=== PATIENT | male | born 1965 | race African-American/Black ===

== ENCOUNTER 2017-07-21 06:09 | Inpatient (IN) | payer SELFPAY ==
[2017-07-21] VITALS (10 sets, daily range): BP systolic 158–167; BP diastolic 78–92; PULSE 94–123; RESP 16–34; TEMP 97.6–98.8; O2SAT 93–96
[~2017-07-21] VITALS: Ht 185.4 cm; Wt 135.1 kg
[~2017-07-21 06:09] MED LIST: ALBU6.7H INH; AMLO5TAB22 PO; DOXY100T PO; OSEL75 PO
[2017-07-21] MEDS ORDERED: SODIUM CHLORIDE 0.9% FLUSH 10 ML FLUSH IVF PRN (06:15)
[2017-07-21] MEDS ORDERED: AMLO5CAP PO (06:18)
[2017-07-21] MEDS ORDERED: QUET1TAB10 PO (06:19)
[2017-07-21] MEDS ORDERED: SERT25TA83 PO (06:19)
[2017-07-21] MEDS ORDERED: ALBU6.7H INH (06:20)
[2017-07-21] MEDS: RESP: ALBUTEROL 2.5 MG/IPRATROPIUM 0.5 MG NEB (SCH) INH ×5 (06:25→19:48)
--- NOTE | 2017-07-21 06:30 | PD ---
HPI Chief Complaint: Respiratory Symptoms Time Seen by Provider: 06:15 Travel History International Travel<30 days: No Contact w/Intl Traveler<30days: No Traveled to known affect area: No History of Present Illness HPI 51-year-old male came to the emergency room with history of progressive shortness of breath since yesterday. Patient was brought in by EMS. He has history of asthma and patient received an albuterol nebulizer as well as IV Solu -Medrol en route. On asking patient said he did have some chest pain mostly on the left side of the chest without any radiation. He was also complaining of some headache. Patient seems to be in significant distress. Oxygen saturation was in low 90s. Patient denies any oxygen requirement at home. He does not have his asthma medications and did not take any inhalers. Patient has history of diabetes and his blood sugar was 145 on route. Patient was slightly tachycardic with heart rate in 1 teens upon arrival while on the albuterol nebulizer. Patient denies any hospitalization or ER visit due to asthma. He is a smoker. Denies any coronary artery disease history. Upon asking patient said the last time he used cocaine was one month ago. He was in [facility] for 2 weeks for cocaine rehabilitation and was discharged from there 2 days ago. [facility] Past Medical History Narrative Medical List of his past medical, surgical, social and family history is reviewed from the nursing note. Arthritis: Yes (RA) Asthma: No Anxiety: Yes Depression: Yes Heart Rhythm Problems: No Cancer: No Cardiovascular Problems: Yes High Cholesterol: Yes Chemotherapy: No Chest Pain: Yes Congestive Heart Failure: No COPD: No Cerebrovascular Accident: No Diminished Hearing: Yes (LT. EAR) Endocrine: Yes Gastrointestinal Disorders: No GERD: Yes Genitourinary: No Headaches: Yes Hiatal Hernia: No Hypertension: Yes Immune Disorder: No Implanted Vascular Access Dvce: No Kidney Stones: No Musculoskeletal: Yes Neurologic: Yes Psychiatric: Yes Reproductive: No Respiratory: Yes (asthma) Immunizations Current: Yes Migraines: No Radiation Therapy: No Renal Failure: No Schizophrenia: Yes Seizures: Yes (X 1 COCAINE INDUSED) Sickle Cell Disease: No Sleep Apnea: Yes (CPAP AT HOME) Thyroid Disease: No Triglycerides - High: Yes Ulcer: No Influenza Vaccination: No Past Surgical History Abdominal Surgery: No AICD: No Arteriovenous Shunt: No Body Medical Devices: STATES SOMETHING IN MY EAR Cardiac Surgery: No Ear Surgery: No Endocrine Surgery: No Eye Surgery: No Genitourinary Surgery: No Gynecologic Surgery: No Insulin Pump: No Joint Replacement: No Neurologic Surgery: No Oral Surgery: No Pacemaker: No Thoracic Surgery: No Other Surgery: Yes (TENDON REPAIR BILATERAL THUMBS) Social History Alcohol Use: Yes (occasional ) Tobacco Use: Yes (cocaine 2 days ago) Substance Use: Yes (CRACK, COCAINE, MARIJUANA. states 4 wks ago stopped using) Allergies-Medications (Allergen,Severity, Reaction): Coded Allergies: milk (Unverified Allergy, Severe, Respiratory Failure, 07/21/17) PT. STATED NECK CLOSES OFF AND CANT BREATH lisinopril (Unverified Adverse Reaction, Mild, Cough, 07/21/17) Uncoded Allergies: WOOL (Allergy, Severe, RASH, 10/03/14) Comments List of his allergies reviewed from the nursing note. Reported Meds & Prescriptions Reported Meds & Active Scripts Active Reported Proventil Hfa 6.7 GM Inh (Albuterol Sulfate) 90 Mcg/Act Aer 1 Puff INH Q4H PRN Quetiapine (Quetiapine Fumarate) 300 Mg Tab 300 Mg PO HS Sertraline (Sertraline HCl) 25 Mg Tab 15 Mg PO DAILY Amlodipine-Benazepril 5-10 Mg Cap 1 Cap PO DAILY Narrative Medication List of his home medications reviewed from the nursing note. Review of Systems Except as stated in HPI: all other systems reviewed are Neg Physical Exam Narrative GENERAL: Awake, alert, obese, significant distress SKIN: Focused skin assessment warm/dry. HEAD: Atraumatic. Normocephalic. EYES: Pupils equal and round. No scleral icterus. No injection or drainage. ENT: No nasal bleeding or discharge. Mucous membranes pink and moist. NECK: Trachea midline. No JVD. CARDIOVASCULAR: Regular rate and rhythm. No murmur appreciated. RESPIRATORY: 630 entry bilaterally with end expiratory wheeze. Significant coughing the entire time during auscultation. GASTROINTESTINAL: Abdomen soft, non-tender, nondistended. Hepatic and splenic margins not palpable. MUSCULOSKELETAL: No obvious deformities. No clubbing. No cyanosis. No edema. Bilateral gynecomastia NEUROLOGICAL: Awake and alert. No obvious cranial nerve deficits. Motor grossly within normal limits. Normal speech. PSYCHIATRIC: Appropriate mood and affect; insight and judgment normal. Data Data Last Documented VS Orders Orders Complete Blood Count With Diff (07/21/17 06:15) Basic Metabolic Panel (Bmp) (07/21/17 06:15) B-Type Natriuretic Peptide (07/21/17 06:15) Magnesium (Mg) (07/21/17 06:15) Troponin I (07/21/17 06:15) Iv Access Insert/Monitor (07/21/17 06:15) Electrocardiogram (07/21/17 06:15) Ecg Monitoring (07/21/17 06:15) Oximetry (07/21/17 06:15) Oxygen Administration (07/21/17 06:15) Chest, Single Ap (07/21/17 06:15) Sodium Chloride 0.9% Flush (Ns Flush) (07/21/17 06:15) Albuterol-Ipratropium Neb (Duoneb Neb) (07/21/17 06:15) Drug Screen, Random Urine (07/21/17 06:23) Aspirin Chew (Aspirin Chew) (07/21/17 08:15) Enoxaparin Inj (Lovenox Inj) (07/21/17 08:45) Admit Order (Ed Use Only) (07/21/17 ) Labs Laboratory Tests Test 07/21/17 06:25 07/21/17 06:28 White Blood Count 8.9 TH/MM3 Red Blood Count 4.74 MIL/MM3 Hemoglobin 13.2 GM/DL Hematocrit 40.2 % Mean Corpuscular Volume 85.0 FL Mean Corpuscular Hemoglobin 27.9 PG Mean Corpuscular Hemoglobin Concent 32.8 % Red Cell Distribution Width 15.1 % Platelet Count 193 TH/MM3 Mean Platelet Volume 7.9 FL Neutrophils (%) (Auto) 69.8 % Lymphocytes (%) (Auto) 21.1 % Monocytes (%) (Auto) 7.2 % Eosinophils (%) (Auto) 1.5 % Basophils (%) (Auto) 0.4 % Neutrophils # (Auto) 6.2 TH/MM3 Lymphocytes # (Auto) 1.9 TH/MM3 Monocytes # (Auto) 0.6 TH/MM3 Eosinophils # (Auto) 0.1 TH/MM3 Basophils # (Auto) 0.0 TH/MM3 CBC Comment DIFF FINAL Differential Comment Blood Urea Nitrogen 13 MG/DL Creatinine 1.19 MG/DL Random Glucose 143 MG/DL Calcium Level 7.6 MG/DL Magnesium Level 1.6 MG/DL Sodium Level 141 MEQ/L Potassium Level 3.4 MEQ/L Chloride Level 109 MEQ/L Carbon Dioxide Level 25.3 MEQ/L Anion Gap 7 MEQ/L Estimat Glomerular Filtration Rate 79 ML/MIN Troponin I 0.25 NG/ML B-Type Natriuretic Peptide 19 PG/ML Urine Color YELLOW Urine Turbidity CLEAR Urine pH 5.5 Urine Specific [place] 1.020 Urine Protein TRACE mg/dL Urine Glucose (UA) NEG mg/dL Urine Ketones NEG mg/dL Urine Occult Blood NEG Urine Nitrite NEG Urine Bilirubin NEG Urine Urobilinogen LESS THAN 2.0 MG/DL Urine Leukocyte Esterase NEG Urine WBC 1 /hpf Urine Squamous Epithelial Cells 1 /hpf Urine Mucus FEW /lpf Microscopic Urinalysis Comment CULT NOT INDICATED Urine Opiates Screen NEG Urine Barbiturates Screen NEG Urine Amphetamines Screen NEG Urine Benzodiazepines Screen NEG Urine Cocaine Screen NEG Urine Cannabinoids Screen NEG MDM Medical Decision Making Medical Screen Exam Complete: Yes Emergency Medical Condition: Yes Medical Record Reviewed: Yes Interpretation(s) Twelve-lead EKG was reviewed by me. Normal sinus rhythm, normal axis, tachycardia, lateral and inferior T-wave inversions. These are unchanged from 2015. Heart rate of 116 bpm. Differential Diagnosis Acute asthma exacerbation, congestive heart failure, angina, ACS Narrative Course 6:48 AM patient was given 2 DuoNeb's. I reviewed his chest x-ray and appears to be grossly within normal limits. The lungs and not fully inflated. CBC is back which is within normal limits. Case will be signed over to the oncoming ER physician. Procedures EKG Prior to Arrival: Nadeen Traylor MD Jul 21, 2017 06:30
[2017-07-21 06:40] LABS: AUTOMATED NEUTROPHIL # 6.2 TH/MM3 (1.8-7.7); BASOPHIL % 0.4 % (0.0-2.0); EOSINOPHIL # 0.1 TH/MM3 (0-0.4); EOSINOPHIL % 1.5 % (0.0-4.0); HEMATOCRIT 40.2 % (39.0-51.0); HEMO FLAGS DIFF FINAL; LYMPH % 21.1 % (9.0-44.0); LYMPHOCYTE # 1.9 TH/MM3 (1.0-4.8); MEAN CORPUSCULAR HEMOGLOBIN 27.9 PG (27.0-34.0); MEAN CORPUSCULAR HGB CONC 32.8 % (32.0-36.0); MONO % 7.2 % (0.0-8.0); NEUT % 69.8 % (16.0-70.0); PLATELET COUNT 193 TH/MM3 (150-450); RED BLOOD COUNT 4.74 MIL/MM3 (4.50-5.90); RED CELL DISTRIBUTION WIDTH 15.1 % (11.6-17.2); WHITE BLOOD COUNT 8.9 TH/MM3 (4.0-11.0)
--- NOTE | 2017-07-21 06:57 | RADRPT ---
EXAM DATE/TIME: 07/21/2017 06:30 [facility] COMPARISON: CHEST PA & LAT, November 07, 2015, 17:30. CHEST SINGLE AP, April 14, 2015, 13:59. INDICATIONS : Shortness of breath with cough MEDICAL HISTORY : None. SURGICAL HISTORY : None. ENCOUNTER: Initial ACUITY: 2 days PAIN SCORE: 7/10 LOCATION: Bilateral chest FINDINGS: No infiltrate, effusion or pneumothorax demonstrated. Mild bilateral hilar fullness is similar to bef ore probably prominent pulmonary arteries. Normal, stable heart size. CONCLUSION: No evidence of acute cardiopulmonary disease. Geovani Phillips MD on July 21, 2017 at 6:54 Board Certified Radiologist. This report was verified electronically.
[2017-07-21 07:07] LABS: BICARBONATE 25.3 MEQ/L (21.0-32.0); MAGNESIUM 1.6 MG/DL (1.5-2.5); POTASSIUM 3.4 MEQ/L (3.5-5.1)
[2017-07-21] MEDS ORDERED: ASPIRIN 81 MG CHEW TAB CHEW ONE (08:15)
[2017-07-21] MEDS ORDERED: ENOXAPARIN SODIUM 120 MG/0.8 ML SYRINGE SQ ONE (08:45)
--- NOTE | 2017-07-21 09:07 | PD ---
Physical Exam Narrative signed out to me by Dr. Garrison. Please see her documentation for complete details. Briefly, patient is a 51-year-old male comes in complaining of chest pain and shortness of breath. He says the pain is on the left side and he feels like it makes it hard to breathe. He was given 3 nebulizer treatments and states breathing feels better. However , he says he still has the pain. Exam shows lungs to be clear to auscultation, heart is regular in rate and rhythm. Data Data Last Documented VS Vital Signs Date Time Temp Pulse Resp B/P (MAP) Pulse Ox O2 Delivery O2 Flow Rate FiO2 07/21/17 08:00 100 16 161/85 (110) 93 Nasal Cannula 2.00 07/21/17 06:11 98.8 Orders Orders Complete Blood Count With Diff (07/21/17 06:15) Basic Metabolic Panel (Bmp) (07/21/17 06:15) B-Type Natriuretic Peptide (07/21/17 06:15) Magnesium (Mg) (07/21/17 06:15) Troponin I (07/21/17 06:15) Iv Access Insert/Monitor (07/21/17 06:15) Electrocardiogram (07/21/17 06:15) Ecg Monitoring (07/21/17 06:15) Oximetry (07/21/17 06:15) Oxygen Administration (07/21/17 06:15) Chest, Single Ap (07/21/17 06:15) Sodium Chloride 0.9% Flush (Ns Flush) (07/21/17 06:15) Albuterol-Ipratropium Neb (Duoneb Neb) (07/21/17 06:15) Drug Screen, Random Urine (07/21/17 06:23) Aspirin Chew (Aspirin Chew) (07/21/17 08:15) Enoxaparin Inj (Lovenox Inj) (07/21/17 08:45) Admit Order (Ed Use Only) (07/21/17 ) Labs Laboratory Tests Test 07/21/17 06:25 07/21/17 06:28 White Blood Count 8.9 TH/MM3 Red Blood Count 4.74 MIL/MM3 Hemoglobin 13.2 GM/DL Hematocrit 40.2 % Mean Corpuscular Volume 85.0 FL Mean Corpuscular Hemoglobin 27.9 PG Mean Corpuscular Hemoglobin Concent 32.8 % Red Cell Distribution Width 15.1 % Platelet Count 193 TH/MM3 Mean Platelet Volume 7.9 FL Neutrophils (%) (Auto) 69.8 % Lymphocytes (%) (Auto) 21.1 % Monocytes (%) (Auto) 7.2 % Eosinophils (%) (Auto) 1.5 % Basophils (%) (Auto) 0.4 % Neutrophils # (Auto) 6.2 TH/MM3 Lymphocytes # (Auto) 1.9 TH/MM3 Monocytes # (Auto) 0.6 TH/MM3 Eosinophils # (Auto) 0.1 TH/MM3 Basophils # (Auto) 0.0 TH/MM3 CBC Comment DIFF FINAL Differential Comment Blood Urea Nitrogen 13 MG/DL Creatinine 1.19 MG/DL Random Glucose 143 MG/DL Calcium Level 7.6 MG/DL Magnesium Level 1.6 MG/DL Sodium Level 141 MEQ/L Potassium Level 3.4 MEQ/L Chloride Level 109 MEQ/L Carbon Dioxide Level 25.3 MEQ/L Anion Gap 7 MEQ/L Estimat Glomerular Filtration Rate 79 ML/MIN Troponin I 0.25 NG/ML B-Type Natriuretic Peptide 19 PG/ML Urine Color YELLOW Urine Turbidity CLEAR Urine pH 5.5 Urine Specific [place] 1.020 Urine Protein TRACE mg/dL Urine Glucose (UA) NEG mg/dL Urine Ketones NEG mg/dL Urine Occult Blood NEG Urine Nitrite NEG Urine Bilirubin NEG Urine Urobilinogen LESS THAN 2.0 MG/DL Urine Leukocyte Esterase NEG Urine WBC 1 /hpf Urine Squamous Epithelial Cells 1 /hpf Urine Mucus FEW /lpf Microscopic Urinalysis Comment CULT NOT INDICATED Urine Opiates Screen NEG Urine Barbiturates Screen NEG Urine Amphetamines Screen NEG Urine Benzodiazepines Screen NEG Urine Cocaine Screen NEG Urine Cannabinoids Screen NEG MDM Supervised Visit with CHRISTIANO: No Narrative Course Chest x-ray shows no acute abnormalities. Labs show an elevated troponin. Patient given aspirin and a dose of Lovenox. He will be admitted for further management. Diagnosis Primary Impression: Elevated troponin I level Additional Impression: Asthma Qualified Codes: J45.909 - Unspecified asthma, uncomplicated Admitting Information Admitting Physician Requests: Admit Condition: Stable Jenny Baires MD Jul 21, 2017 09:07
--- NOTE | 2017-07-21 09:26 | HHI.HP ---
HPI Service Family Medicine Primary Care Physician No Primary Care Physician Admission Diagnosis Elevated Troponin, chest Pain Diagnoses: International Travel<30 Days: No Contact w/Intl Traveler<30days: No Known Affected Area: No History of Present Illness Patient is a 51-year-old man with a history of diabetes, hypertension, polysubstance abuse, medication noncompliance, ZAKIA who presented to the Emergency Department feeling like he couldn't breathe. He first noticed this shortness of breath yesterday around 2 PM. Associated with this shortness of breath, he had some wheezing and coughing up of red-yellow sputum. He also reports feeling warm and sweaty and likely febrile yesterday. He also has had a few episodes of post-tussive emesis. He also reports some chest pain that is worse with coughing with pain radiating to a right lower molar. He also reports some cold symptoms last night. Patient last used cocaine a month ago. He states that he is now homeless. Per ED note: He was in [facility] for 2 weeks for cocaine rehabilitation and was discharged from there 2 days ago. (Raymond Reardon MD R2) Review of Systems Constitutional: COMPLAINS OF: Diaphoretic episodes, Fever, Chills Endocrine: DENIES: Polydipsia, Polyuria Eyes: DENIES: Blurred vision, Diplopia, Eye pain, Vision loss, Double Vision Ears, nose, mouth, throat: COMPLAINS OF: Throat pain, Running Nose Respiratory: COMPLAINS OF: Cough, Wheezing, Sputum production, Shortness of breath Cardiovascular: COMPLAINS OF: Chest pain, Dyspnea on Exertion, Lower Extremity Edema (ankles), Orthopnea, DENIES: Palpitations, Syncope Gastrointestinal: COMPLAINS OF: Constipation, Vomiting (post-tussive), DENIES: Abdominal pain, Black stools, Bloody stools, Diarrhea, Nausea Genitourinary: COMPLAINS OF: Dysuria (aguillon), Nocturia (2-3 q night) Musculoskeletal: DENIES: Joint pain, Muscle aches, Joint Swelling, Back pain, Neck pain Integumentary: DENIES: Pruritus, Rash Neurologic: COMPLAINS OF: Headache, Paresthesias (little right hand), DENIES: Poor Balance (Raymond Reardon MD R2) Past Family Social History Past Medical History Polysubstance abuse including cocaine Hypertension diabetes mellitus, type II Cocaine disease-induced seizures Dyslipidemia Sleep apnea GERD Rheumatoid arthritis Schizophrenia Anxiety Depression Medication noncompliance when young, had asthma Past Surgical History ORIF the right angle mandible with plates and screws Reported Medications Reported Meds & Active Scripts Active Reported Proventil Hfa 6.7 GM Inh (Albuterol Sulfate) 90 Mcg/Act Aer 1 Puff INH Q4H PRN Quetiapine (Quetiapine Fumarate) 300 Mg Tab 300 Mg PO HS Sertraline (Sertraline HCl) 25 Mg Tab 15 Mg PO DAILY Amlodipine-Benazepril 5-10 Mg Cap 1 Cap PO DAILY (Raymond Reardon MD R2) Allergies: Coded Allergies: milk (Unverified Allergy, Severe, Respiratory Failure, 07/21/17) PT. STATED NECK CLOSES OFF AND CANT BREATH lisinopril (Unverified Adverse Reaction, Mild, Cough, 07/21/17) Uncoded Allergies: WOOL (Allergy, Severe, RASH, 10/03/14) Active Ordered Medications Current Medications Medications (Trade) Dose Ordered Sig/Dimitris Route Start Time Stop Time Status Last Admin (Proair Hfa Inh) 1 puff Q4H PRN INH 07/21/17 09:45 (SEROquel) 300 mg HS PO 07/21/17 21:00 (Norvasc) 1 mg DAILY PO 07/22/17 09:00 Sodium Chloride 1,000 ml @ 75 mls/hr [id number] IV 07/21/17 10:07 07/21/17 10:44 (NS Flush) 2 ml BID IV FLUSH 07/21/17 21:00 (NS Flush) 2 ml UNSCH PRN IV FLUSH 07/21/17 10:15 (Duoneb Neb) 1 ampule Q4HR NEB INH 07/21/17 12:00 07/21/17 15:42 (Albuterol Neb) 2.5 mg Q2HR NEB PRN INH 07/21/17 10:15 (Deltasone) 40 mg DAILY PO 07/22/17 09:00 (Habitrol 21 Mg Patch.24 Hr) 1 patch DAILY TD 07/21/17 10:15 07/21/17 11:00 (Zithromax) 500 mg Q24H PO 07/21/17 12:00 07/24/17 11:59 07/21/17 12:07 (D50w (Vial) Inj) 50 ml UNSCH PRN IV 07/21/17 10:30 (Glucagon Inj) 1 mg UNSCH PRN OTHER 07/21/17 10:30 (NovoLOG SUPPLEMENTAL SCALE) 1 ACHS SLIDING SCALE SQ 07/21/17 11:00 07/21/17 15:11 (Tylenol) 650 mg Q6H PRN PO 07/21/17 11:00 (Sebec 5-325 Mg) 1 tab Q4H PRN PO 07/21/17 11:00 (Sebec 10-325 Mg) 1 tab Q4H PRN PO 07/21/17 11:00 (Morphine Inj) 4 mg Q3H PRN IV 07/21/17 11:00 (Narcan Inj) 0.4 mg UNSCH PRN IV 07/21/17 11:00 (Robitussin Ac 200-20 Mg/10 ml Liq) 10 ml Q4H PRN PO 07/21/17 11:00 07/21/17 16:44 (Zoloft) 100 mg DAILY PO 07/22/17 09:00 (Nitrostat Sl) 0.3 mg Q5M PRN SL 07/21/17 16:30 Heparin Sodium/ Dextrose 250 ml @ 16.44 mls/ hr TITRATE PRN IV 07/21/17 17:15 Future hold (Heparin Inj) 5,000 units UNSCH PRN IV 07/21/17 18:00 (Heparin Inj) 2,500 units UNSCH PRN IV 07/21/17 18:00 Family History He says that his mother and father both had MO and hypertension Social History He hasn't used cocaine in a month, he no longer drinks on a daily basis, he still smokes cigarettes daily. He has smoked about 2ppd since 15yo. He is homeless now. (Raymond Reardon MD R2) Physical Exam Vital Signs Vital Signs Date Time Temp Pulse Resp B/P (MAP) Pulse Ox O2 Delivery O2 Flow Rate FiO2 07/21/17 08:00 100 16 161/85 (110) 93 Nasal Cannula 2.00 07/21/17 06:22 123 32 162/78 (106) 93 Nasal Cannula 6.00 07/21/17 06:22 93 Nasal Cannula 6.00 07/21/17 06:22 93 Nasal Cannula 6.00 07/21/17 06:11 98.8 120 34 158/91 (742) 94 Physical Exam GENERAL: This is a well-nourished, well-developed patient, initially sleeping, but has coughing fits, which seem uncomfortable. SKIN: No rashes, ecchymoses or lesions. Cool and dry. HEAD: Atraumatic. Normocephalic. EYES: Arcus senilis present bilaterally. Pupils equal round and reactive. Extraocular motions intact. No scleral icterus. No injection or drainage. ENT: Nose without bleeding, purulent drainage or septal hematoma. Throat without erythema, tonsillar hypertrophy or exudate. Uvula midline. Airway patent. NECK: Trachea midline. No JVD or lymphadenopathy. Supple, nontender, no meningeal signs. CARDIOVASCULAR: Borderline tachycardic rate and regular rhythm without murmurs, gallops, or rubs. RESPIRATORY: Breath sounds decreased bilaterally with expiratory wheezes, but no rales or rhonchi. GASTROINTESTINAL: Abdomen soft, non-tender, nondistended. No hepato-splenomegaly , or palpable masses. No guarding. MUSCULOSKELETAL: Extremities without clubbing, cyanosis, or edema. No joint tenderness, effusion, or edema noted. No calf tenderness. There is an ecchymosis over his lower left anterior guzmán. NEUROLOGICAL: Awake and alert. Cranial nerves II through XII grossly intact. Motor and sensory grossly within normal limits. Five out of 5 muscle strength in all muscle groups. Normal speech. Laboratory Laboratory Tests Test 07/21/17 06:25 07/21/17 06:28 White Blood Count 8.9 Red Blood Count 4.74 Hemoglobin 13.2 Hematocrit 40.2 Mean Corpuscular Volume 85.0 Mean Corpuscular Hemoglobin 27.9 Mean Corpuscular Hemoglobin Concent 32.8 Red Cell Distribution Width 15.1 Platelet Count 193 Mean Platelet Volume 7.9 Neutrophils (%) (Auto) 69.8 Lymphocytes (%) (Auto) 21.1 Monocytes (%) (Auto) 7.2 Eosinophils (%) (Auto) 1.5 Basophils (%) (Auto) 0.4 Neutrophils # (Auto) 6.2 Lymphocytes # (Auto) 1.9 Monocytes # (Auto) 0.6 Eosinophils # (Auto) 0.1 Basophils # (Auto) 0.0 CBC Comment DIFF FINAL Differential Comment Blood Urea Nitrogen 13 Creatinine 1.19 Random Glucose 143 Calcium Level 7.6 Magnesium Level 1.6 Sodium Level 141 Potassium Level 3.4 Chloride Level 109 Carbon Dioxide Level 25.3 Anion Gap 7 Estimat Glomerular Filtration Rate 79 Troponin I 0.25 B-Type Natriuretic Peptide 19 Urine Opiates Screen NEG Urine Barbiturates Screen NEG Urine Amphetamines Screen NEG Urine Benzodiazepines Screen NEG Urine Cocaine Screen NEG Urine Cannabinoids Screen NEG (Raymond Reardon MD R2) Result Diagram: 07/21/1762407/21/17624 Imaging Last Impressions Chest X-Ray 07/21/17 0615 Signed Impressions: Service Date/Time: Friday, July 21, 2017 06:30 - CONCLUSION: No evidence of acute cardiopulmonary disease. Geovani Phillips MD CT Angiography 07/21/17 0000 Signed Impressions: Service Date/Time: Friday, July 21, 2017 11:02 - CONCLUSION: 1. Less than optimal opacification of the pulmonary arteries. However, no PE is identified through the lobar and some of the segmental level pulmonary artery branches. 2. Nonspecific mediastinal and right hilar lymphadenopathy. Geovani Chowdhury MD Course Patient received IV Solu-Medrol from EMS en route to emergency department. In emergency department, patient received DuoNeb, normal saline, chest x-ray, oxygen, EKG, troponin, magnesium, BNP, BMP, CBC, UDS, aspirin, therapeutic dose of Lovenox 1, admission order. (Raymond Reardon MD R2) Caprini VTE Risk Assessment Caprini VTE Risk Assessment: No/Low Risk (score <= 1) Caprini Risk Assessment Model Point Value = 1 Point Value = 2 Point Value = 3 Point Value = 5 Age 41-60 Minor surgery BMI > 25 kg/m2 Swollen legs Varicose veins or History of unexplained or recurrent spontaneous Oral contraceptives or hormone replacement Sepsis (< 1 month) Serious lung disease, including pneumonia (< 1 month) Abnormal pulmonary function Acute myocardial infarction Congestive heart failure (< 1 month) History of inflammatory bowel disease Medical patient at bed rest Age 61-74 Arthroscopic surgery Major open surgery (> 45 min) Laparoscopic surgery (> 45 min) Malignancy Confined to bed (> 72 hours) Immobilizing plaster cast Central venous access Age >= 75 History of VTE Family history of VTE Factor V Leiden Prothrombin [id number] Lupus anticoagulant Anticardiolipin antibodies Elevated serum homocysteine Heparin-induced thrombocytopenia Other congenital or acquired thrombophilia Stroke (< 1 month) Elective arthroplasty Hip, pelvis, or leg fracture Acute spinal cord injury (< 1 month) Prophylaxis Regimen Total Risk Factor Score Risk Level Prophylaxis Regimen 0-1 Low Early ambulation 2 Moderate Order ONE of the following: *Sequential Compression Device (SCD) *Heparin 5000 units SQ BID 3-4 Higher Order ONE of the following medications: *Heparin 5000 units SQ TID *Enoxaparin/Lovenox 40 mg SQ daily (WT < 150 kg, CrCl > 30 mL/min) *Enoxaparin/Lovenox 30 mg SQ daily (WT < 150 kg, CrCl > 10-29 mL/min) *Enoxaparin/Lovenox 30 mg SQ BID (WT < 150 kg, CrCl > 30 mL/min) AND/OR *Sequential Compression Device (SCD) 5 or more Highest Order ONE of the following medications: *Heparin 5000 units SQ TID (Preferred with Epidurals) *Enoxaparin/Lovenox 40 mg SQ daily (WT < 150 kg, CrCl > 30 mL/min) *Enoxaparin/Lovenox 30 mg SQ daily (WT < 150 kg, CrCl > 10-29 mL/min) *Enoxaparin/Lovenox 30 mg SQ BID (WT < 150 kg, CrCl > 30 mL/min) AND *Sequential Compression Device (SCD) (Raymond Reardon MD R2) Assessment and Plan Assessment and Plan Patient is a 51-year-old man with a history of diabetes, hypertension, polysubstance abuse, medication noncompliance, ZAKIA who presented to the Emergency Department feeling like he couldn't breathe. Patient reports persistent coughing with change in sputum production and viscosity. Smoking history and physical exam are consistent with COPD exacerbation. We'll admit for COPD exacerbation, steroids, antibiotics, ACS rule out for elevated troponin. Code Status Full code Discussed Condition With Patient seen and discussed with Dr. Hendrickson. (Raymond Reardon MD R2) Attending Attestation Patient seen and examined. Case reviewed and discussed with the resident team. Agree with plan of care as discussed with me and documented in the resident note. saw pt after CTA. He is not the clearest historian but reported to me that he had multiple sxs "half the day" prior to admission. He stated he had a "gripping " chest discomfort as well as SOB, nausea, diaphoresis, and some cough on and off until he presented to the hospital. he is a known cocaine abuser but his last use was a month ago. His troponins are elevated. He did have an NSTEMI in 2015 and has multiple risk factors for CAD. Ordered NTG as some of his SOB can be cardiac. He has not had a history of prior admission for pulmonary problems. His EKG shows LVH and some strain but also inferior and lateral possible ischemic changes. However, his EKG is very similar to the ones done in 2015 and [address] elevations. Appreciate help of Cardiology as he may need to be studied for CAD as he is high risk. (Ashley Hendrickson MD) Problem List: (1) COPD exacerbation ICD Codes: J44.1 - Chronic obstructive pulmonary disease with (acute) exacerbation Plan: -Admit to inpatient -COPD educator consult -Trend CBC -Half maintenance fluids -Tylenol for pain 1-2, Sebec for pain 3-10, morphine for breakthrough pain -Albuterol nebulizer every 2 hours when necessary for shortness of breath, to wean onto albuterol inhaler every 4 hours when necessary for shortness of breath -Duo nebs every 4 hours -Azithromycin 500 mg by mouth daily -Guaifenesin and codeine by mouth every 4 hours when necessary cough -Nicotine patch daily -Prednisone 40 mg by mouth daily -Blood culture -Influenza A/B antigen -Sputum culture and Gram stain -Incentive spirometry -Oxygen as needed -Monitor pulse ox, vital signs -CT pulmonary angiogram to rule out PE -Smoking cessation counseling (2) Elevated troponin I level ICD Codes: R79.89 - Elevated troponin I level Status: Acute Plan: Troponin I trend: 0.25, 0.27. EKG appears unchanged. -ACS rule out with every 6 hours troponin and EKG -Cardiology consult. Dr. Connelly discussed case with Dr. Gutierrez, who recommended heparin drip and titration, which has been ordered -Patient received aspirin in emergency department -Morphine, oxygen, nitroglycerin, beta everette ordered -Heart healthy diet -Pain medications as above -quality assurance monitor final/telemetry -Treating hypertension and diabetes as below (3) Diabetes ICD Codes: E11.9 - Diabetes Status: Acute Plan: -Low-dose sliding scale insulin (4) Hypertension ICD Codes: I10 - Hypertension Status: Acute Plan: -Continue home medications of amlodipine, lisinopril (5) Hypokalemia ICD Codes: E87.6 - Hypokalemia Status: Acute Plan: Patient presented potassium 3.4. -40 mEq potassium ordered (6) Noncompliance ICD Codes: Z91.19 - Noncompliance Status: Acute Plan: Patient with a history of noncompliance in the context of homelessness. -Case management consult (7) Depression ICD Codes: F32.9 - Depression Status: Acute Plan: -Continue patient's home medication of Zoloft and Seroquel (8) No contraindication to deep vein thrombosis (DVT) prophylaxis ICD Codes: Z78.9 - Other specified health status Plan: -Patient currently on therapeutic anticoagulation initially with Lovenox for troponin elevation, switched to heparin drip and titration. (9) Nutrition, metabolism, and development symptoms ICD Codes: R63.8 - Other symptoms and signs concerning food and fluid intake Plan: Fluids: Normal saline IV at 75 mm per hour Electrolytes: Monitor and replete as necessary Nutrition: Heart healthy diet GI ppx: Not currently indicated (Raymond Reardon MD R2) Physician Certification 2 Midnight Certification Type: Admission for Inpatient Services Order for Inpatient Services The services are ordered in accordance with Medicare regulations or non- Medicare payer requirements, as applicable. In the case of services not specified as inpatient-only, they are appropriately provided as inpatient services in accordance with the 2-midnight benchmark. Estimated LOS (days): 2 2 days is the estimated time the patient will need to remain in the hospital, assuming treatment plan goals are met and no additional complications. Post-Hospital Plan: Not yet determined (Raymond Reardon MD R2) Raymond Reardon MD R2 Jul 21, 2017 09:26 Ashley Hendrickson MD Jul 22, 2017 10:32
[2017-07-21] MEDS ORDERED: ALBUTEROL SULFATE 90 MCG/ACT HFA 8 GM INHALER INH PRN (09:45)
[2017-07-21] MEDS ORDERED: RESP: ALBUTEROL 2.5 MG/3 ML NEB (PRN) INH (10:15)
[2017-07-21] MEDS ORDERED: SODIUM CHLORIDE 0.9% FLUSH 10 ML FLUSH IV FLUSH PRN (10:15)
[2017-07-21] MEDS ORDERED: DEXTROSE 50% IN WATER 50 ML VIAL(D50) IV PRN (10:30)
[2017-07-21] MEDS ORDERED: GLUCAGON 1 MG/ML VIAL OTHER PRN (10:30)
[2017-07-21] MEDS: SODIUM CHLOR 0.9% 1000 ML INJ 1,000 ML IV SCH ×2 (10:44→22:03)
[2017-07-21 11:00] LABS: BLOOD, URINE NEG (NEG); GLUCOSE,URINE NEG (NEG); KETONE, URINE NEG (NEG); MUCUS URINE FEW /lpf (OCC); NITRITE,URINE NEG (NEG); PH, URINE 5.5 (5.0-8.5); SQUAMOUS EPITHELIAL CELL URINE 1 /hpf (0-5); URINE COLOR YELLOW (YELLW/STRAW)
[2017-07-21] MEDS ORDERED: ACETAMINOPHEN/HYDROcodone 325 MG/5 MG TAB PO PRN (11:00)
[2017-07-21] MEDS ORDERED: ACETAMINOPHEN 325 MG TAB PO PRN (11:00)
[2017-07-21] MEDS ORDERED: MORPHINE SULFATE 4 MG/ML INJ IV PRN (11:00)
[2017-07-21] MEDS ORDERED: NALOXONE HCL 0.4 MG/ML AMP IV PRN (11:00)
[2017-07-21] MEDS: NICOTINE 21 MG/24 HR PATCH TD SCH (11:00)
[2017-07-21] MEDS: INSULIN ASPART SUPPLEMENTAL SCALE SQ SCH ×3 (11:00→21:56)
[2017-07-21 11:01] LABS: COMMENT (UR) CULT NOT INDICATED; CULTURE IF INDICATED CULT NOT INDICATED
[2017-07-21] MEDS ORDERED: IOHEXOL 350 MG/ML 10 ML VIAL (for RAD DIAG) IVCONTRAST ONE (11:20)
--- NOTE | 2017-07-21 12:02 | RADRPT ---
EXAM DATE/TIME: 07/21/2017 11:02 [facility] COMPARISON: No previous studies available for comparison. INDICATIONS : Shortness of breath and left sided chest pain today. IV CONTRAST: 72 cc Omnipaque 350 (iohexol) IV RADIATION DOSE: 12.02 CTDIvol (mGy) ; Patient motion MEDICAL HISTORY : Hypertension. diabetes, tuberculosis SURGICAL HISTORY : None. ENCOUNTER: Initial ACUITY: 1 day PAIN SCALE: 5/10 LOCATION: Left chest TECHNIQUE: Volumetric scanning of the chest was performed using a pulmonary embolism protocol MIP images were re constructed. Using automated exposure control and adjustment of the mA and/or kV according to patien t size, radiation dose was kept as low as reasonably achievable to obtain optimal diagnostic quality images. DICOM format image data is available electronically for review and comparison. Follow-up recommendations for detected pulmonary nodules are based at a minimum on nodule size and pa tient risk factors according to Fleischner Society Guidelines. FINDINGS: PULMONARY ARTERIES: There is less than optimal opacification of the pulmonary arteries. However, no filling defect is vis ualized through the lobar and some of the segmental level branches. More distal PE cannot be excluded . LUNGS: There is no consolidation or pneumothorax . There is bilateral lower lobe atelectasis. PLEURAE: There is no pleural thickening or pleural effusion. MEDIASTINUM: Heart and great vessels demonstrate no acute finding. There is an enlarged AP window lymph node measu ring 12 mm in short axis diameter an enlarged right hilar lymph node measuring 16 mm. MUSCULOSKELETAL: No acute abnormality. MISCELLANEOUS: The visualized upper abdominal organs demonstrate no acute abnormality. CONCLUSION: 1. Less than optimal opacification of the pulmonary arteries. However, no PE is identified through th e lobar and some of the segmental level pulmonary artery branches. 2. Nonspecific mediastinal and right hilar lymphadenopathy. Geovani Chowdhury MD on July 21, 2017 at 11:49 Board Certified Radiologist. This report was verified electronically.
[2017-07-21] MEDS: AZITHROMYCIN 250 MG TAB PO SCH (12:07)
--- NOTE | 2017-07-21 13:37 | EKG ---
Date Performed: 07/21/2017 Time Performed: 06:16:02 PTAGE: 51 years EKG: SINUS TACHYCARDIA ST DEVIATION AND MODERATE T-WAVE ABNORMALITY, CONSIDER LATERAL ISCHEMIA S T DEVIATION AND MODERATE T-WAVE ABNORMALITY, CONSIDER INFERIOR ISCHEMIA ABNORMAL ECG PREVIOUS TRACING : 04/15/2015 02.14 Since prior tracing, sinus rate has increased. Increase in previously seen ST changes are more prominent, consider ischemia. DOCTOR: Jose Gutierrez Interpretating Date/Time 07/21/2017 13:35:40
[2017-07-21] MEDS ORDERED: NITROGLYCERIN 0.3 MG SL 100 TABS/BTL SL PRN (16:30)
[2017-07-21] MEDS: guaiFENesin/CODEINE SYRUP 200 MG/20 MG/10 ML CUP PO PRN (16:44)
[2017-07-21] MEDS ORDERED: HEPARIN-D5W 25,000 U/250 ML 250 ML IV PRN (17:15)
[2017-07-21] MEDS ORDERED: HEPARIN SODIUM - IV 10,000 UNITS/10 ML VIAL IV PRN ×4 (18:00→23:15)
[2017-07-21] MEDS ORDERED: NITROGLYCERIN 0.4 MG SL 25 TABS/BTL SL ONE (19:09)
[2017-07-21] MEDS: ACETAMINOPHEN/HYDROcodone 325 MG/10 MG TAB PO PRN (19:14)
[2017-07-21] MEDS ORDERED: METOPROLOL TARTRATE 5 MG/5 ML VIAL IV PUSH PRN (19:30)
[2017-07-21] MEDS ORDERED: POTASSIUM CHLORIDE 10 MEQ CAP PO ONE (19:45)
[2017-07-21] MEDS: QUEtiapine FUMARATE 300 MG TAB PO SCH (21:53)
[2017-07-21] MEDS: SODIUM CHLORIDE 0.9% FLUSH 10 ML FLUSH IV FLUSH SCH (21:53)
[2017-07-21 22:45] LABS: HEMATOCRIT 39.7 % (39.0-51.0); MEAN CELL VOLUME 85.3 FL (80.0-100.0); MEAN CORPUSCULAR HEMOGLOBIN 27.9 PG (27.0-34.0); MEAN CORPUSCULAR HGB CONC 32.7 % (32.0-36.0); PLATELET COUNT 205 TH/MM3 (150-450); RED BLOOD COUNT 4.65 MIL/MM3 (4.50-5.90); RED CELL DISTRIBUTION WIDTH 14.9 % (11.6-17.2); REVIEW FLAG FINAL
[2017-07-21 23:29] LABS: APTT (PATIENT) 37.1 SEC (24.3-30.1); PROTHROMBIN TIME - PATIENT 10.7 SEC (9.8-11.6)
[2017-07-22] VITALS (13 sets, daily range): BP systolic 140–170; BP diastolic 61–95; PULSE 78–115; RESP 16–21; TEMP 97.3–97.9; O2SAT 92–97
[2017-07-22] MEDS: RESP: ALBUTEROL 2.5 MG/IPRATROPIUM 0.5 MG NEB (SCH) INH ×7 (00:15→23:59)
[2017-07-22] MEDS: INSULIN ASPART SUPPLEMENTAL SCALE SQ SCH ×4 (06:00→20:39)
[2017-07-22 06:02] LABS: AUTOMATED NEUTROPHIL # 8.2 TH/MM3 (1.8-7.7); BASOPHIL % 0.3 % (0.0-2.0); EOSINOPHIL # 0.1 TH/MM3 (0-0.4); EOSINOPHIL % 0.5 % (0.0-4.0); HEMATOCRIT 38.2 % (39.0-51.0); HEMO FLAGS DIFF FINAL; LYMPH % 19.5 % (9.0-44.0); LYMPHOCYTE # 2.2 TH/MM3 (1.0-4.8); MEAN CELL VOLUME 84.9 FL (80.0-100.0); MEAN CORPUSCULAR HEMOGLOBIN 27.6 PG (27.0-34.0); MEAN CORPUSCULAR HGB CONC 32.5 % (32.0-36.0); NEUT % 71.7 % (16.0-70.0); PLATELET COUNT 201 TH/MM3 (150-450); RED CELL DISTRIBUTION WIDTH 15.3 % (11.6-17.2); WHITE BLOOD COUNT 11.5 TH/MM3 (4.0-11.0)
[2017-07-22 06:16] LABS: APTT (PATIENT) 66.4 SEC (24.3-30.1)
[2017-07-22 06:29] LABS: BICARBONATE 26.1 MEQ/L (21.0-32.0); POTASSIUM 3.9 MEQ/L (3.5-5.1)
[2017-07-22] MEDS ORDERED: FUROSEMIDE 40 MG/4 ML VIAL IV PUSH ONE (08:00)
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
[2017-07-22] MEDS ORDERED: ASPIRIN EC 325 MG TABEC PO SCH (09:00)
[2017-07-22] MEDS ORDERED: SERTRALINE PO SCH (09:00)
[2017-07-22] MEDS ORDERED: LISINOPRIL 10 MG TAB PO SCH (09:00)
[2017-07-22] MEDS ORDERED: amLODIPine BESYLATE 5 MG TAB PO SCH (09:00)
[2017-07-22] MEDS ORDERED: ENOXAPARIN SODIUM 40 MG/0.4 ML SYRINGE SQ SCH (09:00)
[2017-07-22] MEDS ORDERED: ASPIRIN 81 MG CHEW TAB CHEW SCH (09:30)
--- NOTE | 2017-07-22 09:30 | EKG ---
Date Performed: 07/21/2017 Time Performed: 12:27:28 PTAGE: 51 years EKG: SINUS TACHYCARDIA ST DEVIATION AND MODERATE T-WAVE ABNORMALITY, CONSIDER LATERAL ISCHEMIA C ompared to prior tracing no significant change ABNORMAL ECG PREVIOUS TRACING : 07/21/2017 06.16 DOCTOR: Jose Gutierrez Interpretating Date/Time 07/22/2017 09:28:12
[2017-07-22] MEDS: NITROGLYCERIN 2% OINT 1 GM PACKET TOPICAL SCH ×2 (10:24→12:00)
[2017-07-22] MEDS: SERTRALINE HCL 100 MG TAB PO SCH (10:25)
[2017-07-22] MEDS: predniSONE 20 MG TAB PO SCH (10:25)
[2017-07-22] MEDS: AZITHROMYCIN 250 MG TAB PO SCH (10:26)
[2017-07-22] MEDS: NICOTINE 21 MG/24 HR PATCH TD SCH (10:27)
[2017-07-22] MEDS: METOPROLOL TARTRATE 25 MG TAB PO SCH ×2 (10:29→20:35)
[2017-07-22] MEDS: SODIUM CHLORIDE 0.9% FLUSH 10 ML FLUSH IV FLUSH SCH ×2 (10:30→20:35)
--- NOTE | 2017-07-22 11:05 | ECHRPT ---
Indication: Short of breath CONCLUSIONS The left ventricular systolic function is low normal with an estimated ejection fraction in the rang e of 50- 55%. Mildly dilated left ventricle. Mild concentric left ventricular hypertrophy. No regional wall motion abnormalities are present. Trace mitral valve regurgitation. There is trace tricuspid valve regurgitation. Normal estimated pulmonary pressures. BP: 153 / 88 HR: 109 Rhythm: Sinus MEASUREMENTS (Male / Female) Normal Values Technical Quality:Good 2D ECHO LV Diastolic Diameter PLAX 5.5 cm 4.2 - 5.9 / 3.9 - 5.3 cm LV Systolic Diameter PLAX 4.0 cm IVS Diastolic Thickness 1.3 cm 0.6 - 1.0 / 0.6 - 0.9 cm LVPW Diastolic Thickness 1.4 cm 0.6 - 1.0 / 0.6 - 0.9 cm LV Relative Wall Thickness 0.5 RV Internal Dim ED PLAX 3.3 cm LVOT Diameter 2.1 cm LA Systolic Diameter LX 3.8 cm 3.0 - 4.0 / 2.7 - 3.8 cm LV Ejection Fraction MOD 4C 52.1 % LV Cardiac Index MOD 4C 3589.3 cm/minm LV Ejection Fraction 4C AL 54.7 % LV Cardiac Index 4C AL 3895.5 cm/minm M-MODE Aortic Root Diameter MM 2.8 cm LA Systolic Diameter MM 4.0 cm LA Ao Ratio MM 1.4 AV Cusp Separation MM 2.0 cm DOPPLER AV Peak Velocity 167.0 cm/s AV Peak Gradient 11.2 mmHg LVOT Peak Velocity 118.0 cm/s LVOT Peak Gradient 5.6 mmHg AV Area Cont Eq pk 2.4 cm MV Area PHT 5.4 cm Mitral E Point Velocity 93.3 cm/s Mitral A Point Velocity 50.8 cm/s Mitral E to A Ratio 1.8 LV E' Lateral Velocity 8.8 cm/s Mitral E to LV E' Lateral Ratio 10.6 LV E' Septal Velocity 9.0 cm/s Mitral E to LV E' Septal Ratio 10.4 TR Peak Velocity 179.0 cm/s TR Peak Gradient 12.8 mmHg PV Peak Velocity 89.6 cm/s PV Peak Gradient 3.2 mmHg FINDINGS LEFT VENTRICLE The left ventricular systolic function is low normal with an estimated ejection fraction in the rang e of 50- 55%. Mildly dilated left ventricle. Mild concentric left ventricular hypertrophy. No regional wall motion abnormalities are present. RIGHT VENTRICLE Normal right ventricular size and systolic function. LEFT ATRIUM The left atrial size is normal. RIGHT ATRIUM The right atrial size is normal. ATRIAL SEPTUM Normal atrial septal thickness without atrial level shunting by limited color doppler interrogation. AORTA The aortic root and proximal ascending aorta are normal in size on limited imaging. MITRAL VALVE Trace mitral valve regurgitation. AORTIC VALVE Trileaflet aortic valve. No aortic valve stenosis or regurgitation. TRICUSPID VALVE There is trace tricuspid valve regurgitation. Normal estimated pulmonary pressures. PULMONARY VALVE The pulmonary valve is not well visualized. VESSELS The inferior vena cava is normal in size. PERICARDIUM No pericardial effusion. Jose Gutierrez MD (Electronically Signed) Final Date:22 July 2017 11:03
[2017-07-22 12:44] LABS: APTT (PATIENT) 67.4 SEC (24.3-30.1); HDL CHOLESTEROL 62.5 MG/DL (40.0-60.0); LDL CHOLESTEROL 111 MG/DL (0-99)
[2017-07-22] MEDS: SODIUM CHLOR 0.9% 1000 ML INJ 1,000 ML IV SCH ×2 (12:47→20:33)
--- NOTE | 2017-07-22 12:54 | MB ---
cc: FARZAD ALEJANDRO DATE OF CONSULTATION: 07/22/2017 DATE OF : 1965 REASON FOR CONSULTATION Chest pain, elevated troponins. HISTORY OF PRESENT ILLNESS 51-year-old male with past medical history significant for hypertension, smoker , hyperlipidemia, obesity, diabetes that presented to the hospital with complaints of sudden onset of chest pressure, diaphoresis and shortness of breath. He reports that he was riding his bicycle and had to stop due to shortness of breath and significant diaphoresis. On further evaluation to the hospital, it was found that he had mildly elevated troponin and EKG showing sinus tachycardia with ST depressions in lateral leads. The patient also reports having fevers, chills and cough recently currently being treated for COPD exacerbation with antibiotics, steroids and albuterol. He was admitted to the hospital for further management and evaluation. He was seen by Dr. Gutierrez from cardiology. 2-D echocardiogram showed EF of 50% with no wall motion abnormalities. Interventional cardiology has been consulted for left heart cath and possible intervention. REVIEW OF SYSTEMS: Negative except for what is mentioned in the HPI. PAST MEDICAL HISTORY 1. Hypertension 2. Diabetes 3. Hyperlipidemia 4. Seizures 5. Schizophrenia 6. Anxiety 7. Noncompliance. MEDICATIONS: 1. Norvasc 1 milligram p.o. daily 2. Zoloft. 3. Seroquel 4. Lopressor 5. Sublingual nitroglycerin. 6. Nicotine patch 7. Heparin drip. ALLERGIES WOOL LISINOPRIL MILK. FAMILY HISTORY Unknown SOCIAL HISTORY Smoker. Denies alcohol abuse or illicit drug use, although he has a previous history of polysubstance abuse including cocaine. PHYSICAL EXAMINATION: VITAL SIGNS: Temperature 97, respiratory rate 20, heart rate 84, blood pressure 170/95. O2 sat 97% on room air. GENERAL: He is awake, alert, oriented x3 in no acute distress. Neck: No JVD, no carotid bruits. Heart: Regular rate and rhythm. No murmurs or gallops. Lungs: Bilateral rales. No crackles or rhonchi or wheezing. Abdomen: Obese. Positive bowel sounds, soft, nontender, nondistended. Extremities: No cyanosis or edema. Pulses throughout. DATA CBC: WBC 11, hematocrit 38, hemoglobin of 12, platelet count 201, INR 1.0. Sodium 141, potassium 3.9, BUN 15, creatinine 1.02, troponin 0.27, 0.21 and 0.21. BNP 31. Toxicology: Unremarkable. Microbiology: Pending blood cultures. IMAGING STUDIES Chest x-ray: No evidence of acute cardiopulmonary process. CTA, negative for PE. ECHOCARDIOGRAM: Normal LV systolic function with an EF of 50%. No wall motion abnormalities. ASSESSMENT/PLAN 51 year-old male with no previous cardiac history and cardiac risk factors that include obesity, hypertension, diabetes, hyperlipidemia, smoker presenting with chest congestions and discomfort found to have mildly elevated troponin. He remains hemodynamically stable and chest pain free. Presentation more consistent with COPD exacerbation and troponin leak might be due to uncontrolled blood pressure. At this point I think it is reasonable to take him to the Cardiac Catheterization Laboratory for risk stratification of CAD. The risks and benefits of left heart catheterization including but not limited to neurovascular trauma, infection, bleeding, acute kidney injury, stroke, emergent bypass surgery and has been explained to the patient. The patient understands the risks and he is willing to proceed. PLAN 1. Keep n.p.o. for left heart catheterization today. 2. Continue aggressive medical management for CAD with Beta Blockers, ACEi, Aspirin, Heparin drip, statins MD STERLING Li/BRAD /12:01 PM /12:36 PM EDUARDO
[2017-07-22 12:58] LABS: HEMOGLOBIN A1a 1.4 %; HEMOGLOBIN A1b 0.9 %; HEMOGLOBIN Ao 83.6 %; HEMOGLOBIN F 1.2 %; HEMOGLOBIN LA1C 2.2 %
[2017-07-22] MEDS ORDERED: RESP: ALBUTEROL 2.5 MG/3 ML NEB (PRN) INH (14:00)
[2017-07-22] MEDS ORDERED: VERAPAMIL HCL 5 MG/2 ML VIAL ONE (14:02)
[2017-07-22] MEDS ORDERED: MIDAZOLAM HCL 2 MG/2 ML VIAL ONE (14:02)
[2017-07-22] MEDS ORDERED: HEPARIN-NS/PF INJ 1,000 ML ONE (14:02)
[2017-07-22] MEDS ORDERED: HEPARIN SODIUM - IV 10,000 UNITS/10 ML VIAL ONE (14:03)
[2017-07-22] MEDS ORDERED: NITROGLYCERIN INJ 5 ML ONE (14:03)
[2017-07-22] MEDS ORDERED: IOHEXOL 350 MG/ML 100 ML BTL (for Cath Lab) OTHER ONE (14:21)
[2017-07-22] MEDS ORDERED: SODIUM CHLOR 0.9% 1000 ML INJ 1,000 ML IV SCH (14:38)
[2017-07-22] MEDS ORDERED: MISC INFORMATION XX ONE (14:45)
--- NOTE | 2017-07-22 14:46 | CATHPROC ---
[facility] HIS Report Study Information Study Number Admission Scheduled Start Study Start [id number] Jul 21 2017 9:08AM 07/22/2017 Jul 22 2017 1:41PM [facility] Admit Source Facility Department Emergency department [facility] - [facility] Physician and Clinical Staff Initial MD Stewart, Yon Biomedical Service Engineer Ashley Sanders,RAHUL Other Arlene Anguiano RN Recorder Mae, Jevon,RT(R) Scrub Yi Boogie,ETHICAL HACKER TECH2 Procedures Performed Procedure Location (Site) Vessel Name Coronary Angiograms LCA Left Coronary Coronary Angiograms RCA Right Coronary LV Gram-hand inj. LV LV Ventricle Equipment Time Airline Mechanic Description Size Mfg Part Number Used/Scraped TRANSDUCER, TRUWAVE [id number] 14:03 WHYTE BURGESS * Used W/STOCKCOCK *[id number] *[id number] *[id number] 14:03 [employer] PACK, CCL CUSTOM * Used *[id number] 14:03 [employer] SUPPORT, ARTERIAL ADULT 91279 *[id number] Used BAND, RADIAL COMPRESSION TR [id number] 14:32 [employer] MEDICAL 29CM Used LARGE 29 *[id number] 14:03 [employer] WIRE, 3MMJ .035 180CM 180CM Used *[id number] 14:03 NAMIC MANIFOLD, 4 PORT * Used *[id number] 14:03 [employer]COMED OMNIPAQUE, 350 MG, 150ML 150ML [id number] Used [id number] 14:03 POST MEDICAL BLANKET,WARM AIR CCL * Used *[id number] SHEATH, FR6 TRANSRADIAL [id number] 14:03 [employer] FR 6 Used SLENDER 10CM *[id number] History: Allergies Allergy Reaction lisinopril Cough milk Respiratory Failure WOOL RASH History: Risk Factors Family History of Hypertension Dyslipidemia Previous UT Previous Heart Failure Premature CAD Yes Yes Yes No No Prior Valve Prior PCI Prior CABG Surgery No No No Cerebrovascular Peripheral Artery Chronic Lung On Dialysis Diabetes Diabetes Therapy Disease Disease Disease No No No Yes Yes Oral History: Stress Tests Stress or Imaging Studies Performed No History: Other Current Smoker Method Packs a Day Years Used Pack Years Yes Cigarettes 2 35 70 Labs Hgb (g/dl) Hct (%) WBC (l/cumm) Platelets (thousands) 11.60-17.00 35.00-51.00 4.00-11.00 150.00-450.00 12.4 38.2 11.5 201 Glucose (mg/dl) BUN (mg/dl) Creatinine (mg/dl) BUN:Creatinine (1:x) 74.00-106.00 7.00-18.00 0.50-1.30 10.00-20.00 115 15 1.0 15 Na (meq/l) K (meq/l) 136.00-145.00 3.50-5.10 141 3.9 Troponin I (ng/ml) CPK-MB (ng/ML) 0.02-0.05 0.50-3.60 0.21 Not Drawn Medication Medication Total Dose (Bolus/Oral) Medication Total Dosage/Unit 1% XYLOCAINE 5 mL FENTANYL 50 mcg NITRO OINTMENT 1 inches VERSED 2 mg Medications (Bolus/Oral) Medication Time Given Dosage/Unit Administered By Reason NITRO OINTMENT 07/22/2017 2:00:19 PM 1 inches Yon Stewart Patient arrived on 1 inches NITRO OINTMENT given by Yon Stewart via Peripheral IV. Ordered by Yon Alva. left upper chest 1% XYLOCAINE 07/22/2017 2:21:28 PM 5 mL Yon Stewart 5 mL 1% XYLOCAINE given in lab by Yon Stewart in Right Radial via Subcutaneous. Ordered by Yon Banegas. VERSED 07/22/2017 2:21:49 PM 2 mg Ashley Sanders 2 mg VERSED given in lab by Ashley Sanders, RAHUL in Left Antecubital via Peripheral IV. Ordered by Yon Banegas. FENTANYL 07/22/2017 2:22:05 PM 50 mcg Tommy, Ashley 50 mcg FENTANYL given in lab by Ashley Sanders RN in Left Antecubital via Peripheral IV. Ordered by Yon Stewart. Initial Case Assessment Cardiovascular HR Rhythm NIBP Chest Pain 88 sr 145/89 0 Edema Present Skin color Skin None Normal Warm Dry Circulatory - Right Pulses Dorsalis Pedis Femoral Radial 3 3 3 Scale (0,1,2,3,4,d) Scale (0,1,2,3,4,d) Neurological State Oriented to time-place- Alert Moves all extremities person Respiration - General Respiration Rate SpO2 (%) O2 (lpm) (B/min) 18 97 0 Final Case Assessment Cardiovascular HR Rhythm NIBP Chest Pain 90 sr 144/94 0 Edema Present Skin color Skin None Normal Warm Dry Circulatory - Right Pulses Dorsalis Pedis Femoral Radial 3 3 3 Scale (0,1,2,3,4,d) Scale (0,1,2,3,4,d) Neurological State Oriented to time-place- Alert Moves all extremities person Respiration - General Respiration Rate SpO2 (%) O2 (lpm) (B/min) 18 96 0 Chronological Log Time Study Chronological Log 13:55:34 Patient arrived via Bed. Positive Allens test performed by Prabhu Chapa. 13:55:36 Patient Name, D.O.B, / Armband Verified By R.N. 13:55:37 Consent signed by the physician and the patient and verified by the [facility] staff. 13:55:38 Pre-op and post- op instructions given; patient acknowledges understanding of instructions. 13:56:02 Verbal Stimulation=2 Physical Stimulation=2 Airway=2 Respiration=2 TOTAL=8. (0=absent, 1=li mited, 2=present) 13:56:11 Presedation assessment performed by Car [facility] RN. 13:56:13 Patient has been NPO for More than 4hrs. 13:58:38 Skin Breakdown-noted is spider bite to right elbow 13:59:03 Patient Warmer Placed on the Table. 13:59:07 A # 20 IV was noted in the Antecubital (left). Grade = 0 14:00:05 A # 20 IV was noted in the Forearm (left). Grade = 0 Patient arrived on 1 inches NITRO OINTMENT given by Yon Stewart via Peripheral IV. Ordere d by Terry, 14:00:19 Yon. left upper chest Vitals capture started with the following parameters, Patient=Adult, Interval=5 min, Initial Pr xhtuan=009 mmHg, 14:01:05 Deflation Rate=5 mmHg, Cuff placed on Left Arm 14:01:09 History and physical on the chart or being dictated. 14:01:32 Reference ECG taken 14:01:43 HR=89 bpm, NVLH=702/80 mmhg, Resp=0 B/min, [place]ingham=2 14:07:15 HR=86 bpm, MKEA=078/89 mmhg, SpO2=95.0 %, Resp=30 B/min, [place]=2 14:08:54 Right groin and right radial prepped with 2% chlorhexidine, and with a 3 min. waiting time. Assessment: Initial Case, HR=88 BPM, Rhythm=sr, XNRU=272/89 mmhg, Chest Pain=0, Edema=None, Col or=Normal, Skin = Warm, Dry 14:09:44 Right Pulses: Amol Ped=3, Femoral=3, Radial=3 Neurological: State=Alert, Ox3, CARMEN Respiration: Resp=18 B/min, SpO2=97 %, O2=0 lpm 14:11:43 HR=84 bpm, WLRS=453/94 mmhg, SpO2=96.0 %, Resp=20 B/min, [place]=2 14:16:47 HR=88 bpm, TPQV=922/83 mmhg, SpO2=98.0 %, Resp=26 B/min, [place]=2 14:17:00 Pressure channel 1 zeroed. Time Out. Correct patient, correct procedure,correct physician, ,power injector not loaded with contrast with surgical 14:20:48 team present. Time Out Concurred by MD, individual staff and WILDLIFE PROTECTOR in procedure. Not loaded at t his time. 14:21:18 Presedation re-assessment performed by Car [facility] RN. 14:21:20 Case Start 14:21:21 Verbal Stimulation=2 Physical Stimulation=2 Airway=2 Respiration=2 TOTAL=8. (0=absent, 1=li mited, 2=present) 5 mL 1% XYLOCAINE given in lab by Yon Stewart in Right Radial via Subcutaneous. Ordered b y Terry, 14:21:28 Yon. 14:21:42 HR=85 bpm, XPVO=101/97 mmhg, SpO2=93.0 %, Resp=26 B/min, Bingham=2 14:21:49 2 mg VERSED given in lab by Ashley Sanders, RN in Left Antecubital via Peripheral IV. Order ed by Yon Stewart. 50 mcg FENTANYL given in lab by Ashley Sanders, RN in Left Antecubital via Peripheral IV. Order ed by Terry, 14:22:05 Yon. 14:23:19 Access site was Radial Artery. A SHEATH, FR6 TRANSRADIAL SLENDER 10CM FR 6 was advanced into the Radial (right) using the Perc utaneous 14::29 technique. A JR 5.0 INFINITI CATHETER FR 5 was advanced over a wire. OMNIPAQUE, 350 MG, 150ML 150ML was us ed for 14:24:14 injections. Recorded Pressure: LV, HR=94, Condition=Condition 1 14:25:32 (Left Ventricle) LV 136/7/17 14:25:57 The LV was manually injected with 10 cc's and visualized. OMNIPAQUE, 350 MG, 150ML 150ML us ed. Recorded Pressure: LV, Ao, HR=90, Condition=Condition 1 14:26:37 (Left Ventricle) LV 132/12/19, (Aorta) Ao 123/87/104 14:26:47 HR=92 bpm, ZEEN=593/88 mmhg, SpO2=90.0 %, Resp=26 B/min, Bingham=2 14:26:54 The RCA was injected and visualized at various angles. OMNIPAQUE, 350 MG, 150ML 150ML use d. 14:27:30 Catheter was removed A JL 3.5 INFINITI CATHETER FR 5 was advanced over a wire. OMNIPAQUE, 350 MG, 150ML 150ML was u sed for 14:27:32 injections. Recorded Pressure: Ao, HR=92, Condition=Condition 1 14:29:00 (Aorta) Ao 128/90/107 14:29:08 The LCA was injected and visualized at various angles. OMNIPAQUE, 350 MG, 150ML 150ML use d. 14:31:09 Catheter was removed 14:31:44 HR=90 bpm, CCLC=132/94 mmhg, SpO2=91.0 %, Resp=24 B/min, Bingham=2 14:31:59 Case End Assessment: Final Case, HR=90 BPM, Rhythm=sr, PXBO=102/94 mmhg, Chest Pain=0, Edema=None, [place] r=Normal, Skin = Warm, Dry 14:32:27 Right Pulses: Amol Ped=3, Femoral=3, Radial=3 Neurological: State=Alert, Ox3, CARMEN Respiration: Resp=18 B/min, SpO2=96 %, O2=0 lpm 14:33:28 Catheter(s) removed without difficulty 14:34:39 No case complications noted. 14:34:42 Cine recording checked. 14:34:45 Bedside Report will be given. Radial Compression Device Used. 12 mLs of air placed in BAND, RADIAL COMPRESSION TR LARGE 29 2 9CM. Affected 14:34:54 hand 97 % O2 saturation. 14:36:45 HR=89 bpm, GJSV=921/92 mmhg, Resp=22 B/min, Bingham=2 14:41:18 Vitals capture stopped. 14:44:16 [facility] Study - Contrast Media Used In Study Contrast Total Opened (mL) Total Used (mL) Total Wasted (mL) Omnipaque 60 60 0 End Study - Maximum Contrast Load Max Contrast Load (mL) 667.5 End Study - Radiation Exposure Fluoro Time (minutes) 2.4 End Study - Patient Disposition Complications Transferred To Telemetry Bed
--- NOTE | 2017-07-22 15:38 | HHI.FPPN ---
Subjective Remarks Mr. Santiago was seen by the vortex operator Dr. Gutierrez last night but otherwise had an uneventful night. Patient feels much better this morning is breathing much easier without supplemental oxygen. Pt ate all his breakfast but still feels hungry but is nothing by mouth until heart cath later today. Lungs do not sound nearly as congested during the exam. Patient's cough is measurably better. Patient still has some chest pain with coughing, but cough is much diminished since yesterday. Patient denies shortness of breath, nausea, vomiting , diarrhea and DVT leg pain. (Issac Connelly MD R1) Objective Vitals Vital Signs Date Time Temp Pulse Resp B/P (MAP) Pulse Ox O2 Delivery O2 Flow Rate FiO2 07/22/17 14:57 97.7 90 20 141/79 (99) 92 07/22/17 12:00 97.4 91 20 158/84 (108) 94 07/22/17 08:16 97 07/22/17 08:00 97.3 84 20 170/95 (120) 97 07/22/17 04:00 97.6 96 20 153/88 (109) 94 07/22/17 04:00 Room Air 07/22/17 00:17 95 Nasal Cannula 4.00 07/22/17 00:00 Nasal Cannula 4.00 07/22/17 00:00 97.4 115 21 145/61 (89) 96 07/21/17 21:00 Nasal Cannula 4.00 07/21/17 20:30 07/21/17 20:30 110 07/21/17 20:20 97.6 112 22 167/86 (113) 95 07/21/17 19:52 96 Nasal Cannula 4.00 I/O 07/21/17 07/21/17 07/21/17 07/22/17 07/22/17 07/22/17 06:59 14:59 22:59 06:59 14:59 22:59 Intake Total 240 ml 2126 ml Output Total 600 ml 300 ml Balance -360 ml -300 ml 2126 ml Intake Oral 240 ml 1440 ml IV Total 686 ml Output Urine Total 600 ml 300 ml # Voids 1 1 1 (Issac Connelly MD R1) Result Diagram: 07/22/17 0548 07/22/17 0548 Imaging Last Impressions Chest X-Ray 07/21/17 0615 Signed Impressions: Service Date/Time: Friday, July 21, 2017 06:30 - CONCLUSION: No evidence of acute cardiopulmonary disease. Geovani Phillips MD CT Angiography 07/21/17 0000 Signed Impressions: Service Date/Time: Friday, July 21, 2017 11:02 - CONCLUSION: 1. Less than optimal opacification of the pulmonary arteries. However, no PE is identified through the lobar and some of the segmental level pulmonary artery branches. 2. Nonspecific mediastinal and right hilar lymphadenopathy. Geovani Chowdhury MD Objective Remarks GENERAL: Well-nourished, well-developed obese male patient lying in bed. SKIN: Warm and dry. Mild venous stasis skin changes on LEs bilaterally below the knees. HEAD: Normocephalic. Atraumatic. EYES: No scleral icterus. No injection or drainage. EOMI. NECK: Supple, trachea midline. No lymphadenopathy. No meningeal signs. CARDIOVASCULAR: Regular rate and rhythm without murmurs, gallops, or rubs. RESPIRATORY: Inspiratory coarse breath sounds in upper lung price; light end expiratory wheezing bilaterally at lung bases. No accessory muscle use. Some intermittent coughing, but no coughing fits as yesterday. GASTROINTESTINAL: Abdomen soft, non-tender, nondistended. EXTREMITIES: No cyanosis, or edema. Digital clubbing of fingers and toes noted bilaterally. NEUROLOGICAL: Awake, alert, and oriented x 3. Non-focal. Medications and IVs Current Medications Medications (Trade) Dose Ordered Sig/Dimitris Route Start Time Stop Time Status Last Admin (Proair Hfa Inh) 1 puff Q4H PRN INH 07/21/17 09:45 (SEROquel) 300 mg HS PO 07/21/17 21:00 07/21/17 21:53 Sodium Chloride 1,000 ml @ 75 mls/hr [id number] IV 07/21/17 10:07 07/21/17 22:03 (NS Flush) 2 ml BID IV FLUSH 07/21/17 21:00 07/22/17 10:30 (NS Flush) 2 ml UNSCH PRN IV FLUSH 07/21/17 10:15 (Duoneb Neb) 1 ampule Q4HR NEB INH 07/21/17 12:00 07/22/17 12:02 (Deltasone) 40 mg DAILY PO 07/22/17 09:00 07/22/17 10:25 (Zithromax) 500 mg Q24H PO 07/21/17 12:00 07/24/17 11:59 07/22/17 10:26 (D50w (Vial) Inj) 50 ml UNSCH PRN IV 07/21/17 10:30 (Glucagon Inj) 1 mg UNSCH PRN OTHER 07/21/17 10:30 (NovoLOG SUPPLEMENTAL SCALE) 1 ACHS SLIDING SCALE SQ 07/21/17 11:00 07/21/17 21:56 (Tylenol) 650 mg Q6H PRN PO 07/21/17 11:00 ([place] 5-325 Mg) 1 tab Q4H PRN PO 07/21/17 11:00 ([place] 10-325 Mg) 1 tab Q4H PRN PO 07/21/17 11:00 07/21/17 19:14 (Morphine Inj) 4 mg Q3H PRN IV 07/21/17 11:00 (Narcan Inj) 0.4 mg UNSCH PRN IV 07/21/17 11:00 (Robitussin Ac 200-20 Mg/10 ml Liq) 10 ml Q4H PRN PO 07/21/17 11:00 07/21/17 16:44 (Zoloft) 100 mg DAILY PO 07/22/17 09:00 07/22/17 10:25 (Nitrostat Sl) 0.3 mg Q5M PRN SL 07/21/17 16:30 07/21/17 19:11 Heparin Sodium/ Dextrose 250 ml @ 16.44 mls/ hr TITRATE PRN IV 07/21/17 17:15 Future hold 07/21/17 23:50 (Heparin Inj) 5,000 units UNSCH PRN IV 07/21/17 18:00 (Heparin Inj) 2,500 units UNSCH PRN IV 07/21/17 18:00 (Lipitor) 40 mg HS PO 07/22/17 21:00 (Lopressor) 25 mg Q12HR PO 07/22/17 09:30 07/22/17 10:29 (Aspirin Chew) 325 mg DAILY CHEW 07/23/17 09:00 (Albuterol Neb) 2.5 mg Q4HR NEB PRN INH 07/22/17 14:00 Sodium Chloride 1,000 ml @ 100 mls/hr Q10H IV 07/22/17 14:38 07/22/17 18:37 (Imdur) 30 mg DAILY@0700 PO 07/23/17 07:00 (Prinivil) 10 mg DAILY PO 07/23/17 09:00 (Issac Connelly MD R1) Urinary Catheter: No (Issac Connelly MD R1) A/P Assessment and Plan Patient is a 51-year-old man with a history of NSTEMI in 2014, diabetes, hypertension, polysubstance abuse, medication noncompliance, ZAKIA who presented to the Emergency Department feeling like he couldn't breathe. Patient reports persistent coughing with change in sputum production and viscosity. Smoking history and physical exam are consistent with COPD exacerbation. We'll admit for COPD exacerbation, steroids, antibiotics, ACS rule out for elevated troponin. 07/22 - pt picture became more symptomatic for ACS yesterday afternoon with Troponins elevated @ 0.25 and 0.27 with ECG consistent with NSTEMI; Cardiology was consulted and Heparin gtt started. Pt taken to chemical lab supervisor today with report pending. Pt is asymptomatic on exam today and clinically has improved; however, we are aggressively pursuing medical management measures to improve his outcomes. In addition, pt states he is quitting smoking now which will reduce his overall risk profile. we will not, however, start an BALBINA-I as pt describes not only dry cough, but also angioedema when taking lisinopril (Issac Connelly MD R1) Attending Attestation Pt. examined and case discussed with resident physicians. I have read the above note and agree with the assessment and plan as discussed with me. I was involved in all medical decision making for this patient. Fernando Ortiz MD (Fernando Ortiz MD) Problem List: (1) NSTEMI (non-ST elevated myocardial infarction) ICD Codes: I21.4 - NSTEMI (non-ST elevated myocardial infarction) Status: Acute Plan: Pt with chest pains upon admission with elevated tropinins at 0.25->0.27 and ECG consistent with NSTEMI; started per protocol on ACS r/o and Cardiology consulted. Pt taken to chemical lab supervisor today -Morphine for PRN pain -Oxygen supplementation on admit, today weaned with O2 sats >94% on RA -Nitroglycerin--Sublingual, then paste started -ASA 325 mg started -Beta everette--Metoprolol 25 mg BID started -BALBINA-I and ARB--plan to start Losartan following cath--BALBINA-I contraindicated due to angioedema and dry cough -Statin--atorvastatin 40 mg/qhs -Heparin gtt (2) COPD exacerbation ICD Codes: J44.1 - Chronic obstructive pulmonary disease with (acute) exacerbation Plan: -Admit to inpatient -COPD educator consult -Trend CBC -Half maintenance fluids -Tylenol for pain 1-2, [place] for pain 3-10, morphine for breakthrough pain -Albuterol nebulizer every 2 hours when necessary for shortness of breath, to wean onto albuterol inhaler every 4 hours when necessary for shortness of breath -Duo nebs every 4 hours -Azithromycin 500 mg by mouth daily -Guaifenesin and codeine by mouth every 4 hours when necessary cough -Nicotine patch daily -Prednisone 40 mg by mouth daily -Blood culture -Influenza A/B antigen--negative -Sputum culture and Gram stain -Incentive spirometry -Oxygen as needed -Monitor pulse ox, vital signs -CT pulmonary angiogram rules out PE -Smoking cessation counseling (3) Elevated troponin I level ICD Codes: R79.89 - Elevated troponin I level Status: Acute Plan: Troponin I trend: 0.25, 0.27. EKG appears unchanged. -ACS rule out with every 6 hours troponin and EKG -Cardiology consult. Dr. Connelly discussed case with Dr. Gutierrez, who recommended heparin drip and titration, which has been ordered -Patient received aspirin in emergency department -Morphine, oxygen, nitroglycerin, beta everette ordered -Heart healthy diet -Pain medications as above -buildings and grounds superintendent/telemetry -Treating hypertension and diabetes as below HOLD BALBINA-I as pt has serious allergy (angioedema) with lisinopril (4) Diabetes ICD Codes: E11.9 - Diabetes Status: Acute Plan: -Low-dose sliding scale insulin -Check A1C (5) Hypertension ICD Codes: I10 - Hypertension Status: Acute Plan: BP at 153/88 today -Metoprolol 25mg BID -Atorvastatin 40 mg/day -Consider Losartan since BALBINA-I is contraindicated -Check lipid panel (6) Tobacco abuse ICD Codes: F17.200 - Tobacco abuse Status: Acute Plan: Pt denies smoking cessation counseling; however, states he is quitting smoking as he never wants to feel this out of breath again (7) Hypokalemia ICD Codes: E87.6 - Hypokalemia Status: Resolved Plan: Patient presented potassium 3.4. -40 mEq potassium ordered -Resolved: K+ 3.9 on 07/22 (8) Noncompliance ICD Codes: Z91.19 - Noncompliance Status: Acute Plan: Patient with a history of noncompliance in the context of homelessness. -Case management consult (9) Depression ICD Codes: F32.9 - Depression Status: Acute Plan: -Continue patient's home medication of Zoloft and Seroquel (10) No contraindication to deep vein thrombosis (DVT) prophylaxis ICD Codes: Z78.9 - Other specified health status Plan: -Patient currently on therapeutic anticoagulation initially with Lovenox for troponin elevation, switched to heparin drip and titration. (11) Nutrition, metabolism, and development symptoms ICD Codes: R63.8 - Other symptoms and signs concerning food and fluid intake Plan: Fluids: Normal saline IV at 75 mm per hour Electrolytes: Monitor and replete as necessary Nutrition: Heart healthy diet GI ppx: Not currently indicated (Issac Connelly MD R1) Problem Qualifiers (1) Diabetes: Qualified Codes: E11.9 - Type 2 diabetes mellitus without complications Issac Connelly MD R1 Jul 22, 2017 15:38 Fernando Ortiz MD Jul 22, 2017 17:36
--- NOTE | 2017-07-22 16:34 | MA ---
cc: RICHARDFARZAD DATE 07/22/2017 DATE OF 1965 PROCEDURE PERFORMED 1. Left heart catheterization. 2. Selective left coronary angiography. 3. Left ventriculogram. APPROACH Right transradial. INDICATION Elevated troponin. DESCRIPTION OF PROCEDURE Consent signed. The patient was brought into the cardiac physical laboratory assistant in fasting state. The right wrist was prepped and draped in sterile fashion. Using 1% lidocaine for local anesthesia and a micropuncture kit, a 6-Maltese sheath was inserted into the right radial artery. Antispasmodic cocktail given. Then selective right and left coronary angiography was performed with a JR-4 and JL- 3.5 diagnostic catheters. Angiography was taken in multiple views. The JR-4 diagnostic catheter was introduced into the ventricle over a wire. This was followed by pressure recordings, left ventriculogram and pullback. The patient tolerated the procedure well without complications. Estimated blood loss less than 30 mL. Total contrast used 60 mL. The right wrist radial access site was closed with a TR band. RESULTS Left ventricle. The left ventricular pressure was 136/70 with an LVEDP of 16. The aortic pressure was 128/90 with a mean of 107. There was no gradient upon pullback from the left ventricle to the aorta. Left ventriculogram revealed symmetrically flaquito ventricle with an estimated ejection fraction of 50%. ANGIOGRAPHY 1. Right coronary artery. The right coronary artery is a dominant vessel giving off the PDA. The RCA is a big size vessel measuring at least 4 mm in diameter. It is tortuous, however, patent and there is no significant obstructive coronary artery disease. The right coronary artery is giving two RV branches that are patent. 2. The left main is short and patent. It is giving off an LAD, ramus intermedius vessel and the left circumflex artery. 3. The LAD is a transapical vessel. It has no significant obstructive coronary artery disease. It has LEIGH ANN III flow. It is giving three diagonal vessels which are also patent with LEIGH ANN III flow and nonobstructive coronary artery disease. 4. The left circumflex artery. The left circumflex artery is tortuous, it is giving off two OM vessels which are patent and with LEIGH ANN III flow. The proximal portion of the left circumflex artery has a 90 angled vent and there is a lesion of about 40-50% on that angle. 5. The ramus intermedius is patent with LEIGH ANN III flow and nonobstructive coronary artery disease. It bifurcates into posterolateral branches which are patent. CONCLUSION 1. Nonobstructive coronary artery disease. 2. Preserved LV systolic function. 3. Elevated LVEDP. RECOMMENDATIONS The patient will go back to the [facility] for post cath care. We recommend aggressive medical management for primary prevention of CAD. The patient should be started on a beta everette, statin, BALBINA inhibitor and long-acting nitrate. Heparin drip can be discontinued. Encourage ambulation and incentive spirometry. The patient will need to follow up with cardiology and aggressive therapeutic lifestyle changes highly recommended including smoking cessation. MD STERLING Li/CARLA /2:51 PM /4:16 PM MTDCarmela
[2017-07-22] MEDS: ATORVASTATIN 40 MG TAB PO SCH (20:35)
[2017-07-22] MEDS: QUEtiapine FUMARATE 300 MG TAB PO SCH (20:35)
[2017-07-23] VITALS (9 sets, daily range): BP systolic 140–171; BP diastolic 81–97; PULSE 71–88; RESP 18–20; TEMP 97.1–97.8; O2SAT 93–97
[2017-07-23] MEDS: RESP: ALBUTEROL 2.5 MG/IPRATROPIUM 0.5 MG NEB (SCH) INH ×6 (03:52→19:25)
[2017-07-23] MEDS: INSULIN ASPART SUPPLEMENTAL SCALE SQ SCH ×4 (06:08→20:37)
[2017-07-23] MEDS: ISOSORBIDE MONONITRATE 30 MG TAB PO SCH (06:08)
[2017-07-23 06:46] LABS: AUTOMATED NEUTROPHIL # 5.2 TH/MM3 (1.8-7.7); BASOPHIL % 0.4 % (0.0-2.0); EOSINOPHIL # 0.1 TH/MM3 (0-0.4); EOSINOPHIL % 1.1 % (0.0-4.0); HEMATOCRIT 39.5 % (39.0-51.0); HEMO FLAGS DIFF FINAL; LYMPH % 35.1 % (9.0-44.0); LYMPHOCYTE # 3.2 TH/MM3 (1.0-4.8); MEAN CELL VOLUME 85.6 FL (80.0-100.0); MEAN CORPUSCULAR HGB CONC 32.7 % (32.0-36.0); MONO % 7.6 % (0.0-8.0); NEUT % 55.8 % (16.0-70.0); PLATELET COUNT 215 TH/MM3 (150-450); RED BLOOD COUNT 4.61 MIL/MM3 (4.50-5.90); RED CELL DISTRIBUTION WIDTH 15.1 % (11.6-17.2); WHITE BLOOD COUNT 9.2 TH/MM3 (4.0-11.0)
[2017-07-23 07:06] LABS: BICARBONATE 28.7 MEQ/L (21.0-32.0); POTASSIUM 3.9 MEQ/L (3.5-5.1)
[2017-07-23 07:08] LABS: APTT (PATIENT) 31.9 SEC (24.3-30.1)
[2017-07-23] MEDS ORDERED: amLODIPine BESYLATE 5 MG TAB PO SCH (09:00)
[2017-07-23] MEDS ORDERED: LISINOPRIL 10 MG TAB PO SCH (09:00)
[2017-07-23] MEDS: predniSONE 20 MG TAB PO SCH (09:28)
[2017-07-23] MEDS: SERTRALINE HCL 100 MG TAB PO SCH (09:28)
[2017-07-23] MEDS: METOPROLOL TARTRATE 25 MG TAB PO SCH ×2 (09:28→20:37)
[2017-07-23] MEDS: ASPIRIN 81 MG CHEW TAB CHEW SCH (09:28)
[2017-07-23] MEDS: SODIUM CHLORIDE 0.9% FLUSH 10 ML FLUSH IV FLUSH SCH ×2 (09:29→20:37)
[2017-07-23] MEDS: ENOXAPARIN SODIUM 40 MG/0.4 ML SYRINGE SQ SCH (09:45)
[2017-07-23] MEDS: LOSARTAN 50 MG TAB PO SCH (09:45)
[2017-07-23] MEDS: AZITHROMYCIN 250 MG TAB PO SCH (12:25)
--- NOTE | 2017-07-23 13:26 | HHI.FPPN ---
Subjective Remarks Mr. Santiago had no acute events overnight and slept well. He is still coughing a little but feels much better. Vital signs are stable except for continued hypertension with blood pressure 166/97. Discussed with him the results of the heart catheter and need to aggressively manage his coronary artery disease following NSTEMI on admission. Patient plans to quit smoking but has concerns about being able to afford medications due to being homeless and jobless. Discussed with him that we will work with case management to try and get him his medications for treatment. Denies chest pains, nausea, vomiting, diarrhea, and DVT pain. (Issac Connelly MD R1) Objective Vitals Vital Signs Date Time Temp Pulse Resp B/P (MAP) Pulse Ox O2 Delivery O2 Flow Rate FiO2 07/23/17 12:00 97.8 78 20 140/92 (108) 94 07/23/17 11:13 94 07/23/17 08:00 97.1 71 20 159/95 (116) 95 07/23/17 04:00 Nasal Cannula 4.00 07/23/17 04:00 97.3 75 20 166/97 (120) 93 07/23/17 00:00 Nasal Cannula 4.00 07/23/17 00:00 97.3 79 20 154/81 (105) 97 07/22/17 20:17 96 21 07/22/17 20:08 97.9 95 20 154/84 (107) 95 07/22/17 20:00 Room Air 07/22/17 16:08 78 20 140/78 (98) 95 07/22/17 15:33 78 18 141/67 (91) 95 07/22/17 15:19 78 16 141/71 (94) 94 07/22/17 14:57 97.7 90 20 141/79 (99) 92 I/O 07/22/17 07/22/17 07/22/17 07/23/17 07/23/17 07/23/17 07:00 15:00 23:00 07:00 15:00 23:00 Intake Total 2126 ml 1136 ml 1080 ml Output Total 1200 ml 150 ml Balance 2126 ml -64 ml 930 ml Intake Oral 1440 ml 780 ml 1080 ml IV Total 686 ml 356 ml Output Urine Total 1200 ml 150 ml # Voids 1 8 # Bowel Movements 1 1 (Issac Connelly MD R1) Result Diagram: 07/23/1760407/23/17604 Objective Remarks GENERAL: Well-nourished, well-developed obese male patient lying in bed. SKIN: Warm and dry. Mild venous stasis skin changes on LEs bilaterally below the knees. HEAD: Normocephalic. Atraumatic. EYES: No scleral icterus. No injection or drainage. EOMI. NECK: Supple, trachea midline. No lymphadenopathy. No meningeal signs. CARDIOVASCULAR: Regular rate and rhythm without murmurs, gallops, or rubs. RESPIRATORY: Inspiratory and expiratory coarse breath sounds in upper lung price; light end expiratory wheezing bilaterally at lung bases. No accessory muscle use. Some intermittent coughing, but no coughing fits as yesterday. GASTROINTESTINAL: Abdomen soft, non-tender, nondistended. EXTREMITIES: No cyanosis, or edema. Digital clubbing of fingers and toes noted bilaterally. NEUROLOGICAL: Awake, alert, and oriented x 3. Non-focal. Procedures Heart Cath 07/22/2017: CONCLUSION 1. Nonobstructive coronary artery disease. 2. Preserved ____systolic function. 3. Elevated LVEDP. RECOMMENDATIONS The patient will go back to the [facility] for post cath care. We recommend aggressive medical management for primary prevention of CAD. The patient should be started on a beta everette, statin, BALBINA inhibitor and long-acting nitrate. Heparin drip can be discontinued. Encourage ambulation and incentive spirometry. The patient will need to follow up with cardiology and aggressive therapeutic lifestyle changes highly recommended including smoking cessation. (Issac Connelly MD R1) Urinary Catheter: No (Issac Connelly MD R1) A/P Assessment and Plan Patient is a 51-year-old man with a history of NSTEMI in 2015, diabetes, hypertension, polysubstance abuse, medication noncompliance, ZAKIA who presented to the Emergency Department feeling like he couldn't breathe. Patient reports persistent coughing with change in sputum production and viscosity. Smoking history and physical exam are consistent with COPD exacerbation. We'll admit for COPD exacerbation, steroids, antibiotics, ACS rule out for elevated troponin. 07/22 - pt picture became more symptomatic for ACS yesterday afternoon with Troponins elevated @ 0.25 and 0.27 with ECG consistent with NSTEMI; Cardiology was consulted and Heparin gtt started. Pt taken to laboratory veterinarian today with report pending. Pt is asymptomatic on exam today and clinically has improved; however, we are aggressively pursuing medical management measures to improve his outcomes. In addition, pt states he is quitting smoking now which will reduce his overall risk profile. 07/23 - pursuing aggressive medical management of CAD and lifestyle changes as recommended by Cardiology from heart cath report following NSTEMI to include Metoprolol, Losartan, and Atorvastatin. Also working w/CM to help him attain medications due to homelessness and jobless. Pt states he has quit smoking and doesn't need smoking cessation counseling. Lastly, titrating HTN meds to reduce BPs in the 150s-170s systolic/90s diastolic. we have started an ARB--Losartan--as an alternative to Lisinopril (BALBINA-I) due to pt description of dry cough and angioedema when taking lisinopril (Issac Connelly MD R1) Attending Attestation Pt. examined and case discussed with resident physicians. I have read the above note and agree with the assessment and plan as discussed with me. I was involved in all medical decision making for this patient. Fernando Ortiz MD (Fernando Ortiz MD) Problem List: (1) NSTEMI (non-ST elevated myocardial infarction) ICD Codes: I21.4 - NSTEMI (non-ST elevated myocardial infarction) Status: Acute Plan: Pt with chest pains upon admission with elevated tropinins at 0.25->0.27 and ECG consistent with NSTEMI; started per protocol on ACS r/o and Cardiology consulted. Pt taken to laboratory veterinarian today -Morphine for PRN pain -Oxygen supplementation on admit, today weaned with O2 sats >94% on RA -Nitroglycerin--Sublingual, then paste started -ASA 325 mg started -Beta everette--Metoprolol 25 mg BID started -ARB--Losartan following cath--BALBINA-I contraindicated due to angioedema and dry cough -Statin--atorvastatin 40 mg/qhs -Discontinued Heparin gtt -Started Lovenox 40 mg/day (2) COPD exacerbation ICD Codes: J44.1 - Chronic obstructive pulmonary disease with (acute) exacerbation Plan: -Admit to inpatient -COPD educator consult -Trend CBC -Half maintenance fluids -Tylenol for pain 1-2, [place] for pain 3-10, morphine for breakthrough pain -Albuterol nebulizer every 2 hours when necessary for shortness of breath, to wean onto albuterol inhaler every 4 hours when necessary for shortness of breath -Duo nebs every 4 hours -Azithromycin 500 mg by mouth daily -Guaifenesin and codeine by mouth every 4 hours when necessary cough -Nicotine patch daily -Prednisone 40 mg by mouth daily -Blood culture -Influenza A/B antigen--negative -Sputum culture and Gram stain -Incentive spirometry -Oxygen as needed -Monitor pulse ox, vital signs -CT pulmonary angiogram rules out PE -Denied Smoking cessation counseling but states he has quit smoking as of this admission (3) Elevated troponin I level ICD Codes: R79.89 - Elevated troponin I level Status: Resolved Plan: Troponin I trend: 0.25, 0.27. EKG appears unchanged. -ACS rule out with every 6 hours troponin and EKG -Cardiology consult. Dr. Connelly discussed case with Dr. Gutierrez, who recommended heparin drip and titration, which has been ordered -Patient received aspirin in emergency department -Morphine, oxygen, nitroglycerin, beta everette ordered -Heart healthy diet -Pain medications as above -switch house operator/telemetry -Treating hypertension and diabetes as below HOLD BALBINA-I as pt has serious allergy (angioedema) with lisinopril (4) Diabetes ICD Codes: E11.9 - Diabetes Status: Acute Plan: -Low-dose sliding scale insulin -A1C 6.3 on 07/22 -BG 86 this AM (5) Hypertension ICD Codes: I10 - Hypertension Status: Acute Plan: BP at 153/88 today -Metoprolol 25mg BID -Atorvastatin 40 mg/day -Losartan 50 mg/day since BALBINA-I is contraindicated -Lipids: LDL 11 / HDL 62.5 (6) Tobacco abuse ICD Codes: F17.200 - Tobacco abuse Status: Acute Plan: Pt denies smoking cessation counseling; however, states he is quitting smoking as he never wants to feel this out of breath again (7) Hypokalemia ICD Codes: E87.6 - Hypokalemia Status: Acute Plan: Patient presented potassium 3.4. -40 mEq potassium ordered -Resolved: K+ 3.9 on 07/22 (8) Noncompliance ICD Codes: Z91.19 - Noncompliance Status: Acute Plan: Patient with a history of noncompliance in the context of homelessness. -Case management consult (9) Depression ICD Codes: F32.9 - Depression Status: Chronic Plan: -Continue patient's home medication of Zoloft and Seroquel (10) No contraindication to deep vein thrombosis (DVT) prophylaxis ICD Codes: Z78.9 - Other specified health status Plan: -Restart Lovenox 40 mg /day following heparin drip and titration for heart cath on 07/22. (11) Nutrition, metabolism, and development symptoms ICD Codes: R63.8 - Other symptoms and signs concerning food and fluid intake Plan: Fluids: Stop Normal saline IV at 75 mm per hour Electrolytes: Monitor and replete as necessary Nutrition: Heart healthy diet GI ppx: Not currently indicated (Issac Connelly MD R1) Problem Qualifiers (1) Diabetes: Qualified Codes: E11.9 - Type 2 diabetes mellitus without complications Issac Connelly MD R1 Jul 23, 2017 13:26 Fernando Ortiz MD Jul 25, 2017 21:45
[2017-07-23] MEDS: guaiFENesin/CODEINE SYRUP 200 MG/20 MG/10 ML CUP PO PRN (20:37)
[2017-07-23] MEDS: ATORVASTATIN 40 MG TAB PO SCH (20:37)
[2017-07-23] MEDS: QUEtiapine FUMARATE 300 MG TAB PO SCH (20:37)
[2017-07-24] VITALS (9 sets, daily range): BP systolic 114–197; BP diastolic 65–114; PULSE 70–86; RESP 16–20; TEMP 97.2–97.6; O2SAT 92–97
[2017-07-24] MEDS: RESP: ALBUTEROL 2.5 MG/IPRATROPIUM 0.5 MG NEB (SCH) INH ×6 (00:19→20:09)
[2017-07-24] MEDS: guaiFENesin/CODEINE SYRUP 200 MG/20 MG/10 ML CUP PO PRN (05:04)
[2017-07-24] MEDS: ISOSORBIDE MONONITRATE 30 MG TAB PO SCH (05:17)
[2017-07-24] MEDS: INSULIN ASPART SUPPLEMENTAL SCALE SQ SCH ×4 (05:31→21:00)
[2017-07-24] MEDS: ENOXAPARIN SODIUM 40 MG/0.4 ML SYRINGE SQ SCH (08:37)
[2017-07-24] MEDS: predniSONE 20 MG TAB PO SCH (08:38)
[2017-07-24] MEDS: SERTRALINE HCL 100 MG TAB PO SCH (08:38)
[2017-07-24] MEDS: LOSARTAN 50 MG TAB PO SCH ×2 (08:38→20:27)
[2017-07-24] MEDS: ASPIRIN 81 MG CHEW TAB CHEW SCH (08:38)
[2017-07-24] MEDS: METOPROLOL TARTRATE 25 MG TAB PO SCH ×2 (08:38→20:27)
[2017-07-24] MEDS: SODIUM CHLORIDE 0.9% FLUSH 10 ML FLUSH IV FLUSH SCH ×2 (08:39→20:31)
[2017-07-24] MEDS: ACETAMINOPHEN/HYDROcodone 325 MG/10 MG TAB PO PRN ×2 (09:49→20:28)
[2017-07-24] MEDS: LEVOFLOXACIN 750 MG TAB PO SCH (11:04)
[2017-07-24 11:16] LABS: HEMATOCRIT 39.3 % (39.0-51.0); MEAN CELL VOLUME 85.6 FL (80.0-100.0); MEAN CORPUSCULAR HEMOGLOBIN 28.1 PG (27.0-34.0); MEAN CORPUSCULAR HGB CONC 32.8 % (32.0-36.0); PLATELET COUNT 215 TH/MM3 (150-450); RED BLOOD COUNT 4.59 MIL/MM3 (4.50-5.90); RED CELL DISTRIBUTION WIDTH 15.3 % (11.6-17.2); REVIEW FLAG FINAL; WHITE BLOOD COUNT 9.2 TH/MM3 (4.0-11.0)
--- NOTE | 2017-07-24 11:33 | HHI.FPPN ---
Subjective Remarks No acute events overnight. Patient remains intermittently hypertensive and hypoxic. He continues to report shortness of breath at rest, but reports that his breathing is getting a lot better. He also reports a headache today. He reports that he has walked the halls twice yesterday and has been getting over 2000 on his incentive spirometer. Discussed plans for discharge and follow-up. (Raymond Reardon MD R2) Objective Vitals Vital Signs Date Time Temp Pulse Resp B/P (MAP) Pulse Ox O2 Delivery O2 Flow Rate FiO2 07/24/17 08:00 97.2 79 20 167/92 (117) 92 07/24/17 07:43 97 Nasal Cannula 2.00 07/24/17 04:00 97.4 70 16 162/99 (120) 97 07/24/17 04:00 Room Air 07/24/17 00:00 Room Air 07/24/17 00:00 97.6 77 18 114/65 (81) 95 07/23/17 21:42 Nasal Cannula 2.00 07/23/17 20:09 78 07/23/17 20:00 97.3 88 18 171/90 (117) 94 07/23/17 19:27 93 Nasal Cannula 2.00 07/23/17 16:00 97.4 82 20 156/90 (112) 95 07/23/17 12:00 97.8 78 20 140/92 (108) 94 I/O 07/23/17 07/23/17 07/23/17 07/24/17 07/24/17 07/24/17 07:00 15:00 23:00 07:00 15:00 23:00 Intake Total 1080 ml 960 ml Output Total 150 ml 1200 ml Balance 930 ml -240 ml Intake Oral 1080 ml 960 ml Output Urine Total 150 ml 1200 ml # Voids 8 4 # Bowel Movements 1 1 (Raymond Reardon MD R2) Result Diagram: 07/24/17 1000 07/23/17 0605 Imaging Last Impressions Chest X-Ray 07/21/17 0615 Signed Impressions: Service Date/Time: Friday, July 21, 2017 06:30 - CONCLUSION: No evidence of acute cardiopulmonary disease. Geovani Phillips MD CT Angiography 07/21/17 0000 Signed Impressions: Service Date/Time: Friday, July 21, 2017 11:02 - CONCLUSION: 1. Less than optimal opacification of the pulmonary arteries. However, no PE is identified through the lobar and some of the segmental level pulmonary artery branches. 2. Nonspecific mediastinal and right hilar lymphadenopathy. Geovani Chowdhury MD Objective Remarks GENERAL: Well-nourished, well-developed obese male patient lying in bed. He appears uncomfortable with a headache and intermittent coughing fits. SKIN: Warm and dry. Mild venous stasis skin changes on LEs bilaterally below the knees. HEAD: Normocephalic. Atraumatic. EYES: No scleral icterus. No injection or drainage. EOMI. NECK: Supple, trachea midline. No lymphadenopathy. No meningeal signs. CARDIOVASCULAR: Regular rate and rhythm without murmurs, gallops, or rubs. RESPIRATORY: Inspiratory and expiratory coarse breath sounds; light end expiratory wheezing bilaterally. No accessory muscle use. Some intermittent coughing fits. GASTROINTESTINAL: Abdomen soft, non-tender, nondistended. EXTREMITIES: No cyanosis, or edema. Digital clubbing of fingers and toes noted bilaterally. NEUROLOGICAL: Awake, alert, and oriented x 3. Non-focal. Procedures Heart Cath 07/22/2017: CONCLUSION 1. Nonobstructive coronary artery disease. 2. Preserved ____systolic function. 3. Elevated LVEDP. RECOMMENDATIONS The patient will go back to the [facility] for post cath care. We recommend aggressive medical management for primary prevention of CAD. The patient should be started on a beta everette, statin, BALBINA inhibitor and long-acting nitrate. Heparin drip can be discontinued. Encourage ambulation and incentive spirometry. The patient will need to follow up with cardiology and aggressive therapeutic lifestyle changes highly recommended including smoking cessation. (Raymond Reardon MD R2) A/P Assessment and Plan Patient is a 51-year-old man with a history of NSTEMI in 2015, diabetes, hypertension, polysubstance abuse, medication noncompliance, ZAKIA who presented to the Emergency Department feeling like he couldn't breathe. Patient reports persistent coughing with change in sputum production and viscosity. Smoking history and physical exam are consistent with COPD exacerbation. We'll admit for COPD exacerbation, steroids, antibiotics, ACS rule out for elevated troponin. 07/22 - pt picture became more symptomatic for ACS yesterday afternoon with Troponins elevated @ 0.25 and 0.27 with ECG consistent with NSTEMI; Cardiology was consulted and Heparin gtt started. Pt taken to catheter finisher and inspector today with report pending. Pt is asymptomatic on exam today and clinically has improved; however, we are aggressively pursuing medical management measures to improve his outcomes. In addition, pt states he is quitting smoking now which will reduce his overall risk profile. 07/23 - pursuing aggressive medical management of CAD and lifestyle changes as recommended by Cardiology from heart cath report following NSTEMI to include Metoprolol, Losartan, and Atorvastatin. Also working w/CM to help him attain medications due to homelessness and jobless. Pt states he has quit smoking and doesn't need smoking cessation counseling. Lastly, titrating HTN meds to reduce BPs in the 150s-170s systolic/90s diastolic. we have started an ARB--Losartan--as an alternative to Lisinopril (BALBINA-I) due to pt description of dry cough and angioedema when taking lisinopril 07/24 - patient switched from azithromycin to Levaquin. Sputum culture ordered. Increased losartan. Discharge Planning Pending improvement in respiratory status. (Raymond Reardon MD R2) Attending Attestation Patient seen and examined. Case reviewed and discussed with the resident team. Agree with plan of care as discussed with me and documented in the resident note. discussed discharge plans with pt. he was in drug rehab for a month and wants to continue to stay clean. asked case management if he could get a list of names of places where he could go after discharge to help him stay away from prior bad influences. he was homeless and an addict for 3 years he states. (Ashley Hendrickson MD) Problem List: (1) COPD exacerbation ICD Codes: J44.1 - Chronic obstructive pulmonary disease with (acute) exacerbation Plan: -Admit to inpatient -COPD educator consult -Trend CBC -Tylenol for pain 1-2, [place] for pain 3-10, morphine for breakthrough pain -Albuterol nebulizer every 2 hours when necessary for shortness of breath, to wean onto albuterol inhaler every 4 hours when necessary for shortness of breath -Duo nebs every 4 hours -Azithromycin 500 mg by mouth daily changed to Levaquin 750 mg by mouth daily -Guaifenesin and codeine by mouth every 4 hours when necessary cough -Nicotine patch daily -Prednisone 40 mg by mouth daily -Blood culture -Influenza A/B antigen--negative -Sputum culture and Gram stain re-ordered 07/24 -Incentive spirometry -Oxygen as needed -Monitor pulse ox, vital signs -CT pulmonary angiogram ruled out PE -Denied Smoking cessation counseling but states he has quit smoking as of this admission -Plan for home oxygen walk test before discharge and after improvement of respiratory status; consider inpatient PFT (2) NSTEMI (non-ST elevated myocardial infarction) ICD Codes: I21.4 - NSTEMI (non-ST elevated myocardial infarction) Status: Acute Plan: Pt with chest pains upon admission with elevated tropinins at 0.25->0.27 and ECG consistent with NSTEMI; started per protocol on ACS r/o and Cardiology consulted. Pt taken to catheter finisher and inspector today -Morphine for PRN pain -Oxygen supplementation on admit, today weaned with O2 sats >94% on RA -Nitroglycerin--Sublingual, then paste started -ASA 325 mg started -Beta everette--Metoprolol 25 mg BID -ARB--Losartan increased from 50 mg daily to 50 mg twice a day (BALBINA-I contraindicated due to angioedema and dry cough) -Statin--atorvastatin 40 mg/qhs -Discontinued Heparin gtt -Started Lovenox 40 mg/day (3) Elevated troponin I level ICD Codes: R79.89 - Elevated troponin I level Status: Resolved Plan: Troponin I trend: 0.25, 0.27. EKG appears unchanged. -ACS rule out with every 6 hours troponin and EKG -Cardiology consult. Dr. Connelly discussed case with Dr. Gutierrez, who recommended heparin drip and titration, which has been ordered -Patient received aspirin in emergency department -Morphine, oxygen, nitroglycerin, beta everette, ARB ordered -Heart healthy diet -Pain medications as above -monitor and storage bin tender/telemetry -Treating hypertension and diabetes as below HOLD BALBINA-I as pt has serious allergy (angioedema) with lisinopril (4) Diabetes ICD Codes: E11.9 - Diabetes Status: Acute Plan: -Low-dose sliding scale insulin -A1C 6.3 on 07/22 -BG 86 this AM (5) Hypertension ICD Codes: I10 - Hypertension Status: Acute Plan: BP at 153/88 today -Metoprolol 25mg BID -Atorvastatin 40 mg/day -Losartan 50 mg bid since BALBINA-I is contraindicated -Lipids: LDL 11 / HDL 62.5 (6) Tobacco abuse ICD Codes: F17.200 - Tobacco abuse Status: Acute Plan: Pt denies smoking cessation counseling; however, states he is quitting smoking as he never wants to feel this out of breath again (7) Hypokalemia ICD Codes: E87.6 - Hypokalemia Status: Acute Plan: Potassium of 3.1 today. -40 mEq potassium ordered for today now and tomorrow morning (8) Noncompliance ICD Codes: Z91.19 - Noncompliance Status: Acute Plan: Patient with a history of noncompliance in the context of homelessness. -Case management consult says that they can get him a 30 day supply of his medications and for him to follow up at [facility] (9) Depression ICD Codes: F32.9 - Depression Status: Chronic Plan: -Continue patient's home medication of Zoloft and Seroquel (10) No contraindication to deep vein thrombosis (DVT) prophylaxis ICD Codes: Z78.9 - Other specified health status Plan: -Restart Lovenox 40 mg /day following discontinuation of heparin drip (11) Nutrition, metabolism, and development symptoms ICD Codes: R63.8 - Other symptoms and signs concerning food and fluid intake Plan: Fluids: none, patient tolerated by mouth Electrolytes: Monitor and replete as necessary Nutrition: Heart healthy diet GI ppx: Not currently indicated (Raymond Reardon MD R2) Problem Qualifiers (1) Diabetes: Qualified Codes: E11.9 - Type 2 diabetes mellitus without complications Raymond Reardon MD R2 Jul 24, 2017 11:32 Ashley Hendrickson MD Jul 24, 2017 16:49
[2017-07-24 11:42] LABS: BICARBONATE 31.4 MEQ/L (21.0-32.0); POTASSIUM 3.1 MEQ/L (3.5-5.1)
[2017-07-24] MEDS ORDERED: POTASSIUM CHLORIDE 10 MEQ CONTROLLED RELEASE TAB PO ONE (15:15)
[2017-07-24] MEDS: ATORVASTATIN 40 MG TAB PO SCH (20:27)
[2017-07-24] MEDS: QUEtiapine FUMARATE 300 MG TAB PO SCH (20:28)
[2017-07-25] VITALS (10 sets, daily range): BP systolic 137–167; BP diastolic 63–98; PULSE 67–72; RESP 18–20; TEMP 97.4–98.6; O2SAT 95–100
[2017-07-25] MEDS: RESP: ALBUTEROL 2.5 MG/IPRATROPIUM 0.5 MG NEB (SCH) INH ×4 (03:54→11:23)
[2017-07-25] MEDS: ISOSORBIDE MONONITRATE 30 MG TAB PO SCH (07:05)
[2017-07-25] MEDS: INSULIN ASPART SUPPLEMENTAL SCALE SQ SCH ×4 (08:00→21:00)
[2017-07-25] MEDS: ENOXAPARIN SODIUM 40 MG/0.4 ML SYRINGE SQ SCH (09:04)
[2017-07-25] MEDS: ASPIRIN 81 MG CHEW TAB CHEW SCH (09:05)
[2017-07-25] MEDS: LOSARTAN 50 MG TAB PO SCH ×2 (09:06→21:10)
[2017-07-25] MEDS: predniSONE 20 MG TAB PO SCH (09:06)
[2017-07-25] MEDS: SODIUM CHLORIDE 0.9% FLUSH 10 ML FLUSH IV FLUSH SCH ×2 (09:06→21:10)
[2017-07-25] MEDS: SERTRALINE HCL 100 MG TAB PO SCH (09:07)
[2017-07-25] MEDS: LEVOFLOXACIN 750 MG TAB PO SCH (09:07)
[2017-07-25] MEDS: METOPROLOL TARTRATE 25 MG TAB PO SCH ×2 (09:07→21:10)
[2017-07-25] MEDS: POTASSIUM CHLORIDE 10 MEQ CONTROLLED RELEASE TAB PO SCH (09:07)
--- NOTE | 2017-07-25 15:29 | HHI.FPPN ---
Subjective Remarks Acute events overnight. Mr. Santiago is intermittently hypertensive. Otherwise, patient is afebrile with vital signs stable. Patient reports feeling 75-80% of normal. He does report that he had some episode of shortness of breath last night with associated pleuritic chest pain. He reports his breathing is about 60 % of normal. He feels his cough is about the same. He reports that his chest feels feels tight, but he denies any chest pain. He still has a persistent headache. (Raymond Reardon MD R2) Objective Vitals Vital Signs Date Time Temp Pulse Resp B/P (MAP) Pulse Ox O2 Delivery O2 Flow Rate FiO2 07/25/17 15:28 95 Nasal Cannula 2.00 07/25/17 15:03 69 07/25/17 12:00 98.6 68 18 145/84 (104) 95 07/25/17 08:36 96 21 07/25/17 08:00 97.4 71 20 153/98 (116) 97 07/25/17 04:00 97.8 72 19 148/72 (97) 100 07/25/17 01:43 67 137/63 (87) 07/25/17 00:22 98 Nasal Cannula 2.00 07/24/17 20:33 Nasal Cannula 2.00 07/24/17 20:00 97.6 74 19 172/96 (121) 95 07/24/17 19:08 74 07/24/17 16:00 97.6 86 20 197/114 (141) 97 I/O 07/24/17 07/24/17 07/24/17 07/25/17 07/25/17 07/25/17 07:00 15:00 23:00 07:00 15:00 23:00 Intake Total 960 ml 580 ml Output Total 700 ml Balance 960 ml -120 ml Intake Oral 960 ml 580 ml Output Urine Total 700 ml # Voids 4 6 # Bowel Movements 1 1 (Raymond Reardon MD R2) Result Diagram: 07/24/17 1000 07/24/17 1000 Imaging Last Impressions Chest X-Ray 07/21/17 0615 Signed Impressions: Service Date/Time: Friday, July 21, 2017 06:30 - CONCLUSION: No evidence of acute cardiopulmonary disease. Geovani Phillips MD CT Angiography 07/21/17 0000 Signed Impressions: Service Date/Time: Friday, July 21, 2017 11:02 - CONCLUSION: 1. Less than optimal opacification of the pulmonary arteries. However, no PE is identified through the lobar and some of the segmental level pulmonary artery branches. 2. Nonspecific mediastinal and right hilar lymphadenopathy. Geovani Chowdhury MD Objective Remarks GENERAL: Well-nourished, well-developed obese male patient lying in bed. He appears more comfortable today. SKIN: Warm and dry. Mild venous stasis skin changes on LEs bilaterally below the knees. HEAD: Normocephalic. Atraumatic. EYES: No scleral icterus. No injection or drainage. EOMI. NECK: Supple, trachea midline. No lymphadenopathy. No meningeal signs. CARDIOVASCULAR: Regular rate and rhythm without murmurs, gallops, or rubs. RESPIRATORY: More clear breath sounds with better air movement BL; diffuse wheezing bilaterally. No accessory muscle use. Some intermittent coughing. GASTROINTESTINAL: Abdomen soft, non-tender, nondistended. EXTREMITIES: No cyanosis, or edema. Digital clubbing of fingers and toes noted bilaterally. NEUROLOGICAL: Awake, alert, and oriented x 3. Non-focal. Procedures Heart Cath 07/22/2017: CONCLUSION 1. Nonobstructive coronary artery disease. 2. Preserved ____systolic function. 3. Elevated LVEDP. RECOMMENDATIONS The patient will go back to the [facility] for post cath care. We recommend aggressive medical management for primary prevention of CAD. The patient should be started on a beta everette, statin, BALBINA inhibitor and long-acting nitrate. Heparin drip can be discontinued. Encourage ambulation and incentive spirometry. The patient will need to follow up with cardiology and aggressive therapeutic lifestyle changes highly recommended including smoking cessation. (Raymond Reardon MD R2) A/P Assessment and Plan Patient is a 51-year-old man with a history of NSTEMI in 2015, diabetes, hypertension, polysubstance abuse, medication noncompliance, ZAKIA who presented to the Emergency Department feeling like he couldn't breathe. Patient reports persistent coughing with change in sputum production and viscosity. Smoking history and physical exam are consistent with COPD exacerbation. We'll admit for COPD exacerbation, steroids, antibiotics, ACS rule out for elevated troponin. 07/22 - pt picture became more symptomatic for ACS yesterday afternoon with Troponins elevated @ 0.25 and 0.27 with ECG consistent with NSTEMI; Cardiology was consulted and Heparin gtt started. Pt taken to semiconductor lab technician today with report pending. Pt is asymptomatic on exam today and clinically has improved; however, we are aggressively pursuing medical management measures to improve his outcomes. In addition, pt states he is quitting smoking now which will reduce his overall risk profile. 07/23 - pursuing aggressive medical management of CAD and lifestyle changes as recommended by Cardiology from heart cath report following NSTEMI to include Metoprolol, Losartan, and Atorvastatin. Also working w/CM to help him attain medications due to homelessness and jobless. Pt states he has quit smoking and doesn't need smoking cessation counseling. Lastly, titrating HTN meds to reduce BPs in the 150s-170s systolic/90s diastolic. we have started an ARB--Losartan--as an alternative to Lisinopril (BALBINA-I) due to pt description of dry cough and angioedema when taking lisinopril 07/24 - patient switched from azithromycin to Levaquin. Sputum culture ordered. Increased losartan. Discharge Planning Pending improvement in respiratory status. (Raymond Reardon MD R2) Attending Attestation Patient seen and examined. Case reviewed and discussed with the resident team. Agree with plan of care as discussed with me and documented in the resident note. he requested information about places to assist when quitting drugs. he was given a list of some places that can help with abstinence. (Ashley Hendrickson MD) Problem List: (1) COPD exacerbation ICD Codes: J44.1 - Chronic obstructive pulmonary disease with (acute) exacerbation Plan: -Admit to inpatient -COPD educator consult -Trend CBC -Tylenol for pain 1-2, [place] for pain 3-10, morphine for breakthrough pain -Albuterol nebulizer every 2 hours when necessary for shortness of breath, to wean onto albuterol inhaler every 4 hours when necessary for shortness of breath -Duo nebs every 4 hours -Azithromycin 500 mg by mouth daily changed to Levaquin 750 mg by mouth daily ( - present) -Guaifenesin and codeine by mouth every 4 hours when necessary cough -Nicotine patch daily -Prednisone 40 mg by mouth daily -Blood culture -Influenza A/B antigen--negative -Sputum culture and Gram stain re-ordered 07/24 -Incentive spirometry -Oxygen as needed -Monitor pulse ox, vital signs -CT pulmonary angiogram ruled out PE -Denied Smoking cessation counseling but states he has quit smoking as of this admission -Plan for home oxygen walk test before discharge and after improvement of respiratory status; consider inpatient PFT when clinically improved (2) NSTEMI (non-ST elevated myocardial infarction) ICD Codes: I21.4 - NSTEMI (non-ST elevated myocardial infarction) Status: Acute Plan: Pt with chest pains upon admission with elevated tropinins at 0.25->0.27 and ECG consistent with NSTEMI; started per protocol on ACS r/o and Cardiology consulted. Pt taken to semiconductor lab technician today -Morphine for PRN pain -Oxygen supplementation on admit, today weaned with O2 sats >94% on RA -Nitroglycerin--Sublingual, then paste started -ASA 325 mg started -Beta everette--Metoprolol 25 mg BID -ARB--Losartan increased from 50 mg daily to 50 mg twice a day (BALBINA-I contraindicated due to angioedema and dry cough) -Statin--atorvastatin 40 mg/qhs -Discontinued Heparin gtt -Started Lovenox 40 mg/day (3) Elevated troponin I level ICD Codes: R79.89 - Elevated troponin I level Status: Resolved Plan: Troponin I trend: 0.25, 0.27. EKG appears unchanged. -ACS rule out with every 6 hours troponin and EKG -Cardiology consulted and appreciated -Patient received aspirin in emergency department -Morphine, oxygen, nitroglycerin, beta everette, ARB ordered -Heart healthy diet -Pain medications as above -monitoring analyst/telemetry -Treating hypertension and diabetes as below HOLD BALBINA-I as pt has serious allergy (angioedema) with lisinopril (4) Diabetes ICD Codes: E11.9 - Diabetes Status: Acute Plan: -Low-dose sliding scale insulin -A1C 6.3 on 07/22 (5) Hypertension ICD Codes: I10 - Hypertension Status: Acute Plan: BP at 153/88 today -Metoprolol 25mg BID -Atorvastatin 40 mg/day -Losartan 50 mg bid since BALBINA-I is contraindicated -Increased Imdur from 30mg to 60 mg -Lipids: LDL 11 / HDL 62.5 (6) Tobacco abuse ICD Codes: F17.200 - Tobacco abuse Status: Acute Plan: Pt denies smoking cessation counseling; however, states he is quitting smoking as he never wants to feel this out of breath again - nicotine patch (7) Hypokalemia ICD Codes: E87.6 - Hypokalemia Status: Resolved Plan: Potassium of 3.1. -repeat BMP (8) Noncompliance ICD Codes: Z91.19 - Noncompliance Status: Acute Plan: Patient with a history of noncompliance in the context of homelessness. -Case management consult says that they can get him a 30 day supply of his medications and for him to follow up at [facility] (9) Depression ICD Codes: F32.9 - Depression Status: Chronic Plan: -Continue patient's home medication of Zoloft and Seroquel (10) No contraindication to deep vein thrombosis (DVT) prophylaxis ICD Codes: Z78.9 - Other specified health status Plan: -Restart Lovenox 40 mg /day following discontinuation of heparin drip (11) Nutrition, metabolism, and development symptoms ICD Codes: R63.8 - Other symptoms and signs concerning food and fluid intake Plan: Fluids: none, patient tolerated by mouth Electrolytes: Monitor and replete as necessary Nutrition: Heart healthy diet GI ppx: Not currently indicated (Raymond Reardon MD R2) Problem Qualifiers (1) Diabetes: Qualified Codes: E11.9 - Type 2 diabetes mellitus without complications Raymond Reardon MD R2 Jul 25, 2017 15:29 Ashley Hendrickson MD Jul 27, 2017 18:12
[2017-07-25] MEDS ORDERED: cloNIDine HCL 0.1 MG TAB PO PRN (16:15)
[2017-07-25] MEDS ORDERED: ENALAPRILAT 1.25 MG/ML VIAL IV PRN (16:15)
[2017-07-25] MEDS: NICOTINE 14 MG/24 HR PATCH T-DERMAL SCH (18:20)
[2017-07-25] MEDS: REMOVE OLD PATCH T-DERMAL SCH (21:00)
[2017-07-25] MEDS: QUEtiapine FUMARATE 300 MG TAB PO SCH (21:10)
[2017-07-25] MEDS: ATORVASTATIN 40 MG TAB PO SCH (21:10)
[2017-07-26] VITALS (10 sets, daily range): BP systolic 136–180; BP diastolic 65–103; PULSE 65–88; RESP 18–20; TEMP 97.4–98; O2SAT 94–98
[2017-07-26] MEDS: ISOSORBIDE MONONITRATE 60 MG TAB PO SCH (07:38)
[2017-07-26] MEDS: INSULIN ASPART SUPPLEMENTAL SCALE SQ SCH ×4 (08:00→21:00)
[2017-07-26] MEDS: NICOTINE 14 MG/24 HR PATCH T-DERMAL SCH (09:00)
[2017-07-26] MEDS: SODIUM CHLORIDE 0.9% FLUSH 10 ML FLUSH IV FLUSH SCH ×2 (09:00→21:00)
[2017-07-26] MEDS: POTASSIUM CHLORIDE 10 MEQ CONTROLLED RELEASE TAB PO SCH (10:08)
[2017-07-26] MEDS: ENOXAPARIN SODIUM 40 MG/0.4 ML SYRINGE SQ SCH (10:09)
[2017-07-26] MEDS: ASPIRIN 81 MG CHEW TAB CHEW SCH (10:09)
[2017-07-26] MEDS: METOPROLOL TARTRATE 25 MG TAB PO SCH ×2 (10:09→21:55)
[2017-07-26] MEDS: LOSARTAN 50 MG TAB PO SCH ×2 (10:10→21:55)
[2017-07-26] MEDS: predniSONE 20 MG TAB PO SCH (10:10)
[2017-07-26] MEDS: SERTRALINE HCL 100 MG TAB PO SCH (10:10)
[2017-07-26] MEDS: LEVOFLOXACIN 750 MG TAB PO SCH (10:10)
[2017-07-26] MEDS: VANCOMYCIN INJ 1,000 MG in SODIUM CHLOR 0.9% 250 ML INJ 250 ML IV SCH (13:18)
--- NOTE | 2017-07-26 13:42 | HHI.FPPN ---
Subjective Remarks Patient required some oxygen at 2 L/m by nasal cannula last night. Weaned to RA this morning. Except for some episodes of hypertension, patient has remained afebrile with vital signs stable. Patient reports that his breathing is not any better today. Says it may actually be worse today. Discussed that his sputum culture returned positive for MRSA. (Raymond Reardon MD R2) Objective Vitals Vital Signs Date Time Temp Pulse Resp B/P (MAP) Pulse Ox O2 Delivery O2 Flow Rate FiO2 07/26/17 08:15 95 21 07/26/17 08:00 97.4 66 20 180/103 (128) 95 07/26/17 04:00 97.4 65 18 154/87 (109) 98 07/26/17 00:00 97.5 71 18 136/65 (88) 96 07/25/17 22:39 Nasal Cannula 2.00 07/25/17 21:18 Nasal Cannula 2.00 07/25/17 20:06 68 07/25/17 20:00 97.6 71 20 167/96 (119) 98 07/25/17 16:00 97.6 72 20 150/90 (110) 99 07/25/17 15:28 95 Nasal Cannula 2.00 07/25/17 15:03 69 I/O 07/25/17 07/25/17 07/25/17 07/26/17 07/26/17 07/26/17 07:00 15:00 23:00 07:00 15:00 23:00 Intake Total 580 ml 960 ml 240 ml Output Total 700 ml Balance -120 ml 960 ml 240 ml Intake Oral 580 ml 960 ml 240 ml Output Urine Total 700 ml # Voids 4 2 # Bowel Movements 1 1 0 (Raymond Reardon MD R2) Result Diagram: 07/24/17 1000 07/24/17 1000 Imaging Last Impressions Chest X-Ray 07/21/17 0615 Signed Impressions: Service Date/Time: Friday, July 21, 2017 06:30 - CONCLUSION: No evidence of acute cardiopulmonary disease. Geovani Phillips MD CT Angiography 07/21/17 0000 Signed Impressions: Service Date/Time: Friday, July 21, 2017 11:02 - CONCLUSION: 1. Less than optimal opacification of the pulmonary arteries. However, no PE is identified through the lobar and some of the segmental level pulmonary artery branches. 2. Nonspecific mediastinal and right hilar lymphadenopathy. Geovani Chowdhury MD Objective Remarks GENERAL: Well-nourished, well-developed obese male patient lying in bed. He appears more uncomfortable today. SKIN: Warm and dry. Mild venous stasis skin changes on LEs bilaterally below the knees. HEAD: Normocephalic. Atraumatic. EYES: No scleral icterus. No injection or drainage. EOMI. NECK: Supple, trachea midline. No lymphadenopathy. No meningeal signs. CARDIOVASCULAR: Regular rate and rhythm without murmurs, gallops, or rubs. RESPIRATORY: diffuse wheezing bilaterally. some tripoding noted. Some intermittent coughing. GASTROINTESTINAL: Abdomen soft, non-tender, nondistended. EXTREMITIES: No cyanosis, or edema. Digital clubbing of fingers and toes noted bilaterally. NEUROLOGICAL: Awake, alert, and oriented x 3. Non-focal. Procedures Heart Cath 07/22/2017: CONCLUSION 1. Nonobstructive coronary artery disease. 2. Preserved ____systolic function. 3. Elevated LVEDP. RECOMMENDATIONS The patient will go back to the [facility] for post cath care. We recommend aggressive medical management for primary prevention of CAD. The patient should be started on a beta everette, statin, BALBINA inhibitor and long-acting nitrate. Heparin drip can be discontinued. Encourage ambulation and incentive spirometry. The patient will need to follow up with cardiology and aggressive therapeutic lifestyle changes highly recommended including smoking cessation. (Raymond Reardon MD R2) A/P Assessment and Plan Patient is a 51-year-old man with a history of NSTEMI in 2015, diabetes, hypertension, polysubstance abuse, medication noncompliance, ZAKIA who presented to the Emergency Department feeling like he couldn't breathe. Patient reports persistent coughing with change in sputum production and viscosity. Smoking history and physical exam are consistent with COPD exacerbation. We'll admit for COPD exacerbation, steroids, antibiotics, ACS rule out for elevated troponin. 07/22 - pt picture became more symptomatic for ACS yesterday afternoon with Troponins elevated @ 0.25 and 0.27 with ECG consistent with NSTEMI; Cardiology was consulted and Heparin gtt started. Pt taken to labor conciliator today with report pending. Pt is asymptomatic on exam today and clinically has improved; however, we are aggressively pursuing medical management measures to improve his outcomes. In addition, pt states he is quitting smoking now which will reduce his overall risk profile. 07/23 - pursuing aggressive medical management of CAD and lifestyle changes as recommended by Cardiology from heart cath report following NSTEMI to include Metoprolol, Losartan, and Atorvastatin. Also working w/CM to help him attain medications due to homelessness and jobless. Pt states he has quit smoking and doesn't need smoking cessation counseling. Lastly, titrating HTN meds to reduce BPs in the 150s-170s systolic/90s diastolic. we have started an ARB--Losartan--as an alternative to Lisinopril (BALBINA-I) due to pt description of dry cough and angioedema when taking lisinopril 07/24 - patient switched from azithromycin to Levaquin. Sputum culture ordered. Increased losartan. 07/25 - sputum culture grew MRSA. Patient reports no improvement in respiratory status. Added vancomycin IV pending susceptibilities. Added IV Solu-Medrol instead of prednisone. Discharge Planning Pending improvement in respiratory status. (Raymond Reardon MD R2) Attending Attestation Patient seen and examined. Case reviewed and discussed with the resident team. Agree with plan of care as discussed with me and documented in the resident note. agree with treating for MRSA in sputum. doubt he has a MRSA pneumonia as he is fortunately doing well overall (Ashley Hendrickson MD) Problem List: (1) COPD exacerbation ICD Codes: J44.1 - Chronic obstructive pulmonary disease with (acute) exacerbation Plan: -Admit to inpatient -COPD educator consult -Trend CBC -Tylenol for pain 1-2, [place] for pain 3-10, morphine for breakthrough pain -Albuterol nebulizer every 2 hours when necessary for shortness of breath, to wean onto albuterol inhaler every 4 hours when necessary for shortness of breath -Duo nebs every 4 hours -Azithromycin 500 mg by mouth daily (from 07/21 - 07/23) changed to Levaquin 750 mg by mouth daily (07/24 - 07/26); vancomycin added on 07/26 -Guaifenesin and codeine by mouth every 4 hours when necessary cough -Nicotine patch daily -Prednisone 40 mg by mouth daily changed to Solu-Medrol 40 mg IV twice a day -Blood culture -Influenza A/B antigen--negative -Sputum culture and Gram stain re-ordered 07/24 and grew MRSA, susceptibilities pending -Incentive spirometry -Oxygen as needed -Monitor pulse ox, vital signs -CT pulmonary angiogram ruled out PE -Denied Smoking cessation counseling but states he has quit smoking as of this admission -Plan for home oxygen walk test before discharge and after improvement of respiratory status; consider inpatient PFT when clinically improved (2) NSTEMI (non-ST elevated myocardial infarction) ICD Codes: I21.4 - NSTEMI (non-ST elevated myocardial infarction) Status: Acute Plan: Pt with chest pains upon admission with elevated tropinins at 0.25->0.27 and ECG consistent with NSTEMI; started per protocol on ACS r/o and Cardiology consulted. Pt taken to labor conciliator today -Morphine PRN for pain -Oxygen supplementation on admit, today weaned with O2 sats >94% on RA -Nitroglycerin PRN for chest pain -ASA 325 mg started -Beta everette--Metoprolol 25 mg BID -ARB--Losartan increased from 50 mg daily to 50 mg twice a day (BALBINA-I contraindicated due to angioedema and dry cough) -Statin--atorvastatin 40 mg/qhs -Discontinued Heparin gtt -Started Lovenox 40 mg/day (3) Elevated troponin I level ICD Codes: R79.89 - Elevated troponin I level Status: Resolved Plan: Troponin I trend: 0.25, 0.27. EKG appears unchanged. -ACS rule out with every 6 hours troponin and EKG -Cardiology consulted and appreciated -Patient received aspirin in emergency department -Morphine, oxygen, nitroglycerin, beta everette, ARB ordered -Heart healthy diet -Pain medications as above -patient monitor/telemetry -Treating hypertension and diabetes as below HOLD BALBINA-I as pt has serious allergy (angioedema) with lisinopril (4) Hypertension ICD Codes: I10 - Hypertension Status: Acute Plan: Still hypertensive. -Metoprolol 25mg BID -Losartan 50 mg bid since BALBINA-I is contraindicated -Imdur 60 mg po qd -added amlodipine 5mg po qd (5) Diabetes ICD Codes: E11.9 - Diabetes Status: Acute Plan: -Low-dose sliding scale insulin -A1C 6.3 on 07/22 (6) Tobacco abuse ICD Codes: F17.200 - Tobacco abuse Status: Acute Plan: Pt denies smoking cessation counseling; however, states he is quitting smoking as he never wants to feel this out of breath again - nicotine patch (7) Hypokalemia ICD Codes: E87.6 - Hypokalemia Status: Resolved Plan: Potassium of 3.1. -repeat BMP -KCl 40 mEq po qd (8) Noncompliance ICD Codes: Z91.19 - Noncompliance Status: Acute Plan: Patient with a history of noncompliance in the context of homelessness. -Case management consult says that they can get him a 30 day supply of his medications and for him to follow up at [facility] -Planning on discharging patient with plans to go to [facility] case management aware (9) Depression ICD Codes: F32.9 - Depression Status: Chronic Plan: -Continue patient's home medication of Zoloft and Seroquel (10) No contraindication to deep vein thrombosis (DVT) prophylaxis ICD Codes: Z78.9 - Other specified health status Plan: -Restart Lovenox 40 mg /day following discontinuation of heparin drip (11) Nutrition, metabolism, and development symptoms ICD Codes: R63.8 - Other symptoms and signs concerning food and fluid intake Plan: Fluids: none, patient tolerated by mouth Electrolytes: Monitor and replete as necessary Nutrition: Heart healthy diet GI ppx: Not currently indicated (Raymnod Reardon MD R2) Problem Qualifiers (1) Diabetes: Qualified Codes: E11.9 - Type 2 diabetes mellitus without complications Raymond Reardon MD R2 Jul 26, 2017 13:42 Ashley Hendrickson MD Jul 27, 2017 18:14
--- NOTE | 2017-07-26 15:03 | RADRPT ---
EXAM DATE/TIME: 07/26/2017 11:46 [facility] COMPARISON: CHEST PA & LAT, November 07, 2015, 17:30. INDICATIONS : Cough, short of breath, chest pain due to cough. MEDICAL HISTORY : Hypercholesterolemia. Hypertension. Gastroesophageal reflux disease. Asthma. Tuberculosis. Sleep apnea. Arthritis. Diabetic. SURGICAL HISTORY : Facial surgery. ENCOUNTER: Subsequent ACUITY: 4 - 6 days PAIN SCORE: 6/10 LOCATION: Chest FINDINGS: The heart and mediastinal structures are stable. The pulmonary vascular pattern is normal. The lungs are clear. CONCLUSION: No acute cardiopulmonary disease. Benito Castro MD on July 26, 2017 at 13:18 Board Certified Radiologist. This report was verified electronically.
[2017-07-26] MEDS ORDERED: amLODIPine BESYLATE 5 MG TAB PO SCH (17:00)
[2017-07-26] MEDS: methylPREDNISolone SOD SUCC 40 MG/1 ML VIAL IV PUSH SCH ×2 (17:09→21:55)
[2017-07-26] MEDS: RESP: BUDESONIDE 0.5 MG/2 ML NEB NEB SCH (20:04)
[2017-07-26] MEDS: REMOVE OLD PATCH T-DERMAL SCH (21:00)
[2017-07-26 21:33] LABS: BICARBONATE 30.9 MEQ/L (21.0-32.0); POTASSIUM 4.1 MEQ/L (3.5-5.1)
[2017-07-26] MEDS: ATORVASTATIN 40 MG TAB PO SCH (21:54)
[2017-07-26] MEDS: QUEtiapine FUMARATE 300 MG TAB PO SCH (21:54)
[2017-07-27] VITALS (8 sets, daily range): BP systolic 150–167; BP diastolic 70–103; PULSE 70–86; RESP 16–18; TEMP 97.1–98.2; O2SAT 92–98
[2017-07-27] MEDS: VANCOMYCIN INJ 1,000 MG in SODIUM CHLOR 0.9% 250 ML INJ 250 ML IV SCH ×3 (01:20→22:25)
[2017-07-27] MEDS: ISOSORBIDE MONONITRATE 60 MG TAB PO SCH (07:00)
[2017-07-27] MEDS: INSULIN ASPART SUPPLEMENTAL SCALE SQ SCH ×4 (08:00→21:00)
[2017-07-27] MEDS: RESP: BUDESONIDE 0.5 MG/2 ML NEB NEB SCH ×2 (08:00→22:15)
[2017-07-27] MEDS: ENOXAPARIN SODIUM 40 MG/0.4 ML SYRINGE SQ SCH (08:00)
[2017-07-27] MEDS: NICOTINE 14 MG/24 HR PATCH T-DERMAL SCH (09:00)
--- NOTE | 2017-07-27 09:57 | HHI.FPPN ---
Subjective Remarks Acute events overnight. Patient has been hypertensive overnight. Patient reports that his breathing is better and that he is able to walk around. However he still has a persistent cough and a feeling of congestion in his chest. He feels well enough to leave the hospital today. Discussed plan to get a home oxygen walk test. He denies that he has ever been diagnosed with COPD, so will also order PFTs prior to d/c. (Raymond Reardon MD R2) Objective Vitals Vital Signs Date Time Temp Pulse Resp B/P (MAP) Pulse Ox O2 Delivery O2 Flow Rate FiO2 07/27/17 08:00 Room Air 07/27/17 08:00 97.2 85 18 162/102 (122) 97 07/27/17 04:30 97.4 70 18 150/78 (102) 94 07/27/17 00:00 97.7 72 18 150/70 (96) 93 07/26/17 22:01 Nasal Cannula 2.00 07/26/17 20:24 97.4 88 18 176/86 (116) 94 Automatic Cuff 07/26/17 20:11 98 21 07/26/17 19:52 84 07/26/17 16:00 97.5 68 20 168/93 (118) 96 07/26/17 12:00 98.0 69 20 153/87 (109) 96 I/O 07/26/17 07/26/17 07/26/17 07/27/17 07/27/17 07/27/17 07:00 15:00 23:00 07:00 15:00 23:00 Intake Total 240 ml 970 ml Balance 240 ml 970 ml Intake Oral 240 ml 720 ml IV Total 250 ml # Voids 2 5 # Bowel Movements 0 0 (Raymond Reardon MD R2) Result Diagram: 07/24/17 1000 07/26/172035 Imaging Last Impressions Chest X-Ray 07/26/17 0000 Signed Impressions: Service Date/Time: July 11:46 - CONCLUSION: No acute cardiopulmonary disease. Benito Castro MD CT Angiography 07/21/17 0000 Signed Impressions: Service Date/Time: Friday, July 21, 2017 11:02 - CONCLUSION: 1. Less than optimal opacification of the pulmonary arteries. However, no PE is identified through the lobar and some of the segmental level pulmonary artery branches. 2. Nonspecific mediastinal and right hilar lymphadenopathy. Geovani Chowdhury MD Objective Remarks GENERAL: Well-nourished, well-developed obese male patient lying in bed. He appears more comfortable today. SKIN: Warm and dry. Mild venous stasis skin changes on LEs bilaterally below the knees. HEAD: Normocephalic. Atraumatic. EYES: No scleral icterus. No injection or drainage. EOMI. NECK: Supple, trachea midline. No lymphadenopathy. No meningeal signs. CARDIOVASCULAR: Regular rate and rhythm without murmurs, gallops, or rubs. RESPIRATORY: wheezing in upper lung price. appears more comfortable today. Some intermittent coughing. GASTROINTESTINAL: Abdomen soft, non-tender, nondistended. EXTREMITIES: No cyanosis, or edema. Digital clubbing of fingers and toes noted bilaterally. NEUROLOGICAL: Awake, alert, and oriented x 3. Non-focal. Procedures Heart Cath 07/22/2017: CONCLUSION 1. Nonobstructive coronary artery disease. 2. Preserved ____systolic function. 3. Elevated LVEDP. RECOMMENDATIONS The patient will go back to the [facility] for post cath care. We recommend aggressive medical management for primary prevention of CAD. The patient should be started on a beta everette, statin, BALBINA inhibitor and long-acting nitrate. Heparin drip can be discontinued. Encourage ambulation and incentive spirometry. The patient will need to follow up with cardiology and aggressive therapeutic lifestyle changes highly recommended including smoking cessation. (Raymond Reardon MD R2) A/P Assessment and Plan Patient is a 51-year-old man with a history of NSTEMI in 2015, diabetes, hypertension, polysubstance abuse, medication noncompliance, ZAKIA who presented to the Emergency Department feeling like he couldn't breathe. Patient reports persistent coughing with change in sputum production and viscosity. Smoking history and physical exam are consistent with COPD exacerbation. We'll admit for COPD exacerbation, steroids, antibiotics, ACS rule out for elevated troponin. 07/22 - pt picture became more symptomatic for ACS yesterday afternoon with Troponins elevated @ 0.25 and 0.27 with ECG consistent with NSTEMI; Cardiology was consulted and Heparin gtt started. Pt taken to slab miller operator today with report pending. Pt is asymptomatic on exam today and clinically has improved; however, we are aggressively pursuing medical management measures to improve his outcomes. In addition, pt states he is quitting smoking now which will reduce his overall risk profile. 07/23 - pursuing aggressive medical management of CAD and lifestyle changes as recommended by Cardiology from heart cath report following NSTEMI to include Metoprolol, Losartan, and Atorvastatin. Also working w/CM to help him attain medications due to homelessness and jobless. Pt states he has quit smoking and doesn't need smoking cessation counseling. Lastly, titrating HTN meds to reduce BPs in the 150s-170s systolic/90s diastolic. we have started an ARB--Losartan--as an alternative to Lisinopril (BALBINA-I) due to pt description of dry cough and angioedema when taking lisinopril 07/24 - patient switched from azithromycin to Levaquin. Sputum culture ordered. Increased losartan. 07/25 - sputum culture grew MRSA. Patient reports no improvement in respiratory status. Added vancomycin IV pending susceptibilities. Added IV Solu-Medrol instead of prednisone. Discharge Planning Pending improvement in respiratory status. (Raymond Reardon MD R2) Attending Attestation Patient seen and examined. Case reviewed and discussed with the resident team. Agree with plan of care as discussed with me and documented in the resident note. will see what his PFTs and walk test show. he can be treated as an outpt depending on how he does clinically (Ashley Hendrickson MD) Problem List: (1) COPD exacerbation ICD Codes: J44.1 - Chronic obstructive pulmonary disease with (acute) exacerbation Plan: -Admit to inpatient -COPD educator consult -Trend CBC -Tylenol for pain 1-2, [place] for pain 3-10, morphine for breakthrough pain -Albuterol nebulizer every 2 hours when necessary for shortness of breath, to wean onto albuterol inhaler every 4 hours when necessary for shortness of breath -Duo nebs every 4 hours -Azithromycin 500 mg by mouth daily (from 07/21 - 07/23) changed to Levaquin 750 mg by mouth daily (07/24 - present); vancomycin added on 07/26, but will likely d/ c pending MRSA nasal swab -Guaifenesin and codeine by mouth every 4 hours when necessary cough -Nicotine patch daily -Prednisone 40 mg by mouth daily changed to Solu-Medrol 40 mg IV twice a day; plan to d/c on steroid taper -Blood culture -Influenza A/B antigen--negative -Sputum culture and Gram stain re-ordered 07/24 and grew MRSA, susceptibilities pending -Incentive spirometry -Oxygen as needed -Monitor pulse ox, vital signs -CT pulmonary angiogram ruled out PE -Denied Smoking cessation counseling but states he has quit smoking as of this admission -Plan for home oxygen walk test and PFTs before discharge today (2) NSTEMI (non-ST elevated myocardial infarction) ICD Codes: I21.4 - NSTEMI (non-ST elevated myocardial infarction) Status: Acute Plan: Pt with chest pains upon admission with elevated tropinins at 0.25->0.27 and ECG consistent with NSTEMI; started per protocol on ACS r/o and Cardiology consulted. Heparin drip completed. Pt taken to slab miller operator. -Morphine PRN for pain -Oxygen supplementation on admit, today weaned with O2 sats >94% on RA -Nitroglycerin PRN for chest pain -ASA 325 mg started -Beta everette--Metoprolol 25 mg BID -ARB--Losartan increased from 50 mg daily to 50 mg twice a day (BALBINA-I contraindicated due to angioedema and dry cough) -Statin--atorvastatin 40 mg/qhs -Started Lovenox 40 mg/day (3) Elevated troponin I level ICD Codes: R79.89 - Elevated troponin I level Status: Resolved Plan: Troponin I trend: 0.25, 0.27. EKG appears unchanged. -ACS rule out with every 6 hours troponin and EKG -Cardiology consulted and appreciated -Patient received aspirin in emergency department -Morphine, oxygen, nitroglycerin, beta everette, ARB ordered -Heart healthy diet -Pain medications as above -clinical research monitor/telemetry -Treating hypertension and diabetes as below HOLD BALBINA-I as pt has serious allergy (angioedema) with lisinopril (4) Hypertension ICD Codes: I10 - Hypertension Status: Acute Plan: Still hypertensive. -Metoprolol 25mg BID -Losartan 50 mg bid since BALBINA-I is contraindicated -Imdur 60 mg po qd -amlodipine 5mg increased to 10mg po qd (5) Diabetes ICD Codes: E11.9 - Diabetes Status: Acute Plan: -Low-dose sliding scale insulin -A1C 6.3 on 07/22 (6) Tobacco abuse ICD Codes: F17.200 - Tobacco abuse Status: Acute Plan: Pt denies smoking cessation counseling; however, states he is quitting smoking as he never wants to feel this out of breath again - nicotine patch (7) Hypokalemia ICD Codes: E87.6 - Hypokalemia Status: Resolved Plan: Potassium normal. -repeat BMP -KCl 40 mEq po qd (8) Noncompliance ICD Codes: Z91.19 - Noncompliance Status: Acute Plan: Patient with a history of noncompliance in the context of homelessness. -Case management consult says that they can get him a 30 day supply of his medications and for him to follow up at [facility] -Planning on discharging patient with plans to go to [facility]; case management aware (9) Depression ICD Codes: F32.9 - Depression Status: Chronic Plan: -Continue patient's home medication of Zoloft and Seroquel (10) No contraindication to deep vein thrombosis (DVT) prophylaxis ICD Codes: Z78.9 - Other specified health status Plan: -Restart Lovenox 40 mg /day following discontinuation of heparin drip (11) Nutrition, metabolism, and development symptoms ICD Codes: R63.8 - Other symptoms and signs concerning food and fluid intake Plan: Fluids: none, patient tolerated by mouth Electrolytes: Monitor and replete as necessary Nutrition: Heart healthy diet GI ppx: Not currently indicated (Raymond Reardon MD R2) Problem Qualifiers (1) Diabetes: Qualified Codes: E11.9 - Type 2 diabetes mellitus without complications Raymond Reardon MD R2 Jul 27, 2017 09:57 Ashley Hendrickson MD Jul 27, 2017 18:15
[2017-07-27] MEDS: ASPIRIN 81 MG CHEW TAB CHEW SCH (10:27)
[2017-07-27] MEDS: methylPREDNISolone SOD SUCC 40 MG/1 ML VIAL IV PUSH SCH ×2 (10:27→22:26)
[2017-07-27] MEDS: SERTRALINE HCL 100 MG TAB PO SCH (10:27)
[2017-07-27] MEDS: POTASSIUM CHLORIDE 10 MEQ CONTROLLED RELEASE TAB PO SCH (10:28)
[2017-07-27] MEDS: METOPROLOL TARTRATE 25 MG TAB PO SCH ×2 (10:28→22:27)
[2017-07-27] MEDS: LEVOFLOXACIN 750 MG TAB PO SCH (10:28)
[2017-07-27 10:45] LABS: HEMATOCRIT 41.7 % (39.0-51.0); MEAN CELL VOLUME 85.3 FL (80.0-100.0); MEAN CORPUSCULAR HEMOGLOBIN 27.6 PG (27.0-34.0); MEAN CORPUSCULAR HGB CONC 32.4 % (32.0-36.0); PLATELET COUNT 264 TH/MM3 (150-450); RED BLOOD COUNT 4.89 MIL/MM3 (4.50-5.90); RED CELL DISTRIBUTION WIDTH 14.9 % (11.6-17.2); REVIEW FLAG FINAL; WHITE BLOOD COUNT 18.3 TH/MM3 (4.0-11.0)
[2017-07-27 10:56] LABS: BICARBONATE 28.1 MEQ/L (21.0-32.0); POTASSIUM 3.7 MEQ/L (3.5-5.1)
[2017-07-27] MEDS: LOSARTAN 50 MG TAB PO SCH ×2 (13:42→22:27)
[2017-07-27] MEDS: REMOVE OLD PATCH T-DERMAL SCH (21:00)
[2017-07-27] MEDS: RESP: ALBUTEROL 2.5 MG/3 ML NEB (PRN) INH (22:15)
[2017-07-27] MEDS: SODIUM CHLORIDE 0.9% FLUSH 10 ML FLUSH IV FLUSH SCH ×2 (22:26→22:34)
[2017-07-27] MEDS: QUEtiapine FUMARATE 300 MG TAB PO SCH (22:26)
[2017-07-27] MEDS: ATORVASTATIN 40 MG TAB PO SCH (22:26)
[2017-07-28] VITALS: BP 160/80; PULSE 62; RESP 12; TEMP 97.2; O2SAT 96
[2017-07-28 04:00] VITALS: BP 162/82; PULSE 69; RESP 22; TEMP 98.3; O2SAT 95
[2017-07-28] MEDS: ISOSORBIDE MONONITRATE 60 MG TAB PO SCH (06:25)
[2017-07-28 08:00] VITALS: BP 165/78; PULSE 85; PULSE 94; RESP 20; TEMP 97.8; O2SAT 94
[2017-07-28] MEDS: INSULIN ASPART SUPPLEMENTAL SCALE SQ SCH (08:00)
[2017-07-28] MEDS: NICOTINE 14 MG/24 HR PATCH T-DERMAL SCH (09:00)
[2017-07-28] MEDS: POTASSIUM CHLORIDE 10 MEQ CONTROLLED RELEASE TAB PO SCH (09:00)
[2017-07-28] MEDS: LOSARTAN 50 MG TAB PO SCH (09:00)
[2017-07-28] MEDS: METOPROLOL TARTRATE 25 MG TAB PO SCH (09:00)
[2017-07-28] MEDS: ASPIRIN 81 MG CHEW TAB CHEW SCH (09:00)
[2017-07-28] MEDS: SERTRALINE HCL 100 MG TAB PO SCH (09:00)
[2017-07-28] MEDS ORDERED: amLODIPine BESYLATE 5 MG TAB PO SCH (09:00)
[2017-07-28] MEDS: methylPREDNISolone SOD SUCC 40 MG/1 ML VIAL IV PUSH SCH (09:00)
[2017-07-28] MEDS ORDERED: ISOS60TA PO (09:51)
[2017-07-28] MEDS ORDERED: ASPI81CH25 CHEW (09:51)
[2017-07-28] MEDS ORDERED: FLUTI110I INH (09:51)
[2017-07-28] MEDS ORDERED: ALBU6.7H INH (09:51)
[2017-07-28] MEDS ORDERED: NITR.3 SL (09:51)
[2017-07-28] MEDS ORDERED: COZA50TA PO ×2 (09:51→09:58)
[2017-07-28] MEDS ORDERED: AMLO5 PO (09:51)
[2017-07-28] MEDS ORDERED: SERT25TA83 PO (09:51)
[2017-07-28] MEDS ORDERED: QUET1TAB10 PO (09:51)
[2017-07-28] MEDS ORDERED: METO25TA3 PO (09:51)
[2017-07-28] MEDS ORDERED: ATOR40TA16 PO (09:51)
[2017-07-28] MEDS: RESP: ALBUTEROL 2.5 MG/3 ML NEB (PRN) INH (09:57)
[2017-07-28] MEDS: RESP: BUDESONIDE 0.5 MG/2 ML NEB NEB SCH (09:57)
[2017-07-28] MEDS ORDERED: BACT800T5 PO (09:58)
[2017-07-28 09:59] VITALS: O2SAT 97
[2017-07-28] MEDS: LEVOFLOXACIN 750 MG TAB PO SCH (10:00)
--- NOTE | 2017-07-28 10:19 | HHI.FPPN ---
Subjective Remarks Mr Santiago had no acute events overnight. This morning he feels great, is breathing easier, and is walking the halls with a good walk test without desaturation. He was concerned about MRSA and was told antibiotics have treated the infection and he will go home on an antibiotic that will treat continue to treat MRSA. He is ready for discharge today. Denies chest pain, shortness of breath, nausea, vomiting, diarrhea and DVT pain. (Issac Connelly MD R1) Objective Vitals Vital Signs Date Time Temp Pulse Resp B/P (MAP) Pulse Ox O2 Delivery O2 Flow Rate FiO2 07/28/17 09:59 97 21 07/28/17 08:00 97.8 94 20 165/78 (107) 94 07/28/17 04:00 98.3 69 22 162/82 (108) 95 07/28/17 00:00 97.2 62 12 160/80 (106) 96 07/27/17 20:00 98.2 84 16 164/88 (113) 97 07/27/17 20:00 86 07/27/17 19:15 96 Room Air 07/27/17 16:00 97.1 77 18 155/86 (109) 97 07/27/17 12:33 2.00 07/27/17 12:00 97.4 75 18 167/97 (120) 98 Manual Cuff/Auscultation 07/27/17 11:43 92 I/O 07/27/17 07/27/17 07/27/17 07/28/17 07/28/17 07/28/17 07:00 15:00 23:00 07:00 15:00 23:00 Intake Total 1930 ml 1440 ml 250 ml Balance 1930 ml 1440 ml 250 ml Intake Oral 1680 ml 1440 ml IV Total 250 ml 250 ml # Voids 7 4 # Bowel Movements 0 0 (Issac Connelly MD R1) Result Diagram: 07/27/17 0850 07/27/17 0850 Objective Remarks GENERAL: Well-nourished, well-developed obese male patient lying in bed. He appears more comfortable today. SKIN: Warm and dry. Mild venous stasis skin changes on LEs bilaterally below the knees. HEAD: Normocephalic. Atraumatic. EYES: No scleral icterus. No injection or drainage. EOMI. NECK: Supple, trachea midline. No lymphadenopathy. No meningeal signs. CARDIOVASCULAR: Regular rate and rhythm without murmurs, gallops, or rubs. RESPIRATORY: wheezing in upper lung price. appears more comfortable today. Some intermittent coughing. GASTROINTESTINAL: Abdomen soft, non-tender, nondistended. EXTREMITIES: No cyanosis, or edema. Digital clubbing of fingers and toes noted bilaterally. NEUROLOGICAL: Awake, alert, and oriented x 3. Non-focal. Procedures Heart Cath 07/22/2017: CONCLUSION 1. Nonobstructive coronary artery disease. 2. Preserved ____systolic function. 3. Elevated LVEDP. RECOMMENDATIONS The patient will go back to the [facility] for post cath care. We recommend aggressive medical management for primary prevention of CAD. The patient should be started on a beta everette, statin, BALBINA inhibitor and long-acting nitrate. Heparin drip can be discontinued. Encourage ambulation and incentive spirometry. The patient will need to follow up with cardiology and aggressive therapeutic lifestyle changes highly recommended including smoking cessation. Medications and IVs Current Medications Medications (Trade) Dose Ordered Sig/Dimitris Route Start Time Stop Time Status Last Admin (Proair Hfa Inh) 1 puff Q4H PRN INH 07/21/17 09:45 (SEROquel) 300 mg HS PO 07/21/17 21:00 07/27/17 22:26 (NS Flush) 2 ml BID IV FLUSH 07/21/17 21:00 07/27/17 22:34 (NS Flush) 2 ml UNSCH PRN IV FLUSH 07/21/17 10:15 (D50w (Vial) Inj) 50 ml UNSCH PRN IV 07/21/17 10:30 (Glucagon Inj) 1 mg UNSCH PRN OTHER 07/21/17 10:30 (NovoLOG SUPPLEMENTAL SCALE) 1 ACHS SLIDING SCALE SQ 07/21/17 11:00 07/21/17 21:56 (Tylenol) 650 mg Q6H PRN PO 07/21/17 11:00 ([place] 5-325 Mg) 1 tab Q4H PRN PO 07/21/17 11:00 ([place] 10-325 Mg) 1 tab Q4H PRN PO 07/21/17 11:00 07/24/17 20:28 (Morphine Inj) 4 mg Q3H PRN IV 07/21/17 11:00 (Narcan Inj) 0.4 mg UNSCH PRN IV 07/21/17 11:00 (Robitussin Ac 200-20 Mg/10 ml Liq) 10 ml Q4H PRN PO 07/21/17 11:00 07/24/17 05:04 (Zoloft) 100 mg DAILY PO 07/22/17 09:00 07/27/17 10:27 (Nitrostat Sl) 0.3 mg Q5M PRN SL 07/21/17 16:30 07/21/17 19:11 (Lipitor) 40 mg HS PO 07/22/17 21:00 07/27/17 22:26 (Lopressor) 25 mg Q12HR PO 07/22/17 09:30 07/27/17 22:27 (Aspirin Chew) 325 mg DAILY CHEW 07/23/17 09:00 07/27/17 10:27 (Albuterol Neb) 2.5 mg Q4HR NEB PRN INH 07/22/17 14:00 07/28/17 09:57 (Lovenox Inj) 40 mg Q24H SQ 07/23/17 08:00 07/27/17 08:00 (Levaquin) 750 mg Q24H PO 07/24/17 10:00 07/27/17 10:28 (Cozaar) 50 mg BID PO 07/24/17 21:00 07/27/17 22:27 (KCl) 40 meq DAILY PO 07/25/17 09:00 07/27/17 10:28 (Imdur) 60 mg DAILY@07 PO 07/26/17 07:00 07/28/17 06:25 (Vasotec Inj) 1.25 mg Q6H PRN IV 07/25/17 16:15 (Catapres) 0.1 mg Q6H PRN PO 07/25/17 16:15 (Habitrol 14 Mg Patch.24 Hr) 1 patch DAILY T-DERMAL 07/25/17 17:30 07/25/17 18:20 Miscellaneous Information 1 HS T-DERMAL 07/25/17 21:00 (Pulmicort Respule Neb) 0.5 mg Q12HR NEB NEB 07/26/17 11:30 07/28/17 09:57 Vancomycin HCl 1000 mg/Sodium Chloride 250 ml @ 250 mls/hr Q12H IV 07/26/17 12:00 07/27/17 22:25 (SoluMEDROL INJ) 40 mg Q12HR IV PUSH 07/26/17 13:00 07/27/17 22:26 (Norvasc) 10 mg DAILY PO 07/28/17 09:00 (Issac Connelly MD R1) Urinary Catheter: No (Issac Connelly MD R1) Vascular Central Line Catheter: No (Issac Connelly MD R1) A/P Assessment and Plan Patient is a 51-year-old man with a history of NSTEMI in 2014, diabetes, hypertension, polysubstance abuse, medication noncompliance, ZAKIA who presented to the Emergency Department feeling like he couldn't breathe. Patient reports persistent coughing with change in sputum production and viscosity. Smoking history and physical exam are consistent with COPD exacerbation. We'll admit for COPD exacerbation, steroids, antibiotics, ACS rule out for elevated troponin. 07/22 - pt picture became more symptomatic for ACS yesterday afternoon with Troponins elevated @ 0.25 and 0.27 with ECG consistent with NSTEMI; Cardiology was consulted and Heparin gtt started. Pt taken to physical laboratory assistant today with report pending. Pt is asymptomatic on exam today and clinically has improved; however, we are aggressively pursuing medical management measures to improve his outcomes. In addition, pt states he is quitting smoking now which will reduce his overall risk profile. 07/23 - pursuing aggressive medical management of CAD and lifestyle changes as recommended by Cardiology from heart cath report following NSTEMI to include Metoprolol, Losartan, and Atorvastatin. Also working w/CM to help him attain medications due to homelessness and jobless. Pt states he has quit smoking and doesn't need smoking cessation counseling. Lastly, titrating HTN meds to reduce BPs in the 150s-170s systolic/90s diastolic. we have started an ARB--Losartan--as an alternative to Lisinopril (BALBINA-I) due to pt description of dry cough and angioedema when taking lisinopril 07/24 - patient switched from azithromycin to Levaquin. Sputum culture ordered. Increased losartan. 07/25 - sputum culture grew MRSA. Patient reports no improvement in respiratory status. Added vancomycin IV pending susceptibilities. Added IV Solu-Medrol instead of prednisone. 07/27 - completed walk test on RA without desaturation. Clinically improved from yesterday. He feels much better and is breathing well and moving air much better with much less wheezing. Switching to PO Bactrim DS on discharge and will hold Cozaar due to drug interaction until Bactrim is finished on Aug 06 Discharge Planning Pending improvement in respiratory status. (Issac Connelly MD R1) Attending Attestation Patient seen and examined. Case reviewed and discussed with the resident team. Agree with plan of care as discussed with me and documented in the resident note. he wants to leave the hospital today. asked case management to help with prescriptions and follow up. he has been homeless (Ashley Hendrickson MD) Problem List: (1) COPD exacerbation ICD Codes: J44.1 - Chronic obstructive pulmonary disease with (acute) exacerbation Plan: -Admit to inpatient -COPD educator consult -Trend CBC -Tylenol for pain 1-2, [place] for pain 3-10, morphine for breakthrough pain -Albuterol nebulizer every 2 hours when necessary for shortness of breath, to wean onto albuterol inhaler every 4 hours when necessary for shortness of breath -Duo nebs every 4 hours -Azithromycin 500 mg by mouth daily (from 07/21 - 07/23) changed to Levaquin 750 mg by mouth daily (07/24 - present); vancomycin added on 07/26, but will likely d/ c pending MRSA nasal swab -Guaifenesin and codeine by mouth every 4 hours when necessary cough -Nicotine patch daily -Prednisone 40 mg by mouth daily changed to Solu-Medrol 40 mg IV twice a day; plan to d/c on steroid taper -Blood culture -Influenza A/B antigen--negative -Sputum culture and Gram stain re-ordered 07/24 and grew MRSA, susceptibilities pending -Incentive spirometry -Oxygen as needed -Monitor pulse ox, vital signs -CT pulmonary angiogram ruled out PE -Denied Smoking cessation counseling but states he has quit smoking as of this admission -Walk test good and ready for discharge today--sending home with Albuterol inhaler and Flovent inhaled corticosteroid prescriptions (2) NSTEMI (non-ST elevated myocardial infarction) ICD Codes: I21.4 - NSTEMI (non-ST elevated myocardial infarction) Status: Acute Plan: Pt with chest pains upon admission with elevated tropinins at 0.25->0.27 and ECG consistent with NSTEMI; started per protocol on ACS r/o and Cardiology consulted. Heparin drip completed. Pt taken to physical laboratory assistant. -Morphine PRN for pain -Oxygen supplementation on admit, today weaned with O2 sats >94% on RA -Nitroglycerin PRN for chest pain -ASA 325 mg started -Beta everette--Metoprolol 25 mg BID -ARB--Losartan increased from 50 mg daily to 50 mg twice a day (BALBINA-I contraindicated due to angioedema and dry cough) -Statin--atorvastatin 40 mg/qhs -Started Lovenox 40 mg/day (3) Elevated troponin I level ICD Codes: R79.89 - Elevated troponin I level Status: Resolved Plan: Troponin I trend: 0.25, 0.27. EKG appears unchanged. -ACS rule out with every 6 hours troponin and EKG -Cardiology consulted and appreciated -Patient received aspirin in emergency department -Morphine, oxygen, nitroglycerin, beta everette, ARB ordered -Heart healthy diet -Pain medications as above -marketing operations associate/telemetry -Treating hypertension and diabetes as below HOLD BALBINA-I as pt has serious allergy (angioedema) with lisinopril (4) Hypertension ICD Codes: I10 - Hypertension Status: Acute Plan: Still hypertensive. -Metoprolol 25mg BID -Losartan 50 mg bid since BALBINA-I is contraindicated -Imdur 60 mg po qd -amlodipine 10mg po qd (5) Diabetes ICD Codes: E11.9 - Diabetes Status: Acute Plan: -Low-dose sliding scale insulin -A1C 6.3 on 07/22 (6) Tobacco abuse ICD Codes: F17.200 - Tobacco abuse Status: Acute Plan: Pt denies smoking cessation counseling; however, states he is quitting smoking as he never wants to feel this out of breath again - nicotine patch (7) Hypokalemia ICD Codes: E87.6 - Hypokalemia Status: Resolved Plan: Potassium normal. -repeat BMP -KCl 40 mEq po qd (8) Noncompliance ICD Codes: Z91.19 - Noncompliance Status: Acute Plan: Patient with a history of noncompliance in the context of homelessness. -Case management consult says that they can get him a 30 day supply of his medications and for him to follow up at [facility] -Planning on discharging patient with plans to go to [facility]; case management aware (9) Depression ICD Codes: F32.9 - Depression Status: Chronic Plan: -Continue patient's home medication of Zoloft and Seroquel (10) No contraindication to deep vein thrombosis (DVT) prophylaxis ICD Codes: Z78.9 - Other specified health status Plan: -Restart Lovenox 40 mg /day following discontinuation of heparin drip (11) Nutrition, metabolism, and development symptoms ICD Codes: R63.8 - Other symptoms and signs concerning food and fluid intake Plan: Fluids: none, patient tolerated by mouth Electrolytes: Monitor and replete as necessary Nutrition: Heart healthy diet GI ppx: Not currently indicated (Issac Connelly MD R1) Problem Qualifiers (1) Diabetes: Qualified Codes: E11.9 - Type 2 diabetes mellitus without complications Issac Connelly MD R1 Jul 28, 2017 10:19 Ashley Hendrickson MD Jul 28, 2017 15:07
[2017-07-28 10:33] LABS: AUTOMATED NEUTROPHIL # 13.2 TH/MM3 (1.8-7.7); BASOPHIL # 0.1 TH/MM3 (0-0.2); BASOPHIL % 0.4 % (0.0-2.0); HEMATOCRIT 39.5 % (39.0-51.0); HEMO FLAGS DIFF FINAL; LYMPH % 9.6 % (9.0-44.0); LYMPHOCYTE # 1.5 TH/MM3 (1.0-4.8); MEAN CORPUSCULAR HEMOGLOBIN 27.4 PG (27.0-34.0); MEAN CORPUSCULAR HGB CONC 32.3 % (32.0-36.0); MONO % 5.3 % (0.0-8.0); NEUT % 84.7 % (16.0-70.0); PLATELET COUNT 262 TH/MM3 (150-450); RED BLOOD COUNT 4.65 MIL/MM3 (4.50-5.90); RED CELL DISTRIBUTION WIDTH 15.2 % (11.6-17.2); WHITE BLOOD COUNT 15.6 TH/MM3 (4.0-11.0)
[2017-07-28 10:51] LABS: BICARBONATE 30.2 MEQ/L (21.0-32.0); POTASSIUM 3.7 MEQ/L (3.5-5.1)
[2017-07-28 12:00] VITALS: BP 165/80; PULSE 72; RESP 20; TEMP 97.8; O2SAT 96
[2017-07-28] MEDS ORDERED: NITR1SUB3 SL (14:54)
--- NOTE | 2017-07-28 21:55 | HHI.DS ---
Discharge Summary Admission Date Jul 21, 2017 at 09:08 Discharge Date: Jul 28, 2017 Admitting Diagnosis Elevated Troponin, chest Pain (1) COPD exacerbation Diagnosis: Principal Plan: -Admit to inpatient -COPD educator consult -Trend CBC -Tylenol for pain 1-2, [place] for pain 3-10, morphine for breakthrough pain -Albuterol nebulizer every 2 hours when necessary for shortness of breath, to wean onto albuterol inhaler every 4 hours when necessary for shortness of breath -Duo nebs every 4 hours -Azithromycin 500 mg by mouth daily (from 07/21 - 07/23) changed to Levaquin 750 mg by mouth daily (07/24 - present); vancomycin added on 07/26, but will likely d/ c pending MRSA nasal swab -Guaifenesin and codeine by mouth every 4 hours when necessary cough -Nicotine patch daily -Prednisone 40 mg by mouth daily changed to Solu-Medrol 40 mg IV twice a day; plan to d/c on steroid taper -Blood culture -Influenza A/B antigen--negative -Sputum culture and Gram stain re-ordered 07/24 and grew MRSA, susceptibilities pending -Incentive spirometry -Oxygen as needed -Monitor pulse ox, vital signs -CT pulmonary angiogram ruled out PE -Denied Smoking cessation counseling but states he has quit smoking as of this admission -Walk test good and ready for discharge today--sending home with Albuterol inhaler and Flovent inhaled corticosteroid prescriptions ICD Codes: J44.1 - Chronic obstructive pulmonary disease with (acute) exacerbation (2) NSTEMI (non-ST elevated myocardial infarction) Diagnosis: Principal Plan: Pt with chest pains upon admission with elevated tropinins at 0.25->0.27 and ECG consistent with NSTEMI; started per protocol on ACS r/o and Cardiology consulted. Heparin drip completed. Pt taken to cleaning laborer. -Morphine PRN for pain -Oxygen supplementation on admit, today weaned with O2 sats >94% on RA -Nitroglycerin PRN for chest pain -ASA 325 mg started -Beta everette--Metoprolol 25 mg BID -ARB--Losartan increased from 50 mg daily to 50 mg twice a day (BALBINA-I contraindicated due to angioedema and dry cough) -Statin--atorvastatin 40 mg/qhs -Started Lovenox 40 mg/day ICD Codes: I21.4 - NSTEMI (non-ST elevated myocardial infarction) Status: Acute (3) Elevated troponin I level Diagnosis: Principal Plan: Troponin I trend: 0.25, 0.27. EKG appears unchanged. -ACS rule out with every 6 hours troponin and EKG -Cardiology consulted and appreciated -Patient received aspirin in emergency department -Morphine, oxygen, nitroglycerin, beta everette, ARB ordered -Heart healthy diet -Pain medications as above -front desk monitor/telemetry -Treating hypertension and diabetes as below HOLD BALBINA-I as pt has serious allergy (angioedema) with lisinopril ICD Codes: R79.89 - Elevated troponin I level Status: Resolved (4) Hypertension Diagnosis: Principal Plan: Still hypertensive. -Metoprolol 25mg BID -Losartan 50 mg bid since BALBINA-I is contraindicated -Imdur 60 mg po qd -amlodipine 10mg po qd ICD Codes: I10 - Hypertension Status: Acute (5) Diabetes Diagnosis: Secondary Plan: -Low-dose sliding scale insulin -A1C 6.3 on 07/22 ICD Codes: E11.9 - Diabetes Status: Acute (6) Tobacco abuse Diagnosis: Secondary Plan: Pt denies smoking cessation counseling; however, states he is quitting smoking as he never wants to feel this out of breath again - nicotine patch ICD Codes: F17.200 - Tobacco abuse Status: Acute (7) Hypokalemia Diagnosis: Secondary Plan: Potassium normal. -repeat BMP -KCl 40 mEq po qd ICD Codes: E87.6 - Hypokalemia Status: Resolved (8) Noncompliance Diagnosis: Secondary Plan: Patient with a history of noncompliance in the context of homelessness. -Case management consult says that they can get him a 30 day supply of his medications and for him to follow up at [facility] -Planning on discharging patient with plans to go to [facility]; case management aware ICD Codes: Z91.19 - Noncompliance Status: Acute (9) Depression Diagnosis: Secondary Plan: -Continue patient's home medication of Zoloft and Seroquel ICD Codes: F32.9 - Depression Status: Chronic (10) No contraindication to deep vein thrombosis (DVT) prophylaxis Diagnosis: Secondary Plan: -Restart Lovenox 40 mg /day following discontinuation of heparin drip ICD Codes: Z78.9 - Other specified health status (11) Nutrition, metabolism, and development symptoms Diagnosis: Secondary Plan: Fluids: none, patient tolerated by mouth Electrolytes: Monitor and replete as necessary Nutrition: Heart healthy diet GI ppx: Not currently indicated ICD Codes: R63.8 - Other symptoms and signs concerning food and fluid intake Consultants Cardiology Case Management Procedures Heart Cath 07/22/2017: CONCLUSION 1. Nonobstructive coronary artery disease. 2. Preserved ____systolic function. 3. Elevated LVEDP. RECOMMENDATIONS The patient will go back to the [facility] for post cath care. We recommend aggressive medical management for primary prevention of CAD. The patient should be started on a beta everette, statin, BALBINA inhibitor and long-acting nitrate. Heparin drip can be discontinued. Encourage ambulation and incentive spirometry. The patient will need to follow up with cardiology and aggressive therapeutic lifestyle changes highly recommended including smoking cessation. Brief History Patient is a 51-year-old man with a history of diabetes, hypertension, polysubstance abuse, medication noncompliance, ZAKIA who presented to the Emergency Department feeling like he couldn't breathe. He first noticed this shortness of breath yesterday around 2 PM. Associated with this shortness of breath, he had some wheezing and coughing up of red-yellow sputum. He also reports feeling warm and sweaty and likely febrile yesterday. He also has had a few episodes of post-tussive emesis. He also reports some chest pain that is worse with coughing with pain radiating to a right lower molar. He also reports some cold symptoms last night. Patient last used cocaine a month ago. He states that he is now homeless. Per ED note: He was in [facility] for 2 weeks for cocaine rehabilitation and was discharged from there 2 days ago. CBC/BMP: 07/28/17 0955 07/28/17 0755 Significant Findings Laboratory Tests Test 07/26/17 20:36 07/27/17 08:50 07/28/17 07:55 07/28/17 09:55 Random Glucose 155 MG/DL (74-106) 169 MG/DL (74-106) 162 MG/DL (74-106) Sodium Level 134 MEQ/L (136-145) 135 MEQ/L (136-145) Chloride Level 97 MEQ/L (98-107) 97 MEQ/L (98-107) Estimat Glomerular Filtration Rate 71 ML/MIN (>89) 80 ML/MIN (>89) White Blood Count 18.3 TH/MM3 (4.0-11.0) 15.6 TH/MM3 (4.0-11.0) Troponin I 0.15 NG/ML (0.02-0.05) Hemoglobin 12.7 GM/DL (13.0-17.0) Neutrophils (%) (Auto) 84.7 % (16.0-70.0) Neutrophils # (Auto) 13.2 TH/MM3 (1.8-7.7) Imaging Last Impressions Chest X-Ray 07/26/17 0000 Signed Impressions: Service Date/Time: July 11:46 - CONCLUSION: No acute cardiopulmonary disease. Benito Castro MD CT Angiography 07/21/17 0000 Signed Impressions: Service Date/Time: Friday, July 21, 2017 11:02 - CONCLUSION: 1. Less than optimal opacification of the pulmonary arteries. However, no PE is identified through the lobar and some of the segmental level pulmonary artery branches. 2. Nonspecific mediastinal and right hilar lymphadenopathy. Geovani Chowdhury MD PE at Discharge GENERAL: Well-nourished, well-developed obese male patient lying in bed. He appears more comfortable today. SKIN: Warm and dry. Mild venous stasis skin changes on LEs bilaterally below the knees. HEAD: Normocephalic. Atraumatic. EYES: No scleral icterus. No injection or drainage. EOMI. NECK: Supple, trachea midline. No lymphadenopathy. No meningeal signs. CARDIOVASCULAR: Regular rate and rhythm without murmurs, gallops, or rubs. RESPIRATORY: very mild wheezing in upper lung price. appears more comfortable today. Some intermittent coughing. GASTROINTESTINAL: Abdomen soft, non-tender, nondistended. EXTREMITIES: No cyanosis, or edema. Digital clubbing of fingers and toes noted bilaterally. NEUROLOGICAL: Awake, alert, and oriented x 3. Non-focal. Hospital Course Mr Santiago is a homeless 51 YO male w/Hx of NSTEMI (2014), tobacco abuse, HTN, polysubstance abuse, CAD, asthma and ZAKIA who presented with COPD exacerbation with demand ischemia resulting in a NSTEMI. As his hospital stay progressed with moderate improvement in his sxs, his sputum tested positive for MRSA and he was treated empirically for CA-MRSA PNA. After two days on IV Vancomycin antibiotics, the pt's breathing and clinical status improved measurably and the pt was ready to be discharged. His cardiac cath revealed no occluded vessels but instead a plan to aggressively medically manage his CAD. Although Mr Santiago believed his breathing sxs to be related to asthma which he occasionally suffers , this episode was more likely the initial presentation of COPD after over 30 years of smoking. The pt stated that he had quit smoking upon admission as he "never wants to be out of breath this way again." Pt was able to ambulate the jaky on RA without O2 sats dropping below 92% on discharge. Pt Condition on Discharge: Stable Discharge Disposition: Discharge Home Discharge Instructions DIET: Follow Instructions for: As Tolerated, No Restrictions Activities you can perform: Regular-No Restrictions Follow up Referrals: Cardiology - 1 Week PCP Follow-up - 1 Week with [facility] or [facility] New Medications: Fluticasone 12 GM Inh (Flovent Hfa 12 GM Inh) 110 Mcg/Act Inh 2 PUFF INH BID for Asthma Management, #1 INHALER 0 Refills Nitroglycerin SL (Nitroglycerin SL) 0.4 Mg Subl 0.4 MG SL DIRECTED PRN for CHEST PAIN for 30 Days, #100 TAB.SL 0 Refills ONE TABLET UNDER THE TONGUE NEEDED FOR CHEST PAIN, MAY REPEAT EVERY FIVE MINUTES FOR A TOTAL OF 3 DOSES OR CALL 911 IF NO RELIEF Sulfamethoxazole-Trimethoprim (Bactrim DS) 800-160 Mg Tab 1 TAB PO BID for Infection for 7 Days, #14 TAB 0 Refills Amlodipine (Norvasc) 5 Mg Tab 10 MG PO DAILY for 30 Days, #60 TAB Aspirin (Aspirin Low Strength) 81 Mg Chew 81 MG CHEW DAILY for 60 Days, #60 EA Atorvastatin (Atorvastatin) 40 Mg Tab 40 MG PO HS for 30 Days, #30 TAB Isosorbide Mononitrate ER (Isosorbide Mononitrate ER) 60 Mg Tab 60 MG PO DAILY@07 for 30 Days, #30 TAB Losartan (Cozaar) 50 Mg Tab 50 MG PO BID for 30 Days, #60 TAB Start this medication on August 06 after you complete taking Bactrim antibiotics Metoprolol Tartrate (Metoprolol Tartrate) 25 Mg Tab 25 MG PO Q12HR for 30 Days, #60 TAB Changed Medications: Sertraline (Sertraline) 25 Mg Tab 100 MG PO DAILY for 30 Days, #30 TAB 0 Refills (Changed from: 15 MG) Continued Medications: Albuterol 6.7 GM Inh (Proventil Hfa 6.7 GM Inh) 90 Mcg/Act Aer 1 PUFF INH Q4H PRN for SHORTNESS OF BREATH, #1 INHALER 2 Refills (This prescription has been renewed) Quetiapine (Quetiapine) 300 Mg Tab 300 MG PO HS, #30 TAB 0 Refills (This prescription has been renewed) Discontinued Medications: Amlodipine-Benazepril (Amlodipine-Benazepril) 5-10 Mg Cap 1 CAP PO DAILY for Blood Pressure Management, #30 CAP 0 Refills Issac Connelly MD R1 Jul 28, 2017 21:55
--- NOTE | 2017-08-02 09:02 | RSPPFT ---
DATE OF PROCEDURE: 07/27/17 COMMENTS: Spirometry with FVC of 2.9 predicted 5.4, FEV1 of 2.2 at 52%, FEV1/FVC ratio is normal. Flow is decreased at FEF 25, FEF 50, FEF 75 and FEF 25-75. There is no response after acutely inhaled bronchodilator treatment. Flow volume loop indicates an obstructive pattern. IMPRESSION: 1. Mild small airways obstructive lung disease. 2. No response after bronchodilator treatment. 3. Underlying restrictive disease is not ruled out from this study.
== END 2017-07-28 17:48 | disposition home or self-care (01) | DRG 280 ==
LOC: NEPC 06:09 → NEDA 09:08 → NEDH 15:20 → N04B 20:12
PROVIDERS: ADMIT Family Medicine; ATTEND Family Medicine
PROC: 4A023N7 Measurement of Cardiac Sampling and Pressure, Left Heart, Percutaneous Approach (ICD-10-PCS; principal; 2017-07-22)
PROC: B2111ZZ Fluoroscopy of Multiple Coronary Arteries using Low Osmolar Contrast (ICD-10-PCS; 2017-07-22)
PROC: B2151ZZ Fluoroscopy of Left Heart using Low Osmolar Contrast (ICD-10-PCS; 2017-07-22)
DX: I21.4 Non-ST elevation (NSTEMI) myocardial infarction (principal); J15.212 Pneumonia due to Methicillin resistant Staphylococcus aureus; E11.9 Type 2 diabetes mellitus without complications; J44.1 Chronic obstructive pulmonary disease with (acute) exacerbation; J44.0 Chronic obstructive pulmonary disease with (acute) lower respiratory infection; I10 Essential (primary) hypertension; F32.9 Major depressive disorder, single episode, unspecified; F20.9 Schizophrenia, unspecified; G47.33 Obstructive sleep apnea (adult) (pediatric); E78.5 Hyperlipidemia, unspecified; K21.9 Gastro-esophageal reflux disease without esophagitis; M06.9 Rheumatoid arthritis, unspecified; F41.9 Anxiety disorder, unspecified; F17.210 Nicotine dependence, cigarettes, uncomplicated; E87.6 Hypokalemia; H91.92 Unspecified hearing loss, left ear; R09.02 Hypoxemia; I25.10 Atherosclerotic heart disease of native coronary artery without angina pectoris; E66.9 Obesity, unspecified; I25.2 Old myocardial infarction; Z59.0 Homelessness; Z91.14 Patient's other noncompliance with medication regimen; Z68.39 Body mass index [BMI] 39.0-39.9, adult
CPT/HCPCS: 71010; 71020; 71275; 80048; 80061; 80307; 81001; 82948; 83036; 83735; 83880; 84484; 85025; 85027; 85610; 85730; 86403; 87040; 87070; 87147; 87186; 87205; 87804; 93005; 93306; 93458; 94060; 94150; 94620; 94640; 94664; 94667; 94668; 99285; C1769; C1893; J1644; J1650; J1815; J1940; J2250; J2920; J3010; J3370; J7030; J7050; J7512; J7613; J7626; Q9967

== ENCOUNTER 2017-08-27 16:11 | Emergency (ER) | payer SELFPAY ==
[~2017-08-27] VITALS: Ht 185.4 cm; Wt 136.0 kg
[~2017-08-27 16:11] MED LIST changes: +AMLO5 PO; -AMLO5TAB22 PO; +ASPI81CH25 CHEW; +ATOR40TA16 PO; +BACT800T5 PO; +COZA50TA PO; -DOXY100T PO; +FLUTI110I INH; +ISOS60TA PO; +METO25TA3 PO; +NITR1SUB3 SL; -OSEL75 PO; +QUET1TAB10 PO; +SERT25TA83 PO
[2017-08-27 16:49] VITALS: BP 154/90; PULSE 75; RESP 17; TEMP 98.4; O2SAT 97
[2017-08-27 17:39] LABS: AUTOMATED NEUTROPHIL # 5.4 TH/MM3 (1.8-7.7); BASOPHIL # 0.1 TH/MM3 (0-0.2); BASOPHIL % 0.6 % (0.0-2.0); EOSINOPHIL # 0.1 TH/MM3 (0-0.4); EOSINOPHIL % 1.2 % (0.0-4.0); HEMATOCRIT 42.6 % (39.0-51.0); HEMO FLAGS DIFF FINAL; LYMPH % 29.6 % (9.0-44.0); LYMPHOCYTE # 2.7 TH/MM3 (1.0-4.8); MEAN CELL VOLUME 85.1 FL (80.0-100.0); MEAN CORPUSCULAR HEMOGLOBIN 27.7 PG (27.0-34.0); MEAN CORPUSCULAR HGB CONC 32.6 % (32.0-36.0); MONO % 7.6 % (0.0-8.0); PLATELET COUNT 268 TH/MM3 (150-450); RED BLOOD COUNT 5.01 MIL/MM3 (4.50-5.90); RED CELL DISTRIBUTION WIDTH 15.7 % (11.6-17.2); WHITE BLOOD COUNT 8.9 TH/MM3 (4.0-11.0)
[2017-08-27 17:54] LABS: ANION GAP 6 MEQ/L (5-15)
[2017-08-27 17:58] LABS: ALKALINE PHOSPHATASE 56 U/L (45-117); ALT (GPT) 27 U/L (12-78); AST (GOT) 15 U/L (15-37); BLOOD UREA NITROGEN 18 MG/DL (7-18); CHLORIDE 105 MEQ/L (98-107); GLOMERULAR FILTRATION RATE 66 ML/MIN (>89); POTASSIUM 4.1 MEQ/L (3.5-5.1); SODIUM (NA) 140 MEQ/L (136-145); TOTAL BILIRUBIN ADULT 0.2 MG/DL (0.2-1.0)
[2017-08-27 18:03] LABS: ACETAMINOPHEN LESS THAN 2.0 MCG/ML (10.0-30.0); ALCOHOL LESS THAN 3 MG/DL (0-5)
--- NOTE | 2017-08-27 18:32 | PD ---
HPI Chief Complaint: Psychiatric Symptoms Time Seen by Provider: 18:30 Travel History International Travel<30 days: No Contact w/Intl Traveler<30days: No Traveled to known affect area: No History of Present Illness HPI 51-year-old known schizophrenic was Lynda thorne as she's not been compliant with his medication is now hearing voices stating that he wants to kill people. Patient denies any medical issues at this time. He is allergic to wool, lisinopril, and milk. PFSH Past Medical History Arthritis: Yes (RA) Asthma: No Anxiety: Yes Depression: Yes Heart Rhythm Problems: No Cancer: No Cardiovascular Problems: Yes High Cholesterol: Yes Chemotherapy: No Chest Pain: Yes Congestive Heart Failure: No COPD: No Cerebrovascular Accident: No Diabetes: Yes Patient Takes Glucophage: No Diminished Hearing: Yes (LT. EAR) Endocrine: Yes Gastrointestinal Disorders: No GERD: Yes Genitourinary: No Headaches: Yes Hiatal Hernia: No Hypertension: Yes Immune Disorder: No Implanted Vascular Access Dvce: No Kidney Stones: No Musculoskeletal: Yes Neurologic: Yes Psychiatric: Yes Reproductive: No Respiratory: Yes (asthma) Immunizations Current: Yes Migraines: No Radiation Therapy: No Renal Failure: No Schizophrenia: Yes Seizures: Yes Sickle Cell Disease: No Sleep Apnea: Yes (CPAP AT HOME) Thyroid Disease: No Triglycerides - High: Yes Ulcer: No Tetanus Vaccination: < 5 Years Influenza Vaccination: No Past Surgical History Abdominal Surgery: No AICD: No Arteriovenous Shunt: No Body Medical Devices: STATES SOMETHING IN MY EAR Cardiac Surgery: No Ear Surgery: No Endocrine Surgery: No Eye Surgery: No Genitourinary Surgery: No Gynecologic Surgery: No Insulin Pump: No Joint Replacement: No Neurologic Surgery: No Oral Surgery: No Pacemaker: No Thoracic Surgery: No Other Surgery: Yes (TENDON REPAIR BILATERAL THUMBS) Social History Alcohol Use: Yes (occasional ) Tobacco Use: Yes (SOCIALLY) Substance Use: Yes (cocaine) Allergies-Medications (Allergen,Severity, Reaction): Coded Allergies: milk (Unverified Allergy, Severe, Respiratory Failure, 08/27/17) PT. STATED NECK CLOSES OFF AND CANT BREATH lisinopril (Unverified Adverse Reaction, Mild, Cough, 08/27/17) Uncoded Allergies: WOOL (Allergy, Severe, RASH, 10/03/14) Reported Meds & Prescriptions Reported Meds & Active Scripts Active No Active Prescriptions or Reported Medications Review of Systems ROS Limitations: Psychotic Except as stated in HPI: all other systems reviewed are Neg General / Constitutional: No: Fever Eyes: No: Visual changes HENT: No: Headaches Cardiovascular: No: Chest Pain or Discomfort Respiratory: No: Shortness of Breath Gastrointestinal: No: Abdominal Pain Genitourinary: No: Dysuria Musculoskeletal: No: Pain Skin: No Rash Neurologic: No: Weakness Psychiatric: Positive: Suicidal Ideations, Disorder of Thought, Homicidal Ideation, No: Depression Endocrine: No: Polydipsia Hematologic/Lymphatic: No: Easy Bruising Physical Exam Narrative GENERAL: Patient appears in no acute distress. SKIN: Warm and dry. Normal color. Normal turgor. No signs of trauma. HEAD: Atraumatic. Normocephalic. EYES: Pupils equal and round. No scleral icterus. No injection or drainage. ENT: No nasal bleeding or discharge. Mucous membranes pink and moist. NECK: Trachea midline. Supple nontender. CARDIOVASCULAR: Regular rate and rhythm. RESPIRATORY: No accessory muscle use. Clear to auscultation. Breath sounds equal bilaterally. GASTROINTESTINAL: Abdomen soft, non-tender, nondistended. Hepatic and splenic margins not palpable. MUSCULOSKELETAL: Extremities without clubbing, cyanosis, or edema. No obvious deformities. NEUROLOGICAL: Awake and alert. No obvious cranial nerve deficits. Motor grossly within normal limits. Five out of 5 muscle strength in the arms and legs. Normal speech. PSYCHIATRIC: Appropriate mood and affect; insight and judgment normal. Data Data Last Documented VS Vital Signs Date Time Temp Pulse Resp B/P (MAP) Pulse Ox O2 Delivery O2 Flow Rate FiO2 08/27/17 16:49 98.4 75 17 154/90 (111) 97 Orders Orders Complete Blood Count With Diff (08/27/17 16:42) Comprehensive Metabolic Panel (08/27/17 16:42) Urinalysis - C+S If Indicated (08/27/17 16:42) Psych Screen (08/27/17 16:42) Drug Screen, Random Urine (08/27/17 16:42) Alcohol (Ethanol) (08/27/17 16:42) Salicylates (Aspirin) (08/27/17 16:42) Tylenol (Acetaminophen) (08/27/17 16:42) Labs Laboratory Tests Test 08/27/17 16:40 White Blood Count 8.9 TH/MM3 Red Blood Count 5.01 MIL/MM3 Hemoglobin 13.9 GM/DL Hematocrit 42.6 % Mean Corpuscular Volume 85.1 FL Mean Corpuscular Hemoglobin 27.7 PG Mean Corpuscular Hemoglobin Concent 32.6 % Red Cell Distribution Width 15.7 % Platelet Count 268 TH/MM3 Mean Platelet Volume 7.8 FL Neutrophils (%) (Auto) 61.0 % Lymphocytes (%) (Auto) 29.6 % Monocytes (%) (Auto) 7.6 % Eosinophils (%) (Auto) 1.2 % Basophils (%) (Auto) 0.6 % Neutrophils # (Auto) 5.4 TH/MM3 Lymphocytes # (Auto) 2.7 TH/MM3 Monocytes # (Auto) 0.7 TH/MM3 Eosinophils # (Auto) 0.1 TH/MM3 Basophils # (Auto) 0.1 TH/MM3 CBC Comment DIFF FINAL Differential Comment Urine Color YELLOW Urine Turbidity CLEAR Urine pH 5.5 Urine Specific Amber 1.029 Urine Protein TRACE mg/dL Urine Glucose (UA) NEG mg/dL Urine Ketones NEG mg/dL Urine Occult Blood NEG Urine Nitrite NEG Urine Bilirubin NEG Urine Urobilinogen LESS THAN 2.0 MG/DL Urine Leukocyte Esterase NEG Urine WBC 1 /hpf Urine Squamous Epithelial Cells 2 /hpf Urine Calcium Oxalate Crystals OCC /hpf Urine Amorphous Sediment RARE Urine Hyaline Casts 1 /lpf Urine Mucus FEW /lpf Microscopic Urinalysis Comment CULT NOT INDICATED Blood Urea Nitrogen 18 MG/DL Creatinine 1.38 MG/DL Random Glucose 117 MG/DL Total Protein 7.9 GM/DL Albumin 3.7 GM/DL Calcium Level 9.2 MG/DL Alkaline Phosphatase 56 U/L Aspartate Amino Transf (AST/SGOT) 15 U/L Alanine Aminotransferase (ALT/SGPT) 27 U/L Total Bilirubin 0.2 MG/DL Sodium Level 140 MEQ/L Potassium Level 4.1 MEQ/L Chloride Level 105 MEQ/L Carbon Dioxide Level 29.0 MEQ/L Anion Gap 6 MEQ/L Estimat Glomerular Filtration Rate 66 ML/MIN Salicylates Level LESS THAN 1.7 MG/DL Urine Opiates Screen NEG Acetaminophen Level LESS THAN 2.0 MCG/ML Urine Barbiturates Screen NEG Urine Amphetamines Screen NEG Urine Benzodiazepines Screen NEG Urine Cocaine Screen POS Urine Cannabinoids Screen NEG Ethyl Alcohol Level LESS THAN 3 MG/DL MDM Medical Decision Making Medical Screen Exam Complete: Yes Emergency Medical Condition: Yes Differential Diagnosis Howell act. Schizophrenia. Auditory hallucinations. Suicidal and homicidal ideation. Narrative Course Labs ordered for psychiatric evaluation. CBC is unremarkable. CMP is unremarkable except for creatinine of 1.38 with a GFR 66. Random glucose was 117. Toxicology positive for cocaine otherwise unremarkable. Urinalysis is unremarkable. Patient is medically clear for psychiatric evaluation. Diagnosis Primary Impression: Medical clearance for psychiatric admission Additional Impressions: Depression Qualified Codes: F32.9 - Major depressive disorder, single episode, unspecified Cocaine abuse Scripts No Active Prescriptions or Reported Meds Condition: Tima Bailey Aug 27, 2017 18:32
[2017-08-27 18:50] LABS: BLOOD, URINE NEG (NEG); CALCIUM OXALATE CRYSTALS,URINE OCC /hpf; COMMENT (UR) CULT NOT INDICATED; CULTURE IF INDICATED CULT NOT INDICATED; GLUCOSE,URINE NEG (NEG); HYALINE CAST, URINE 1 /lpf (RARE); KETONE, URINE NEG (NEG); MUCUS URINE FEW /lpf (OCC); NITRITE,URINE NEG (NEG); PH, URINE 5.5 (5.0-8.5); SQUAMOUS EPITHELIAL CELL URINE 2 /hpf (0-5); URINE COLOR YELLOW (YELLW/STRAW)
[2017-08-28 00:22] VITALS: BP 162/90; PULSE 75; RESP 18
[2017-08-28 05:33] VITALS: BP 172/90; PULSE 80; RESP 18; O2SAT 97
[2017-08-28 10:50] VITALS: BP 162/77; PULSE 76; RESP 18; O2SAT 98
[2017-08-28 18:15] VITALS: BP 175/93; PULSE 67; RESP 16; O2SAT 98
[2017-08-29 02:24] VITALS: BP 175/88; PULSE 71; RESP 19; O2SAT 97
== END 2017-08-29 04:21 ==
LOC: NEDAMB 16:11 → NEPJ 08-29 04:21
DX: F32.9 Major depressive disorder, single episode, unspecified (principal); F14.10 Cocaine abuse, uncomplicated; F20.9 Schizophrenia, unspecified; E78.00 Pure hypercholesterolemia, unspecified; E11.9 Type 2 diabetes mellitus without complications; K21.9 Gastro-esophageal reflux disease without esophagitis; I10 Essential (primary) hypertension
CPT/HCPCS: 80053; 80307; 81001; 85025; 99284

== ENCOUNTER 2017-11-28 16:05 | Observation (INO) | payer MEDICAID, OTHER ==
[~2017-11-28] VITALS: Ht 185.4 cm; Wt 130.9 kg
[2017-11-28 16:12] VITALS: BP 160/94; PULSE 94; RESP 18; TEMP 98.7; O2SAT 98
--- NOTE | 2017-11-28 16:58 | RADRPT ---
EXAM DATE/TIME: 11/28/2017 16:53 [facility] COMPARISON: CHEST PA & LAT, July 26, 2017, 11:46. INDICATIONS : Chest discomfort, swelling in lower extremities for 3 days MEDICAL HISTORY : Hypercholesterolemia. Hypertension. Gastroesophageal reflux disease. Asthma. Tuberculosis. Sleep apne a. Arthritis. Diabetic SURGICAL HISTORY : Facial surgery. ENCOUNTER: Initial ACUITY: 3 days PAIN SCORE: 0/10 LOCATION: Bilateral chest FINDINGS: PA and lateral views of the chest demonstrate the lungs to be symmetrically aerated without evidence of mass, infiltrate or effusion. The cardiomediastinal contours are unremarkable. Osseous structure s are intact. CONCLUSION: Normal examination. Steven Lobo MD on November 28, 2017 at 16:55 Board Certified Radiologist. This report was verified electronically.
[2017-11-28 17:43] LABS: AUTOMATED NEUTROPHIL # 4.4 TH/MM3 (1.8-7.7); BASOPHIL # 0.1 TH/MM3 (0-0.2); BASOPHIL % 0.9 % (0.0-2.0); EOSINOPHIL # 0.2 TH/MM3 (0-0.4); EOSINOPHIL % 2.7 % (0.0-4.0); HEMATOCRIT 39.8 % (39.0-51.0); HEMOGLOBIN 13.5 GM/DL (13.0-17.0); LYMPHOCYTE # 2.7 TH/MM3 (1.0-4.8); MEAN CELL VOLUME 85.4 FL (80.0-100.0); MEAN CORPUSCULAR HEMOGLOBIN 28.8 PG (27.0-34.0); MEAN CORPUSCULAR HGB CONC 33.8 % (32.0-36.0); MONO % 7.4 % (0.0-8.0); MONOCYTE # 0.6 TH/MM3 (0-0.9); PLATELET COUNT 253 TH/MM3 (150-450); RED BLOOD COUNT 4.67 MIL/MM3 (4.50-5.90); RED CELL DISTRIBUTION WIDTH 14.9 % (11.6-17.2)
--- NOTE | 2017-11-28 17:58 | RADRPT ---
EXAM DATE/TIME: 11/28/2017 17:33 [facility] COMPARISON: No previous studies available for comparison. INDICATIONS : Right knee pain, swelling for 3 days with no known injury MEDICAL HISTORY : None. SURGICAL HISTORY : None. ENCOUNTER: Initial ACUITY: 3 days PAIN SCORE: 10/10 LOCATION: Right entire knee FINDINGS: Four view examination of the right knee demonstrates no evidence of fracture or dislocation. Bony mi neralization is normal. The articular surfaces are intact. A small joint effusion. CONCLUSION: 1. Small joint effusion. Otherwise, unremarkable exam. Stanley Velez Jr., MD on November 28, 2017 at 17:54 Board Certified Radiologist. This report was verified electronically.
[2017-11-28] MEDS ORDERED: METO50TA PO (18:02)
[2017-11-28] MEDS ORDERED: AMLO10 PO (18:02)
[2017-11-28 18:03] VITALS: BP 192/89; PULSE 88; RESP 18; TEMP 97.8; O2SAT 98
[2017-11-28 18:20] LABS: ALBUMIN 3.5 GM/DL (3.4-5.0); ALT (GPT) 31 U/L (12-78); AST (GOT) 29 U/L (15-37); BICARBONATE 30.5 MEQ/L (21.0-32.0); BLOOD UREA NITROGEN 16 MG/DL (7-18); CALCIUM 8.4 MG/DL (8.5-10.1); CHLORIDE 106 MEQ/L (98-107); CREATININE 1.34 MG/DL (0.60-1.30); GLOMERULAR FILTRATION RATE 68 ML/MIN (>89); GLUCOSE,RANDOM 98 MG/DL (74-106); MAGNESIUM 2.1 MG/DL (1.5-2.5); SODIUM (NA) 143 MEQ/L (136-145)
[2017-11-28 18:23] LABS: ALKALINE PHOSPHATASE 65 U/L (45-117); LIPASE 211 U/L (73-393); TOTAL BILIRUBIN ADULT 0.3 MG/DL (0.2-1.0); TOTAL PROTEIN 7.6 GM/DL (6.4-8.2); TROPONIN I 0.22 NG/ML (0.02-0.05)
[2017-11-28] MEDS ORDERED: NITROGLYCERIN 2% OINT 1 GM PACKET TOPICAL ONE (18:45)
[2017-11-28] MEDS ORDERED: ASPIRIN 325 MG TAB PO ONE (18:45)
--- NOTE | 2017-11-28 18:58 | PD ---
HPI Chief Complaint: Edema Time Seen by Provider: 18:32 Travel History International Travel<30 days: No Contact w/Intl Traveler<30days: No Traveled to known affect area: No History of Present Illness HPI 52-year-old male patient with history of CHF, obstructive sleep apnea, hypertension, previous [place], presents to the ER today for several days history of worsening in leg swelling, dyspnea on exertion, nausea, diarrhea. He has been coughing. He denies any fevers, chest pains, or any other symptoms. He states that he had been kicked out of his brother's house a few weeks ago, he does not have any of his medications. Modifying Factors: None Associated Signs & Symptoms: Bilateral leg swelling, nausea, diarrhea, shortness of breath Risk Factors: CHF history PFSH Past Medical History Arthritis: Yes (RA) Asthma: No Anxiety: Yes Depression: Yes Heart Rhythm Problems: No Cancer: No Cardiovascular Problems: Yes (CHF, HTN, NSTEMI) High Cholesterol: Yes Chemotherapy: No Chest Pain: Yes Congestive Heart Failure: No COPD: No Cerebrovascular Accident: No Diabetes: Yes Patient Takes Glucophage: No Diminished Hearing: Yes (LT. EAR) Endocrine: Yes Gastrointestinal Disorders: No GERD: Yes Genitourinary: No Headaches: Yes Hiatal Hernia: No Hypertension: Yes Immune Disorder: No Implanted Vascular Access Dvce: No Kidney Stones: No Musculoskeletal: Yes Neurologic: Yes Psychiatric: Yes Reproductive: No Respiratory: Yes (asthma) Immunizations Current: Yes Migraines: No Radiation Therapy: No Renal Failure: No Schizophrenia: Yes Seizures: Yes Sickle Cell Disease: No Sleep Apnea: Yes (CPAP AT HOME) Thyroid Disease: No Triglycerides - High: Yes Ulcer: No Tetanus Vaccination: > 5 Years Influenza Vaccination: Yes Past Surgical History Abdominal Surgery: No AICD: No Arteriovenous Shunt: No Body Medical Devices: STATES SOMETHING IN MY EAR Cardiac Surgery: No Ear Surgery: No Endocrine Surgery: No Eye Surgery: No Genitourinary Surgery: No Gynecologic Surgery: No Insulin Pump: No Joint Replacement: No Neurologic Surgery: No Oral Surgery: No Pacemaker: No Thoracic Surgery: No Other Surgery: Yes (TENDON REPAIR BILATERAL THUMBS) Social History Alcohol Use: Yes (occasional ) Tobacco Use: Yes (SOCIALLY) Substance Use: Yes (cocaine) Allergies-Medications (Allergen,Severity, Reaction): Coded Allergies: milk (Verified Adverse Reaction, Severe, vomiting, 11/28/17) lisinopril (Unverified Adverse Reaction, Intermediate, Cough, 11/28/17) Uncoded Allergies: WOOL (Allergy, Severe, RASH, 10/03/14) Reported Meds & Prescriptions Reported Meds & Active Scripts Active Reported Metoprolol Tartrate 50 Mg Tab 50 Mg PO DAILY Norvasc (Amlodipine Besylate) 10 Mg Tab 10 Mg PO DAILY Review of Systems Except as stated in HPI: all other systems reviewed are Neg Physical Exam Narrative GENERAL: Well-developed middle-aged male patient who is not fairly somnolent on evaluation, I have to wake him several times in order to get him to give me history. Oriented 3. SKIN: Focused skin assessment warm/dry. HEAD: Atraumatic. Normocephalic. EYES: Pupils equal and round. No scleral icterus. No injection or drainage. ENT: No nasal bleeding or discharge. Mucous membranes pink and moist. NECK: Trachea midline. No JVD. CARDIOVASCULAR: Regular rate and rhythm. No murmur appreciated. RESPIRATORY: No accessory muscle use. Clear to auscultation. Breath sounds equal bilaterally. GASTROINTESTINAL: Abdomen soft, non-tender, nondistended. Hepatic and splenic margins not palpable. MUSCULOSKELETAL: No obvious deformities. No clubbing. No cyanosis. Bilateral pitting edema of both legs. NEUROLOGICAL: Awake and alert. No obvious cranial nerve deficits. Motor grossly within normal limits. Normal speech. PSYCHIATRIC: Appropriate mood and affect; insight and judgment normal. Data Data Last Documented VS Vital Signs Date Time Temp Pulse Resp B/P (MAP) Pulse Ox O2 Delivery O2 Flow Rate FiO2 11/28/17 19:08 88 18 174/85 (114) 95 Room Air 11/28/17 18:03 97.8 Orders Orders Complete Blood Count With Diff (11/28/17 16:31) B-Type Natriuretic Peptide (11/28/17 16:31) Act Partial Throm Time (Ptt) (11/28/17 16:31) Prothrombin Time / Inr (Pt) (11/28/17 16:31) Magnesium (Mg) (11/28/17 16:31) Ckmb (Isoenzyme) Profile (11/28/17 16:31) Troponin I (11/28/17 16:31) Electrocardiogram (11/28/17 16:31) Chest, Pa & Lat (11/28/17 16:31) Comprehensive Metabolic Panel (11/28/17 16:32) Lipase (11/28/17 16:32) Knee, Complete (4vws) (11/28/17 ) CKMB (11/28/17 17:21) CKMB% (11/28/17 17:21) Aspirin (Aspirin) (11/28/17 18:45) Nitroglycerin 2% Oint (Nitroglycerin 2% (11/28/17 18:45) Labs Laboratory Tests Test 11/28/17 17:21 White Blood Count 8.0 TH/MM3 Red Blood Count 4.67 MIL/MM3 Hemoglobin 13.5 GM/DL Hematocrit 39.8 % Mean Corpuscular Volume 85.4 FL Mean Corpuscular Hemoglobin 28.8 PG Mean Corpuscular Hemoglobin Concent 33.8 % Red Cell Distribution Width 14.9 % Platelet Count 253 TH/MM3 Mean Platelet Volume 8.0 FL Neutrophils (%) (Auto) 55.0 % Lymphocytes (%) (Auto) 34.0 % Monocytes (%) (Auto) 7.4 % Eosinophils (%) (Auto) 2.7 % Basophils (%) (Auto) 0.9 % Neutrophils # (Auto) 4.4 TH/MM3 Lymphocytes # (Auto) 2.7 TH/MM3 Monocytes # (Auto) 0.6 TH/MM3 Eosinophils # (Auto) 0.2 TH/MM3 Basophils # (Auto) 0.1 TH/MM3 CBC Comment DIFF FINAL Differential Comment Prothrombin Time 10.0 SEC Prothromb Time International Ratio 1.0 RATIO Activated Partial Thromboplast Time 35.3 SEC Blood Urea Nitrogen 16 MG/DL Creatinine 1.34 MG/DL Random Glucose 98 MG/DL Total Protein 7.6 GM/DL Albumin 3.5 GM/DL Calcium Level 8.4 MG/DL Alkaline Phosphatase 65 U/L Aspartate Amino Transf (AST/SGOT) 29 U/L Alanine Aminotransferase (ALT/SGPT) 31 U/L Total Bilirubin 0.3 MG/DL Sodium Level 143 MEQ/L Potassium Level 3.2 MEQ/L Chloride Level 106 MEQ/L Carbon Dioxide Level 30.5 MEQ/L Anion Gap 7 MEQ/L Estimat Glomerular Filtration Rate 68 ML/MIN Magnesium Level 2.1 MG/DL Total Creatine Kinase 919 U/L Creatine Kinase MB 5.9 NG/ML Creatine Kinase MB % 0.6 % Troponin I 0.22 NG/ML B-Type Natriuretic Peptide 44 PG/ML Lipase 211 U/L MDM Medical Decision Making Medical Screen Exam Complete: Yes Emergency Medical Condition: Yes Medical Record Reviewed: Yes Interpretation(s) EKG shows sinus rhythm at a rate 90 bpm. There is nonspecific T-wave depressions in the inferior leads. No signs of acute ST elevations. Laboratory Tests Test 11/28/17 17:21 Activated Partial Thromboplast Time 35.3 SEC (24.3-30.1) Creatinine 1.34 MG/DL (0.60-1.30) Calcium Level 8.4 MG/DL (8.5-10.1) Potassium Level 3.2 MEQ/L (3.5-5.1) Estimat Glomerular Filtration Rate 68 ML/MIN (>89) Total Creatine Kinase 919 U/L (39-308) Creatine Kinase MB 5.9 NG/ML (0.5-3.6) Troponin I 0.22 NG/ML (0.02-0.05) Last 24 hours Impressions Chest X-Ray 11/28/17 1631 Signed Impressions: Service Date/Time: Tuesday, November 28, 2017 16:53 - CONCLUSION: Normal examination. Steven Lobo MD Knee X-Ray 11/28/17 0000 Signed Impressions: Service Date/Time: Tuesday, November 28, 2017 17:33 - CONCLUSION: 1. Small joint effusion. Otherwise, unremarkable exam. Stanley Velez Jr., MD Differential Diagnosis CHF versus pneumonia versus significant anemia versus COPD Narrative Course Patient's blood pressures fairly elevated in the ER. Considering history in story, there is concern of possible underlying CHF. Patient was not given aspirin nitroglycerin. His troponin returns elevated. It is not certain whether this as a non-ST elevation [place] or the symptoms related to underlying hypertension versus underlying CHF. His chest x-ray in BNP is not that impressive. At this point, patient will need further blood pressure control an will need his troponins followed. My plan would be to admit the patient for further treatment. Cases discussed with Dr. Culver for admission. Diagnosis Primary Impression: NSTEMI (non-ST elevated myocardial infarction) Admitting Information Admitting Physician Requests: Admit Alecia Angeles MD Nov 28, 2017 18:58
[2017-11-28 19:08] VITALS: BP 174/85; PULSE 88; RESP 18; O2SAT 95
[2017-11-28] MEDS ORDERED: SODIUM CHLORIDE 0.9% FLUSH 10 ML FLUSH IV FLUSH PRN (20:15)
[2017-11-28] MEDS ORDERED: NALOXONE HCL 0.4 MG/ML AMP IV PUSH PRN (20:15)
[2017-11-28] MEDS ORDERED: POTASSIUM CHLORIDE 20 MEQ CONTROLLED RELEASE TAB PO ONE (20:15)
[2017-11-28] MEDS: SODIUM CHLORIDE 0.9% FLUSH 10 ML FLUSH IV FLUSH SCH (21:00)
[2017-11-28 22:24] VITALS: BP 159/82; PULSE 84; RESP 18; TEMP 98; O2SAT 94
[2017-11-29] VITALS (10 sets, daily range): BP systolic 151–170; BP diastolic 75–97; PULSE 62–93; RESP 17–20; TEMP 97.6–98.3; O2SAT 92–98
[2017-11-29 01:59] LABS: TROPONIN I 0.2 NG/ML (0.02-0.05)
[2017-11-29] MEDS ORDERED: cloNIDine HCL 0.1 MG TAB PO PRN (03:45)
--- NOTE | 2017-11-29 03:51 | HHI.HP ---
[facility] Unknown Admission Diagnosis CHF exacerbation/leg swelling/elevated troponin Diagnoses: Chief Complaint: Leg swelling Travel History International Travel<30 Days: No Contact w/Intl Traveler <30 Da: No Traveled to Known Affected Are: No History of Present Illness 52-year-old male patient with history of CHF, obstructive sleep apnea, hypertension, previous NV, and a history of non compliance presents to the ER today for worsening leg swelling for the last 4 days. Patient states he was kicked out of his brothers house and has not had his medication. He continues to fall asleep during exam and only answers some questions. He denies chest pain , and states he has had some shortness of breath. Per the RN, patient has been asking for pain medication, but upon exam patient will not wake up enough to say where his pain is. Review of Systems ROS Limitations: Uncooperative Except as stated in HPI: all other systems reviewed are Neg Past Family Social History Past Medical History Per EMR: CHF Sleep apnea NV Hypertension Polysubstance abuse Diabetes Dyslipidemia GERD Schizophrenia Anxiety Depression Past Surgical History ORIF of the right inguinal mandible plate and screws Reported Medications Reported Meds & Active Scripts Active Reported Metoprolol Tartrate 50 Mg Tab 50 Mg PO DAILY Norvasc (Amlodipine Besylate) 10 Mg Tab 10 Mg PO DAILY Allergies: Coded Allergies: milk (Verified Adverse Reaction, Severe, vomiting, 11/28/17) lisinopril (Unverified Adverse Reaction, Intermediate, Cough, 11/28/17) Uncoded Allergies: WOOL (Allergy, Severe, RASH, 10/03/14) Active Ordered Medications Current Medications Medications (Trade) Dose Ordered Sig/Dimitris Route Start Time Stop Time Status Last Admin (NS Flush) 2 ml UNSCH PRN IV FLUSH 11/28/17 20:15 (NS Flush) 2 ml BID IV FLUSH 11/28/17 21:00 11/28/17 21:00 (Narcan Inj) 0.4 mg UNSCH PRN IV PUSH 11/28/17 20:15 Family History Per EMR Mom: Hypertension Social History Unable to obtain Physical Exam Vital Signs Vital Signs Date Time Temp Pulse Resp B/P (MAP) Pulse Ox O2 Delivery O2 Flow Rate FiO2 11/29/17 00:04 90 11/28/17 22:24 98.0 84 18 159/82 (107) 94 11/28/17 19:08 88 18 174/85 (114) 95 Room Air 11/28/17 18:03 97.8 88 18 192/89 (123) 98 Room Air 11/28/17 18:03 92 17 98 Room Air 11/28/17 16:12 98.7 94 18 160/94 (116) 98 Physical Exam GENERAL: This is a well-nourished, well-developed patient, in no apparent distress. SKIN: No rashes, ecchymoses or lesions. Cool and dry. HEAD: Atraumatic. Normocephalic. No temporal or scalp tenderness. EYES: Pupils equal round and reactive. Extraocular motions intact. No scleral icterus. No injection or drainage. ENT: Nose without bleeding, purulent drainage or septal hematoma. Throat without erythema, tonsillar hypertrophy or exudate. Uvula midline. Airway patent. NECK: Trachea midline. No JVD or lymphadenopathy. Supple, nontender, no meningeal signs. CARDIOVASCULAR: Regular rate and rhythm without murmurs, gallops, or rubs. RESPIRATORY: Clear to auscultation. Breath sounds equal bilaterally. No wheezes , rales, or rhonchi. GASTROINTESTINAL: Abdomen soft, non-tender, nondistended. No hepato-splenomegaly , or palpable masses. No guarding. MUSCULOSKELETAL: Extremities without clubbing, cyanosis, or edema. No joint tenderness, effusion, or edema noted. No calf tenderness. Negative Homans sign bilaterally. NEUROLOGICAL: Awake and alert. Cranial nerves II through XII intact. Motor and sensory grossly within normal limits. Five out of 5 muscle strength in all muscle groups. Normal speech. Laboratory Laboratory Tests Test 11/28/17 17:21 11/29/17 00:20 White Blood Count 8.0 Red Blood Count 4.67 Hemoglobin 13.5 Hematocrit 39.8 Mean Corpuscular Volume 85.4 Mean Corpuscular Hemoglobin 28.8 Mean Corpuscular Hemoglobin Concent 33.8 Red Cell Distribution Width 14.9 Platelet Count 253 Mean Platelet Volume 8.0 Neutrophils (%) (Auto) 55.0 Lymphocytes (%) (Auto) 34.0 Monocytes (%) (Auto) 7.4 Eosinophils (%) (Auto) 2.7 Basophils (%) (Auto) 0.9 Neutrophils # (Auto) 4.4 Lymphocytes # (Auto) 2.7 Monocytes # (Auto) 0.6 Eosinophils # (Auto) 0.2 Basophils # (Auto) 0.1 CBC Comment DIFF FINAL Differential Comment Prothrombin Time 10.0 Prothromb Time International Ratio 1.0 Activated Partial Thromboplast Time 35.3 Blood Urea Nitrogen 16 Creatinine 1.34 Random Glucose 98 Total Protein 7.6 Albumin 3.5 Calcium Level 8.4 Alkaline Phosphatase 65 Aspartate Amino Transf (AST/SGOT) 29 Alanine Aminotransferase (ALT/SGPT) 31 Total Bilirubin 0.3 Sodium Level 143 Potassium Level 3.2 Chloride Level 106 Carbon Dioxide Level 30.5 Anion Gap 7 Estimat Glomerular Filtration Rate 68 Magnesium Level 2.1 Total Creatine Kinase 919 685 Creatine Kinase MB 5.9 4.4 Creatine Kinase MB % 0.6 0.6 Troponin I 0.22 0.20 B-Type Natriuretic Peptide 44 Lipase 211 Result Diagram: 11/28/17 1721 11/28/17 1721 Caprini VTE Risk Assessment Caprini VTE Risk Assessment: Mod/High Risk (score >= 2) Caprini Risk Assessment Model Point Value = 1 Point Value = 2 Point Value = 3 Point Value = 5 Age 41-60 Minor surgery BMI > 25 kg/m2 Swollen legs Varicose veins or History of unexplained or recurrent spontaneous Oral contraceptives or hormone replacement Sepsis (< 1 month) Serious lung disease, including pneumonia (< 1 month) Abnormal pulmonary function Acute myocardial infarction Congestive heart failure (< 1 month) History of inflammatory bowel disease Medical patient at bed rest Age 61-74 Arthroscopic surgery Major open surgery (> 45 min) Laparoscopic surgery (> 45 min) Malignancy Confined to bed (> 72 hours) Immobilizing plaster cast Central venous access Age >= 75 History of VTE Family history of VTE Factor V Leiden Prothrombin [id number] Lupus anticoagulant Anticardiolipin antibodies Elevated serum homocysteine Heparin-induced thrombocytopenia Other congenital or acquired thrombophilia Stroke (< 1 month) Elective arthroplasty Hip, pelvis, or leg fracture Acute spinal cord injury (< 1 month) Prophylaxis Regimen Total Risk Factor Score Risk Level Prophylaxis Regimen 0-1 Low Early ambulation 2 Moderate Order ONE of the following: *Sequential Compression Device (SCD) *Heparin 5000 units SQ BID 3-4 Higher Order ONE of the following medications: *Heparin 5000 units SQ TID *Enoxaparin/Lovenox 40 mg SQ daily (WT < 150 kg, CrCl > 30 mL/min) *Enoxaparin/Lovenox 30 mg SQ daily (WT < 150 kg, CrCl > 10-29 mL/min) *Enoxaparin/Lovenox 30 mg SQ BID (WT < 150 kg, CrCl > 30 mL/min) AND/OR *Sequential Compression Device (SCD) 5 or more Highest Order ONE of the following medications: *Heparin 5000 units SQ TID (Preferred with Epidurals) *Enoxaparin/Lovenox 40 mg SQ daily (WT < 150 kg, CrCl > 30 mL/min) *Enoxaparin/Lovenox 30 mg SQ daily (WT < 150 kg, CrCl > 10-29 mL/min) *Enoxaparin/Lovenox 30 mg SQ BID (WT < 150 kg, CrCl > 30 mL/min) AND *Sequential Compression Device (SCD) Assessment and Plan Problem List: (1) Edema of both upper extremities ICD Code: R60.9 - Edema, unspecified (2) Elevated troponin I level ICD Code: R79.89 - Elevated troponin I level Status: Resolved (3) Hypokalemia ICD Code: E87.6 - Hypokalemia Status: Resolved Assessment and Plan 52-year-old male patient with history of CHF, obstructive sleep apnea, hyperlipidemia, hypertension, previous NV, history of non compliance presents to the ER today for worsening in leg swelling for the last 4 days. Bilateral lower extremity edema, right greater than left BNP 44 -Bilateral Doppler ultrasound will rule out DVT -Darwin correa ordered Elevated troponin, rule out ACS, troponin 0.2, -Serial troponin and EKGs -Monitor telemetry Hypokalemia, potassium 3.2 -Supplementation ordered, trend BMP and replace as needed Hypertension, chronic, currently elevated -Norvasc 10 mg by mouth ordered -Clonidine PRN -Will resume home meds when verified with patient DVT prophylaxis: Heparin Discussed Condition With Patient and RN Candelaria Zuñiga Nov 29, 2017 03:50
[2017-11-29] MEDS: HEPARIN SODIUM - SQ 10,000 UNITS/ML VIAL SQ SCH ×3 (05:14→20:37)
[2017-11-29 07:42] LABS: AUTOMATED NEUTROPHIL # 3.5 TH/MM3 (1.8-7.7); BASOPHIL % 0.5 % (0.0-2.0); EOSINOPHIL # 0.3 TH/MM3 (0-0.4); EOSINOPHIL % 4.3 % (0.0-4.0); HEMATOCRIT 36.7 % (39.0-51.0); HEMOGLOBIN 12.2 GM/DL (13.0-17.0); LYMPH % 36.1 % (9.0-44.0); LYMPHOCYTE # 2.4 TH/MM3 (1.0-4.8); MEAN CELL VOLUME 85.5 FL (80.0-100.0); MEAN CORPUSCULAR HEMOGLOBIN 28.4 PG (27.0-34.0); MEAN CORPUSCULAR HGB CONC 33.2 % (32.0-36.0); MEAN PLATELET VOLUME 8.1 FL (7.0-11.0); MONO % 6.7 % (0.0-8.0); MONOCYTE # 0.4 TH/MM3 (0-0.9); NEUT % 52.4 % (16.0-70.0); PLATELET COUNT 231 TH/MM3 (150-450); RED CELL DISTRIBUTION WIDTH 14.5 % (11.6-17.2); WHITE BLOOD COUNT 6.7 TH/MM3 (4.0-11.0)
[2017-11-29 07:57] LABS: BICARBONATE 27.1 MEQ/L (21.0-32.0); CALCIUM 8.3 MG/DL (8.5-10.1); CREATININE 1.16 MG/DL (0.60-1.30)
[2017-11-29 08:01] LABS: TROPONIN I 0.19 NG/ML (0.02-0.05)
--- NOTE | 2017-11-29 09:19 | HHI.PR ---
Subjective Remarks Follow up on patient with BLE edema. Patient seen and examined. Patient c/o numbness in right leg. He reports pain in the right knee. He denies any recent injury. He has been unable to bear any weight on the right leg for the past 3 days. States he left his water pill in [place] one week ago. He's had progressive leg swelling since. He also reports cough with clear sputum production and shortness of breath. He reports shortness of breath at rest. States he has some chest tightness. He denies any nausea, vomiting or abdominal pain. Patient states he is not sedentary. He is a smoker. He's had a previous NSTEMI but denies any cardiac stent implants. He does not follow with a transcriber. He denies a history of gout. He has a history of sleep apnea but has not used his CPAP machine for many years. He states that he is compliant with his diet. Objective Vitals Vital Signs Date Time Temp Pulse Resp B/P (MAP) Pulse Ox O2 Delivery O2 Flow Rate FiO2 11/29/17 08:00 97.7 90 20 156/92 (113) 97 11/29/17 03:38 98.1 93 18 166/79 (108) 98 11/29/17 03:38 84 11/29/17 00:04 90 11/28/17 22:24 98.0 84 18 159/82 (107) 94 11/28/17 19:08 88 18 174/85 (114) 95 Room Air 11/28/17 18:03 97.8 88 18 192/89 (123) 98 Room Air 11/28/17 18:03 92 17 98 Room Air 11/28/17 16:12 98.7 94 18 160/94 (116) 98 I/O 11/28/17 11/28/17 11/28/17 11/29/17 11/29/17 11/29/17 06:59 14:59 22:59 06:59 14:59 22:59 Intake Total 500 ml Balance 500 ml Intake Oral 500 ml Result Diagram: 11/29/17 0630 11/29/17 0630 Imaging Last Impressions Chest X-Ray 11/28/17 1631 Signed Impressions: Service Date/Time: Tuesday, November 28, 2017 16:53 - CONCLUSION: Normal examination. Steven Lobo MD Knee X-Ray 11/28/17 0000 Signed Impressions: Service Date/Time: Tuesday, November 28, 2017 17:33 - CONCLUSION: 1. Small joint effusion. Otherwise, unremarkable exam. Stanley Velez Jr., MD Objective Remarks GENERAL: This is a well-nourished, well-developed male patient , in no apparent distress. Awake and alert. SKIN: No rashes, ecchymoses or lesions. Cool and dry. HEAD: Atraumatic. Normocephalic. EYES: Pupils equal round and reactive. Extraocular motions intact. No scleral icterus. No injection or drainage. ENT: Nose without bleeding or purulent drainage. Airway patent. MMM. NECK: Trachea midline. CARDIOVASCULAR: Regular rate and rhythm without murmurs, gallops, or rubs. RESPIRATORY: Coarse breath sounds. Diffuse expiratory wheezing noted. GASTROINTESTINAL: Abdomen soft, non-tender, nondistended. No guarding. MUSCULOSKELETAL: 1-2+ bilateral lower extremity edema noted. Diffuse joint swelling noted in the right knee. Positive for tenderness to palpation over the lateral aspect of the right knee. Decreased range of motion of the right knee. No appreciable erythema or warmth. No calf tenderness. NEUROLOGICAL: Awake and alert. Able to move all extremities spontaneously. Motor and sensory grossly within normal limits. No focal neurologic findings appreciated. Normal speech. Medications and IVs Current Medications Medications (Trade) Dose Ordered Sig/Dimitris Route Start Time Stop Time Status Last Admin (NS Flush) 2 ml UNSCH PRN IV FLUSH 11/28/17 20:15 (NS Flush) 2 ml BID IV FLUSH 11/28/17 21:00 11/28/17 21:00 (Narcan Inj) 0.4 mg UNSCH PRN IV PUSH 11/28/17 20:15 (Heparin Inj) 5,000 units Q8HR SQ 11/29/17 06:00 11/29/17 05:14 (Norvasc) 10 mg DAILY PO 11/29/17 09:00 (Catapres) 0.1 mg Q6H PRN PO 11/29/17 03:45 A/P Problem List: (1) Edema of both upper extremities ICD Code: R60.9 - Edema, unspecified (2) Elevated troponin I level ICD Code: R79.89 - Elevated troponin I level Status: Resolved (3) Hypokalemia ICD Code: E87.6 - Hypokalemia Status: Resolved Assessment and Plan 52-year-old male patient with history of CHF, obstructive sleep apnea, hyperlipidemia, hypertension, previous NH, history of non compliance presents to the ER today for worsening in leg swelling for the last 4 days. Bilateral lower extremity edema, right greater than left Hx of CHF, systolic, chronic Medication noncompliance - CXR unremarkable, BNP 44 - Echo 07/22/17 EF 50-55%, Mildly dilated left ventricle. Mild concentric left ventricular hypertrophy - Bilateral Doppler ultrasound to rule out DVT - Na restricted diet Elevated troponin, rule out ACS - troponin 0.22, 0.20, 0.19 - c/o chest tightness - Cardiac catheterization 07/22/17 - nonobstructive coronary artery disease - Consult Cardiology, appreciate recommendations - Continuous cardiac monitoring - Supplemental oxygen - Aspirin 325 mg daily Hypertension, chronic, currently elevated - ACEI contraindicated secondary to dry cough and angioedema - Norvasc 10mg daily, Metoprolol 50mg po BID - continue to monitor BP and adjust treatment accordingly COPD, acute exacerbation Ongoing tobaccoism - Discussed importance of smoking cessation - Scheduled DuoNebs - Symbicort 160/4.5mcg inhaler 2 puffs BID - Monitor respiratory status - Supplemental oxygen to maintain O2 sat 92% Right knee pain - No reported history of injury - Knee x-ray reviewed by me, small joint effusion otherwise no evidence of fracture or other osseous abnormality - PT eval/tx SANDOR on suspected CKD - creatinine 1.34, improved to 1.16 - avoid nephrotoxic agents - continue to monitor kidney function Hypokalemia, potassium 3.2 - Resolved status post repletion DVT prophylaxis: Heparin Yolette Jacinto Nov 29, 2017 09:19
--- NOTE | 2017-11-29 09:40 | PD.CONS ---
HPI Consult Requested By Primary Care Physician Unknown History of Present Illness 52-year-old male patient with history of diastolic HF, obstructive sleep apnea, hypertension, chronic elevated troponin with a normal LHC in 07/2017 with no CAD and elevated LVEDP and non compliance presents that presents to the ER today with complaints leg swelling for the last 4 days. Patient states he was kicked out of his brothers house and has not had his medication. . Cardiology consulted for troponin elevation. Review of Systems Consitutional: DENIES: Fatigue, Fever, Chills, Weight gain, Weight loss Eyes: DENIES: Amaurosis Fugax, Change in vision HEENT: DENIES: Lightheadedness, Change in hearing Respiratory: COMPLAINS OF: See HPI, DENIES: Cough, Snoring, Shortness of breath , Wheezing, Sputum production Cardiovascular: COMPLAINS OF: See HPI, DENIES: Chest pain, Palpitations, Syncope, Tachycardia Gastrointestinal: DENIES: Nausea, Vomiting, Change in bowel habits, Reflux, Bloody stools, Melena Genitourinary: DENIES: Urinary incontinence, Difficulty voiding Integumentary: DENIES: Rash Neurologic: DENIES: Tingling or numbness, Memory problems, Poor Balance, Stroke symptoms Musculoskeletal: DENIES: Joint pain, Muscle pain, Limited range of motion, Back pain Psychiatric: DENIES: Anxiety, Depression, Sleep disturbances Hematologic: DENIES: Bruising tendencies, Bleeding tendencies Endocrine: DENIES: Weight gain, Weight loss, Thyroid disease Past Family Social History Allergies: Coded Allergies: milk (Verified Adverse Reaction, Severe, vomiting, 11/28/17) lisinopril (Unverified Adverse Reaction, Intermediate, Cough, 11/28/17) Uncoded Allergies: WOOL (Allergy, Severe, RASH, 10/03/14) Past Medical History 1. Hypertension 2. Diabetes 3. Hyperlipidemia 4. Seizures 5. Schizophrenia 6. Anxiety 7. Noncompliance. Reported Medications Reported Meds & Active Scripts Active Reported Metoprolol Tartrate 50 Mg Tab 50 Mg PO DAILY Norvasc (Amlodipine Besylate) 10 Mg Tab 10 Mg PO DAILY Active Ordered Medications Current Medications Medications (Trade) Dose Ordered Sig/Dimitris Route Start Time Stop Time Status Last Admin (NS Flush) 2 ml UNSCH PRN IV FLUSH 11/28/17 20:15 (NS Flush) 2 ml BID IV FLUSH 11/28/17 21:00 11/28/17 21:00 (Narcan Inj) 0.4 mg UNSCH PRN IV PUSH 11/28/17 20:15 (Heparin Inj) 5,000 units Q8HR SQ 11/29/17 06:00 11/29/17 05:14 (Norvasc) 10 mg DAILY PO 11/29/17 09:00 (Catapres) 0.1 mg Q6H PRN PO 11/29/17 03:45 (Duoneb Neb) 1 ampule Q4HR WHILE AWAKE NEB NEB 11/29/17 12:00 (Lopressor) 50 mg DAILY PO 11/29/17 09:00 (Ecotrin Ec) 81 mg DAILY PO 11/29/17 09:00 (Symbicort 160-4.5 Mcg Inh) 2 puff Q12HR INH 11/29/17 09:15 Family History Unknown Social History Smoker. Denies alcohol abuse or illicit drug use, although he has a previous history of polysubstance abuse including cocaine. Physical Exam Vital Signs Vital Signs Date Time Temp Pulse Resp B/P (MAP) Pulse Ox O2 Delivery O2 Flow Rate FiO2 11/29/17 08:00 97.7 90 20 156/92 (113) 97 11/29/17 03:38 98.1 93 18 166/79 (108) 98 11/29/17 03:38 84 11/29/17 00:04 90 11/28/17 22:24 98.0 84 18 159/82 (107) 94 11/28/17 19:08 88 18 174/85 (114) 95 Room Air 11/28/17 18:03 97.8 88 18 192/89 (123) 98 Room Air 11/28/17 18:03 92 17 98 Room Air 11/28/17 16:12 98.7 94 18 160/94 (116) 98 Physical Exam GENERAL: Well-nourished, well-developed patient. SKIN: Warm and dry. HEAD: Normocephalic. EYES: No scleral icterus. No injection or drainage. NECK: Supple, trachea midline. No JVD or lymphadenopathy. CARDIOVASCULAR: Regular rate and rhythm without murmurs, gallops, or rubs. RESPIRATORY: Breath sounds equal bilaterally. No accessory muscle use. GASTROINTESTINAL: Abdomen soft, non-tender, nondistended. EXTREMITIES: No cyanosis, or edema. NEUROLOGICAL: Awake, alert, and oriented x 3. Non-focal. Laboratory Laboratory Tests Test 11/28/17 17:21 11/29/17 00:20 11/29/17 06:30 White Blood Count 8.0 6.7 Red Blood Count 4.67 4.30 Hemoglobin 13.5 12.2 Hematocrit 39.8 36.7 Mean Corpuscular Volume 85.4 85.5 Mean Corpuscular Hemoglobin 28.8 28.4 Mean Corpuscular Hemoglobin Concent 33.8 33.2 Red Cell Distribution Width 14.9 14.5 Platelet Count 253 231 Mean Platelet Volume 8.0 8.1 Neutrophils (%) (Auto) 55.0 52.4 Lymphocytes (%) (Auto) 34.0 36.1 Monocytes (%) (Auto) 7.4 6.7 Eosinophils (%) (Auto) 2.7 4.3 Basophils (%) (Auto) 0.9 0.5 Neutrophils # (Auto) 4.4 3.5 Lymphocytes # (Auto) 2.7 2.4 Monocytes # (Auto) 0.6 0.4 Eosinophils # (Auto) 0.2 0.3 Basophils # (Auto) 0.1 0.0 CBC Comment DIFF FINAL DIFF FINAL Differential Comment Prothrombin Time 10.0 Prothromb Time International Ratio 1.0 Activated Partial Thromboplast Time 35.3 Blood Urea Nitrogen 16 15 Creatinine 1.34 1.16 Random Glucose 98 125 Total Protein 7.6 Albumin 3.5 Calcium Level 8.4 8.3 Alkaline Phosphatase 65 Aspartate Amino Transf (AST/SGOT) 29 Alanine Aminotransferase (ALT/SGPT) 31 Total Bilirubin 0.3 Sodium Level 143 140 Potassium Level 3.2 3.7 Chloride Level 106 107 Carbon Dioxide Level 30.5 27.1 Anion Gap 7 6 Estimat Glomerular Filtration Rate 68 81 Magnesium Level 2.1 Total Creatine Kinase 919 685 558 Creatine Kinase MB 5.9 4.4 3.3 Creatine Kinase MB % 0.6 0.6 0.6 Troponin I 0.22 0.20 0.19 B-Type Natriuretic Peptide 44 Lipase 211 Result Diagram: 11/29/17 0630 11/29/17 0630 Imaging Last Impressions Chest X-Ray 11/28/17 1631 Signed Impressions: Service Date/Time: Tuesday, November 28, 2017 16:53 - CONCLUSION: Normal examination. Steven Lobo MD Knee X-Ray 11/28/17 0000 Signed Impressions: Service Date/Time: Tuesday, November 28, 2017 17:33 - CONCLUSION: 1. Small joint effusion. Otherwise, unremarkable exam. Stanley Velez Jr., MD Assessment and Plan Problem List: (1) Elevated troponin I level ICD Codes: R79.89 - Elevated troponin I level Status: Resolved Plan: Chronically elevated Troponin Unremarkable recent LHC, elevated LVEDP Unremarkable EF and Echo Noncompliant with medication No CV complaints EKG unremarkable Complaints o knee pain Recommendations - No further cardiac work up as this time - Continue cardiac home medications - Follow up with PCP upon discharge Thank you for the opportunity to participate in the care of this patient Will be available on a PRN basis for any questions or concerns (2) Hypertension ICD Codes: I10 - Hypertension Status: Acute (3) Tobacco abuse ICD Codes: F17.200 - Tobacco abuse Status: Acute Yon Stewart MD Nov 29, 2017 09:40
[2017-11-29] MEDS: ASPIRIN EC 81 MG TABEC PO SCH (10:08)
[2017-11-29] MEDS: METOPROLOL TARTRATE 50 MG TAB PO SCH (10:08)
[2017-11-29] MEDS: SODIUM CHLORIDE 0.9% FLUSH 10 ML FLUSH IV FLUSH SCH ×2 (10:08→20:35)
[2017-11-29 10:51] LABS: CHOLESTEROL/ HDL RATIO 3.24 RATIO; HDL CHOLESTEROL 48.7 MG/DL (40.0-60.0)
[2017-11-29] MEDS ORDERED: ACETAMINOPHEN/HYDROcodone 325 MG/5 MG TAB PO PRN (12:15)
--- NOTE | 2017-11-29 12:54 | RADRPT ---
EXAM DATE/TIME: 11/29/2017 12:23 [facility] COMPARISON: No previous studies available for comparison. INDICATIONS : Bilateral leg pain. MEDICAL HISTORY : Hypercholesterolemia. Hypertension. Chronic obstructive pulmonary disease. Hearing loss. Seizures. He ad trauma. Syncope. Hyperlipidemia. Asthma. Tuberculosis. Sleep apnea. Gastroesophageal Reflux. Rheum atoid arthritis. Diabetes. Schizophrenia. Depression. Anxiety. Measles. Substance abuse. MRSA. SURGICAL HISTORY : Bilateral thumb sugery. Facial surgery. ENCOUNTER: Initial ACUITY: 3 weeks PAIN SCORE: 8/10 LOCATION: Bilateral legs. TECHNIQUE: Venous ultrasound of the left and right leg was performed from the inguinal ligament to the proximal calf. Real-time, color Doppler and spectral tracing, compression and augmentation techniques were us ed. FINDINGS: RIGHT LEG: There is normal compressibility of the deep venous system from the inguinal region to the proximal ca lf. No echogenic clot is seen in the lumen of the common femoral, femoral, popliteal, and posterior tibial veins. There is a normal response of the venous system to proximal and distal augmentation an d respiration. LEFT LEG: There is normal compressibility of the deep venous system from the inguinal region to the proximal ca lf. No echogenic clot is seen in the lumen of the common femoral, femoral, popliteal, and posterior tibial veins. There is a normal response of the venous system to proximal and distal augmentation an d respiration. CONCLUSION: Negative exam with no evidence of deep venous thrombosis. Raymond Wan MD on November 29, 2017 at 12:51 Board Certified Radiologist. This report was verified electronically.
[2017-11-29] MEDS: BUDESONIDE-FORMOTEROL 160/4.5 MCG INHALER INH SCH ×2 (13:28→20:35)
[2017-11-29] MEDS: ACETAMINOPHEN/HYDROcodone 325 MG/10 MG TAB PO PRN ×2 (13:30→23:20)
[2017-11-29] MEDS: RESP: ALBUTEROL 2.5 MG/IPRATROPIUM 0.5 MG NEB (SCH) NEB ×3 (14:46→21:34)
[2017-11-29 16:45] LABS: HEMOGLOBIN A1C 6.4 % (4.3-6.0)
--- NOTE | 2017-11-29 22:00 | EKG ---
Date Performed: 11/29/2017 Time Performed: 05:19:38 PTAGE: 52 years EKG: Sinus rhythm ST DEVIATION AND MODERATE T-WAVE ABNORMALITY, CONSIDER LATERAL ISCHEMIA ST DEVIATION AND MODERATE T- WAVE ABNORMALITY, CONSIDER INFERIOR ISCHEMIA ABNORMAL ECG PREVIOUS TRACING : 11/28/2017 23.47 Since previous tracing, no significant change noted DOCTOR: Yared Dave Interpretating Date/Time 11/29/2017 21:59:22
--- NOTE | 2017-11-29 22:07 | EKG ---
Date Performed: 11/28/2017 Time Performed: 23:47:25 PTAGE: 52 years EKG: Sinus rhythm ST DEVIATION AND MODERATE T-WAVE ABNORMALITY, CONSIDER LATERAL ISCHEMIA ST DEVIATION AND MODERATE T- WAVE ABNORMALITY, CONSIDER INFERIOR ISCHEMIA ABNORMAL ECG PREVIOUS TRACING : 11/28/2017 17.26 Since previous tracing, no significant change noted DOCTOR: Yared Dave Interpretating Date/Time 11/29/2017 22:07:04
--- NOTE | 2017-11-29 22:27 | EKG ---
Date Performed: 11/28/2017 Time Performed: 17:26:37 PTAGE: 52 years EKG: Sinus rhythm POSSIBLE LEFT ATRIAL ENLARGEMENT ST DEVIATION AND MODERATE T-WAVE ABNORMALITY, CONSIDER LATERAL ISCH EMIA ST DEVIATION AND MODERATE T-WAVE ABNORMALITY, CONSIDER INFERIOR ISCHEMIA ABNORMAL ECG PREVIOUS TRACING : 07/21/2017 12.27 Since previous tracing, no significant change noted DOCTOR: Yared Dave Interpretating Date/Time 11/29/2017 22:25:58
[2017-11-30] VITALS (10 sets, daily range): BP systolic 141–185; BP diastolic 85–97; PULSE 67–86; RESP 17–18; TEMP 97.6–98.2; O2SAT 95–97
[2017-11-30] MEDS: HEPARIN SODIUM - SQ 10,000 UNITS/ML VIAL SQ SCH ×3 (05:21→22:39)
[2017-11-30] MEDS: RESP: ALBUTEROL 2.5 MG/IPRATROPIUM 0.5 MG NEB (SCH) NEB ×4 (07:41→19:44)
[2017-11-30] MEDS ORDERED: WALKER WHEELS/F1 MIS (07:46)
[2017-11-30] MEDS: ASPIRIN EC 81 MG TABEC PO SCH (08:33)
[2017-11-30] MEDS: SODIUM CHLORIDE 0.9% FLUSH 10 ML FLUSH IV FLUSH SCH ×2 (08:33→22:39)
[2017-11-30] MEDS: METOPROLOL TARTRATE 50 MG TAB PO SCH (08:33)
[2017-11-30] MEDS: ACETAMINOPHEN/HYDROcodone 325 MG/10 MG TAB PO PRN ×2 (08:34→22:49)
--- NOTE | 2017-11-30 08:58 | HHI.PR ---
Subjective Remarks Patient in nad. Feels better sob imprpved. LE edema improved complaints of knee swelling on the right side and pain. X ray no fx. No cp, sob, n/v/d/c. Says he still has knee pain . No n/v/d/c. Seen by ortho recommends medical management , no signs of septic arthritis. Objective Vitals Vital Signs Date Time Temp Pulse Resp B/P (MAP) Pulse Ox O2 Delivery O2 Flow Rate FiO2 11/30/17 08:09 97.6 80 18 169/97 (121) 95 11/30/17 05:19 97.6 75 17 148/92 (110) 97 11/30/17 03:58 79 11/30/17 00:59 18 11/30/17 00:04 86 11/29/17 23:09 97.7 86 17 170/91 (117) 96 11/29/17 20:00 87 11/29/17 19:45 98.0 88 17 164/87 (112) 96 11/29/17 16:27 97.8 74 20 151/97 (115) 98 11/29/17 12:30 97.6 74 20 155/86 (109) 92 11/29/17 11:37 97.8 62 18 163/75 (104) 94 11/29/17 11:24 98.3 76 20 162/96 (118) 98 I/O 11/29/17 11/29/17 11/29/17 11/30/17 11/30/17 11/30/17 07:00 15:00 23:00 07:00 15:00 23:00 Intake Total 500 ml 480 ml 600 ml Output Total 900 ml Balance 500 ml 480 ml -300 ml Intake Oral 500 ml 480 ml 600 ml Output Urine Total 900 ml # Voids 2 Result Diagram: 11/29/17 0630 11/29/17 0630 Imaging Last Impressions Lower Extremity Ultrasound 11/29/17 0000 Signed Impressions: Service Date/Time: November 12:23 - CONCLUSION: Negative exam with no evidence of deep venous thrombosis. Raymond Wan MD Chest X-Ray 11/28/17 1631 Signed Impressions: Service Date/Time: Tuesday, November 28, 2017 16:53 - CONCLUSION: Normal examination. Steven Lobo MD Knee X-Ray 11/28/17 0000 Signed Impressions: Service Date/Time: Tuesday, November 28, 2017 17:33 - CONCLUSION: 1. Small joint effusion. Otherwise, unremarkable exam. Stanley Velez Jr., MD Objective Remarks GENERAL: This is a well-nourished, well-developed male patient , in no apparent distress. Awake and alert. CARDIOVASCULAR: Regular rate and rhythm without murmurs, gallops, or rubs. RESPIRATORY: Coarse breath sounds. Diffuse expiratory wheezing noted. GASTROINTESTINAL: Abdomen soft, non-tender, nondistended. No guarding. MUSCULOSKELETAL: 1-2+ bilateral lower extremity edema noted. Diffuse joint swelling noted in the right knee. Positive for tenderness to palpation over the lateral aspect of the right knee. Decreased range of motion of the right knee. No appreciable erythema or warmth. No calf tenderness. NEUROLOGICAL: Awake and alert. Able to move all extremities spontaneously. Motor and sensory grossly within normal limits. No focal neurologic findings appreciated. Normal speech. A/P Problem List: (1) Edema of both upper extremities ICD Code: R60.9 - Edema, unspecified (2) Elevated troponin I level ICD Code: R79.89 - Elevated troponin I level Status: Resolved (3) Hypokalemia ICD Code: E87.6 - Hypokalemia Status: Resolved Assessment and Plan 52-year-old male patient with history of CHF, obstructive sleep apnea, hyperlipidemia, hypertension, previous [place], history of non compliance presents to the ER today for worsening in leg swelling for the last 4 days. Bilateral lower extremity edema, right greater than left Chronically elevated troponin Medication noncompliance Noncompliant with medication CXR unremarkable, BNP 44, no CHF Echo 07/22/17 EF 50-55%, Mildly dilated left ventricle. Mild concentric left ventricular hypertrophy Bilateral Doppler ultrasound to rule out DVT, reviewed and no DVT Na restricted diet Elevated troponin, chronically elevated troponin 0.22, 0.20, 0.19 c/o chest tightness Cardiac catheterization 07/22/17 - nonobstructive coronary artery disease Consult Cardiology, appreciate recommendations, continue home meds. as patient with chronically elevated trops. Cleared for DC to follow up as OP , to contnue home meds, advice compliance Continuous cardiac monitoring Supplemental oxygen Aspirin 325 mg daily Hypertension, chronic, currently elevated ACEI contraindicated secondary to dry cough and angioedema Norvasc 10mg daily, Metoprolol 50mg po BID continue to monitor BP and adjust treatment accordingly COPD, acute exacerbation Ongoing tobaccoism Discussed importance of smoking cessation Scheduled DuoNebs Symbicort 160/4.5mcg inhaler 2 puffs BID Monitor respiratory status Supplemental oxygen to maintain O2 sat 92% Right knee pain No reported history of injury Knee x-ray reviewed by me, small joint effusion otherwise no evidence of fracture or other osseous abnormality PT eval/tx SANDOR on suspected CKD Creatinine 1.34, improved to 1.16 avoid nephrotoxic agents continue to monitor kidney function Hypokalemia, potassium 3.2 Resolved status post repletion DVT prophylaxis: Heparin Discussed with the patient, nurse, Discharge Planning Improving. DC home in stable condition to follow up as OP with PCP and consultants. Diet diabetic diet, Healthy heart diet. Advice compliance with diet, exercise and compliance wit meds Activity weight bearing as tolerated Meds per med reconciliations. Time at discharge > 30 minutes Marce Dixon MD Nov 30, 2017 08:58
[2017-11-30] MEDS: BUDESONIDE-FORMOTEROL 160/4.5 MCG INHALER INH SCH ×2 (15:29→22:39)
--- NOTE | 2017-11-30 19:12 | PD.CONS ---
cc: Braydon Fortune Jr., MD HPI Service [facility] Consult Requested By Primary Care Physician Unknown Admission Diagnosis CHF exacerbation/leg swelling/elevated troponin Diagnoses: (1) Edema of both upper extremities (2) Elevated troponin I level (3) Hypokalemia Chief Complaint: right knee pain History of Present Illness 52-year-old male patient with history of CHF, obstructive sleep apnea, hypertension, previous [place], and a history of non compliance presents to the ER today for worsening bilateral leg swelling and right knee pain for the last 4 days. Patient states he was kicked out of his brothers house and has not had his medication.He denies chest pain, and states he has had some shortness of breath. Per the RN, patient has been asking for pain medication, but upon exam patient will not wake up enough to say where his pain is. He denies a history of recent trauma. He denies any recent infection. He denies any fever or chills. He complains of bilateral lower extremity swelling as well as right knee pain with difficulty with range of motion and weightbearing. He does report that his symptoms have significantly improved since he has been in the emergency department. he is now able to bear to go to the bathroom. xrays negative for fx. -Denies any head injuries. Denies loss of consciousness. -Currently is alert, pain localized at right knee, pain is 6 out of 10, with WB and ROM, exacerbated by any range of motion, WB, relieved at rest and with IV pain medicine, pain is sharp nonradiating, dull, not associated with any paresthesia and numbness to the extremity. ROS - General Review of Systems ROS Limitations: Uncooperative Except as stated in HPI: all other systems reviewed are Neg PFSH Past Family Social History Past Medical History Per EMR: CHF Sleep apnea [place] Hypertension Polysubstance abuse Diabetes Dyslipidemia GERD Schizophrenia Anxiety Depression Past Surgical History ORIF of the right inguinal mandible plate and screws Reported Medications Reported Meds & Active Scripts Active Reported Metoprolol Tartrate 50 Mg Tab 50 Mg PO DAILY Norvasc (Amlodipine Besylate) 10 Mg Tab 10 Mg PO DAILY Allergies: Coded Allergies: milk (Verified Adverse Reaction, Severe, vomiting, 1/17/18) lisinopril (Unverified Adverse Reaction, Intermediate, Cough, 11/28/17) Uncoded Allergies: WOOL (Allergy, Severe, RASH, 10/03/14) Active Ordered Medications Current Medications Medications (Trade) Dose Ordered Sig/Dimitris Route Start Time Stop Time Status Last Admin (NS Flush) 2 ml UNSCH PRN IV FLUSH 11/28/17 20:15 (NS Flush) 2 ml BID IV FLUSH 11/28/17 21:00 11/28/17 21:00 (Narcan Inj) 0.4 mg UNSCH PRN IV PUSH 11/28/17 20:15 Family History Per EMR Mom: Hypertension Social History Unable to obtain Past Family Social History Past Medical History Per EMR: CHF Sleep apnea [place] Hypertension Polysubstance abuse Diabetes Dyslipidemia GERD Schizophrenia Anxiety Depression Past Surgical History ORIF of the right inguinal mandible plate and screws Allergies: Coded Allergies: milk (Verified Adverse Reaction, Severe, vomiting, 11/28/17) lisinopril (Unverified Adverse Reaction, Intermediate, Cough, 11/28/17) Uncoded Allergies: WOOL (Allergy, Severe, RASH, 10/03/14) Active Ordered Medications Current Medications Medications (Trade) Dose Ordered Sig/Dimitris Route Start Time Stop Time Status Last Admin (NS Flush) 2 ml UNSCH PRN IV FLUSH 11/28/17 20:15 (NS Flush) 2 ml BID IV FLUSH 11/28/17 21:00 11/30/17 08:33 (Narcan Inj) 0.4 mg UNSCH PRN IV PUSH 11/28/17 20:15 (Heparin Inj) 5,000 units Q8HR SQ 11/29/17 06:00 11/30/17 15:28 (Norvasc) 10 mg DAILY PO 11/29/17 09:00 11/30/17 08:33 (Catapres) 0.1 mg Q6H PRN PO 11/29/17 03:45 11/29/17 23:20 (Duoneb Neb) 1 ampule Q4HR WHILE AWAKE NEB NEB 11/29/17 12:00 11/30/17 15:52 (Lopressor) 50 mg DAILY PO 11/29/17 09:00 11/30/17 08:33 (Ecotrin Ec) 81 mg DAILY PO 11/29/17 09:00 11/30/17 08:33 (Symbicort 160-4.5 Mcg Inh) 2 puff Q12HR INH 11/29/17 09:15 11/29/17 20:35 ([place] 5-325 Mg) 1 tab Q6H PRN PO 11/29/17 12:15 ([place] 10-325 Mg) 1 tab Q6H PRN PO 11/29/17 12:15 11/30/17 08:34 Reported Meds & Active Scripts Active Walker with Front Wheels (Device) 1 Mis Mis Ea .ROUTE DIRECTED Patient needs wide wheeled walker - he is 6'3 and 288 pounds Reported Metoprolol Tartrate 50 Mg Tab 50 Mg PO DAILY Norvasc (Amlodipine Besylate) 10 Mg Tab 10 Mg PO DAILY Family History Per EMR Mom: Hypertension Social History Unable to obtain Physical Exam Vital Signs Vital Signs Date Time Temp Pulse Resp B/P (MAP) Pulse Ox O2 Delivery O2 Flow Rate FiO2 11/30/17 17:22 98.2 80 18 185/97 (126) 96 11/30/17 12:13 97.7 67 18 151/93 (112) 97 11/30/17 08:09 97.6 80 18 169/97 (121) 95 11/30/17 05:19 97.6 75 17 148/92 (110) 97 11/30/17 03:58 79 11/30/17 00:59 18 11/30/17 00:04 86 11/29/17 23:09 97.7 86 17 170/91 (117) 96 11/29/17 20:00 87 11/29/17 19:45 98.0 88 17 164/87 (112) 96 Physical Exam Alert awake and oriented -3. No acute distress. Pulmonary: Normal respiratory effort. Bilateral upper extremity. No deformity. Grossly neurovascularly intact. Right lower extremity: Generalized edema bilaterally. congestive venous skin changes bilaterally, Small right knee effusion. No cellulitis changes. knee ROM 0-90, active is 0-60, Neurovascularly intact, +EHL/FHL, PT/DP pulses. Supple compartments. Negative Homans sign. Left lower extremity: neurovascularly intact. Result Diagram: 11/29/17 0630 11/29/17 0630 Imaging Last 72 hours Impressions Lower Extremity Ultrasound 1/18/18 0000 Signed Impressions: Service Date/Time: November 12:23 - CONCLUSION: Negative exam with no evidence of deep venous thrombosis. Raymond Wan MD Chest X-Ray 11/28/17 1631 Signed Impressions: Service Date/Time: Tuesday, November 28, 2017 16:53 - CONCLUSION: Normal examination. Steven Lobo MD Knee X-Ray 11/28/17 0000 Signed Impressions: Service Date/Time: Tuesday, November 28, 2017 17:33 - CONCLUSION: 1. Small joint effusion. Otherwise, unremarkable exam. Stanley Velez Jr., MD Assessment & Plan Assessment and Plan 52-year-old male patient with history of CHF, obstructive sleep apnea, hypertension, previous [place], and a history of non compliance presents to the ER today for worsening bilateral leg swelling and right knee pain for the last 4 days. He denies a history of recent trauma. He denies any recent infection. He denies any fever or chills. He complains of bilateral lower extremity swelling as well as right knee pain with difficulty with range of motion and weightbearing. He does report that his symptoms have significantly improved since he has been in the emergency department. He is currently afebrile with normal white count. There is no clinical evidence of septic arthritis. Patient likely has reactive synovitis versus inflammatory arthropathy in the right knee. xrays negative for fx. visibly for any surgical intervention at this time. I recommend continued conservative care and medical management with NSAIDS. WBAT bilateral lower extremity. Compression stockings for bilateral lower extremity swelling. Follow-up primary care in 2 weeks. Braydon Fortune Jr., MD Nov 30, 2017 19:12
--- NOTE | 2017-11-30 20:32 | HHI.DCPOC ---
Discharge Care Plan Goals to Promote Your Health * To prevent worsening of your condition and complications * To maintain your health at the optimal level Directions to Meet Your Goals Take your medications as prescribed Follow your dietary instruction Follow activity as directed Keep your appointments as scheduled Take your immunizations and boosters as scheduled If your symptoms worsen call your PCP, if no PCP go to Urgent Care Center or Emergency Room Smoking is Dangerous to Your Health. Avoid second hand smoke Call the 24-hour hour crisis hotline for domestic abuse at Marce Dixon MD Nov 30, 2017 20:32
[2017-12-01 03:58] VITALS: BP 147/89; PULSE 84; TEMP 98; O2SAT 97
[2017-12-01] MEDS: RESP: ALBUTEROL 2.5 MG/IPRATROPIUM 0.5 MG NEB (SCH) NEB (07:15)
[2017-12-01] MEDS: HEPARIN SODIUM - SQ 10,000 UNITS/ML VIAL SQ SCH (07:38)
[2017-12-01 08:00] VITALS: BP 184/97; PULSE 76; RESP 20; TEMP 95.7; O2SAT 98
[2017-12-01] MEDS: METOPROLOL TARTRATE 50 MG TAB PO SCH (09:26)
[2017-12-01] MEDS: SODIUM CHLORIDE 0.9% FLUSH 10 ML FLUSH IV FLUSH SCH (09:27)
[2017-12-01] MEDS: BUDESONIDE-FORMOTEROL 160/4.5 MCG INHALER INH SCH (09:27)
[2017-12-01] MEDS: ASPIRIN EC 81 MG TABEC PO SCH (09:27)
[2017-12-01 09:47] VITALS: BP 165/89
--- NOTE | 2017-12-01 09:48 | HHI.PR ---
Subjective Remarks Patient in nad. No pain , sob, n/v/d/c. Patient says he has less edema. Pain is fairly controlled. Objective Vitals Vital Signs Date Time Temp Pulse Resp B/P (MAP) Pulse Ox O2 Delivery O2 Flow Rate FiO2 12/01/17 09:47 165/89 (114) 12/01/17 08:00 95.7 76 20 184/97 (126) 98 12/01/17 03:58 98.0 84 147/89 (108) 97 11/30/17 23:46 98.1 86 17 141/85 (103) 96 11/30/17 21:40 97.9 83 17 153/85 (107) 95 11/30/17 17:22 98.2 80 18 185/97 (126) 96 11/30/17 15:15 79 11/30/17 12:13 97.7 67 18 151/93 (112) 97 I/O 11/30/17 11/30/17 11/30/17 12/01/17 12/01/17 12/01/17 07:00 15:00 23:00 07:00 15:00 23:00 Intake Total 600 ml Output Total 900 ml Balance -300 ml Intake Oral 600 ml Output Urine Total 900 ml Result Diagram: 11/29/17 0630 11/29/17 0630 Imaging Last Impressions Lower Extremity Ultrasound 11/29/17 0000 Signed Impressions: Service Date/Time: November 12:23 - CONCLUSION: Negative exam with no evidence of deep venous thrombosis. Raymond Wan MD Chest X-Ray 11/28/17 1631 Signed Impressions: Service Date/Time: Tuesday, November 28, 2017 16:53 - CONCLUSION: Normal examination. Steven Lobo MD Knee X-Ray 11/28/17 0000 Signed Impressions: Service Date/Time: Tuesday, November 28, 2017 17:33 - CONCLUSION: 1. Small joint effusion. Otherwise, unremarkable exam. Stanley Velez Jr., MD Objective Remarks GENERAL: This is a well-nourished, well-developed male patient , in no apparent distress. Awake and alert. CARDIOVASCULAR: Regular rate and rhythm without murmurs, gallops, or rubs. RESPIRATORY: Coarse breath sounds. Diffuse expiratory wheezing noted. GASTROINTESTINAL: Abdomen soft, non-tender, nondistended. No guarding. MUSCULOSKELETAL: 1-2+ bilateral lower extremity edema noted. Diffuse joint swelling noted in the right knee. Positive for tenderness to palpation over the lateral aspect of the right knee. Decreased range of motion of the right knee. No appreciable erythema or warmth. No calf tenderness. NEUROLOGICAL: Awake and alert. Able to move all extremities spontaneously. Motor and sensory grossly within normal limits. No focal neurologic findings appreciated. Normal speech. A/P Problem List: (1) Edema of both upper extremities ICD Code: R60.9 - Edema, unspecified (2) Elevated troponin I level ICD Code: R79.89 - Elevated troponin I level Status: Resolved (3) Hypokalemia ICD Code: E87.6 - Hypokalemia Status: Resolved Assessment and Plan 52-year-old male patient with history of CHF, obstructive sleep apnea, hyperlipidemia, hypertension, previous [place], history of non compliance presents to the ER today for worsening in leg swelling for the last 4 days. Bilateral lower extremity edema, right greater than left Chronically elevated troponin Medication noncompliance Noncompliant with medication CXR unremarkable, BNP 44, no CHF Echo 07/22/17 EF 50-55%, Mildly dilated left ventricle. Mild concentric left ventricular hypertrophy Bilateral Doppler ultrasound to rule out DVT, reviewed and no DVT Na restricted diet Elevated troponin, chronically elevated troponin 0.22, 0.20, 0.19 c/o chest tightness Cardiac catheterization 07/22/17 - nonobstructive coronary artery disease Consult Cardiology, appreciate recommendations, continue home meds. as patient with chronically elevated trops. Cleared for DC to follow up as OP , to contnue home meds, advice compliance Continuous cardiac monitoring Supplemental oxygen Aspirin 325 mg daily Hypertension, chronic, currently elevated ACEI contraindicated secondary to dry cough and angioedema Norvasc 10mg daily, Metoprolol 50mg po BID continue to monitor BP and adjust treatment accordingly COPD, acute exacerbation Ongoing tobaccoism Discussed importance of smoking cessation Scheduled DuoNebs Symbicort 160/4.5mcg inhaler 2 puffs BID Monitor respiratory status Supplemental oxygen to maintain O2 sat 92% Right knee pain No reported history of injury Knee x-ray reviewed by me, small joint effusion otherwise no evidence of fracture or other osseous abnormality PT eval/tx SANDOR on suspected CKD Creatinine 1.34, improved to 1.16 avoid nephrotoxic agents continue to monitor kidney function Hypokalemia, potassium 3.2 Resolved status post repletion DVT prophylaxis: Heparin Discussed with the patient, nurse, Discharge Planning Improving. DC home in stable condition to follow up as OP with PCP and consultants. Diet diabetic diet, Healthy heart diet. Advice compliance with diet, exercise and compliance wit meds Activity weight bearing as tolerated Meds per med reconciliations. Time at discharge > 30 minutes Marce Dixon MD Dec 01, 2017 09:48
[2017-12-01] MEDS ORDERED: TYLE325T PO (09:58)
[2017-12-01] MEDS ORDERED: TRAM50TA PO (10:04)
[2017-12-01] MEDS ORDERED: VENTAER INH (10:14)
[2017-12-01] MEDS ORDERED: IPRA17I INH (10:14)
[2017-12-01] MEDS ORDERED: SYMB160A INH (10:14)
--- NOTE | 2017-12-01 10:16 | HHI.DS ---
Discharge Summary Admission Date Nov 28, 2017 at 19:15 Discharge Date: Dec 01, 2017 Admitting Diagnosis CHF exacerbation/leg swelling/elevated troponin (1) Edema of both upper extremities ICD Code: R60.9 - Edema, unspecified (2) Elevated troponin I level ICD Code: R79.89 - Elevated troponin I level Status: Resolved (3) Hypokalemia ICD Code: E87.6 - Hypokalemia Status: Resolved Procedures none Brief History - From Admission 52-year-old male patient with history of CHF, obstructive sleep apnea, hypertension, previous [place], and a history of non compliance presents to the ER today for worsening leg swelling for the last 4 days. Patient states he was kicked out of his brothers house and has not had his medication. He continues to fall asleep during exam and only answers some questions. He denies chest pain , and states he has had some shortness of breath. Per the RN, patient has been asking for pain medication, but upon exam patient will not wake up enough to say where his pain is. CBC/BMP: 11/29/17 0630 11/29/17 0630 Significant Findings Laboratory Tests Test 11/28/17 17:21 11/29/17 00:20 11/29/17 06:30 Activated Partial Thromboplast Time 35.3 SEC (24.3-30.1) Creatinine 1.34 MG/DL (0.60-1.30) Calcium Level 8.4 MG/DL (8.5-10.1) 8.3 MG/DL (8.5-10.1) Potassium Level 3.2 MEQ/L (3.5-5.1) Estimat Glomerular Filtration Rate 68 ML/MIN (>89) 81 ML/MIN (>89) Total Creatine Kinase 919 U/L (39-308) 685 U/L (39-308) 558 U/L (39-308) Creatine Kinase MB 5.9 NG/ML (0.5-3.6) 4.4 NG/ML (0.5-3.6) Troponin I 0.22 NG/ML (0.02-0.05) 0.20 NG/ML (0.02-0.05) 0.19 NG/ML (0.02-0.05) Red Blood Count 4.30 MIL/MM3 (4.50-5.90) Hemoglobin 12.2 GM/DL (13.0-17.0) Hematocrit 36.7 % (39.0-51.0) Eosinophils (%) (Auto) 4.3 % (0.0-4.0) Random Glucose 125 MG/DL (74-106) Hemoglobin A1c 6.4 % (4.3-6.0) Imaging Last Impressions Lower Extremity Ultrasound 11/29/17 0000 Signed Impressions: Service Date/Time: November 12:23 - CONCLUSION: Negative exam with no evidence of deep venous thrombosis. Raymond Wan MD Chest X-Ray 11/28/17 1631 Signed Impressions: Service Date/Time: Tuesday, November 28, 2017 16:53 - CONCLUSION: Normal examination. Steven Lobo MD Knee X-Ray 11/28/17 0000 Signed Impressions: Service Date/Time: Tuesday, November 28, 2017 17:33 - CONCLUSION: 1. Small joint effusion. Otherwise, unremarkable exam. Stanley Velez Jr., MD PE at Discharge GENERAL: This is a well-nourished, well-developed male patient , in no apparent distress. Awake and alert. CARDIOVASCULAR: Regular rate and rhythm without murmurs, gallops, or rubs. RESPIRATORY: Coarse breath sounds. Diffuse expiratory wheezing noted. GASTROINTESTINAL: Abdomen soft, non-tender, nondistended. No guarding. MUSCULOSKELETAL: 1-2+ bilateral lower extremity edema noted. Diffuse joint swelling noted in the right knee. Positive for tenderness to palpation over the lateral aspect of the right knee. Decreased range of motion of the right knee. No appreciable erythema or warmth. No calf tenderness. NEUROLOGICAL: Awake and alert. Able to move all extremities spontaneously. Motor and sensory grossly within normal limits. No focal neurologic findings appreciated. Normal speech. Hospital Course 52-year-old male patient with history of CHF, obstructive sleep apnea, hyperlipidemia, hypertension, previous [place], history of non compliance presents to the ER today for worsening in leg swelling for the last 4 days. Bilateral lower extremity edema, right greater than left Chronically elevated troponin Medication noncompliance Noncompliant with medication CXR unremarkable, BNP 44, no CHF Echo 07/22/17 EF 50-55%, Mildly dilated left ventricle. Mild concentric left ventricular hypertrophy Bilateral Doppler ultrasound to rule out DVT, reviewed and no DVT Na restricted diet Elevated troponin, chronically elevated troponin 0.22, 0.20, 0.19 c/o chest tightness Cardiac catheterization 07/22/17 - nonobstructive coronary artery disease Consult Cardiology, appreciate recommendations, continue home meds. as patient with chronically elevated trops. Cleared for DC to follow up as OP , to contnue home meds, advice compliance Continuous cardiac monitoring Supplemental oxygen Aspirin 325 mg daily Hypertension, chronic, currently elevated ACEI contraindicated secondary to dry cough and angioedema Norvasc 10mg daily, Metoprolol 50mg po BID continue to monitor BP and adjust treatment accordingly COPD, acute exacerbation Ongoing tobaccoism Discussed importance of smoking cessation Scheduled DuoNebs Symbicort 160/4.5mcg inhaler 2 puffs BID Monitor respiratory status Supplemental oxygen to maintain O2 sat 92% Right knee pain No reported history of injury Knee x-ray reviewed by me, small joint effusion otherwise no evidence of fracture or other osseous abnormality PT eval/tx Ortho recommends NSAIDS conservative management, to follow up as OP SANDOR on suspected CKD Creatinine 1.34, improved to 1.16 avoid nephrotoxic agents continue to monitor kidney function Hypokalemia, potassium 3.2 Resolved status post repletion DVT prophylaxis: Heparin Discussed with the patient, nurse, Discharge Planning Improving. DC home in stable condition to follow up as OP with PCP and consultants. Diet diabetic diet, Healthy heart diet. Advice compliance with diet, exercise and compliance wit meds Activity weight bearing as tolerated Meds per med reconciliations. Pt Condition on Discharge: Stable Discharge Disposition: Discharge Home Discharge Time: > 30 minutes Discharge Instructions DIET: Follow Instructions for: Heart Healthy Diet, Low Sodium Diet Activities you can perform: Regular-No Restrictions, See Additionl Instruction Other Activity Instructions: per PT recommendations Follow up Referrals: PCP Follow-up - 3-5 Days with [facility] New Medications: Acetaminophen (Tylenol) 325 Mg Tab 650 MG PO Q6H PRN for pain , #30 TAB 0 Refills Albuterol 18 GM Inh (Ventolin Hfa 18 GM Inh) 90 Mcg/Act Aer 2 PUFF INH Q6H PRN for SHORTNESS OF BREATH, #1 INHALER 0 Refills Budesonide-Formoterol Inh (Symbicort Inh) 160-4.5 Mcg/Act Aero 2 PUFF INH Q12HR, #1 INHALER 0 Refills Ipratropium HFA 12.9 GM Inh (Atrovent HFA 12.9 GM Inh) 17 Mcg/Actuation Aer 2 PUFF INH TID for asthma/copd , #1 INHALER 0 Refills Tramadol (Tramadol) 50 Mg Tab 50 MG PO Q8H PRN for PAIN, #30 TAB 0 Refills Walker with Front Wheels (Walker with Front Wheels) 1 Mis Mis EA .ROUTE DIRECTED, #1 0 Refills Patient needs wide wheeled walker - he is 6'3 and 288 pounds Continued Medications: Amlodipine (Norvasc) 10 Mg Tab 10 MG PO DAILY for Blood Pressure Management, #30 TAB 0 Refills Metoprolol Tartrate (Metoprolol Tartrate) 50 Mg Tab 50 MG PO DAILY, #30 TAB 0 Refills Marce Dixon MD Dec 01, 2017 10:16
== END 2017-12-01 10:50 | disposition home or self-care (01) ==
LOC: NEPC 16:05 → NEDA 19:15 → NEPGCP 20:53
PROVIDERS: ADMIT Hospitalist; ATTEND Hospitalist
DX: I11.0 Hypertensive heart disease with heart failure (principal); I50.42 Chronic combined systolic (congestive) and diastolic (congestive) heart failure; R74.8 Abnormal levels of other serum enzymes; E87.6 Hypokalemia; I25.10 Atherosclerotic heart disease of native coronary artery without angina pectoris; J44.1 Chronic obstructive pulmonary disease with (acute) exacerbation; N17.9 Acute kidney failure, unspecified; T78.3XXA Angioneurotic edema, initial encounter; I25.2 Old myocardial infarction; E11.9 Type 2 diabetes mellitus without complications; E78.5 Hyperlipidemia, unspecified; G47.33 Obstructive sleep apnea (adult) (pediatric); K21.9 Gastro-esophageal reflux disease without esophagitis; F20.9 Schizophrenia, unspecified; F17.200 Nicotine dependence, unspecified, uncomplicated; Z79.51 Long term (current) use of inhaled steroids; Z79.82 Long term (current) use of aspirin; Z91.14 Patient's other noncompliance with medication regimen
CPT/HCPCS: 71046; 73564; 80048; 80053; 80061; 82550; 82552; 83036; 83690; 83735; 83880; 84484; 85025; 85610; 85730; 93005; 93970; 94640; 94664; 96372; 97162; 99285; G0378; G8987; G8988; J1644

== ENCOUNTER 2017-12-16 10:19 | Inpatient (IN) | payer MEDICAID ==
[~2017-12-16] VITALS: Ht 185.4 cm; Wt 138.9 kg
[2017-12-16] VITALS (12 sets, daily range): BP systolic 151–178; BP diastolic 65–97; PULSE 75–96; RESP 22–24; TEMP 98.2–99; O2SAT 95–97
[~2017-12-16 10:19] MED LIST changes: -ALBU6.7H INH; +AMLO10 PO; -AMLO5 PO; -ASPI81CH25 CHEW; -ATOR40TA16 PO; -BACT800T5 PO; -COZA50TA PO; -FLUTI110I INH; +IPRA17I INH; -ISOS60TA PO; -METO25TA3 PO; +METO50TA PO; -NITR1SUB3 SL; -QUET1TAB10 PO; -SERT25TA83 PO; +SYMB160A INH; +TRAM50TA PO; +TYLE325T PO; +VENTAER INH; +WALKER WHEELS/F1 MIS
--- NOTE | 2017-12-16 10:44 | PD ---
HPI Chief Complaint: Chest Pain Time Seen by Provider: 10:33 Travel History International Travel<30 days: No Contact w/Intl Traveler<30days: No Traveled to known affect area: No History of Present Illness HPI 52-year-old male presents by ambulance with chest pain. At 4 AM yesterday until 4 AM today he did $600 worth of cocaine. He states he smokes it. He states no other concurrent complaints but is currently a poor historian. The ambulance team gave him aspirin and 1 spray of nitroglycerin. History is limited on initial presentation. PFSH Past Medical History Arthritis: Yes (RA) Asthma: Yes Anxiety: Yes Depression: Yes Heart Rhythm Problems: No Cancer: No Cardiovascular Problems: Yes (NSTEMI) High Cholesterol: Yes Chemotherapy: No Chest Pain: Yes Congestive Heart Failure: No COPD: Yes Cerebrovascular Accident: No Diabetes: Yes Diminished Hearing: Yes (LT. EAR) Endocrine: Yes Gastrointestinal Disorders: No GERD: Yes Genitourinary: No Headaches: Yes Hiatal Hernia: No Hypertension: Yes Immune Disorder: No Implanted Vascular Access Dvce: No Kidney Stones: No Musculoskeletal: Yes Neurologic: No Psychiatric: Yes Reproductive: No Respiratory: Yes Immunizations Current: Yes Migraines: No Radiation Therapy: No Renal Failure: No Schizophrenia: Yes Seizures: Yes Sickle Cell Disease: No Sleep Apnea: Yes (CPAP AT HOME) Thyroid Disease: No Triglycerides - High: Yes Ulcer: No Past Surgical History Abdominal Surgery: No AICD: No Arteriovenous Shunt: No Body Medical Devices: STATES SOMETHING IN MY EAR Cardiac Surgery: No Ear Surgery: No Endocrine Surgery: No Eye Surgery: No Genitourinary Surgery: No Gynecologic Surgery: No Insulin Pump: No Joint Replacement: No Neurologic Surgery: No Oral Surgery: No Pacemaker: No Thoracic Surgery: No Other Surgery: Yes (TENDON REPAIR BILATERAL THUMBS) Social History Alcohol Use: Yes (occasional ) Tobacco Use: Yes (SOCIALLY) Substance Use: No Allergies-Medications (Allergen,Severity, Reaction): Coded Allergies: milk (Verified Adverse Reaction, Severe, vomiting, 11/28/17) lisinopril (Unverified Adverse Reaction, Intermediate, Cough, 11/28/17) Uncoded Allergies: WOOL (Allergy, Severe, RASH, 10/03/14) Reported Meds & Prescriptions Reported Meds & Active Scripts Active Atrovent HFA 12.9 GM Inh (Ipratropium [place]) 17 Mcg/Actuation Aer 2 Puff INH TID Ventolin Hfa 18 GM Inh (Albuterol Sulfate) 90 Mcg/Act Aer 2 Puff INH Q6H PRN Symbicort Inh (Budesonide/Formoterol Fumarate) 160-4.5 Mcg/Act Aero 2 Puff INH Q12HR Tramadol (Tramadol HCl) 50 Mg Tab 50 Mg PO Q8H PRN Tylenol (Acetaminophen) 325 Mg Tab 650 Mg PO Q6H PRN Walker with Front Wheels (Device) 1 Mis Mis Ea .ROUTE DIRECTED Patient needs wide wheeled walker - he is 6'3 and 288 pounds Reported Metoprolol Tartrate 50 Mg Tab 50 Mg PO DAILY Norvasc (Amlodipine Besylate) 10 Mg Tab 10 Mg PO DAILY Review of Systems Except as stated in HPI: all other systems reviewed are Neg Physical Exam Narrative GENERAL: 52-year-old male who appears acutely intoxicated SKIN: Focused skin assessment warm/dry. HEAD: Atraumatic. Normocephalic. EYES: Pupils equal and round. No scleral icterus. No injection or drainage. ENT: No nasal bleeding or discharge. Mucous membranes pink and moist. NECK: Trachea midline. No JVD. CARDIOVASCULAR: Regular rate and rhythm. RESPIRATORY: No accessory muscle use. Clear to auscultation. Breath sounds equal bilaterally. NEUROLOGICAL: Drowsy but awakens to voice. Moves extremities, slow clear speech Data Data Last Documented VS Vital Signs Date Time Temp Pulse Resp B/P (MAP) Pulse Ox O2 Delivery O2 Flow Rate FiO2 12/16/17 10:56 97 Nasal Cannula 2.00 12/16/17 10:38 99.0 93 22 172/90 (117) Orders Orders Electrocardiogram (12/16/17 10:31) B-Type Natriuretic Peptide (12/16/17 10:31) Ckmb (Isoenzyme) Profile (12/16/17 10:31) Complete Blood Count With Diff (12/16/17 10:31) Comprehensive Metabolic Panel (12/16/17 10:31) Magnesium (Mg) (12/16/17 10:31) Prothrombin Time / Inr (Pt) (12/16/17 10:31) Act Partial Throm Time (Ptt) (12/16/17 10:31) Troponin I (12/16/17 10:31) Chest, Single Ap (12/16/17 10:31) Ecg Monitoring (12/16/17 10:31) Bilateral Bp Monitoring (12/16/17 10:31) Iv Access Insert/Monitor (12/16/17 10:31) Oximetry (12/16/17 10:31) Sodium Chloride 0.9% Flush (Ns Flush) (12/16/17 10:45) Nitroglycerin-D5w 50 Mg/250 Ml (Nitrogly (12/16/17 10:45) Nitroglycerin-D5w 50 Mg/250 Ml (Nitrogly (12/16/17 11:00) CKMB (12/16/17 10:47) CKMB% (12/16/17 10:47) Admit Order (Ed Use Only) (12/16/17 11:52) Labs Laboratory Tests Test 12/16/17 10:47 White Blood Count 7.7 TH/MM3 Red Blood Count 4.46 MIL/MM3 Hemoglobin 12.7 GM/DL Hematocrit 37.8 % Mean Corpuscular Volume 84.8 FL Mean Corpuscular Hemoglobin 28.4 PG Mean Corpuscular Hemoglobin Concent 33.5 % Red Cell Distribution Width 14.7 % Platelet Count 241 TH/MM3 Mean Platelet Volume 7.8 FL Neutrophils (%) (Auto) 64.8 % Lymphocytes (%) (Auto) 22.2 % Monocytes (%) (Auto) 10.2 % Eosinophils (%) (Auto) 2.0 % Basophils (%) (Auto) 0.8 % Neutrophils # (Auto) 5.0 TH/MM3 Lymphocytes # (Auto) 1.7 TH/MM3 Monocytes # (Auto) 0.8 TH/MM3 Eosinophils # (Auto) 0.2 TH/MM3 Basophils # (Auto) 0.1 TH/MM3 CBC Comment DIFF FINAL Differential Comment Prothrombin Time 10.3 SEC Prothromb Time International Ratio 1.0 RATIO Activated Partial Thromboplast Time 33.3 SEC Blood Urea Nitrogen 19 MG/DL Creatinine 1.59 MG/DL Random Glucose 102 MG/DL Total Protein 7.0 GM/DL Albumin 3.1 GM/DL Calcium Level 8.3 MG/DL Magnesium Level 2.1 MG/DL Alkaline Phosphatase 65 U/L Aspartate Amino Transf (AST/SGOT) 25 U/L Alanine Aminotransferase (ALT/SGPT) 24 U/L Total Bilirubin 0.2 MG/DL Sodium Level 143 MEQ/L Potassium Level 3.8 MEQ/L Chloride Level 106 MEQ/L Carbon Dioxide Level 32.1 MEQ/L Anion Gap 5 MEQ/L Estimat Glomerular Filtration Rate 56 ML/MIN Total Creatine Kinase 706 U/L Creatine Kinase MB 6.4 NG/ML Creatine Kinase MB % 0.9 % Troponin I 0.20 NG/ML B-Type Natriuretic Peptide 42 PG/ML MDM Medical Decision Making Medical Screen Exam Complete: Yes Emergency Medical Condition: Yes Medical Record Reviewed: Yes (Past history confirmed) Interpretation(s) CBC & BMP Diagram 12/16/17 10:47 Total Protein 7.0, Albumin 3.1 L, Calcium Level 8.3 L, Magnesium Level 2.1, Alkaline Phosphatase 65, Aspartate Amino Transf (AST/SGOT) 25, Alanine Aminotransferase (ALT/SGPT) 24, Total Bilirubin 0.2 Last 24 hours Impressions Chest X-Ray 12/16/17 1031 Signed Impressions: Service Date/Time: Saturday, December 16, 2017 10:36 - CONCLUSION: No acute disease. Shakeel Garcia MD Differential Diagnosis AR, vasospasm, CHF Narrative Course We will check blood work, chest x-ray, EKG and dose with nitroglycerin and reevaluate patient with elevated troponin similar to prior, will admit to trend and placed on nitroglycerin to manage bp and pain patient updated and agrees to admit Physician Communication Physician Communication dr pearson agrees to admit Diagnosis Primary Impression: Chest pain Qualified Codes: R07.9 - Chest pain, unspecified Additional Impression: Cocaine abuse Admitting Information Admitting Physician Requests: Admit Amanda Regan MD Dec 16, 2017 10:44
[2017-12-16] MEDS ORDERED: NITROGLYCERIN-D5W 50 MG/250 ML 250 ML IV ONE (10:45)
[2017-12-16] MEDS ORDERED: SODIUM CHLORIDE 0.9% FLUSH 10 ML FLUSH IVF PRN (10:45)
--- NOTE | 2017-12-16 10:53 | RADRPT ---
EXAM DATE/TIME: 12/16/2017 10:36 [facility] COMPARISON: CHEST SINGLE AP, July 21, 2017, 6:30. INDICATIONS : Chest pain today. MEDICAL HISTORY : Hypertension. Chronic obstructive pulmonary disease. Diabetes. SURGICAL HISTORY : None. ENCOUNTER: Initial ACUITY: 1 day PAIN SCORE: 6/10 LOCATION: Bilateral chest FINDINGS: A single view of the chest demonstrates diminished lung volumes without evidence of mass, infiltrate or effusion. The cardiomediastinal contours are unremarkable. Osseous structures are intact. CONCLUSION: No acute disease. Shakeel Garcia MD on December 16, 2017 at 10:51 Board Certified Radiologist. This report was verified electronically.
[2017-12-16 11:01] LABS: BASOPHIL # 0.1 TH/MM3 (0-0.2); BASOPHIL % 0.8 % (0.0-2.0); EOSINOPHIL # 0.2 TH/MM3 (0-0.4); HEMATOCRIT 37.8 % (39.0-51.0); HEMOGLOBIN 12.7 GM/DL (13.0-17.0); LYMPH % 22.2 % (9.0-44.0); LYMPHOCYTE # 1.7 TH/MM3 (1.0-4.8); MEAN CELL VOLUME 84.8 FL (80.0-100.0); MEAN CORPUSCULAR HEMOGLOBIN 28.4 PG (27.0-34.0); MEAN CORPUSCULAR HGB CONC 33.5 % (32.0-36.0); MEAN PLATELET VOLUME 7.8 FL (7.0-11.0); MONO % 10.2 % (0.0-8.0); MONOCYTE # 0.8 TH/MM3 (0-0.9); NEUT % 64.8 % (16.0-70.0); PLATELET COUNT 241 TH/MM3 (150-450); RED BLOOD COUNT 4.46 MIL/MM3 (4.50-5.90); RED CELL DISTRIBUTION WIDTH 14.7 % (11.6-17.2); WHITE BLOOD COUNT 7.7 TH/MM3 (4.0-11.0)
[2017-12-16 11:11] LABS: PROTHROMBIN TIME - PATIENT 10.3 SEC (9.8-11.6)
[2017-12-16 11:17] LABS: ALBUMIN 3.1 GM/DL (3.4-5.0); ALT (GPT) 24 U/L (12-78); AST (GOT) 25 U/L (15-37); BICARBONATE 32.1 MEQ/L (21.0-32.0); BLOOD UREA NITROGEN 19 MG/DL (7-18); CALCIUM 8.3 MG/DL (8.5-10.1); CHLORIDE 106 MEQ/L (98-107); CREATININE 1.59 MG/DL (0.60-1.30); GLOMERULAR FILTRATION RATE 56 ML/MIN (>89); GLUCOSE,RANDOM 102 MG/DL (74-106); MAGNESIUM 2.1 MG/DL (1.5-2.5); SODIUM (NA) 143 MEQ/L (136-145)
[2017-12-16 11:22] LABS: ALKALINE PHOSPHATASE 65 U/L (45-117); TOTAL BILIRUBIN ADULT 0.2 MG/DL (0.2-1.0)
--- NOTE | 2017-12-16 11:57 | HHI.HP ---
HPI Service [facility] Primary Care Physician No Primary Care Physician Admission Diagnosis chest pain, cocaine use, elevated troponin Diagnoses: (1) Atypical chest pain (2) Elevated troponin I level (3) Cocaine abuse Chief Complaint: Chest pain Travel History International Travel<30 Days: No Contact w/Intl Traveler <30 Da: No Traveled to Known Affected Are: No History of Present Illness 52-year-old male with a history of diabetes type 2, polysubstance abuse, cocaine abuse, chronically elevated troponin I was brought to the ED by EMS for evaluation of an acute onset of substernal chest pain without any associated radiation and described as stabbing. Patient smoked $600 worth of cocaine over a period of 24 hours. Patient has a known history of chronically elevated troponin I, and he had heart catheterization 07/22/17 and was diagnosed with non -obstructive coronary artery disease. Review of Systems Except as stated in HPI: all other systems reviewed are Neg Past Family Social History Past Medical History CHF Sleep apnea [place] Hypertension Polysubstance abuse Diabetes Dyslipidemia GERD Schizophrenia Anxiety Depression Past Surgical History ORIF of the right inguinal mandible plate and screws Reported Medications Atrovent HFA 12.9 GM Inh (Ipratropium [place]) 17 Mcg/Actuation Aer 2 Puff INH TID Ventolin Hfa 18 GM Inh (Albuterol Sulfate) 90 Mcg/Act Aer 2 Puff INH Q6H PRN Symbicort Inh (Budesonide/Formoterol Fumarate) 160-4.5 Mcg/Act Aero 2 Puff INH Q12HR Tramadol (Tramadol HCl) 50 Mg Tab 50 Mg PO Q8H PRN Tylenol (Acetaminophen) 325 Mg Tab 650 Mg PO Q6H PRN Walker with Front Wheels (Device) 1 Mis Mis Ea .ROUTE DIRECTED Patient needs wide wheeled walker - he is 6'3 and 288 pounds Reported Metoprolol Tartrate 50 Mg Tab 50 Mg PO DAILY Norvasc (Amlodipine Besylate) 10 Mg Tab 10 Mg PO DAILY Allergies: Coded Allergies: milk (Verified Adverse Reaction, Severe, vomiting, 11/28/17) lisinopril (Unverified Adverse Reaction, Intermediate, Cough, 11/28/17) Uncoded Allergies: WOOL (Allergy, Severe, RASH, 10/03/14) Family History Mom: Hypertension Social History Alcohol Use: Yes (occasional ) Tobacco Use: Yes (SOCIALLY) Substance Use: No Physical Exam Vital Signs Vital Signs Date Time Temp Pulse Resp B/P (MAP) Pulse Ox O2 Delivery O2 Flow Rate FiO2 12/16/17 10:56 97 Nasal Cannula 2.00 12/16/17 10:38 99.0 93 22 172/90 (117) 95 Nasal Cannula 2.00 Physical Exam GENERAL: This is a well-nourished, well-developed patient, in no apparent distress. SKIN: No rashes, ecchymoses or lesions. Cool and dry. HEAD: Atraumatic. Normocephalic. No temporal or scalp tenderness. EYES: Pupils equal round and reactive. Extraocular motions intact. No scleral icterus. No injection or drainage. ENT: Nose without bleeding, purulent drainage or septal hematoma. Throat without erythema, tonsillar hypertrophy or exudate. Uvula midline. Airway patent. NECK: Trachea midline. No JVD or lymphadenopathy. Supple, nontender, no meningeal signs. CARDIOVASCULAR: Regular rate and rhythm without murmurs, gallops, or rubs. RESPIRATORY: Clear to auscultation. Breath sounds equal bilaterally. No wheezes , rales, or rhonchi. GASTROINTESTINAL: Abdomen soft, non-tender, nondistended. No hepato-splenomegaly , or palpable masses. No guarding. MUSCULOSKELETAL: Extremities without clubbing, cyanosis, or edema. No joint tenderness, effusion, or edema noted. No calf tenderness. Negative Homans sign bilaterally. NEUROLOGICAL: Awake and alert. Cranial nerves II through XII intact. Motor and sensory grossly within normal limits. Five out of 5 muscle strength in all muscle groups. Normal speech. Laboratory Laboratory Tests Test 12/16/17 10:47 White Blood Count 7.7 Red Blood Count 4.46 Hemoglobin 12.7 Hematocrit 37.8 Mean Corpuscular Volume 84.8 Mean Corpuscular Hemoglobin 28.4 Mean Corpuscular Hemoglobin Concent 33.5 Red Cell Distribution Width 14.7 Platelet Count 241 Mean Platelet Volume 7.8 Neutrophils (%) (Auto) 64.8 Lymphocytes (%) (Auto) 22.2 Monocytes (%) (Auto) 10.2 Eosinophils (%) (Auto) 2.0 Basophils (%) (Auto) 0.8 Neutrophils # (Auto) 5.0 Lymphocytes # (Auto) 1.7 Monocytes # (Auto) 0.8 Eosinophils # (Auto) 0.2 Basophils # (Auto) 0.1 CBC Comment DIFF FINAL Differential Comment Prothrombin Time 10.3 Prothromb Time International Ratio 1.0 Activated Partial Thromboplast Time 33.3 Blood Urea Nitrogen 19 Creatinine 1.59 Random Glucose 102 Total Protein 7.0 Albumin 3.1 Calcium Level 8.3 Magnesium Level 2.1 Alkaline Phosphatase 65 Aspartate Amino Transf (AST/SGOT) 25 Alanine Aminotransferase (ALT/SGPT) 24 Total Bilirubin 0.2 Sodium Level 143 Potassium Level 3.8 Chloride Level 106 Carbon Dioxide Level 32.1 Anion Gap 5 Estimat Glomerular Filtration Rate 56 Total Creatine Kinase 706 Creatine Kinase MB 6.4 Creatine Kinase MB % 0.9 Troponin I 0.20 B-Type Natriuretic Peptide 42 Result Diagram: 12/16/17 1047 12/16/17 1047 Septic Shock Reassessment Septic shock perfusion: reassessment completed Caprini VTE Risk Assessment Caprini VTE Risk Assessment: No/Low Risk (score <= 1) Caprini Risk Assessment Model Point Value = 1 Point Value = 2 Point Value = 3 Point Value = 5 Age 41-60 Minor surgery BMI > 25 kg/m2 Swollen legs Varicose veins or History of unexplained or recurrent spontaneous Oral contraceptives or hormone replacement Sepsis (< 1 month) Serious lung disease, including pneumonia (< 1 month) Abnormal pulmonary function Acute myocardial infarction Congestive heart failure (< 1 month) History of inflammatory bowel disease Medical patient at bed rest Age 61-74 Arthroscopic surgery Major open surgery (> 45 min) Laparoscopic surgery (> 45 min) Malignancy Confined to bed (> 72 hours) Immobilizing plaster cast Central venous access Age >= 75 History of VTE Family history of VTE Factor V Leiden Prothrombin [id number] Lupus anticoagulant Anticardiolipin antibodies Elevated serum homocysteine Heparin-induced thrombocytopenia Other congenital or acquired thrombophilia Stroke (< 1 month) Elective arthroplasty Hip, pelvis, or leg fracture Acute spinal cord injury (< 1 month) Prophylaxis Regimen Total Risk Factor Score Risk Level Prophylaxis Regimen 0-1 Low Early ambulation 2 Moderate Order ONE of the following: *Sequential Compression Device (SCD) *Heparin 5000 units SQ BID 3-4 Higher Order ONE of the following medications: *Heparin 5000 units SQ TID *Enoxaparin/Lovenox 40 mg SQ daily (WT < 150 kg, CrCl > 30 mL/min) *Enoxaparin/Lovenox 30 mg SQ daily (WT < 150 kg, CrCl > 10-29 mL/min) *Enoxaparin/Lovenox 30 mg SQ BID (WT < 150 kg, CrCl > 30 mL/min) AND/OR *Sequential Compression Device (SCD) 5 or more Highest Order ONE of the following medications: *Heparin 5000 units SQ TID (Preferred with Epidurals) *Enoxaparin/Lovenox 40 mg SQ daily (WT < 150 kg, CrCl > 30 mL/min) *Enoxaparin/Lovenox 30 mg SQ daily (WT < 150 kg, CrCl > 10-29 mL/min) *Enoxaparin/Lovenox 30 mg SQ BID (WT < 150 kg, CrCl > 30 mL/min) AND *Sequential Compression Device (SCD) Assessment and Plan Problem List: (1) Atypical chest pain ICD Code: R07.89 - Other chest pain (2) Elevated troponin I level ICD Code: R79.89 - Elevated troponin I level Status: Resolved Assessment and Plan 52 years old man with Atypical Chest pain Chronically elevated Elevated troponin I Due to current use of cocaine, will rule out ACS per protocol with serial cardiac enzymes and EKGs Will hold on starting heparin drip pending following sets of troponin I and EKG Last 2-D echo 07/22/17 with EF 50-55%, May repeat limited 2-D echo Cardiology consultation when necessary Chest x-ray noted and review by me without any cardio pulmonary disease Drug counseling cessation provided Resume aspirin, Nitropaste Hypertension Labile BP Currently on Nitro drip Resume outpatient medications including Norvasc, Lopressor in a.m. BALBINA inhibitor is contraindicated secondary to angioedema History of diabetes type 2 Start insulin sliding scale Previous HgA1C of 6.4 (11/29/17) 2/2 elevated Cr>1.5 will hold on starting low dose metformin Acute renal failure Prerenal, secondary to dehydration Gentle IV fluid hydration and monitor BUN and creatinine COPD No current exacerbation Resume outpatient medications DVT prophylaxis: Bilateral SCDs Code Status Full code Discussed Condition With Patient, ED physician Shakeel Resendiz MD Dec 16, 2017 11:57
[2017-12-16] MEDS ORDERED: MAGNESIUM HYDROXIDE SUSP 30 ML CUP PO PRN (12:00)
[2017-12-16] MEDS ORDERED: SODIUM CHLORIDE 0.9% FLUSH 10 ML FLUSH IV FLUSH PRN (12:00)
[2017-12-16] MEDS ORDERED: ACETAMINOPHEN 325 MG TAB PO PRN (12:00)
[2017-12-16] MEDS: NITROGLYCERIN 2% OINT 1 GM PACKET TOP SCH ×2 (12:00→18:00)
[2017-12-16] MEDS ORDERED: ONDANSETRON HCL 4 MG/2 ML VIAL IVP PRN (12:00)
[2017-12-16] MEDS ORDERED: NALOXONE HCL 0.4 MG/ML AMP IV PUSH PRN (12:00)
[2017-12-16] MEDS ORDERED: DEXTROSE 50% IN WATER 50 ML VIAL(D50) IV PUSH PRN (12:15)
[2017-12-16] MEDS ORDERED: GLUCAGON 1 MG/ML VIAL OTHER PRN (12:15)
[2017-12-16] MEDS: NITROGLYCERIN/DEXTROSE 5% 250 ML for chest pain IV PRN ×3 (12:19→14:11)
[2017-12-16] MEDS ORDERED: cloNIDine HCL 0.1 MG TAB PO PRN (13:30)
[2017-12-16] MEDS: INSULIN ASPART SUPPLEMENTAL SCALE SQ SCH ×2 (16:54→20:46)
[2017-12-16] MEDS: RESP: ALBUTEROL 2.5 MG/IPRATROPIUM 0.5 MG NEB (PRN) NEB ×2 (18:05→18:13)
[2017-12-16 20:23] LABS: TROPONIN I 0.19 NG/ML (0.02-0.05)
[2017-12-16] MEDS: SODIUM CHLORIDE 0.9% FLUSH 10 ML FLUSH IV FLUSH SCH (20:25)
[2017-12-16] MEDS: BUDESONIDE-FORMOTEROL 160/4.5 MCG INHALER INH SCH (20:25)
[2017-12-17] VITALS (25 sets, daily range): BP systolic 139–178; BP diastolic 65–98; PULSE 62–86; RESP 18–22; TEMP 97.2–99; O2SAT 94–96
[2017-12-17 03:03] LABS: BASOPHIL # 0.1 TH/MM3 (0-0.2); BASOPHIL % 0.6 % (0.0-2.0); EOSINOPHIL # 0.3 TH/MM3 (0-0.4); EOSINOPHIL % 3.5 % (0.0-4.0); HEMATOCRIT 37.5 % (39.0-51.0); HEMOGLOBIN 12.7 GM/DL (13.0-17.0); LYMPH % 30.9 % (9.0-44.0); LYMPHOCYTE # 2.8 TH/MM3 (1.0-4.8); MEAN CELL VOLUME 83.5 FL (80.0-100.0); MEAN CORPUSCULAR HEMOGLOBIN 28.3 PG (27.0-34.0); MEAN CORPUSCULAR HGB CONC 33.9 % (32.0-36.0); MEAN PLATELET VOLUME 7.5 FL (7.0-11.0); MONO % 9.9 % (0.0-8.0); MONOCYTE # 0.9 TH/MM3 (0-0.9); NEUT % 55.1 % (16.0-70.0); PLATELET COUNT 233 TH/MM3 (150-450); RED BLOOD COUNT 4.49 MIL/MM3 (4.50-5.90); RED CELL DISTRIBUTION WIDTH 14.7 % (11.6-17.2); WHITE BLOOD COUNT 9.1 TH/MM3 (4.0-11.0)
[2017-12-17 03:17] LABS: ALBUMIN 3.1 GM/DL (3.4-5.0); ALT (GPT) 21 U/L (12-78); AST (GOT) 22 U/L (15-37); BICARBONATE 30.1 MEQ/L (21.0-32.0); BLOOD UREA NITROGEN 14 MG/DL (7-18); CALCIUM 8.5 MG/DL (8.5-10.1); CHLORIDE 104 MEQ/L (98-107); CREATININE 1.19 MG/DL (0.60-1.30); GLOMERULAR FILTRATION RATE 78 ML/MIN (>89); GLUCOSE,RANDOM 155 MG/DL (74-106); SODIUM (NA) 140 MEQ/L (136-145)
[2017-12-17 03:20] LABS: ALKALINE PHOSPHATASE 65 U/L (45-117); TOTAL BILIRUBIN ADULT 0.2 MG/DL (0.2-1.0); TOTAL PROTEIN 7.2 GM/DL (6.4-8.2); TROPONIN I 0.19 NG/ML (0.02-0.05)
[2017-12-17] MEDS: NITROGLYCERIN 2% OINT 1 GM PACKET TOP SCH ×5 (05:06→23:28)
[2017-12-17] MEDS: INSULIN ASPART SUPPLEMENTAL SCALE SQ SCH ×4 (08:00→21:00)
[2017-12-17] MEDS ORDERED: METOPROLOL TARTRATE 50 MG TAB PO SCH (09:00)
[2017-12-17] MEDS: ACETAMINOPHEN 325 MG TAB PO PRN (09:44)
[2017-12-17] MEDS: ASPIRIN 325 MG TAB PO SCH (09:44)
[2017-12-17] MEDS: SODIUM CHLORIDE 0.9% FLUSH 10 ML FLUSH IV FLUSH SCH ×3 (09:45→23:10)
[2017-12-17] MEDS: BUDESONIDE-FORMOTEROL 160/4.5 MCG INHALER INH SCH ×2 (09:45→21:54)
--- NOTE | 2017-12-17 11:12 | HHI.PR ---
Subjective Remarks With tremors, hallucination in the morning. Patient admits to heavy alcohol use. No chest pain overnight. No n/v/d/c. No fever or chills. Coughing nonproductive. No sob. Objective Vitals Vital Signs Date Time Temp Pulse Resp B/P (MAP) Pulse Ox O2 Delivery O2 Flow Rate FiO2 12/17/17 10:57 20 12/17/17 10:30 75 207/111 12/17/17 10:00 67 12/17/17 09:00 62 12/17/17 09:00 80 178/98 12/17/17 08:00 64 12/17/17 07:15 99.0 80 22 178/98 (124) 96 12/17/17 07:15 96 Room Air 12/17/17 07:00 81 12/17/17 06:00 75 12/17/17 05:00 80 12/17/17 04:19 78 150/93 12/17/17 04:00 78 12/17/17 04:00 Nasal Cannula 2.00 12/17/17 04:00 98.2 78 22 150/93 (112) 96 12/17/17 03:00 80 12/17/17 02:00 79 12/17/17 01:00 76 12/17/17 00:00 98.8 73 22 149/90 (109) 95 12/17/17 00:00 73 12/17/17 00:00 Nasal Cannula 2.00 12/16/17 23:00 77 12/16/17 22:00 75 12/16/17 21:00 93 12/16/17 20:00 98.4 87 22 155/96 (115) 96 12/16/17 20:00 Nasal Cannula 2.00 12/16/17 20:00 81 12/16/17 18:00 94 12/16/17 17:00 82 12/16/17 16:06 98.2 87 24 156/97 (116) 96 12/16/17 16:00 97 Nasal Cannula 2.00 12/16/17 16:00 88 12/16/17 15:00 96 12/16/17 14:34 81 24 151/65 (93) 96 Nasal Cannula 2.00 12/16/17 14:11 76 187/86 12/16/17 12:28 83 159/76 12/16/17 12:20 77 22 178/73 (108) 97 Room Air 12/16/17 12:19 77 178/73 I/O 12/16/17 12/16/17 12/16/17 12/17/17 12/17/17 12/17/17 06:59 14:59 22:59 06:59 14:59 22:59 Intake Total 1000 ml 1560 ml Output Total 700 ml 1200 ml Balance 300 ml 360 ml Intake Oral 1000 ml 1500 ml IV Total 60 ml Output Urine Total 700 ml 1200 ml # Bowel Movements 0 Result Diagram: 12/17/17 0249 12/17/17 0249 Imaging Last Impressions Chest X-Ray 12/16/17 1031 Signed Impressions: Service Date/Time: Saturday, December 16, 2017 10:36 - CONCLUSION: No acute disease. Shakeel Garcia MD Objective Remarks GENERAL: This is a well-nourished, well-developed patient, in no apparent distress. CARDIOVASCULAR: Regular rate and rhythm without murmurs, gallops, or rubs. RESPIRATORY: Clear to auscultation. Breath sounds equal bilaterally. No wheezes , rales, or rhonchi. GASTROINTESTINAL: Abdomen soft, non-tender, nondistended. No hepato-splenomegaly , or palpable masses. No guarding. MUSCULOSKELETAL: Extremities without clubbing, cyanosis, or edema. No joint tenderness, effusion, or edema noted. No calf tenderness. Negative Homans sign bilaterally. NEUROLOGICAL: Awake and alert. Cranial nerves grossly I intact. Motor and sensory grossly within normal limits. Normal speech. Tremors. A/P Problem List: (1) Atypical chest pain ICD Code: R07.89 - Other chest pain (2) Elevated troponin I level ICD Code: R79.89 - Elevated troponin I level Status: Resolved (3) Cocaine abuse ICD Code: F14.10 - Cocaine abuse Status: Acute Assessment and Plan 52 years old man with Atypical Chest pain Chronically elevated Elevated troponin I Due to current use of cocaine, will rule out ACS per protocol with serial cardiac enzymes and EKGs Will hold on starting heparin drip pending following sets of troponin I and EKG Last 2-D echo 07/22/17 with EF 50-55%, May repeat limited 2-D echo Cardiology consultation when necessary Chest x-ray noted and review by me without any cardio pulmonary disease Drug counseling cessation provided Resume aspirin, Nitropaste EtOH withdrawals/ Start CIWA protocol. Rally pack. Hypertension Labile BP Currently on Nitro drip Resume outpatient medications including Norvasc, Lopressor , Avoid BB due recent cocaine use BALBINA inhibitor is contraindicated secondary to angioedema History of diabetes type 2 Start insulin sliding scale Previous HgA1C of 6.4 (11/29/17) 2/2 elevated Cr>1.5 will hold on starting low dose metformin Acute renal failure Prerenal, secondary to dehydration Gentle IV fluid hydration and monitor BUN and creatinine COPD No current exacerbation Resume outpatient medications DVT prophylaxis: Bilateral SCDs Code Status Full code Discussed Condition With Patient, nurse Transfer to med/surg floor Marce Dixon MD Dec 17, 2017 11:12
[2017-12-17] MEDS ORDERED: cloNIDine HCL 0.1 MG TAB PO PRN (11:15)
[2017-12-17] MEDS ORDERED: LORazepam 2 MG TAB PO PRN (11:15)
[2017-12-17] MEDS ORDERED: SODIUM CHLORIDE 0.9% FLUSH 10 ML FLUSH IV FLUSH PRN (11:15)
[2017-12-17] MEDS ORDERED: LORazepam 2 MG/ML VIAL IV PUSH PRN ×4 (11:15)
[2017-12-17] MEDS ORDERED: FLUMAZENIL 0.5 MG/5 ML VIAL IV PUSH PRN (11:15)
[2017-12-17] MEDS ORDERED: LOSARTAN 50 MG TAB PO ONE (11:15)
[2017-12-17] MEDS: LOSARTAN 50 MG TAB PO SCH (21:53)
--- NOTE | 2017-12-17 22:07 | EKG ---
Date Performed: 12/16/2017 Time Performed: 22:27:36 PTAGE: 52 years EKG: Sinus arrhythmia Inferior/lateral ST-T changes may be due to myocardial ischemia Abnormal E CG PREVIOUS TRACING : 12/16/2017 10.29 DOCTOR: Ryan Estrada Interpretating Date/Time 12/17/2017 22:01:26
--- NOTE | 2017-12-17 23:11 | EKG ---
Date Performed: 12/16/2017 Time Performed: 10:29:39 PTAGE: 52 years EKG: Sinus rhythm POSSIBLE LEFT ATRIAL ENLARGEMENT ST DEVIATION AND MODERATE T-WAVE ABNORMALITY, CONSIDER ANTEROLATERA L ISCHEMIA ABNORMAL ECG PREVIOUS TRACING : 11/29/2017 05.19 DOCTOR: Ryan Estrada Interpretating Date/Time 12/17/2017 23:06:47
[2017-12-17] MEDS: BENZONATATE 100 MG CAP PO PRN (23:28)
[2017-12-18] VITALS (25 sets, daily range): BP systolic 140–164; BP diastolic 78–93; PULSE 64–96; RESP 14–20; TEMP 97.8–98.7; O2SAT 95–97
[2017-12-18] MEDS: guaiFENesin/DEXTROMETHORPHAN 200 MG/20 MG/10 ML CUP PO PRN ×2 (02:27→20:46)
[2017-12-18] MEDS: NITROGLYCERIN/DEXTROSE 5% 250 ML for chest pain IV PRN (04:00)
[2017-12-18] MEDS: hydrALAZINE HCL 10 MG TAB PO SCH ×3 (05:50→22:00)
[2017-12-18] MEDS: NITROGLYCERIN 2% OINT 1 GM PACKET TOP SCH ×4 (05:50→23:42)
[2017-12-18] MEDS: cloNIDine HCL 0.1 MG TAB PO SCH ×2 (05:50→14:08)
[2017-12-18 06:33] LABS: AUTOMATED NEUTROPHIL # 3.2 TH/MM3 (1.8-7.7); BASOPHIL % 0.6 % (0.0-2.0); EOSINOPHIL # 0.2 TH/MM3 (0-0.4); EOSINOPHIL % 2.9 % (0.0-4.0); HEMATOCRIT 36.6 % (39.0-51.0); HEMOGLOBIN 12.2 GM/DL (13.0-17.0); LYMPHOCYTE # 2.2 TH/MM3 (1.0-4.8); MEAN CELL VOLUME 84.5 FL (80.0-100.0); MEAN CORPUSCULAR HGB CONC 33.2 % (32.0-36.0); MEAN PLATELET VOLUME 7.7 FL (7.0-11.0); MONO % 9.8 % (0.0-8.0); MONOCYTE # 0.6 TH/MM3 (0-0.9); NEUT % 51.7 % (16.0-70.0); PLATELET COUNT 235 TH/MM3 (150-450); RED BLOOD COUNT 4.33 MIL/MM3 (4.50-5.90); RED CELL DISTRIBUTION WIDTH 14.9 % (11.6-17.2); WHITE BLOOD COUNT 6.3 TH/MM3 (4.0-11.0)
[2017-12-18 07:01] LABS: BICARBONATE 29.5 MEQ/L (21.0-32.0); CALCIUM 8.1 MG/DL (8.5-10.1); CREATININE 1.03 MG/DL (0.60-1.30)
[2017-12-18] MEDS: INSULIN ASPART SUPPLEMENTAL SCALE SQ SCH ×4 (08:00→20:58)
[2017-12-18] MEDS ORDERED: MAGNESIUM OXIDE 400 MG TAB PO ONE (08:15)
[2017-12-18] MEDS ORDERED: POTASSIUM CHLORIDE 10 MEQ CONTROLLED RELEASE TAB PO ONE (08:15)
[2017-12-18] MEDS: RESP: ALBUTEROL 2.5 MG/IPRATROPIUM 0.5 MG NEB (SCH) NEB ×3 (08:37→18:59)
[2017-12-18] MEDS: BUDESONIDE-FORMOTEROL 160/4.5 MCG INHALER INH SCH ×2 (09:00→21:00)
[2017-12-18] MEDS: SODIUM CHLORIDE 0.9% FLUSH 10 ML FLUSH IV FLUSH SCH ×4 (09:00→20:47)
[2017-12-18] MEDS: ASPIRIN 325 MG TAB PO SCH (09:18)
[2017-12-18] MEDS: MULTIVITAMINS/MINERALS THERAPEUTIC TAB PO SCH (09:18)
[2017-12-18] MEDS: FOLIC ACID 1 MG TAB PO SCH (09:18)
[2017-12-18] MEDS: LOSARTAN 50 MG TAB PO SCH ×2 (09:19→20:46)
[2017-12-18] MEDS: THIAMINE HCL 100 MG TAB PO SCH (09:20)
--- NOTE | 2017-12-18 14:40 | HHI.PR ---
Subjective Remarks Patient was seen earlier today. Feels a little bit better.Patient was seen earlier today. Feels a little bit better. No chest pain overnight however No chest pain overnight however has dyspnea some chest pain. No nausea or vomiting no diarrhea or constipation. Less cough. Nonproductive sputum. He complains of some mild headaches. He still on nitro drip. He complains of some mild headaches. He still night. Nonproductive sputum. Last evening he experienced some chest pain. No nausea vomiting no diarrhea or constipation. Less cough. No tremors at this time however he had tremors in the morning and received lorazepam. lorazepam.tremors in the morning and received Objective Vitals Vital Signs Date Time Temp Pulse Resp B/P (MAP) Pulse Ox O2 Delivery O2 Flow Rate FiO2 12/18/17 14:00 80 12/18/17 13:00 96 12/18/17 12:31 74 12/18/17 11:00 98.7 71 16 156/92 (113) 96 12/18/17 11:00 76 12/18/17 10:00 72 12/18/17 09:00 81 12/18/17 08:00 95 Room Air 12/18/17 08:00 74 12/18/17 07:15 98.3 82 17 154/80 (104) 96 12/18/17 06:00 80 12/18/17 05:00 70 12/18/17 04:00 98.0 70 18 151/78 (102) 95 12/18/17 04:00 70 12/18/17 04:00 82 141/78 12/18/17 03:59 76 150/78 12/18/17 03:00 81 12/18/17 03:00 95 Room Air 12/18/17 02:00 72 12/18/17 01:00 70 12/18/17 00:00 97.8 64 18 161/80 (107) 96 12/18/17 00:00 69 12/17/17 23:00 79 12/17/17 23:00 95 Room Air 12/17/17 22:00 86 12/17/17 21:00 77 12/17/17 20:00 82 12/17/17 19:00 96 Room Air 12/17/17 19:00 97.2 77 18 171/90 (117) 96 12/17/17 19:00 73 12/17/17 18:00 82 12/17/17 17:00 82 12/17/17 16:00 71 12/17/17 15:00 94 Room Air 12/17/17 15:00 98.5 78 20 173/89 (117) 94 12/17/17 15:00 73 I/O 12/17/17 12/17/17 12/17/17 12/18/17 12/18/17 12/18/17 07:00 15:00 23:00 07:00 15:00 23:00 Intake Total 1560 ml 1080 ml 2850 ml 720 ml Output Total 1200 ml 1730 ml 3600 ml Balance 360 ml -650 ml -750 ml 720 ml Intake Oral 1500 ml 1080 ml 2600 ml 720 ml IV Total 60 ml 250 ml Output Urine Total 1200 ml 1730 ml 3600 ml # Bowel Movements 0 2 Result Diagram: 12/18/17 0501 12/18/17 0501 Imaging Last Impressions Chest X-Ray 12/16/17 1031 Signed Impressions: Service Date/Time: Saturday, December 16, 2017 10:36 - CONCLUSION: No acute disease. Shakeel Garcia MD Objective Remarks GENERAL: This is a well-nourished, well-developed patient, in no apparent distress. CARDIOVASCULAR: Regular rate and rhythm without murmurs, gallops, or rubs. RESPIRATORY: Clear to auscultation. Breath sounds equal bilaterally. No wheezes , rales, or rhonchi. GASTROINTESTINAL: Abdomen soft, non-tender, nondistended. No hepato-splenomegaly , or palpable masses. No guarding. MUSCULOSKELETAL: Extremities without clubbing, cyanosis, or edema. No joint tenderness, effusion, or edema noted. No calf tenderness. Negative Homans sign bilaterally. NEUROLOGICAL: Awake and alert. Cranial nerves grossly I intact. Motor and sensory grossly within normal limits. Normal speech. Tremors. A/P Problem List: (1) Atypical chest pain ICD Code: R07.89 - Other chest pain (2) Elevated troponin I level ICD Code: R79.89 - Elevated troponin I level Status: Resolved (3) Cocaine abuse ICD Code: F14.10 - Cocaine abuse Status: Acute Assessment and Plan 52 years old man with Atypical Chest pain Chronically elevated Elevated troponin I Due to current use of cocaine, will rule out ACS per protocol with serial cardiac enzymes and EKGs Will hold on starting heparin drip pending following sets of troponin I and EKG Last 2-D echo 07/22/17 with EF 50-55%, May repeat limited 2-D echo Cardiology consultation when necessary Chest x-ray noted and review by me without any cardio pulmonary disease Drug counseling cessation provided Resume aspirin, Nitropaste EtOH withdrawals/ Start CIWA protocol. Rally pack. Hypertension Labile BP Currently on Nitro drip, wean off Resume outpatient medications including Norvasc, hold Lopressor , Avoid BB due recent cocaine use. Staretyd clonidibe increased today at 0.2 mg po tid as uncontrololed BP , also started hydralazine 10 mg po q8 hrs. Monitor BP BALBINA inhibitor is contraindicated secondary to angioedema History of diabetes type 2 Start insulin sliding scale Previous HgA1C of 6.4 (11/29/17) 2/2 elevated Cr>1.5 will hold on starting low dose metformin Acute renal failure Prerenal, secondary to dehydration Gentle IV fluid hydration and monitor BUN and creatinine COPD No current exacerbation Resume outpatient medications DVT prophylaxis: Bilateral SCDs Code Status Full code Discussed Condition With Patient, nurse With EtOH withdrawals, uncontrolled HTN requiring nitro drip, wean off nitro drip. Transfer to med surg when BP better controlled Marce Dixon MD Dec 18, 2017 14:40
[2017-12-18] MEDS: ACETAMINOPHEN 325 MG TAB PO PRN ×2 (17:00→20:46)
[2017-12-18] MEDS: BENZONATATE 100 MG CAP PO PRN ×2 (17:00→23:44)
[2017-12-18] MEDS: LORazepam 1 MG TAB PO PRN (20:48)
[2017-12-18] MEDS: cloNIDine HCL 0.2 MG TAB PO SCH (22:00)
[2017-12-19] VITALS (31 sets, daily range): BP systolic 140–165; BP diastolic 71–95; PULSE 58–81; RESP 17–26; TEMP 97.1–98.2; O2SAT 91–98
[2017-12-19] MEDS: guaiFENesin/DEXTROMETHORPHAN 200 MG/20 MG/10 ML CUP PO PRN ×3 (03:05→22:02)
[2017-12-19] MEDS: LORazepam 1 MG TAB PO PRN ×2 (03:05→10:40)
[2017-12-19 05:52] LABS: AUTOMATED NEUTROPHIL # 3.6 TH/MM3 (1.8-7.7); BASOPHIL # 0.1 TH/MM3 (0-0.2); BASOPHIL % 0.8 % (0.0-2.0); EOSINOPHIL # 0.2 TH/MM3 (0-0.4); EOSINOPHIL % 3.5 % (0.0-4.0); HEMATOCRIT 35.6 % (39.0-51.0); HEMOGLOBIN 11.7 GM/DL (13.0-17.0); LYMPH % 27.7 % (9.0-44.0); LYMPHOCYTE # 1.7 TH/MM3 (1.0-4.8); MEAN CELL VOLUME 84.6 FL (80.0-100.0); MEAN CORPUSCULAR HEMOGLOBIN 27.9 PG (27.0-34.0); MEAN PLATELET VOLUME 7.5 FL (7.0-11.0); MONO % 11.2 % (0.0-8.0); MONOCYTE # 0.7 TH/MM3 (0-0.9); NEUT % 56.8 % (16.0-70.0); PLATELET COUNT 228 TH/MM3 (150-450); RED CELL DISTRIBUTION WIDTH 14.4 % (11.6-17.2); WHITE BLOOD COUNT 6.3 TH/MM3 (4.0-11.0)
[2017-12-19 06:14] LABS: BICARBONATE 29.7 MEQ/L (21.0-32.0); CALCIUM 8.5 MG/DL (8.5-10.1); CREATININE 1.08 MG/DL (0.60-1.30); MAGNESIUM 2.3 MG/DL (1.5-2.5)
[2017-12-19] MEDS: cloNIDine HCL 0.2 MG TAB PO SCH ×3 (06:22→21:59)
[2017-12-19] MEDS: hydrALAZINE HCL 10 MG TAB PO SCH ×3 (06:23→21:59)
[2017-12-19] MEDS: NITROGLYCERIN 2% OINT 1 GM PACKET TOP SCH ×3 (06:23→17:38)
[2017-12-19] MEDS: INSULIN ASPART SUPPLEMENTAL SCALE SQ SCH ×4 (08:00→21:00)
[2017-12-19] MEDS: NITROGLYCERIN/DEXTROSE 5% 250 ML for chest pain IV PRN (08:51)
[2017-12-19] MEDS: SODIUM CHLORIDE 0.9% FLUSH 10 ML FLUSH IV FLUSH SCH ×4 (09:00→21:00)
[2017-12-19] MEDS: RESP: ALBUTEROL 2.5 MG/IPRATROPIUM 0.5 MG NEB (SCH) NEB ×3 (09:06→21:26)
[2017-12-19] MEDS: LOSARTAN 50 MG TAB PO SCH ×2 (09:16→21:59)
[2017-12-19] MEDS: ASPIRIN 325 MG TAB PO SCH (09:16)
[2017-12-19] MEDS: FOLIC ACID 1 MG TAB PO SCH (09:17)
[2017-12-19] MEDS: THIAMINE HCL 100 MG TAB PO SCH (09:17)
[2017-12-19] MEDS: BUDESONIDE-FORMOTEROL 160/4.5 MCG INHALER INH SCH ×2 (09:17→22:00)
[2017-12-19] MEDS: MULTIVITAMINS/MINERALS THERAPEUTIC TAB PO SCH (09:17)
[2017-12-19] MEDS: ACETAMINOPHEN 325 MG TAB PO PRN ×2 (10:40→22:02)
[2017-12-19] MEDS ORDERED: SULFAMETHOXAZOLE-TRIMETHOPRIM 400-80 MG TAB PO ONE (12:00)
[2017-12-19] MEDS ORDERED: LORATADINE 10 MG TAB PO ONE (12:00)
[2017-12-19] MEDS ORDERED: CARBAMIDE PEROXIDE 6.5% OTIC SOLN 15 ML BTL LEFT EAR ONE (12:00)
[2017-12-19] MEDS ORDERED: KETOROLAC TROMETHAMINE 30 MG/ML (IVP) VIAL IV PUSH ONE (12:00)
--- NOTE | 2017-12-19 15:24 | HHI.PR ---
Subjective Remarks No specific complaints of chest pain today. The patient complains of sinusitis and right ear pain. He also states he has not been able to hear out of his left ear for over a year. He feels his gout is exacerbated at the right knee and foot. No other complaints. Objective Vital Signs Date Time Temp Pulse Resp B/P (MAP) Pulse Ox O2 Delivery O2 Flow Rate FiO2 12/19/17 14:02 80 12/19/17 13:00 72 12/19/17 12:50 72 18 163/82 (109) 95 12/19/17 12:34 98.2 12/19/17 12:34 97 Room Air 12/19/17 12:20 97.8 72 18 163/82 (109) 12/19/17 12:00 66 12/19/17 11:28 16 12/19/17 11:00 74 12/19/17 10:15 74 12/19/17 10:00 66 12/19/17 09:30 74 12/19/17 09:00 70 12/19/17 08:51 68 134/77 12/19/17 08:31 97 Nasal Cannula 2.00 12/19/17 08:15 77 12/19/17 08:00 60 12/19/17 08:00 98.0 71 18 140/71 (94) 95 12/19/17 08:00 98.0 71 18 140/71 (94) 95 12/19/17 07:00 58 12/19/17 06:00 64 12/19/17 05:00 58 12/19/17 04:00 72 12/19/17 03:00 98 Nasal Cannula 2.00 12/19/17 03:00 81 12/19/17 03:00 97.5 68 20 158/86 (110) 98 12/19/17 02:00 58 12/19/17 01:00 76 12/19/17 00:00 64 12/18/17 23:00 96 Nasal Cannula 2.00 12/18/17 23:00 98.3 71 14 140/93 (109) 96 12/18/17 23:00 79 12/18/17 22:00 68 12/18/17 21:00 78 12/18/17 20:00 84 12/18/17 20:00 98.3 69 16 164/92 (116) 97 12/18/17 19:00 79 12/18/17 19:00 97 Room Air 12/18/17 18:15 18 12/18/17 18:00 76 12/18/17 17:00 76 12/18/17 16:20 Room Air 12/18/17 16:20 98.2 76 20 162/92 (115) 96 12/18/17 16:00 64 I/O 12/18/17 12/18/17 12/18/17 12/19/17 12/19/17 12/19/17 07:00 15:00 23:00 07:00 15:00 23:00 Intake Total 2850 ml 720 ml 1200 ml 1200 ml 17 ml Output Total 3600 ml 1250 ml 1850 ml Balance -750 ml 720 ml -50 ml -650 ml 17 ml Intake Oral 2600 ml 720 ml 1200 ml 1200 ml IV Total 250 ml 17 ml Output Urine Total 3600 ml 1250 ml 1850 ml # Bowel Movements 2 2 Result Diagram: 12/19/1751612/19/17516 Objective Remarks GENERAL: NAD, A&Ox3 HEAD: Normocephalic. NECK: Supple, trachea midline. No lymphadenopathy. EARS: Right ear has erythema and evidence of mild purulence, left ear has completely obstruction from cerumen. EYES: No scleral icterus. No injection or drainage. CARDIOVASCULAR: Regular rate and rhythm without murmurs, gallops, or rubs. RESPIRATORY: Breath sounds equal bilaterally. No accessory muscle use. GASTROINTESTINAL: Abdomen soft, non-tender, nondistended. MUSCULOSKELETAL: No cyanosis, or edema. SKIN: Warm and dry. NEURO: No focal neurological deficitis. A/P Problem List: (1) Sinusitis ICD Code: J32.9 - Chronic sinusitis, unspecified (2) Elevated troponin I level ICD Code: R79.89 - Elevated troponin I level Status: Resolved (3) Cocaine abuse ICD Code: F14.10 - Cocaine abuse Status: Acute (4) Otitis media ICD Code: H66.90 - Otitis media Status: Acute Assessment and Plan 52-year-old male admitted secondary to chest pain in the presence of cocaine Chest pain Serial cardiac enzymes are elevated EKG showed some evidence of possible myocardial infarction Beta blockers avoided secondary to cocaine abuse Patient is no longer withdrawing from alcohol Consult cardiology Alcohol withdrawal Alcohol abuse Resolved CIWA protocol discontinued Continue thiamine Continue folic acid Right-sided otitis media Sinusitis Bactrim started Follow clinically Antihistamine Left-sided cerumen impaction Carbamide peroxide twice a day Hypertensive urgency Continue present treatments Follow blood pressure Hypertension Off nitroglycerin drip Continue Norvasc Continue clonidine Continue hydralazine Monitor blood pressures Cocaine abuse may be contributory Cocaine abuse history Patient counseled to quit History of diabetes type 2 Insulin sliding scale Diabetic diet Follow blood sugars Acute renal failure Resolved COPD Continue baseline treatments No exacerbations currently DVT prophylaxis Bilateral SCDs Nakul Arias MD Dec 19, 2017 15:24
[2017-12-19] MEDS ORDERED: LORazepam 2 MG/ML VIAL IV PUSH PRN (18:15)
[2017-12-19] MEDS: SULFAMETHOXAZOLE-TRIMETHOPRIM 400-80 MG TAB PO SCH (21:59)
[2017-12-19] MEDS: CARBAMIDE PEROXIDE 6.5% OTIC SOLN 15 ML BTL LEFT EAR SCH (21:59)
[2017-12-20] VITALS (19 sets, daily range): BP systolic 155–160; BP diastolic 71–93; PULSE 62–84; RESP 20–23; TEMP 97.2–97.5; O2SAT 93–95
[2017-12-20] MEDS: ACETAMINOPHEN 325 MG TAB PO PRN (05:54)
[2017-12-20] MEDS: hydrALAZINE HCL 10 MG TAB PO SCH ×3 (05:54→20:36)
[2017-12-20] MEDS: cloNIDine HCL 0.2 MG TAB PO SCH ×3 (05:54→20:36)
[2017-12-20] MEDS: NITROGLYCERIN 2% OINT 1 GM PACKET TOP SCH ×2 (05:55)
[2017-12-20] MEDS: guaiFENesin/DEXTROMETHORPHAN 200 MG/20 MG/10 ML CUP PO PRN ×2 (05:55→20:37)
[2017-12-20] MEDS: INSULIN ASPART SUPPLEMENTAL SCALE SQ SCH ×4 (08:00→21:00)
--- NOTE | 2017-12-20 08:20 | MB ---
cc: ARRON WONG DO DATE OF CONSULTATION 12/19/2017 REASON FOR CONSULTATION Elevated troponin HISTORY OF PRESENT ILLNESS Shai Santiago is a 52-year-old male who presented to [facility] emergency room on December 18, 2017 after having chest pain. The patient smokes $600 worth of cocaine over a period of 24 hours. He had a stabbing chest pain in the center his chest which appeared to have no radiation anywhere. He states that the chest pain hurt worse with deep breathing as well as coughing. In seeing him, he is currently without chest pain or shortness of breath. PAST MEDICAL HISTORY 1. Congestive heart failure 2. Sleep apnea 3. Myocardial infarction 4. Hypertension 5. Polysubstance abuse 6. Diabetes 7. Dyslipidemia 8. Gastroesophageal reflux disease 9. Schizophrenia 10. Anxiety 11. Depression PAST SURGICAL HISTORY 1. ORIF of the right inguinal mandible plate with screws. ALLERGIES 1. WOOL 2. LISINOPRIL 3. MILK MEDICATIONS 1. Atrovent 2 puffs t.i.d. 2. Albuterol 2 puffs every 6 hours as needed for shortness of breath 3. Metoprolol tartrate 50 mg daily 4. Norvasc 10 mg daily 5. Tramadol 50 mg every 8 hours as needed for pain. 6. Symbicort 2 puffs every 12 hours FAMILY HISTORY Mother had a history of hypertension. Denies sudden cardiac within the family. SOCIAL HISTORY The patient occasionally drinks alcohol. He smokes cigarettes around a pack a day. He recently smoked crack cocaine before presenting to the hospital. REVIEW OF SYSTEMS 14-systems were reviewed including osteopathic pertinent positives and negatives as above otherwise negative. PHYSICAL EXAMINATION VITAL SIGNS: Temperature 98.2, heart rate 73, blood pressure 148/95, respirations 17, pulse ox 96% on room air. GENERAL: The patient appears well. No acute distress, alert awake and oriented x3. HEAD, EYES, EARS, NOSE, AND THROAT: Extraocular muscles intact. Mucous membranes moist. NECK: Supple. No JVD at 45 degrees. No carotid bruits heard bilaterally. Carotid upstrokes brisk in nature. HEART: Regular rate and rhythm. Positive first and second heart sounds with no murmurs, gallops or rubs. LUNGS: Clear to auscultation bilaterally. No wheezes, rales or rhonchi. ABDOMEN: Soft, nontender, nondistended. No organomegaly noted. EXTREMITIES: Show trace edema bilaterally. Femoral and distal pulses intact bilaterally. NEUROLOGIC: No focal deficits. SKIN: Warm, dry and intact. OSTEOPATHIC: Mild lordosis. No kyphoscoliosis or paraspinal tender points. LABORATORY FINDINGS Hemoglobin 11.7, hematocrit 35.6, platelets 228. Potassium 3.6, BUN 12, creatinine 1.08, troponin flat at 0.19. Electrocardiogram (December 16, 2017 at 2227) sinus arrhythmia, inferior lateral ST changes possibly due to ischemia versus secondary to LVH. EKG shows no change going back to 2013. IMPRESSIONS 1. Mildly elevated troponin which appears chronic in nature. 2. Cocaine abuse 3. Atypical chest pain 4. Type 2 diabetes mellitus 5. History of cardiac catheterization (July 22, 2017) showing nonobstructive coronary artery disease. RECOMMENDATIONS 1. Mr. Santiago presented with atypical chest pain for coronary insufficiency which may be due to his overall smoking of cocaine. 2. He does have a mildly elevated troponin, but has this for a number of years. This may be secondary to his LVH. 3. He recently had a cardiac catheterization in July which showed nonobstructive coronary artery disease. 4. His EKG does show changes laterally which have been there for a number of years and are most likely secondary to LVH. 5. I spoke to him for greater than three minutes of tobacco cessation. 6. Overall, I spoke to him about using cocaine as this can accelerate his coronary artery disease as well as cause arrhythmias and possible myocardial infarctions. 7. No further cardiovascular workup necessary. Thank you for allowing me to Shai Santiago. If there are any questions, please do not hesitate to call. Arron Wong DO VGP/DJL /10:52 PM /7:56 AM
[2017-12-20] MEDS: RESP: ALBUTEROL 2.5 MG/IPRATROPIUM 0.5 MG NEB (SCH) NEB ×3 (08:53→19:01)
[2017-12-20] MEDS: CARBAMIDE PEROXIDE 6.5% OTIC SOLN 15 ML BTL LEFT EAR SCH ×2 (09:00→20:38)
[2017-12-20] MEDS: BUDESONIDE-FORMOTEROL 160/4.5 MCG INHALER INH SCH ×2 (09:00→20:38)
[2017-12-20] MEDS: MULTIVITAMINS/MINERALS THERAPEUTIC TAB PO SCH (09:45)
[2017-12-20] MEDS: FOLIC ACID 1 MG TAB PO SCH (09:45)
[2017-12-20] MEDS: THIAMINE HCL 100 MG TAB PO SCH (09:45)
[2017-12-20] MEDS: ASPIRIN 325 MG TAB PO SCH (09:45)
[2017-12-20] MEDS: NAPROXEN 500 MG TAB PO SCH ×2 (09:45→20:37)
[2017-12-20] MEDS: SULFAMETHOXAZOLE-TRIMETHOPRIM 400-80 MG TAB PO SCH ×2 (09:46→20:37)
[2017-12-20] MEDS: SODIUM CHLORIDE 0.9% FLUSH 10 ML FLUSH IV FLUSH SCH ×4 (09:46→20:38)
[2017-12-20] MEDS: LORATADINE 10 MG TAB PO SCH (09:46)
[2017-12-20] MEDS: LOSARTAN 50 MG TAB PO SCH ×2 (09:46→20:36)
--- NOTE | 2017-12-20 11:22 | HHI.PR ---
Subjective Remarks Cardiology has seen this patient has determine no further necessity to workup his cardiac symptoms. He has been recommended to avoid abusing crack cocaine. Today the patient says that his right lower extremity is improving after getting NSAIDs for his gout exacerbation. He also says that his right ear is hurting less. Symptoms from cerumen impaction of his left ear remain and he is on carbamide peroxide for this. Sinusitis is still present. Delirium tremens are presently controlled. Objective Vital Signs Date Time Temp Pulse Resp B/P (MAP) Pulse Ox O2 Delivery O2 Flow Rate FiO2 12/20/17 06:00 72 12/20/17 05:00 62 12/20/17 04:00 76 12/20/17 04:00 97.5 75 20 160/93 (115) 93 12/20/17 03:00 68 12/20/17 03:00 93 Room Air 12/20/17 02:00 66 12/20/17 01:00 72 12/20/17 00:00 70 12/19/17 23:00 92 Room Air 12/19/17 23:00 75 12/19/17 23:00 97.1 78 26 163/82 (109) 92 12/19/17 22:00 76 12/19/17 21:00 74 12/19/17 20:00 74 12/19/17 19:00 97.8 78 24 165/81 (109) 91 12/19/17 19:00 72 12/19/17 19:00 91 Room Air 12/19/17 18:00 76 12/19/17 17:00 76 12/19/17 16:53 78 113/63 12/19/17 16:45 78 113/63 12/19/17 16:00 70 12/19/17 15:29 96 Room Air 12/19/17 15:29 98.2 73 17 148/95 (112) 96 12/19/17 15:00 73 12/19/17 14:02 80 12/19/17 13:00 72 12/19/17 12:50 72 18 163/82 (109) 95 12/19/17 12:34 98.2 12/19/17 12:34 97 Room Air 12/19/17 12:20 97.8 72 18 163/82 (109) 12/19/17 12:00 66 12/19/17 11:28 16 I/O 12/19/17 12/19/17 12/19/17 12/20/17 12/20/17 12/20/17 07:00 15:00 23:00 07:00 15:00 23:00 Intake Total 1200 ml 17 ml 2400 ml 960 ml Output Total 1850 ml 1670 ml 1645 ml Balance -650 ml 17 ml 730 ml -685 ml Intake Oral 1200 ml 2400 ml 960 ml IV Total 17 ml Output Urine Total 1850 ml 1670 ml 1645 ml # Bowel Movements 1 Result Diagram: 12/19/17 0512/19/17516 Objective Remarks GENERAL: NAD, A&Ox3 HEAD: Normocephalic. NECK: Supple, trachea midline. No lymphadenopathy. EARS: Right ear has erythema and evidence of mild purulence, left ear has completely obstruction from cerumen. EYES: No scleral icterus. No injection or drainage. CARDIOVASCULAR: Regular rate and rhythm without murmurs, gallops, or rubs. RESPIRATORY: Breath sounds equal bilaterally. No accessory muscle use. GASTROINTESTINAL: Abdomen soft, non-tender, nondistended. MUSCULOSKELETAL: No cyanosis, or edema. SKIN: Warm and dry. NEURO: No focal neurological deficitis. A/P Problem List: (1) Sinusitis ICD Code: J32.9 - Chronic sinusitis, unspecified (2) Elevated troponin I level ICD Code: R79.89 - Elevated troponin I level Status: Resolved (3) Cocaine abuse ICD Code: F14.10 - Cocaine abuse Status: Acute (4) Otitis media ICD Code: H66.90 - Otitis media Status: Acute Assessment and Plan 52-year-old male admitted secondary to chest pain in the presence of cocaine Chest pain Serial cardiac enzymes are elevated EKG showed some evidence of possible myocardial infarction Beta blockers avoided secondary to cocaine abuse Patient is no longer withdrawing from alcohol Cardiology has evaluated the patient, no further cardiac workup needed Association with crack cocaine discussed with the patient and patient has been counseled to quit abusing drugs Alcohol withdrawal Alcohol abuse Librium weaned to every 8 hours Lorazepam decreased to 0.5 mg every 6 hours Continue to wean benzodiazepines and Follow for resolution of delirium tremens off benzodiazepine Continue thiamine Continue folic acid Right-sided otitis media Sinusitis Bactrim to be continued until 12/25/17 Follow clinically Antihistamine continue Sinusitis symptoms may be secondary to cocaine withdrawal Left-sided cerumen impaction Continue Carbamide peroxide twice a day Hypertensive urgency Continue present treatments Follow blood pressure Hypertension Off nitroglycerin drip Continue Norvasc Continue clonidine Continue hydralazine Monitor blood pressures Cocaine abuse may be contributory Cocaine abuse history Patient counseled to quit History of diabetes type 2 Insulin sliding scale Diabetic diet Follow blood sugars Acute renal failure Resolved COPD Continue baseline treatments No exacerbations currently DVT prophylaxis Bilateral SCDs Nakul Arias MD Dec 20, 2017 11:22
[2017-12-20] MEDS ORDERED: LORazepam 2 MG/ML VIAL IV PUSH PRN (11:30)
--- NOTE | 2017-12-20 11:51 | PD.CARD.PN ---
Subjective Subjective Remarks Chest pain with coughing, otherwise no symptoms Objective Medications Current Medications Medications (Trade) Dose Ordered Sig/Dimitris Route Start Time Stop Time Status Last Admin (NS Flush) 2 ml UNSCH PRN IV FLUSH 12/16/17 12:00 (NS Flush) 2 ml BID IV FLUSH 12/16/17 21:00 12/20/17 09:46 (Tylenol) 650 mg Q4H PRN PO 12/16/17 12:00 (Zofran Inj) 4 mg Q6H PRN IVP 12/16/17 12:00 (Tylenol) 650 mg Q6H PRN PO 12/16/17 12:00 12/20/17 05:54 (Narcan Inj) 0.4 mg UNSCH PRN IV PUSH 12/16/17 12:00 (Milk Of Magnesia Liq) 30 ml Q12H PRN PO 12/16/17 12:00 (Duoneb Neb) 1 ampule Q2HR NEB PRN NEB 12/16/17 12:00 (Nitroglycerin 2% Oint) 1 inch Q6HR TOP 12/16/17 12:00 12/20/17 05:55 (D50w (Vial) Inj) 50 ml UNSCH PRN IV PUSH 12/16/17 12:15 (Glucagon Inj) 1 mg UNSCH PRN OTHER 12/16/17 12:15 (NovoLOG SUPPLEMENTAL SCALE) 1 ACHS SLIDING SCALE SQ 12/16/17 17:00 12/17/17 13:00 (Norvasc) 10 mg DAILY PO 12/17/17 09:00 12/20/17 09:46 (Symbicort 160-4.5 Mcg Inh) 2 puff Q12HR INH 12/16/17 21:00 12/20/17 09:00 (Aspirin) 325 mg DAILY PO 12/17/17 09:00 12/20/17 09:45 (Catapres) 0.1 mg Q6H PRN PO 12/16/17 13:30 12/17/17 14:43 (NS Flush) 2 ml UNSCH PRN IV FLUSH 12/17/17 11:15 (NS Flush) 2 ml BID IV FLUSH 12/17/17 21:00 12/20/17 09:46 (Folate) 1 mg DAILY PO 12/18/17 09:00 12/23/17 08:59 12/20/17 09:45 (Vitamin B1) 100 mg DAILY PO 12/18/17 09:00 12/20/17 09:45 (Theragran M Tab) 1 tab DAILY PO 12/18/17 09:00 12/23/17 08:59 12/20/17 09:45 (Catapres) 0.1 mg Q6H PRN PO 12/17/17 11:15 (Romazicon Inj) 0.2 mg Q1M PRN IV PUSH 12/17/17 11:15 (Cozaar) 50 mg Q12HR PO 12/17/17 21:00 12/20/17 09:46 (Tessalon) 100 mg TID PRN PO 12/17/17 23:00 12/18/17 23:44 (Duoneb Neb) 1 ampule Q6HR WHILE AWAKE NEB NEB 12/18/17 08:00 12/20/17 08:53 (Apresoline) 10 mg Q8HR PO 12/18/17 06:00 12/20/17 05:54 (Robitussin Dm 200-20 Mg/10 ml Liq) 10 ml Q4H PRN PO 12/17/17 23:45 12/20/17 05:55 (Catapres) 0.2 mg Q8HR PO 12/18/17 22:00 12/20/17 05:54 (Bactrim 400-80 Mg) 1 tab Q12HR PO 12/19/17 21:00 12/20/17 09:46 (Claritin) 10 mg DAILY PO 12/20/17 09:00 12/20/17 09:46 (Debrox 6.5% Otic) 5 drop Q12HR LEFT EAR 12/19/17 21:00 12/20/17 09:00 (Naprosyn) 500 mg Q12HR PO 12/20/17 09:00 12/20/17 09:45 (Librium) 5 mg Q8H PO 12/20/17 21:00 (Ativan Inj) 0.5 mg Q6H PRN IV PUSH 12/20/17 11:30 Vital Signs / I&O Vital Signs Date Time Temp Pulse Resp B/P (MAP) Pulse Ox O2 Delivery O2 Flow Rate FiO2 12/20/17 06:00 72 12/20/17 05:00 62 12/20/17 04:00 76 12/20/17 04:00 97.5 75 20 160/93 (115) 93 12/20/17 03:00 68 12/20/17 03:00 93 Room Air 12/20/17 02:00 66 12/20/17 01:00 72 12/20/17 00:00 70 12/19/17 23:00 92 Room Air 12/19/17 23:00 75 12/19/17 23:00 97.1 78 26 163/82 (109) 92 12/19/17 22:00 76 12/19/17 21:00 74 12/19/17 20:00 74 12/19/17 19:00 97.8 78 24 165/81 (109) 91 12/19/17 19:00 72 12/19/17 19:00 91 Room Air 12/19/17 18:00 76 12/19/17 17:00 76 12/19/17 16:53 78 113/63 12/19/17 16:45 78 113/63 12/19/17 16:00 70 12/19/17 15:29 96 Room Air 12/19/17 15:29 98.2 73 17 148/95 (112) 96 12/19/17 15:00 73 12/19/17 14:02 80 12/19/17 13:00 72 12/19/17 12:50 72 18 163/82 (109) 95 12/19/17 12:34 98.2 12/19/17 12:34 97 Room Air 12/19/17 12:20 97.8 72 18 163/82 (109) 12/19/17 12:00 66 I/O 12/19/17 12/19/17 12/19/17 12/20/17 12/20/17 12/20/17 07:00 15:00 23:00 07:00 15:00 23:00 Intake Total 1200 ml 17 ml 2400 ml 960 ml Output Total 1850 ml 1670 ml 1645 ml Balance -650 ml 17 ml 730 ml -685 ml Intake Oral 1200 ml 2400 ml 960 ml IV Total 17 ml Output Urine Total 1850 ml 1670 ml 1645 ml # Bowel Movements 1 Physical Exam GENERAL: NAD, sleeping SKIN: Warm and dry. HEAD: Atraumatic. Normocephalic. EYES: Pupils equal and round. No scleral icterus. No injection or drainage. ENT: No nasal bleeding or discharge. Mucous membranes pink and moist. NECK: Trachea midline. No JVD. CARDIOVASCULAR: Regular rate and rhythm. RESPIRATORY: No accessory muscle use. Clear to auscultation. Breath sounds equal bilaterally. GASTROINTESTINAL: Abdomen soft, non-tender, nondistended. Hepatic and splenic margins not palpable. MUSCULOSKELETAL: Extremities without clubbing, cyanosis, or edema. No obvious deformities. NEUROLOGICAL: Awake and alert. No obvious cranial nerve deficits. Motor grossly within normal limits. Five out of 5 muscle strength in the arms and legs. Normal speech. PSYCHIATRIC: Appropriate mood and affect; insight and judgment normal. Assessment and Plan Problem List: (1) Elevated troponin I level ICD Codes: R79.89 - Elevated troponin I level Status: Resolved (2) Hypertension ICD Codes: I10 - Hypertension Status: Acute (3) Tobacco abuse ICD Codes: F17.200 - Tobacco abuse Status: Acute (4) Cocaine abuse ICD Codes: F14.10 - Cocaine abuse Status: Acute (5) Sleep apnea ICD Codes: G47.30 - Sleep apnea Status: Acute (6) Chest pain ICD Codes: R07.9 - Chest pain Status: Acute (7) Obesity ICD Codes: E66.9 - Obesity Status: Acute (8) Diabetes ICD Codes: E11.9 - Diabetes Status: Acute (9) Noncompliance ICD Codes: Z91.19 - Noncompliance Status: Acute Assessment and Plan 1) Troponin minimally elevated chronically 2) Recent catheterization showing no significant CAD 3) EKG changes from years ago, most likely LVH 4) Wean nitro gtt off (on for HTN0 5) Tobacco cessation 6) Cocaine cessation 7) No further cardiovascular work up necessary at this time Problem Qualifiers (1) Chest pain: Qualified Codes: R07.9 - Chest pain, unspecified Arron Pearl DO Dec 20, 2017 11:51
[2017-12-21] VITALS (8 sets, daily range): BP systolic 149–160; BP diastolic 70–84; PULSE 54–80; RESP 16–21; TEMP 97.3–98.5; O2SAT 92–96
[2017-12-21] MEDS: RESP: ALBUTEROL 2.5 MG/IPRATROPIUM 0.5 MG NEB (SCH) NEB ×3 (07:42→19:07)
[2017-12-21] MEDS: INSULIN ASPART SUPPLEMENTAL SCALE SQ SCH ×4 (08:00→21:00)
[2017-12-21] MEDS: LORATADINE 10 MG TAB PO SCH (08:47)
[2017-12-21] MEDS: FOLIC ACID 1 MG TAB PO SCH (08:47)
[2017-12-21] MEDS: SULFAMETHOXAZOLE-TRIMETHOPRIM 400-80 MG TAB PO SCH ×2 (08:47→23:52)
[2017-12-21] MEDS: NAPROXEN 500 MG TAB PO SCH ×2 (08:47→22:20)
[2017-12-21] MEDS: LOSARTAN 50 MG TAB PO SCH ×2 (08:47→22:20)
[2017-12-21] MEDS: ASPIRIN 325 MG TAB PO SCH (08:47)
[2017-12-21] MEDS: THIAMINE HCL 100 MG TAB PO SCH (08:47)
[2017-12-21] MEDS: MULTIVITAMINS/MINERALS THERAPEUTIC TAB PO SCH (08:48)
[2017-12-21] MEDS: hydrALAZINE HCL 10 MG TAB PO SCH ×2 (08:48→13:49)
[2017-12-21] MEDS: SODIUM CHLORIDE 0.9% FLUSH 10 ML FLUSH IV FLUSH SCH ×4 (08:49→22:20)
[2017-12-21] MEDS: BUDESONIDE-FORMOTEROL 160/4.5 MCG INHALER INH SCH ×2 (08:49→22:19)
[2017-12-21] MEDS: CARBAMIDE PEROXIDE 6.5% OTIC SOLN 15 ML BTL LEFT EAR SCH ×2 (08:49→22:19)
[2017-12-21] MEDS: cloNIDine HCL 0.2 MG TAB PO SCH ×3 (08:56→22:20)
[2017-12-21] MEDS ORDERED: LORazepam 0.5 MG TAB PO PRN (14:00)
--- NOTE | 2017-12-21 14:05 | HHI.PR ---
Subjective Remarks Patient's clinical status continues to improve. In process of weaning benzodiazepine. Benzodiazepine treatments or stepped on again today. Patient was placed back on benzodiazepines 2 days ago after cessation cause recurrence of delirium tremens. No recurrence of delirium tremens thus far with current steep wean. Objective Vital Signs Date Time Temp Pulse Resp B/P (MAP) Pulse Ox O2 Delivery O2 Flow Rate FiO2 12/21/17 11:05 94 Room Air 12/21/17 08:16 92 Room Air 12/21/17 08:16 98.5 75 21 160/84 (109) 92 12/21/17 07:00 80 12/20/17 18:00 66 12/20/17 17:00 74 12/20/17 16:00 72 12/20/17 15:00 72 20 94 12/20/17 15:00 70 12/20/17 15:00 70 Room Air I/O 12/20/17 12/20/17 12/20/17 12/21/17 12/21/17 12/21/17 07:00 15:00 23:00 07:00 15:00 23:00 Intake Total 960 ml 240 ml Output Total 1645 ml 1150 ml Balance -685 ml -910 ml Intake Oral 960 ml 240 ml Output Urine Total 1645 ml 1150 ml Result Diagram: 12/19/1751612/19/1717 Objective Remarks GENERAL: NAD, A&Ox3 HEAD: Normocephalic. NECK: Supple, trachea midline. No lymphadenopathy. EARS: Right ear has erythema and evidence of mild purulence, left ear has completely obstruction from cerumen. EYES: No scleral icterus. No injection or drainage. CARDIOVASCULAR: Regular rate and rhythm without murmurs, gallops, or rubs. RESPIRATORY: Breath sounds equal bilaterally. No accessory muscle use. GASTROINTESTINAL: Abdomen soft, non-tender, nondistended. MUSCULOSKELETAL: No cyanosis, or edema. SKIN: Warm and dry. NEURO: No focal neurological deficitis. A/P Problem List: (1) Sinusitis ICD Code: J32.9 - Chronic sinusitis, unspecified (2) Elevated troponin I level ICD Code: R79.89 - Elevated troponin I level Status: Resolved (3) Cocaine abuse ICD Code: F14.10 - Cocaine abuse Status: Acute (4) Otitis media ICD Code: H66.90 - Otitis media Status: Acute Assessment and Plan 52-year-old male admitted secondary to chest pain in the presence of cocaine. Delirium tremens present. Continue to wean benzodiazepine. Continue NSAIDs for treatment of right lower extremity gout. Continue Bactrim for treatment right otitis media. Continue carbamide peroxide for treatment of left cerumen impaction. Continue antihistamines to treat patient's rhinorrhea. Chest pain Serial cardiac enzymes are elevated EKG showed some evidence of possible myocardial infarction Beta blockers avoided secondary to cocaine abuse Patient is no longer withdrawing from alcohol Cardiology has evaluated the patient, no further cardiac workup needed Association with crack cocaine discussed with the patient and patient has been counseled to quit abusing drugs Alcohol withdrawal Alcohol abuse Librium weaned to every 8 hours Lorazepam decreased to 0.5 mg every 6 hours Continue to wean benzodiazepines and Follow for resolution of delirium tremens off benzodiazepine Continue thiamine Continue folic acid Right-sided otitis media Sinusitis Bactrim to be continued until 12/25/17 Follow clinically Antihistamine continue Sinusitis symptoms may be secondary to cocaine withdrawal Left-sided cerumen impaction Continue Carbamide peroxide twice a day Hypertensive urgency Continue present treatments Follow blood pressure Hypertension Off nitroglycerin drip Continue Norvasc Continue clonidine Continue hydralazine Monitor blood pressures Cocaine abuse may be contributory Cocaine abuse history Patient counseled to quit History of diabetes type 2 Insulin sliding scale Diabetic diet Follow blood sugars Acute renal failure Resolved COPD Continue baseline treatments No exacerbations currently DVT prophylaxis Bilateral SCDs Nakul Arias MD Dec 21, 2017 14:05
--- NOTE | 2017-12-21 14:29 | PD.CARD.PN ---
Subjective Subjective Remarks Chest pain with coughing, otherwise no symptoms Feels much better Objective Medications Current Medications Medications (Trade) Dose Ordered Sig/Dimitris Route Start Time Stop Time Status Last Admin (NS Flush) 2 ml UNSCH PRN IV FLUSH 12/16/17 12:00 (NS Flush) 2 ml BID IV FLUSH 12/16/17 21:00 12/21/17 08:49 (Tylenol) 650 mg Q4H PRN PO 12/16/17 12:00 12/21/17 00:00 (Zofran Inj) 4 mg Q6H PRN IVP 12/16/17 12:00 (Tylenol) 650 mg Q6H PRN PO 12/16/17 12:00 12/20/17 05:54 (Narcan Inj) 0.4 mg UNSCH PRN IV PUSH 12/16/17 12:00 (Milk Of Magnesia Liq) 30 ml Q12H PRN PO 12/16/17 12:00 (Duoneb Neb) 1 ampule Q2HR NEB PRN NEB 12/16/17 12:00 (D50w (Vial) Inj) 50 ml UNSCH PRN IV PUSH 12/16/17 12:15 (Glucagon Inj) 1 mg UNSCH PRN OTHER 12/16/17 12:15 (NovoLOG SUPPLEMENTAL SCALE) 1 ACHS SLIDING SCALE SQ 12/16/17 17:00 12/17/17 13:00 (Norvasc) 10 mg DAILY PO 12/17/17 09:00 12/21/17 08:48 (Symbicort 160-4.5 Mcg Inh) 2 puff Q12HR INH 12/16/17 21:00 12/21/17 08:49 (Aspirin) 325 mg DAILY PO 12/17/17 09:00 12/21/17 08:47 (Catapres) 0.1 mg Q6H PRN PO 12/16/17 13:30 12/17/17 14:43 (NS Flush) 2 ml UNSCH PRN IV FLUSH 12/17/17 11:15 (NS Flush) 2 ml BID IV FLUSH 12/17/17 21:00 12/20/17 09:46 (Folate) 1 mg DAILY PO 12/18/17 09:00 12/23/17 08:59 12/21/17 08:47 (Vitamin B1) 100 mg DAILY PO 12/18/17 09:00 12/21/17 08:47 (Theragran M Tab) 1 tab DAILY PO 12/18/17 09:00 12/23/17 08:59 12/21/17 08:48 (Catapres) 0.1 mg Q6H PRN PO 12/17/17 11:15 (Romazicon Inj) 0.2 mg Q1M PRN IV PUSH 12/17/17 11:15 (Cozaar) 50 mg Q12HR PO 12/17/17 21:00 12/21/17 08:47 (Tessalon) 100 mg TID PRN PO 12/17/17 23:00 12/18/17 23:44 (Duoneb Neb) 1 ampule Q6HR WHILE AWAKE NEB NEB 12/18/17 08:00 12/21/17 07:42 (Robitussin Dm 200-20 Mg/10 ml Liq) 10 ml Q4H PRN PO 12/17/17 23:45 12/20/17 20:37 (Catapres) 0.2 mg Q8HR PO 12/18/17 22:00 12/21/17 13:49 (Bactrim 400-80 Mg) 1 tab Q12HR PO 12/19/17 21:00 12/21/17 08:47 (Claritin) 10 mg DAILY PO 12/20/17 09:00 12/21/17 08:47 (Debrox 6.5% Otic) 5 drop Q12HR LEFT EAR 12/19/17 21:00 12/21/17 08:49 (Naprosyn) 500 mg Q12HR PO 12/20/17 09:00 12/21/17 08:47 (Ativan) 0.5 mg Q6HR PRN PO 12/21/17 14:00 UNV (Apresoline) 25 mg Q8HR PO 12/21/17 22:00 UNV Vital Signs / I&O Vital Signs Date Time Temp Pulse Resp B/P (MAP) Pulse Ox O2 Delivery O2 Flow Rate FiO2 12/21/17 11:05 94 Room Air 12/21/17 08:16 92 Room Air 12/21/17 08:16 98.5 75 21 160/84 (109) 92 12/21/17 07:00 80 12/20/17 18:00 66 12/20/17 17:00 74 12/20/17 16:00 72 12/20/17 15:00 72 20 94 12/20/17 15:00 70 12/20/17 15:00 70 Room Air I/O 12/20/17 12/20/17 12/20/17 12/21/17 12/21/17 12/21/17 07:00 15:00 23:00 07:00 15:00 23:00 Intake Total 960 ml 240 ml Output Total 1645 ml 1150 ml Balance -685 ml -910 ml Intake Oral 960 ml 240 ml Output Urine Total 1645 ml 1150 ml Physical Exam GENERAL: NAD SKIN: Warm and dry. HEAD: Atraumatic. Normocephalic. EYES: Pupils equal and round. No scleral icterus. No injection or drainage. ENT: No nasal bleeding or discharge. Mucous membranes pink and moist. NECK: Trachea midline. No JVD. CARDIOVASCULAR: Regular rate and rhythm. RESPIRATORY: No accessory muscle use. Clear to auscultation. Breath sounds equal bilaterally. GASTROINTESTINAL: Abdomen soft, non-tender, nondistended. Hepatic and splenic margins not palpable. MUSCULOSKELETAL: Extremities without clubbing, cyanosis, or edema. No obvious deformities. NEUROLOGICAL: Awake and alert. No obvious cranial nerve deficits. Motor grossly within normal limits. Five out of 5 muscle strength in the arms and legs. Normal speech. PSYCHIATRIC: Appropriate mood and affect; insight and judgment normal. Assessment and Plan Problem List: (1) Elevated troponin I level ICD Codes: R79.89 - Elevated troponin I level Status: Resolved (2) Hypertension ICD Codes: I10 - Hypertension Status: Acute (3) Tobacco abuse ICD Codes: F17.200 - Tobacco abuse Status: Acute (4) Cocaine abuse ICD Codes: F14.10 - Cocaine abuse Status: Acute (5) Sleep apnea ICD Codes: G47.30 - Sleep apnea Status: Acute (6) Chest pain ICD Codes: R07.9 - Chest pain Status: Acute (7) Obesity ICD Codes: E66.9 - Obesity Status: Acute (8) Diabetes ICD Codes: E11.9 - Diabetes Status: Acute (9) Noncompliance ICD Codes: Z91.19 - Noncompliance Status: Acute Assessment and Plan 1) Troponin minimally elevated chronically 2) Recent catheterization showing no significant CAD 3) EKG changes from years ago, most likely LVH 4) Nitro weaned off 5) Tobacco cessation 6) Cocaine cessation 7) No further cardiovascular work up necessary at this time 8) BP elevated, increased Hydralazine Problem Qualifiers (1) Chest pain: Qualified Codes: R07.9 - Chest pain, unspecified Arron Pearl DO Dec 21, 2017 14:29
[2017-12-21] MEDS: hydrALAZINE HCL 25 MG TAB PO SCH (22:20)
[2017-12-22] VITALS: BP 156/84; PULSE 65; RESP 20; TEMP 97.9; O2SAT 95
[2017-12-22 00:13] VITALS: PULSE 63
[2017-12-22] MEDS: guaiFENesin/DEXTROMETHORPHAN 200 MG/20 MG/10 ML CUP PO PRN (00:29)
[2017-12-22] MEDS: RESP: ALBUTEROL 2.5 MG/IPRATROPIUM 0.5 MG NEB (PRN) NEB (00:59)
[2017-12-22 03:58] VITALS: PULSE 69
[2017-12-22 04:00] VITALS: BP 146/92; PULSE 63; RESP 20; TEMP 96.9; O2SAT 94
[2017-12-22] MEDS: cloNIDine HCL 0.2 MG TAB PO SCH (05:48)
[2017-12-22] MEDS: hydrALAZINE HCL 25 MG TAB PO SCH (05:48)
[2017-12-22] MEDS: RESP: ALBUTEROL 2.5 MG/IPRATROPIUM 0.5 MG NEB (SCH) NEB (07:43)
[2017-12-22 08:00] VITALS: BP 133/64; PULSE 63; PULSE 68; RESP 18; TEMP 97.4; O2SAT 91
[2017-12-22] MEDS: INSULIN ASPART SUPPLEMENTAL SCALE SQ SCH ×2 (08:00→11:55)
[2017-12-22] MEDS ORDERED: CLON.2 PO (08:45)
[2017-12-22] MEDS ORDERED: FOLI1TAB6 PO (08:45)
[2017-12-22] MEDS ORDERED: HYDR-3799 PO (08:45)
[2017-12-22] MEDS ORDERED: THIA100 PO (08:45)
[2017-12-22] MEDS ORDERED: SULF400T18 PO (08:45)
[2017-12-22] MEDS ORDERED: COZA50TA PO (08:45)
--- NOTE | 2017-12-22 08:45 | HHI.DCPOC ---
Discharge Care Plan Diagnosis: (1) Hypertension (2) Cocaine abuse Your Health Problems Are: Difficulty with ADL Exercise Tolerance Goals to Promote Your Health * To prevent worsening of your condition and complications * To maintain your health at the optimal level Directions to Meet Your Goals Take your medications as prescribed Follow your dietary instruction Follow activity as directed Keep your appointments as scheduled Take your immunizations and boosters as scheduled If your symptoms worsen call your PCP, if no PCP go to Urgent Care Center or Emergency Room Smoking is Dangerous to Your Health. Avoid second hand smoke Call the 24-hour hour crisis hotline for domestic abuse at Homero Zimmer MD Dec 22, 2017 08:45
[2017-12-22] MEDS: SODIUM CHLORIDE 0.9% FLUSH 10 ML FLUSH IV FLUSH SCH ×2 (09:00→09:33)
[2017-12-22] MEDS: BUDESONIDE-FORMOTEROL 160/4.5 MCG INHALER INH SCH (09:33)
[2017-12-22] MEDS: CARBAMIDE PEROXIDE 6.5% OTIC SOLN 15 ML BTL LEFT EAR SCH (09:33)
[2017-12-22] MEDS: SULFAMETHOXAZOLE-TRIMETHOPRIM 400-80 MG TAB PO SCH (09:34)
[2017-12-22] MEDS: MULTIVITAMINS/MINERALS THERAPEUTIC TAB PO SCH (09:34)
[2017-12-22] MEDS: NAPROXEN 500 MG TAB PO SCH (09:34)
[2017-12-22] MEDS: LORATADINE 10 MG TAB PO SCH (09:34)
[2017-12-22] MEDS: FOLIC ACID 1 MG TAB PO SCH (09:34)
[2017-12-22] MEDS: LOSARTAN 50 MG TAB PO SCH (09:34)
[2017-12-22] MEDS: THIAMINE HCL 100 MG TAB PO SCH (09:34)
[2017-12-22] MEDS: ASPIRIN 325 MG TAB PO SCH (09:34)
[2017-12-22] MEDS ORDERED: CLAR10TA7 PO (11:14)
--- NOTE | 2017-12-22 11:40 | HHI.DS ---
Discharge Summary Admission Date Dec 18, 2017 at 09:44 Discharge Date: Dec 22, 2017 Admitting Diagnosis chest pain, cocaine use, elevated troponin (1) Atypical chest pain ICD Code: R07.89 - Other chest pain Diagnosis: Principal (2) Elevated troponin I level ICD Code: R79.89 - Elevated troponin I level Diagnosis: Principal Status: Resolved (3) Cocaine abuse ICD Code: F14.10 - Cocaine abuse Diagnosis: Principal Status: Acute Procedures none Brief History - From Admission 52-year-old male with a history of diabetes type 2, polysubstance abuse, cocaine abuse, chronically elevated troponin I was brought to the ED by EMS for evaluation of an acute onset of substernal chest pain without any associated radiation and described as stabbing. Patient smoked $600 worth of cocaine over a period of 24 hours. Patient has a known history of chronically elevated troponin I, and he had heart catheterization 07/22/17 and was diagnosed with non -obstructive coronary artery disease. CBC/BMP: 12/19/17 0517 12/19/17 0517 Imaging Last Impressions Chest X-Ray 12/16/17 1031 Signed Impressions: Service Date/Time: Saturday, December 16, 2017 10:36 - CONCLUSION: No acute disease. Shakeel Garcia MD PE at Discharge GENERAL: This is a well-nourished, well-developed patient, in no apparent distress. CARDIOVASCULAR: Regular rate and rhythm without murmurs, gallops, or rubs. RESPIRATORY: Clear to auscultation. Breath sounds equal bilaterally. No wheezes , rales, or rhonchi. GASTROINTESTINAL: Abdomen soft, non-tender, nondistended. No guarding. MUSCULOSKELETAL: Extremities without clubbing, cyanosis, or edema. No joint tenderness, effusion, or edema noted. No calf tenderness. Negative Homans sign bilaterally. NEUROLOGICAL: Awake and alert. Cranial nerves grossly intact. Motor and sensory grossly within normal limits. Normal speech. No Tremors. Hospital Course 52-year-old male admitted secondary to chest pain in the presence of cocaine. CP resolved hx cath 07/29 with nonobstructive CAD. Patient was evaluated by cardiology. Delirium tremens resolved status post benzodiazepine weaning. Hypertensive urgency also resolved on multiple antihypertensives. He is also receiving Bactrim for treatment right otitis media, carbamide peroxide for treatment of left cerumen impaction and antihistamines to treat patient's rhinorrhea. Pt Condition on Discharge: Stable Discharge Disposition: Discharge Home Discharge Time: > 30 minutes Discharge Instructions DIET: Follow Instructions for: Heart Healthy Diet, Diabetic Diet Activities you can perform: Regular-No Restrictions Activities to Avoid: Driving Follow up Referrals: PCP Follow-up - 1 Week New Medications: Clonidine (Catapres) 0.2 Mg Tab 0.2 MG PO Q8HR for Blood Pressure Management, #90 TAB Folic Acid (Folic Acid) 1 Mg Tablet 1 MG PO DAILY for Alcohol Detox, #30 TAB Hydralazine HCl (Hydralazine HCl) 25 Mg Tablet 25 MG PO Q8HR for Blood Pressure Management, #90 TAB Loratadine (Claritin) 10 Mg Tablet 10 MG PO DAILY for Allergy Management, #30 TAB Losartan (Cozaar) 50 Mg Tab 50 MG PO Q12HR for Blood Pressure Management, #30 TAB Sulfamethoxazole/Trimethoprim (Sulfamethoxazole-Tmp Ss Tablet) 400 Mg-80 Mg Tablet 1 TAB PO Q12HR for Infection, #14 TAB Thiamine HCl (Gnp Vitamin B-1) 100 Mg Tab 100 MG PO DAILY for Alcohol Detox, #30 TAB Continued Medications: Acetaminophen (Tylenol) 325 Mg Tab 650 MG PO Q6H PRN for pain , #30 TAB 0 Refills Albuterol 18 GM Inh (Ventolin Hfa 18 GM Inh) 90 Mcg/Act Aer 2 PUFF INH Q6H PRN for SHORTNESS OF BREATH, #1 INHALER 0 Refills Amlodipine (Norvasc) 10 Mg Tab 10 MG PO DAILY for Blood Pressure Management, #30 TAB 0 Refills Budesonide-Formoterol Inh (Symbicort Inh) 160-4.5 Mcg/Act Aero 2 PUFF INH Q12HR, #1 INHALER 0 Refills Ipratropium HFA 12.9 GM Inh (Atrovent HFA 12.9 GM Inh) 17 Mcg/Actuation Aer 2 PUFF INH TID for asthma/copd , #1 INHALER 0 Refills Tramadol (Tramadol) 50 Mg Tab 50 MG PO Q8H PRN for PAIN, #30 TAB 0 Refills Walker with Front Wheels (Walker with Front Wheels) 1 Mis Mis EA .ROUTE DIRECTED, #1 0 Refills Patient needs wide wheeled walker - he is 6'3 and 288 pounds Discontinued Medications: Metoprolol Tartrate (Metoprolol Tartrate) 50 Mg Tab 50 MG PO DAILY, #30 TAB 0 Refills Homero Zimmer MD Dec 22, 2017 11:40
[2017-12-22 12:00] VITALS: BP 172/89; PULSE 69; RESP 18; TEMP 97.1; O2SAT 97
--- NOTE | 2017-12-22 12:05 | PD.CARD.PN ---
Subjective Subjective Remarks Feels much better Blood pressure better controlled Objective Medications Current Medications Medications (Trade) Dose Ordered Sig/Dimitris Route Start Time Stop Time Status Last Admin (NS Flush) 2 ml UNSCH PRN IV FLUSH 12/16/17 12:00 (NS Flush) 2 ml BID IV FLUSH 12/16/17 21:00 12/22/17 09:33 (Tylenol) 650 mg Q4H PRN PO 12/16/17 12:00 12/21/17 00:00 (Zofran Inj) 4 mg Q6H PRN IVP 12/16/17 12:00 (Tylenol) 650 mg Q6H PRN PO 12/16/17 12:00 12/20/17 05:54 (Narcan Inj) 0.4 mg UNSCH PRN IV PUSH 12/16/17 12:00 (Milk Of Magnesia Liq) 30 ml Q12H PRN PO 12/16/17 12:00 (Duoneb Neb) 1 ampule Q2HR NEB PRN NEB 12/16/17 12:00 12/22/17 00:59 (D50w (Vial) Inj) 50 ml UNSCH PRN IV PUSH 12/16/17 12:15 (Glucagon Inj) 1 mg UNSCH PRN OTHER 12/16/17 12:15 (NovoLOG SUPPLEMENTAL SCALE) 1 ACHS SLIDING SCALE SQ 12/16/17 17:00 12/17/17 13:00 (Norvasc) 10 mg DAILY PO 12/17/17 09:00 12/22/17 09:34 (Symbicort 160-4.5 Mcg Inh) 2 puff Q12HR INH 12/16/17 21:00 12/22/17 09:33 (Aspirin) 325 mg DAILY PO 12/17/17 09:00 12/22/17 09:34 (Catapres) 0.1 mg Q6H PRN PO 12/16/17 13:30 Future Hold 12/17/17 14:43 (NS Flush) 2 ml UNSCH PRN IV FLUSH 12/17/17 11:15 (NS Flush) 2 ml BID IV FLUSH 12/17/17 21:00 12/20/17 09:46 (Folate) 1 mg DAILY PO 12/18/17 09:00 12/23/17 08:59 12/22/17 09:34 (Vitamin B1) 100 mg DAILY PO 12/18/17 09:00 12/22/17 09:34 (Theragran M Tab) 1 tab DAILY PO 12/18/17 09:00 12/23/17 08:59 12/22/17 09:34 (Catapres) 0.1 mg Q6H PRN PO 12/17/17 11:15 (Romazicon Inj) 0.2 mg Q1M PRN IV PUSH 12/17/17 11:15 (Cozaar) 50 mg Q12HR PO 12/17/17 21:00 12/22/17 09:34 (Tessalon) 100 mg TID PRN PO 12/17/17 23:00 12/18/17 23:44 (Robitussin Dm 200-20 Mg/10 ml Liq) 10 ml Q4H PRN PO 12/17/17 23:45 12/22/17 00:29 (Catapres) 0.2 mg Q8HR PO 12/18/17 22:00 12/22/17 05:48 (Bactrim 400-80 Mg) 1 tab Q12HR PO 12/19/17 21:00 12/22/17 09:34 (Claritin) 10 mg DAILY PO 12/20/17 09:00 12/22/17 09:34 (Debrox 6.5% Otic) 5 drop Q12HR LEFT EAR 12/19/17 21:00 12/22/17 09:33 (Naprosyn) 500 mg Q12HR PO 12/20/17 09:00 12/22/17 09:34 (Ativan) 0.5 mg Q6HR PRN PO 12/21/17 14:00 (Apresoline) 25 mg Q8HR PO 12/21/17 22:00 12/22/17 05:48 Vital Signs / I&O Vital Signs Date Time Temp Pulse Resp B/P (MAP) Pulse Ox O2 Delivery O2 Flow Rate FiO2 12/22/17 11:46 Room Air 12/22/17 08:00 97.4 68 18 133/64 (87) 91 12/22/17 08:00 63 12/22/17 07:43 Room Air 12/22/17 04:00 96.9 63 20 146/92 (110) 94 12/22/17 03:58 69 12/22/17 00:13 63 12/22/17 00:00 97.9 65 20 156/84 (108) 95 12/21/17 20:09 54 12/21/17 20:00 97.3 66 20 150/84 (106) 96 12/21/17 16:00 97.8 72 16 149/71 (97) 95 12/21/17 15:41 95 Room Air 12/21/17 15:41 98.2 72 18 150/83 (105) 93 12/21/17 15:00 70 I/O 12/21/17 12/21/17 12/21/17 12/22/17 12/22/17 12/22/17 07:00 15:00 23:00 07:00 15:00 23:00 Intake Total 240 ml 1200 ml 480 ml Output Total 1150 ml 1200 ml 500 ml Balance -910 ml 0 ml -20 ml Intake Oral 240 ml 1200 ml 480 ml Output Urine Total 1150 ml 1200 ml 500 ml # Voids 3 # Bowel Movements 0 Physical Exam GENERAL: NAD SKIN: Warm and dry. HEAD: Atraumatic. Normocephalic. EYES: Pupils equal and round. No scleral icterus. No injection or drainage. ENT: No nasal bleeding or discharge. Mucous membranes pink and moist. NECK: Trachea midline. No JVD. CARDIOVASCULAR: Regular rate and rhythm. RESPIRATORY: No accessory muscle use. Clear to auscultation. Breath sounds equal bilaterally. GASTROINTESTINAL: Abdomen soft, non-tender, nondistended. Hepatic and splenic margins not palpable. MUSCULOSKELETAL: Extremities without clubbing, cyanosis, or edema. No obvious deformities. NEUROLOGICAL: Awake and alert. No obvious cranial nerve deficits. Motor grossly within normal limits. Five out of 5 muscle strength in the arms and legs. Normal speech. PSYCHIATRIC: Appropriate mood and affect; insight and judgment normal. Assessment and Plan Problem List: (1) Elevated troponin I level ICD Codes: R79.89 - Elevated troponin I level Status: Resolved (2) Hypertension ICD Codes: I10 - Hypertension Status: Acute (3) Tobacco abuse ICD Codes: F17.200 - Tobacco abuse Status: Acute (4) Cocaine abuse ICD Codes: F14.10 - Cocaine abuse Status: Acute (5) Sleep apnea ICD Codes: G47.30 - Sleep apnea Status: Acute (6) Chest pain ICD Codes: R07.9 - Chest pain Status: Acute (7) Obesity ICD Codes: E66.9 - Obesity Status: Acute (8) Diabetes ICD Codes: E11.9 - Diabetes Status: Acute (9) Noncompliance ICD Codes: Z91.19 - Noncompliance Status: Acute Assessment and Plan 1) Troponin minimally elevated chronically 2) Recent catheterization showing no significant CAD 3) EKG changes from years ago, most likely LVH 4) Nitro weaned off 5) Tobacco cessation 6) Cocaine cessation 7) No further cardiovascular work up necessary at this time 8) BP now stable, cardiovascularly stable for discharge Problem Qualifiers (1) Chest pain: Qualified Codes: R07.9 - Chest pain, unspecified Arron Pearl DO Dec 22, 2017 12:04
== END 2017-12-22 12:15 | disposition home or self-care (01) | DRG 897 ==
LOC: NEPC 10:19 → INTOOBSV 11:54 → NEDA 11:54 → HCIS 14:55 → OBSVTOIN 12-18 09:44 → N04B 12-21 16:21
PROVIDERS: ADMIT Internal Medicine; ATTEND Internal Medicine
DX: F10.231 Alcohol dependence with withdrawal delirium (principal); F14.10 Cocaine abuse, uncomplicated; N17.9 Acute kidney failure, unspecified; I11.0 Hypertensive heart disease with heart failure; I50.9 Heart failure, unspecified; Z68.41 Body mass index [BMI] 40.0-44.9, adult; E11.9 Type 2 diabetes mellitus without complications; J32.9 Chronic sinusitis, unspecified; R07.9 Chest pain, unspecified; I25.10 Atherosclerotic heart disease of native coronary artery without angina pectoris; E66.9 Obesity, unspecified; I16.0 Hypertensive urgency; F17.210 Nicotine dependence, cigarettes, uncomplicated; E78.5 Hyperlipidemia, unspecified; E86.0 Dehydration; F20.9 Schizophrenia, unspecified; G47.30 Sleep apnea, unspecified; H61.22 Impacted cerumen, left ear; H66.91 Otitis media, unspecified, right ear; J44.9 Chronic obstructive pulmonary disease, unspecified; K21.9 Gastro-esophageal reflux disease without esophagitis; M10.9 Gout, unspecified; F32.9 Major depressive disorder, single episode, unspecified; F41.9 Anxiety disorder, unspecified; M06.9 Rheumatoid arthritis, unspecified; R74.8 Abnormal levels of other serum enzymes; Z91.19 Patient's noncompliance with other medical treatment and regimen; I25.2 Old myocardial infarction
CPT/HCPCS: 71045; 80048; 80053; 80307; 82550; 82552; 82948; 83735; 83880; 84484; 85025; 85610; 85730; 93005; 94640; 94664; 96365; 96366; 96372; G0378; J1815; J1885; J2060

== ENCOUNTER 2018-04-26 09:55 | Emergency (ER) | payer MEDICAID, OTHER ==
[~2018-04-26] VITALS: Ht 185.4 cm; Wt 145.4 kg
[2018-04-26 09:55] VITALS: BP 122/67; PULSE 101; RESP 18; TEMP 97.4; O2SAT 91; O2SAT 97
[~2018-04-26 09:55] MED LIST changes: +CLAR10TA7 PO; +CLON.2 PO; +COZA50TA PO; +FOLI1TAB6 PO; +HYDR-3799 PO; -METO50TA PO; +SULF400T18 PO; +THIA100 PO
[2018-04-26 10:30] VITALS: BP 122/67; PULSE 102; RESP 22; O2SAT 95
--- NOTE | 2018-04-26 10:43 | PD ---
HPI Chief Complaint: Syncope/Near-Syncope Time Seen by Provider: 10:12 Travel History International Travel<30 days: No Contact w/Intl Traveler<30days: No Traveled to known affect area: No History of Present Illness HPI This patient woke up this morning feeling dizzy and lightheaded. He reports having a syncopal episode. He also woke up having low mid back pain. There is been no injury. He did not have any pain yesterday. No motor weakness or sensory loss or paresthesias reported. Patient is a smoker of crack cocaine. He did that last night at 1 AM. He denies ever doing IV drugs. No fever. He has nonischemic cardiomyopathy diagnosed by heart catheterization last year. Symptom severity is moderate. No alleviating factors. Symptoms exacerbated by his polysubstance abuse PFSH Past Medical History Arthritis: Yes Asthma: Yes Autoimmune Disease: No Anxiety: Yes Depression: Yes Heart Rhythm Problems: Yes Cancer: No Cardiovascular Problems: Yes (HTN) High Cholesterol: Yes Chemotherapy: No Chest Pain: Yes Congestive Heart Failure: No COPD: Yes Cerebrovascular Accident: No Diabetes: Yes (INSULIN DEPENDENT) Patient Takes Glucophage: No Diminished Hearing: Yes (LT. EAR) Endocrine: Yes Gastrointestinal Disorders: Yes GERD: No Genitourinary: Yes Headaches: Yes Hiatal Hernia: No Hypertension: Yes Immune Disorder: No Implanted Vascular Access Dvce: No Kidney Stones: No Musculoskeletal: Yes Neurologic: Yes Psychiatric: Yes Reproductive: No Respiratory: Yes (ASTHMA, COPD) Immunizations Current: Yes Migraines: Yes Myocardial Infarction: Yes (NSTEMI) Radiation Therapy: No Renal Failure: No Schizophrenia: Yes Seizures: Yes (from cocaine) Sickle Cell Disease: No Sleep Apnea: Yes (CPAP at night) Thyroid Disease: No Triglycerides - High: Yes Ulcer: No Tetanus Vaccination: < 5 Years Influenza Vaccination: Yes Past Surgical History Abdominal Surgery: No AICD: No Arteriovenous Shunt: No Body Medical Devices: STATES SOMETHING IN MY EAR Cardiac Surgery: No Ear Surgery: No Endocrine Surgery: No Eye Surgery: No Genitourinary Surgery: No Gynecologic Surgery: No Insulin Pump: No Joint Replacement: No Neurologic Surgery: No Oral Surgery: No Pacemaker: No Thoracic Surgery: No Other Surgery: Yes (TENDON REPAIR BILATERAL THUMBS) Social History Alcohol Use: Yes (OCCASIONALLY) Tobacco Use: Yes (SOCIALLY) Substance Use: Yes (COCAINE USE 04/25/18, MARIJUANA) Allergies-Medications (Allergen,Severity, Reaction): Coded Allergies: milk (Verified Adverse Reaction, Severe, vomiting, 04/26/18) lisinopril (Unverified Adverse Reaction, Intermediate, Cough, 04/26/18) Uncoded Allergies: WOOL (Allergy, Severe, RASH, 10/03/14) Reported Meds & Prescriptions Reported Meds & Active Scripts Active Claritin (Loratadine) 10 Mg Tablet 10 Mg PO DAILY Gnp Vitamin B-1 (Thiamine HCl) 100 Mg Tab 100 Mg PO DAILY Cozaar (Losartan Potassium) 50 Mg Tab 50 Mg PO Q12HR Hydralazine HCl 25 Mg Tablet 25 Mg PO Q8HR Catapres (Clonidine) 0.2 Mg Tab 0.2 Mg PO Q8HR Atrovent HFA 12.9 GM Inh (Ipratropium [place]) 17 Mcg/Actuation Aer 2 Puff INH TID Ventolin Hfa 18 GM Inh (Albuterol Sulfate) 90 Mcg/Act Aer 2 Puff INH Q6H PRN Symbicort Inh (Budesonide/Formoterol Fumarate) 160-4.5 Mcg/Act Aero 2 Puff INH Q12HR Tramadol (Tramadol HCl) 50 Mg Tab 50 Mg PO Q8H PRN Tylenol (Acetaminophen) 325 Mg Tab 650 Mg PO Q6H PRN Reported Norvasc (Amlodipine Besylate) 10 Mg Tab 10 Mg PO DAILY Review of Systems General / Constitutional: No: Fever Eyes: No: Visual changes HENT: Positive: Lightheadedness, No: Headaches Cardiovascular: Positive: Syncope, No: Chest Pain or Discomfort Respiratory: No: Shortness of Breath Gastrointestinal: No: Abdominal Pain Genitourinary: No: Dysuria Musculoskeletal: Positive: Pain Skin: No Rash Neurologic: Positive: Dizziness, Syncope, No: Weakness Psychiatric: Positive: Substance Abuse, No: Depression Endocrine: No: Polydipsia Hematologic/Lymphatic: No: Easy Bruising Physical Exam Narrative GENERAL: Well-nourished, well-developed patient in no apparent distress. SKIN: Focused skin assessment reveals no rash and nodules. Skin is Warm and dry. HEAD: Atraumatic. Normocephalic. EYES: Pupils equal and round. No scleral icterus. No injection or drainage. ENT: No nasal bleeding or discharge. Mucous membranes pink and moist. NECK: Trachea midline. No JVD. CARDIOVASCULAR: Regular rate and rhythm. No murmur appreciated. RESPIRATORY: No accessory muscle use. Clear to auscultation. Breath sounds equal bilaterally. GASTROINTESTINAL: Abdomen soft, non-tender, nondistended. Hepatic and splenic margins not palpable. MUSCULOSKELETAL: No obvious deformities. No clubbing. No cyanosis. Trace symmetric lower extremity edema. No midline tenderness or objective findings regarding the back NEUROLOGICAL: Awake and alert. No obvious cranial nerve deficits. Motor grossly within normal limits. Normal speech. PSYCHIATRIC: Appropriate mood and affect; insight and judgment poor. Data Data Last Documented VS Vital Signs Date Time Temp Pulse Resp B/P (MAP) Pulse Ox O2 Delivery O2 Flow Rate FiO2 04/26/18 14:00 97 24 126/59 (81) 95 Nasal Cannula 2.00 04/26/18 09:55 97.4 Orders Orders Iv Access Insert/Monitor (04/26/18 10:29) Complete Blood Count With Diff (04/26/18 10:29) Basic Metabolic Panel (Bmp) (04/26/18 10:29) Prothrombin Time / Inr (Pt) (04/26/18 10:29) Act Partial Throm Time (Ptt) (04/26/18 10:29) Electrocardiogram (04/26/18 ) Latex Thread Machine Operator / Telemetry KAYLEE.Q8H (04/26/18 10:29) Ct Abd/Pel W/O Iv Contrast (04/26/18 ) Potassium Bicarb Eff (Effer-K Eff) (04/26/18 14:00) Labs Laboratory Tests Test 04/26/18 10:00 White Blood Count 8.8 TH/MM3 Red Blood Count 4.43 MIL/MM3 Hemoglobin 12.5 GM/DL Hematocrit 37.2 % Mean Corpuscular Volume 83.8 FL Mean Corpuscular Hemoglobin 28.3 PG Mean Corpuscular Hemoglobin Concent 33.7 % Red Cell Distribution Width 15.8 % Platelet Count 250 TH/MM3 Mean Platelet Volume 8.1 FL Neutrophils (%) (Auto) 49.0 % Lymphocytes (%) (Auto) 41.0 % Monocytes (%) (Auto) 7.2 % Eosinophils (%) (Auto) 2.1 % Basophils (%) (Auto) 0.7 % Neutrophils # (Auto) 4.3 TH/MM3 Lymphocytes # (Auto) 3.6 TH/MM3 Monocytes # (Auto) 0.6 TH/MM3 Eosinophils # (Auto) 0.2 TH/MM3 Basophils # (Auto) 0.1 TH/MM3 CBC Comment DIFF FINAL Differential Comment Prothrombin Time 9.9 SEC Prothromb Time International Ratio 1.0 RATIO Activated Partial Thromboplast Time 33.8 SEC Blood Urea Nitrogen 45 MG/DL Creatinine 2.20 MG/DL Random Glucose 101 MG/DL Calcium Level 8.9 MG/DL Sodium Level 142 MEQ/L Potassium Level 3.0 MEQ/L Chloride Level 105 MEQ/L Carbon Dioxide Level 25.2 MEQ/L Anion Gap 12 MEQ/L Estimat Glomerular Filtration Rate 39 ML/MIN MDM Medical Decision Making Medical Screen Exam Complete: Yes Emergency Medical Condition: Yes Medical Record Reviewed: Yes Differential Diagnosis AAA, cardiac arrhythmia, polysubstance abuse Narrative Course I have reviewed the patient's electronic medical record. Had heart catheterization 2016 showing nonischemic cardia myopathy. hAs been here before with cocaine abuse IV placed and labs sent I reviewed his EKG which shows sinus rhythm without ectopy Extended cardiac monitoring shows sinus rhythm without ectopy Given his syncope and cocaine abuse and new onset back pain without injury, I have ordered CT of his aorta to rule out aneurysm or dissection. CT scan reveals no evidence of aortic aneurysm Lab studies are reviewed. Metabolic shows hypokalemia 3.0 which is replaced orally Patient is having a lot of problems but is not taking any responsibility for himself. He continues to abuse cocaine and has quit using his CPAP machine at night. He does not follow up with any physicians. We had a lengthy discussion about these poor habits. Saturations are mid 90s on room air Stable for outpatient follow-up but has many issues to work on Diagnosis Primary Impression: Syncope Qualified Codes: R55 - Syncope and collapse Additional Impressions: Cocaine abuse Hypokalemia Sleep apnea Qualified Codes: G47.30 - Sleep apnea, unspecified Additional Instructions: The patient was advised to follow up with their physician and return if they worsen. Use sleep apnea machine Stop using cocaine Med/Other Pt SpecificInfo: Other Disposition: 01 DISCHARGE HOME Condition: Stable Calin Storey MD Apr 26, 2018 10:43
[2018-04-26 10:50] LABS: AUTOMATED NEUTROPHIL # 4.3 TH/MM3 (1.8-7.7); BASOPHIL # 0.1 TH/MM3 (0-0.2); BASOPHIL % 0.7 % (0.0-2.0); EOSINOPHIL # 0.2 TH/MM3 (0-0.4); EOSINOPHIL % 2.1 % (0.0-4.0); HEMATOCRIT 37.2 % (39.0-51.0); HEMOGLOBIN 12.5 GM/DL (13.0-17.0); LYMPHOCYTE # 3.6 TH/MM3 (1.0-4.8); MEAN CELL VOLUME 83.8 FL (80.0-100.0); MEAN CORPUSCULAR HEMOGLOBIN 28.3 PG (27.0-34.0); MEAN CORPUSCULAR HGB CONC 33.7 % (32.0-36.0); MEAN PLATELET VOLUME 8.1 FL (7.0-11.0); MONO % 7.2 % (0.0-8.0); MONOCYTE # 0.6 TH/MM3 (0-0.9); PLATELET COUNT 250 TH/MM3 (150-450); RED BLOOD COUNT 4.43 MIL/MM3 (4.50-5.90); RED CELL DISTRIBUTION WIDTH 15.8 % (11.6-17.2); WHITE BLOOD COUNT 8.8 TH/MM3 (4.0-11.0)
[2018-04-26 11:00] VITALS: BP 137/69; PULSE 87; RESP 18; O2SAT 93
[2018-04-26 11:01] LABS: PROTHROMBIN TIME - PATIENT 9.9 SEC (9.8-11.6)
[2018-04-26 11:06] LABS: BICARBONATE 25.2 MEQ/L (21.0-32.0); CALCIUM 8.9 MG/DL (8.5-10.1); CREATININE 2.2 MG/DL (0.60-1.30)
[2018-04-26 12:00] VITALS: BP 124/65; PULSE 108; RESP 22; O2SAT 94
--- NOTE | 2018-04-26 12:38 | RADRPT ---
EXAM DATE: 04/26/2018 12:33 PM EDT AGE/SEX: 52 years / Male INDICATIONS: Syncopal episode last night. Back pain. Possible abdominal aneurysm. CLINICAL DATA: This is the patient's initial encounter. Patient reports that signs and symptoms have been present for 1 day and indicates a pain score of 4/10. MEDICAL/SURGICAL HISTORY: Cardiovascular disease. Diabetes. None. RADIATION DOSE: 16.87 CTDI (mGy) COMPARISON: No prior exams available for comparison. TECHNIQUE: Multiple contiguous axial images were obtained through the abdomen. Images were obtained using multiple row detector helical technique. Using dose reduction techniques, radiation dose was ke pt as low as reasonably achievable to obtain optimal diagnostic quality images. FINDINGS: Lower Lungs: The visualized lower lungs are clear. Liver: The liver has a homogeneous density without space-occupying lesion. There is no dilation of th e biliary tree. Spleen: Homogeneous density without enlargement. Pancreas: Unremarkable without mass or calcification. Kidneys: Normal in size and shape. No evidence of mass or hydronephrosis. Adrenal Glands: Unremarkable. Aorta: The aorta and proximal iliac vessels are grossly unremarkable without aneurysmal dilation. Bowel/Mesentery: Diverticulosis of the ascending and sigmoid colon without diverticulitis Abdominal Wall: Intact. Retroperitoneum: No evidence of adenopathy in the retrocrural, para-aortic, or deep pelvic regions. Bladder: Contours are smooth. Reproductive Organs: No abnormal masses or calcifications seen. Inguinal: The inguinal region is unremarkable without evidence of adenopathy. Bony Structures: Unremarkable. CONCLUSION: 1. Diverticulosis without diverticulitis. 2. No abdominal aortic aneurysm. Electronically signed by: Shakeel Garcia MD 04/26/2018 12:37 PM EDT
[2018-04-26 13:00] VITALS: BP 123/56; PULSE 102; RESP 23; O2SAT 95
[2018-04-26 14:00] VITALS: BP 126/59; PULSE 97; RESP 24; O2SAT 95
[2018-04-26] MEDS ORDERED: POTASSIUM BICARBONATE 25 MEQ EFFERVESCENT TAB PO ONE (14:00)
--- NOTE | 2018-04-26 16:16 | EKG ---
Date Performed: 04/26/2018 Time Performed: 09:06:38 PTAGE: 52 years EKG: Sinus rhythm ST/T-WAVE ABNORMALITY, CONSIDER INFERIOR AND LATERAL ISCHEMIA ABNORMAL ECG PREVIOUS TRACING : 12/16/2017 22.27 Compared to previous tracing, lateral ST/T changes are now more pronounced. DOCTOR: Chun Batista Interpretating Date/Time 04/26/2018 16:16:17
== END 2018-04-26 16:23 | disposition home or self-care (01) ==
LOC: NEPE 09:55
DX: R55 Syncope and collapse (principal); F14.10 Cocaine abuse, uncomplicated; E87.6 Hypokalemia; G47.30 Sleep apnea, unspecified; R42 Dizziness and giddiness; I10 Essential (primary) hypertension; Z72.0 Tobacco use
CPT/HCPCS: 74176; 80048; 85025; 85610; 85730; 93005; 99285

== ENCOUNTER 2018-05-04 10:37 | Observation (INO) | payer MEDICAID, OTHER ==
[~2018-05-04] VITALS: Ht 185.4 cm; Wt 136.5 kg
[2018-05-04] VITALS (8 sets, daily range): BP systolic 146–183; BP diastolic 72–86; PULSE 56–90; RESP 18–22; TEMP 96.1–98.2; O2SAT 91–98
[~2018-05-04 10:37] MED LIST changes: -FOLI1TAB6 PO; -SULF400T18 PO; -WALKER WHEELS/F1 MIS
--- NOTE | 2018-05-04 11:06 | PD ---
HPI Chief Complaint: Edema Time Seen by Provider: 10:53 Travel History International Travel<30 days: No Contact w/Intl Traveler<30days: No Traveled to known affect area: No History of Present Illness HPI 52yo M with PMH of CHF, DM presents to the ED with c/o sob for 2 days. Also with bilateral lower extremity edema for 2-3 days. Said right knee also hurts. +Cough. Denies any fever, chest pain, n/v, abdominal pain, focal weakness or numbness. Denies any fall. PFSH Past Medical History Arthritis: Yes Asthma: Yes Autoimmune Disease: No Anxiety: Yes Depression: Yes Heart Rhythm Problems: Yes Cancer: No Cardiovascular Problems: Yes (HTN) High Cholesterol: Yes Chemotherapy: No Chest Pain: Yes Congestive Heart Failure: No COPD: Yes Cerebrovascular Accident: No Diabetes: Yes (INSULIN DEPENDENT) Diminished Hearing: Yes (LT. EAR) Endocrine: Yes Gastrointestinal Disorders: Yes GERD: No Genitourinary: Yes Headaches: Yes Hiatal Hernia: No Hypertension: Yes Immune Disorder: No Implanted Vascular Access Dvce: No Kidney Stones: No Musculoskeletal: Yes Neurologic: Yes Psychiatric: Yes Reproductive: No Respiratory: Yes (ASTHMA, COPD) Immunizations Current: Yes Migraines: Yes Myocardial Infarction: Yes (NSTEMI) Radiation Therapy: No Renal Failure: No Schizophrenia: Yes Seizures: Yes (from cocaine) Sickle Cell Disease: No Sleep Apnea: Yes (CPAP at night) Thyroid Disease: No Triglycerides - High: Yes Ulcer: No Past Surgical History Abdominal Surgery: No AICD: No Arteriovenous Shunt: No Body Medical Devices: STATES SOMETHING IN MY EAR Cardiac Surgery: No Ear Surgery: No Endocrine Surgery: No Eye Surgery: No Genitourinary Surgery: No Gynecologic Surgery: No Insulin Pump: No Joint Replacement: No Neurologic Surgery: No Oral Surgery: No Pacemaker: No Thoracic Surgery: No Other Surgery: Yes (TENDON REPAIR BILATERAL THUMBS) Social History Alcohol Use: Yes (OCCASIONALLY) Tobacco Use: Yes (SOCIALLY) Substance Use: Yes (COCAINE USE 04/25/18, MARIJUANA) Allergies-Medications (Allergen,Severity, Reaction): Coded Allergies: milk (Verified Adverse Reaction, Severe, vomiting, 04/26/18) lisinopril (Unverified Adverse Reaction, Intermediate, Cough, 04/26/18) Reported Meds & Prescriptions Reported Meds & Active Scripts Active Cozaar (Losartan Potassium) 50 Mg Tab 50 Mg PO Q12HR Hydralazine HCl 25 Mg Tablet 25 Mg PO Q8HR Catapres (Clonidine) 0.2 Mg Tab 0.2 Mg PO Q8HR Ventolin Hfa 18 GM Inh (Albuterol Sulfate) 90 Mcg/Act Aer 2 Puff INH Q6H PRN Symbicort Inh (Budesonide/Formoterol Fumarate) 160-4.5 Mcg/Act Aero 2 Puff INH Q12HR Reported Norvasc (Amlodipine Besylate) 10 Mg Tab 10 Mg PO DAILY Review of Systems Except as stated in HPI: all other systems reviewed are Neg Physical Exam Narrative GENERAL: 52yo M in mild distress. SKIN: Focused skin assessment warm/dry. HEAD: Atraumatic. Normocephalic. EYES: Pupils equal and round. No scleral icterus. No injection or drainage. ENT: No nasal bleeding or discharge. Mucous membranes pink and moist. NECK: Trachea midline. No JVD. CARDIOVASCULAR: Regular rate and rhythm. No murmur appreciated. RESPIRATORY: + accessory muscle use. Crackles in bilateral bases. GASTROINTESTINAL: Abdomen soft, non-tender, nondistended. Hepatic and splenic margins not palpable. MUSCULOSKELETAL: No obvious deformities. No clubbing. No cyanosis. +Bilateral lower extremity pitting edema up to below knees. Right knee: +TTP medial knee. Able to flex and extend. No erythema. Sensation intact. NEUROLOGICAL: Awake and alert. No obvious cranial nerve deficits. Motor grossly within normal limits. Normal speech. PSYCHIATRIC: Appropriate mood and affect; insight and judgment normal. Data Data Last Documented VS Vital Signs Date Time Temp Pulse Resp B/P (MAP) Pulse Ox O2 Delivery O2 Flow Rate FiO2 05/04/18 12:15 97.8 87 22 168/76 (106) 98 Nasal Cannula 2.00 Orders Orders Complete Blood Count With Diff (05/04/18 10:59) Basic Metabolic Panel (Bmp) (05/04/18 10:59) B-Type Natriuretic Peptide (05/04/18 10:59) Act Partial Throm Time (Ptt) (05/04/18 10:59) Prothrombin Time / Inr (Pt) (05/04/18 10:59) Troponin I (05/04/18 10:59) Chest, Single Ap (05/04/18 10:59) Electrocardiogram (05/04/18 ) Knee, Ltd (1 Or 2vws) (05/04/18 ) Furosemide Inj (Lasix Inj) (05/04/18 12:00) Potassium Chloride (Kcl) (05/04/18 12:00) Creatine Kinase (Cpk) (05/04/18 17:00) Creatine Kinase (Cpk) (05/04/18 23:00) Troponin I (05/04/18 17:00) Troponin I (05/04/18 23:00) Electrocardiogram (05/04/18 17:00) Magazine Editor / Telemetry [email or web address].Q8H (05/04/18 13:00) Aspirin (Aspirin) (05/04/18 13:00) Aspirin (Aspirin) (05/06/18 09:00) Nitroglycerin Sl (Nitrostat Sl) (05/04/18 13:00) Magnesium (Mg) (05/04/18 13:00) Hydralazine Inj (Apresoline Inj) (05/04/18 13:15) Albuterol Hfa Inh (Proair Hfa Inh) (05/04/18 13:15) Amlodipine (Norvasc) (05/05/18 09:00) Budeson-Formot 160-4.5 Mcg Inh (Symbicor (05/04/18 21:00) Clonidine (Catapres) (05/04/18 14:00) Hydralazine (Apresoline) (05/04/18 14:00) Place In Observation (05/04/18 ) Vital Signs (Adult) Q4H (05/04/18 13:05) Activity Bed Rest With Brp (05/04/18 13:05) Sodium Chloride 0.9% Flush (Ns Flush) (05/04/18 13:15) Sodium Chloride 0.9% Flush (Ns Flush) (05/04/18 21:00) Acetaminophen (Tylenol) (05/04/18 13:15) Basic Metabolic Panel (Bmp) (05/05/18 06:00) Resp Oxygen Mateo C Titrat 1-4 L (05/04/18 ) Pt Request For Service (05/04/18 13:05) Case Management Consult (05/04/18 13:05) Heparin Inj (Heparin Inj) (05/04/18 14:00) Scd Bilateral/Knee High KAYLEE.BID (05/04/18 13:05) Acetaminophen (Tylenol) (05/04/18 13:15) Naloxone Inj (Narcan Inj) (05/04/18 13:15) Docusate Sodium-Senna (Rebecca-Colace) (05/04/18 21:00) Sennosides (Senokot) (05/04/18 13:15) Bisacodyl Supp (Dulcolax Supp) (05/04/18 13:15) Lactulose Liq (Lactulose Liq) (05/04/18 13:15) ^ Other Nursing Orders (05/04/18 13:06) Bedside Glucose KAYLEE.CSUGAR (05/04/18 13:06) Blood Glucose Goal (Criteria) (05/04/18 13:06) Hypoglycemia 70 Mg/Dl Or < (05/04/18 13:06) Notify Dr: Other (05/04/18 13:06) Dextrose 50% In [place] (Vial) Inj (D50w (Vi (05/04/18 13:15) Glucagon Inj (Glucagon Inj) (05/04/18 13:15) Insulin Aspart Supplemtl Scale (Novolog (05/04/18 17:00) Admit Order (Ed Use Only) (05/04/18 13:12) Clonidine (Catapres) (05/04/18 13:15) Ondansetron Odt (Zofran Odt) (05/04/18 13:15) CKMB (05/04/18 17:41) CKMB% (05/04/18 17:41) CKMB (05/04/18 23:48) CKMB% (05/04/18 23:48) Labs Laboratory Tests Test 05/04/18 11:10 White Blood Count 8.8 TH/MM3 Red Blood Count 4.03 MIL/MM3 Hemoglobin 11.2 GM/DL Hematocrit 34.8 % Mean Corpuscular Volume 86.1 FL Mean Corpuscular Hemoglobin 27.8 PG Mean Corpuscular Hemoglobin Concent 32.2 % Red Cell Distribution Width 16.3 % Platelet Count 282 TH/MM3 Mean Platelet Volume 7.5 FL Neutrophils (%) (Auto) 60.3 % Lymphocytes (%) (Auto) 29.0 % Monocytes (%) (Auto) 8.4 % Eosinophils (%) (Auto) 1.7 % Basophils (%) (Auto) 0.6 % Neutrophils # (Auto) 5.3 TH/MM3 Lymphocytes # (Auto) 2.6 TH/MM3 Monocytes # (Auto) 0.7 TH/MM3 Eosinophils # (Auto) 0.1 TH/MM3 Basophils # (Auto) 0.1 TH/MM3 CBC Comment DIFF FINAL Differential Comment Prothrombin Time 10.3 SEC Prothromb Time International Ratio 1.0 RATIO Activated Partial Thromboplast Time 33.1 SEC Blood Urea Nitrogen 16 MG/DL Creatinine 1.37 MG/DL Random Glucose 101 MG/DL Calcium Level 8.2 MG/DL Sodium Level 145 MEQ/L Potassium Level 3.2 MEQ/L Chloride Level 111 MEQ/L Carbon Dioxide Level 26.6 MEQ/L Anion Gap 7 MEQ/L Estimat Glomerular Filtration Rate 67 ML/MIN Magnesium Level 2.5 MG/DL Troponin I 0.09 NG/ML B-Type Natriuretic Peptide 33 PG/ML MDM Medical Decision Making Medical Screen Exam Complete: Yes Emergency Medical Condition: Yes Interpretation(s) EKG: NSR 75bpm. 1st AV block. TWI V4, V5 that is new from prior. There are some old TWI as well. Differential Diagnosis CHF exacerbation vs. pneumonia Narrative Course 52yo M with sob for 2 days. Clinically seems like CHF exacerbation. Labs reviewed, no leukocytosis. H/H low at 11.2/34.8 which is at baseline. BNP 33. Mild hypokalemia which is replaced. Pt was initially given lasix since clinically appears to be CHF exacerbation. However, CXR and BNP normal. Troponin is elevated at 0.09. Pt now admits to cocaine use. This may be vasospasm of coronary arteries from cocaine but with new TWI, will admit for further evaluation. Discussed with Dr. Zimmer and accepted to his service. Diagnosis Primary Impression: Elevated troponin I level Admitting Information Admitting Physician Requests: Michelle Henning DO May 04, 2018 11:06
[2018-05-04 11:43] LABS: AUTOMATED NEUTROPHIL # 5.3 TH/MM3 (1.8-7.7); BASOPHIL # 0.1 TH/MM3 (0-0.2); BASOPHIL % 0.6 % (0.0-2.0); EOSINOPHIL # 0.1 TH/MM3 (0-0.4); EOSINOPHIL % 1.7 % (0.0-4.0); HEMATOCRIT 34.8 % (39.0-51.0); HEMOGLOBIN 11.2 GM/DL (13.0-17.0); LYMPHOCYTE # 2.6 TH/MM3 (1.0-4.8); MEAN CELL VOLUME 86.1 FL (80.0-100.0); MEAN CORPUSCULAR HEMOGLOBIN 27.8 PG (27.0-34.0); MEAN CORPUSCULAR HGB CONC 32.2 % (32.0-36.0); MEAN PLATELET VOLUME 7.5 FL (7.0-11.0); MONO % 8.4 % (0.0-8.0); MONOCYTE # 0.7 TH/MM3 (0-0.9); NEUT % 60.3 % (16.0-70.0); PLATELET COUNT 282 TH/MM3 (150-450); RED BLOOD COUNT 4.03 MIL/MM3 (4.50-5.90); RED CELL DISTRIBUTION WIDTH 16.3 % (11.6-17.2); WHITE BLOOD COUNT 8.8 TH/MM3 (4.0-11.0)
[2018-05-04 11:54] LABS: PROTHROMBIN TIME - PATIENT 10.3 SEC (9.8-11.6)
--- NOTE | 2018-05-04 11:57 | RADRPT ---
EXAM DATE: 05/04/2018 11:43 AM EDT AGE/SEX: 52 years / Male INDICATIONS: Shortness of breath. CLINICAL DATA: This is the patient's initial encounter. Patient reports that signs and symptoms have been present for 3 days and indicates a pain score of 4/10. MEDICAL/SURGICAL HISTORY: Hypertension. Diabetes. None. COMPARISON: [facility] – [place], CHEST SINGLE AP, 12/16/2017. . FINDINGS: A single AP view of the chest demonstrates the lungs to be symmetrically aerated without evidence of mass, infiltrate or effusion. Mild cardiomegaly. The cardiomediastinal contours are unremarkable. Os seous structures are intact. CONCLUSION: No acute cardiopulmonary disease. Electronically signed by: Shakeel Garcia MD 05/04/2018 11:55 AM EDT
[2018-05-04 11:58] LABS: BICARBONATE 26.6 MEQ/L (21.0-32.0); CALCIUM 8.2 MG/DL (8.5-10.1); CREATININE 1.37 MG/DL (0.60-1.30)
--- NOTE | 2018-05-04 11:58 | RADRPT ---
EXAM DATE: 05/04/2018 11:42 AM EDT AGE/SEX: 52 years / Male INDICATIONS: Right knee pain. No known injuries. CLINICAL DATA: This is the patient's initial encounter. Patient reports that signs and symptoms have been present for 2 days and indicates a pain score of 4/10. MEDICAL/SURGICAL HISTORY: None. None. COMPARISON: No prior exams available for comparison. FINDINGS: Bony structures are intact and in normal alignment. Mild joint space narrowing. No fracture or effusi on. Osseous density is normal. Soft tissues are unremarkable. No radiopaque foreign bodies seen. CONCLUSION: Mild osteoarthritis without fracture. Electronically signed by: Shakeel Garcia MD 05/04/2018 11:56 AM EDT
[2018-05-04] MEDS ORDERED: FUROSEMIDE 40 MG/4 ML VIAL IV PUSH ONE (12:00)
[2018-05-04] MEDS ORDERED: POTASSIUM CHLORIDE 20 MEQ CONTROLLED RELEASE TAB PO ONE (12:00)
[2018-05-04 12:01] LABS: TROPONIN I 0.09 NG/ML (0.02-0.05)
[2018-05-04] MEDS ORDERED: NITROGLYCERIN 0.4 MG SL 25 TABS/BTL SL PRN (13:00)
[2018-05-04] MEDS ORDERED: ASPIRIN 325 MG TAB PO SCH (13:00)
[2018-05-04] MEDS ORDERED: LACTULOSE SYRUP 20 GM/30 ML CUP PO PRN (13:15)
[2018-05-04] MEDS ORDERED: SODIUM CHLORIDE 0.9% FLUSH 10 ML FLUSH IV FLUSH PRN (13:15)
[2018-05-04] MEDS ORDERED: SENNOSIDES 8.6 MG TAB PO PRN (13:15)
[2018-05-04] MEDS ORDERED: hydrALAZINE HCL 20 MG/ML VIAL IV PUSH PRN (13:15)
[2018-05-04] MEDS ORDERED: DEXTROSE 50% IN WATER 50 ML VIAL(D50) IV PUSH PRN (13:15)
[2018-05-04] MEDS ORDERED: ACETAMINOPHEN 325 MG TAB PO PRN (13:15)
[2018-05-04] MEDS ORDERED: GLUCAGON 1 MG/ML VIAL OTHER PRN (13:15)
[2018-05-04] MEDS ORDERED: ONDANSETRON ODT 4 MG TAB PO PRN (13:15)
[2018-05-04] MEDS ORDERED: BISACODYL 10 MG SUPP RECTAL PRN (13:15)
[2018-05-04] MEDS ORDERED: cloNIDine HCL 0.2 MG TAB PO PRN (13:15)
[2018-05-04] MEDS ORDERED: NALOXONE HCL 0.4 MG/ML AMP IV PUSH PRN (13:15)
[2018-05-04] MEDS ORDERED: ALBUTEROL SULFATE 90 MCG/ACT HFA 8 GM INHALER INH PRN (13:15)
[2018-05-04] MEDS ORDERED: cloNIDine HCL 0.2 MG TAB PO SCH (14:00)
[2018-05-04] MEDS: cloNIDine HCL 0.1 MG TAB PO SCH (14:13)
[2018-05-04] MEDS: HEPARIN SODIUM - SQ 10,000 UNITS/ML VIAL SQ SCH (14:13)
[2018-05-04] MEDS: hydrALAZINE HCL 25 MG TAB PO SCH (14:14)
--- NOTE | 2018-05-04 14:23 | HHI.HP ---
HPI Service [facility] Primary Care Physician Unknown Admission Diagnosis Elevated troponin Diagnoses: Chief Complaint: Bilateral lower extremity swelling Travel History International Travel<30 Days: No Contact w/Intl Traveler <30 Da: No Traveled to Known Affected Are: No History of Present Illness This is a 52-year-old male who presents to the emergency department complaining of bilateral lower extremity swelling for the past 3 days. He also reports of shortness of breath, productive cough of yellow phlegm and subjective fever and chills. Patient also admits to cocaine abuse. He denies chest pain and leg pain. He has history of nonischemic cardiomyopathy status post cardiac catheterization in 2017, diabetes mellitus, hypertension, asthma, COPD, sleep apnea not using his CPAP, schizophrenia, anxiety and depression. He is noncompliant with his medical therapy. At this time, patient is lethargic but easily arousable answering questions appropriately and following commands. Patient has been advised further hospitalization by ED physician secondary to elevated troponin with new EKG changes with T inversion in the 4 and V5. All other systems reviewed negative Review of Systems Except as stated in HPI: all other systems reviewed are Neg Past Family Social History Past Medical History As previously mentioned Past Surgical History Tendon repair Reported Medications Cozaar (Losartan Potassium) 50 Mg Tab 50 Mg PO Q12HR Hydralazine HCl 25 Mg Tablet 25 Mg PO Q8HR Catapres (Clonidine) 0.2 Mg Tab 0.2 Mg PO Q8HR Ventolin Hfa 18 GM Inh (Albuterol Sulfate) 90 Mcg/Act Aer 2 Puff INH Q6H PRN Symbicort Inh (Budesonide/Formoterol Fumarate) 160-4.5 Mcg/Act Aero 2 Puff INH Q12HR Norvasc (Amlodipine Besylate) 10 Mg Tab 10 Mg PO DAILY As previously mentioned, he is noncompliant Allergies: Coded Allergies: milk (Verified Adverse Reaction, Severe, vomiting, 04/26/18) lisinopril (Unverified Adverse Reaction, Intermediate, Cough, 04/26/18) Family History Diabetes mellitus Social History Occasional alcohol and tobacco use. MJ and cocaine abuse Physical Exam Vital Signs Vital Signs Date Time Temp Pulse Resp B/P (MAP) Pulse Ox O2 Delivery O2 Flow Rate FiO2 05/04/18 12:15 97.8 87 22 168/76 (106) 98 Nasal Cannula 2.00 05/04/18 11:20 69 22 97 Nasal Cannula 2.00 05/04/18 10:38 98.2 90 22 181/79 (113) 92 Physical Exam GENERAL: This is an obese, well-developed patient, in no apparent distress on nasal cannula. SKIN: No rashes, ecchymoses or lesions. Cool and dry. HEAD: Atraumatic. Normocephalic. No temporal or scalp tenderness. EYES: Pupils equal round and reactive. Extraocular motions intact. No scleral icterus. No injection or drainage. ENT: Nose without bleeding, purulent drainage or septal hematoma. Throat without erythema, tonsillar hypertrophy or exudate. Uvula midline. Airway patent. NECK: Trachea midline. No JVD or lymphadenopathy. Supple, nontender, no meningeal signs. CARDIOVASCULAR: Regular rate and rhythm without murmurs, gallops, or rubs. RESPIRATORY: Clear to auscultation. Decreased breath sounds equal bilaterally. No wheezes, rales, or rhonchi. GASTROINTESTINAL: Abdomen soft, non-tender, nondistended. No guarding. MUSCULOSKELETAL: Extremities without clubbing, cyanosis with bilateral lower extremity pitting edema involving the legs. No joint tenderness, effusion, or edema noted. No calf tenderness. Negative Homans sign bilaterally. NEUROLOGICAL: Lethargic easily arousable. Cranial nerves II through XII intact. Motor and sensory grossly within normal limits. Five out of 5 muscle strength in all muscle groups. Normal speech. Laboratory Laboratory Tests Test 05/04/18 11:10 White Blood Count 8.8 Red Blood Count 4.03 Hemoglobin 11.2 Hematocrit 34.8 Mean Corpuscular Volume 86.1 Mean Corpuscular Hemoglobin 27.8 Mean Corpuscular Hemoglobin Concent 32.2 Red Cell Distribution Width 16.3 Platelet Count 282 Mean Platelet Volume 7.5 Neutrophils (%) (Auto) 60.3 Lymphocytes (%) (Auto) 29.0 Monocytes (%) (Auto) 8.4 Eosinophils (%) (Auto) 1.7 Basophils (%) (Auto) 0.6 Neutrophils # (Auto) 5.3 Lymphocytes # (Auto) 2.6 Monocytes # (Auto) 0.7 Eosinophils # (Auto) 0.1 Basophils # (Auto) 0.1 CBC Comment DIFF FINAL Differential Comment Prothrombin Time 10.3 Prothromb Time International Ratio 1.0 Activated Partial Thromboplast Time 33.1 Blood Urea Nitrogen 16 Creatinine 1.37 Random Glucose 101 Calcium Level 8.2 Sodium Level 145 Potassium Level 3.2 Chloride Level 111 Carbon Dioxide Level 26.6 Anion Gap 7 Estimat Glomerular Filtration Rate 67 Magnesium Level 2.5 Troponin I 0.09 B-Type Natriuretic Peptide 33 Result Diagram: 05/04/18 1110 05/04/18 1110 Imaging Last Impressions Chest X-Ray 05/04/18 1059 Signed Impressions: CONCLUSION: No acute cardiopulmonary disease. Knee X-Ray 05/04/18 0000 Signed Impressions: CONCLUSION: Mild osteoarthritis without fracture. Caprini VTE Risk Assessment Caprini VTE Risk Assessment: Mod/High Risk (score >= 2) Caprini Risk Assessment Model Point Value = 1 Point Value = 2 Point Value = 3 Point Value = 5 Age 41-60 Minor surgery BMI > 25 kg/m2 Swollen legs Varicose veins or History of unexplained or recurrent spontaneous Oral contraceptives or hormone replacement Sepsis (< 1 month) Serious lung disease, including pneumonia (< 1 month) Abnormal pulmonary function Acute myocardial infarction Congestive heart failure (< 1 month) History of inflammatory bowel disease Medical patient at bed rest Age 61-74 Arthroscopic surgery Major open surgery (> 45 min) Laparoscopic surgery (> 45 min) Malignancy Confined to bed (> 72 hours) Immobilizing plaster cast Central venous access Age >= 75 History of VTE Family history of VTE Factor V Leiden Prothrombin [id number] Lupus anticoagulant Anticardiolipin antibodies Elevated serum homocysteine Heparin-induced thrombocytopenia Other congenital or acquired thrombophilia Stroke (< 1 month) Elective arthroplasty Hip, pelvis, or leg fracture Acute spinal cord injury (< 1 month) Prophylaxis Regimen Total Risk Factor Score Risk Level Prophylaxis Regimen 0-1 Low Early ambulation 2 Moderate Order ONE of the following: *Sequential Compression Device (SCD) *Heparin 5000 units SQ BID 3-4 Higher Order ONE of the following medications: *Heparin 5000 units SQ TID *Enoxaparin/Lovenox 40 mg SQ daily (WT < 150 kg, CrCl > 30 mL/min) *Enoxaparin/Lovenox 30 mg SQ daily (WT < 150 kg, CrCl > 10-29 mL/min) *Enoxaparin/Lovenox 30 mg SQ BID (WT < 150 kg, CrCl > 30 mL/min) AND/OR *Sequential Compression Device (SCD) 5 or more Highest Order ONE of the following medications: *Heparin 5000 units SQ TID (Preferred with Epidurals) *Enoxaparin/Lovenox 40 mg SQ daily (WT < 150 kg, CrCl > 30 mL/min) *Enoxaparin/Lovenox 30 mg SQ daily (WT < 150 kg, CrCl > 10-29 mL/min) *Enoxaparin/Lovenox 30 mg SQ BID (WT < 150 kg, CrCl > 30 mL/min) AND *Sequential Compression Device (SCD) Assessment and Plan Assessment and Plan This is a 52-year-old male who presents to the emergency department complaining of bilateral lower extremity swelling for the past 3 days. He also reports of shortness of breath, productive cough of yellow phlegm and subjective fever and chills. Patient also admits to cocaine abuse. He denies chest pain and leg pain. Shortness of breath and bilateral lower extremity swelling. He has history of nonischemic cardiomyopathy status post cardiac catheterization in 2016, asthma, COPD and sleep apnea not using his CPAP. He is noncompliant with his medical therapy. Chest x-ray image interpreted by me with no acute cardiopulmonary disease. Patient received IV Lasix in the emergency department. Will ct Lasix pending rpt BMP in am. Continue MDI and oxygen. May use own CPAP with home settings. Patient has been counseled regarding compliance. Check ABG. Lethargy but easily arousable answering questions appropriately and following commands. Hx Apnea. As previously mentioned, obtain ABG Elevated troponin with new EKG changes with T inversion in the 4 and V5, tracing reviewed personally. Admits to cocaine. History of nonobstructive CAD status post cardiac catheterization in July 2017. Trend cardiac enzymes and repeat EKG. Start aspirin. Unable to start beta-everette secondary to cocaine use SANDOR with hypokalemia. Nonoliguric. Patient received 60 mEq p.o. potassium in the emergency department. Obtain magnesium. Obtain urinalysis and avoid nephrotoxins. Multiple medical conditions of diabetes mellitus, hypertension,schizophrenia, anxiety and depression. Restart home medications but will lower dose of clonidine and hold Norvasc which could potentially worsen bilateral lower extremity edema DVT prophylaxis with SCD and subcu heparin Discussed Condition With pt Homero Zimmer MD May 04, 2018 14:23
[2018-05-04 15:42] LABS: BACTERIA, URINE OCC /hpf; BILIRUBIN, URINE NEG (NEG); BLOOD, URINE NEG (NEG); GLUCOSE,URINE NEG (NEG); KETONE, URINE NEG (NEG); NITRITE,URINE NEG (NEG); SQUAMOUS EPITHELIAL CELL URINE 1 /hpf (0-5); URINE COLOR Straw (YELLW/STRAW); URINE LEUKOCYTE ESTERASE NEG (NEG)
[2018-05-04] MEDS: INSULIN ASPART SUPPLEMENTAL SCALE SQ SCH ×2 (17:00→21:29)
[2018-05-04 19:10] LABS: TROPONIN I 0.08 NG/ML (0.02-0.05)
[2018-05-04] MEDS ORDERED: cloNIDine HCL 0.1 MG TAB PO PRN (19:15)
[2018-05-04] MEDS: DOCUSATE SODIUM 50 MG/SENNA 8.6 MG TAB PO SCH (21:34)
[2018-05-04] MEDS: SODIUM CHLORIDE 0.9% FLUSH 10 ML FLUSH IV FLUSH SCH (21:34)
[2018-05-04] MEDS: BUDESONIDE-FORMOTEROL 160/4.5 MCG INHALER INH SCH (22:01)
--- NOTE | 2018-05-04 22:07 | HHI.PR ---
Addendum to Inpatient Note Addendum Reason: Additional Documentation Additional Information RN called stating patient was lethargic. Came to bedside to assess patient. He improved, and was alert and oriented and awake. As I was assessing him he does state that he has been trying to overdose on cocaine and states that he just does not want to live anymore. Patient has been [facility] Acted and sitter ordered. Psych consulted as well. Jenny Mclean May 04, 2018 22:07
[2018-05-05] VITALS (10 sets, daily range): BP systolic 137–174; BP diastolic 78–87; PULSE 66–87; RESP 17–20; TEMP 97.6–98.9; O2SAT 92–100
[2018-05-05] MEDS: hydrALAZINE HCL 25 MG TAB PO SCH ×4 (00:27→22:38)
[2018-05-05] MEDS: cloNIDine HCL 0.1 MG TAB PO SCH ×4 (00:28→21:51)
[2018-05-05 01:18] LABS: TROPONIN I 0.09 NG/ML (0.02-0.05)
[2018-05-05] MEDS: HEPARIN SODIUM - SQ 10,000 UNITS/ML VIAL SQ SCH ×2 (03:14→14:02)
[2018-05-05] MEDS: INSULIN ASPART SUPPLEMENTAL SCALE SQ SCH ×4 (08:00→22:19)
[2018-05-05] MEDS: DOCUSATE SODIUM 50 MG/SENNA 8.6 MG TAB PO SCH ×2 (09:00→21:50)
[2018-05-05] MEDS: BUDESONIDE-FORMOTEROL 160/4.5 MCG INHALER INH SCH ×2 (09:00→22:19)
[2018-05-05] MEDS: SODIUM CHLORIDE 0.9% FLUSH 10 ML FLUSH IV FLUSH SCH ×2 (09:27→21:48)
[2018-05-05] MEDS ORDERED: SODIUM CHLOR 0.9% 1000 ML INJ 1,000 ML IV SCH (10:00)
[2018-05-05 12:15] LABS: BICARBONATE 30.8 MEQ/L (21.0-32.0); CALCIUM 8.8 MG/DL (8.5-10.1); CREATININE 1.13 MG/DL (0.60-1.30)
--- NOTE | 2018-05-05 13:37 | EKG ---
Date Performed: 05/04/2018 Time Performed: 18:08:02 PTAGE: 52 years EKG: Sinus rhythm WITH SINUS ARRHYTHMIA ST DEVIATION AND MODERATE T-WAVE ABNORMALITY, CONSIDER LATERAL ISCHEMIA ABNORM AL ECG Since PREVIOUS TRACING , no significant change noted PREVIOUS TRACIN05/04/2018 11.37 DOCTOR: Catracho Jones Interpretating Date/Time 05/05/2018 13:36:50
--- NOTE | 2018-05-05 13:41 | PD.PSY.CON ---
Provisional Diagnosis Admission Date May 04, 2018 at 13:14 [place] I. Substance-induced mood disorder History of Present Illness Service Psychiatry Consult Requested By Jenny Mclean Reason for Consult States he is trying to OD on cocaine. Says he does not want to live anymore Primary Care Physician Unknown HPI Patient is a 52-year-old -I[place]ian man, single, has 1 son, homeless for the past 5-6 years, no income, with a past psychiatric history of schizophrenia , the patient has. Patient, cocaine use disorder, for previous psychiatric admissions, last time being years ago,, currently followed up at [facility] , who was presented to the ED voluntarily due to shortness of breath for the past 2 days, lower extremity edema and recent cocaine use. Patient currently at emergency room for further workup and overnight had endorsed to the staff that he was feeling that he did not want to live anymore in the context of recent cocaine intoxication, was put on one-to-one in under [place] act for the same, which psychiatry was consulted for evaluation. Patient was found lying hospital bed watching television with sitter at bedside but interviewed alone. Patient states that he had been feeling "shaky" and depressed and that he would rather be locked up. Patient states he was recently incarcerated for 6 months for purchasing cocaine and was released to . Patient reports that he has been having having some difficulty with sleep, no change in appetite energy being "so-so", decreased concentration and states that he had been feeling depressed since he got out of [facility] due to homelessness. Patient has been homeless for the past 5-6 years with no income although patient states he has been able to purchase cocaine daily basis and uses marijuana once in a while. Patient states "I am tired of living this way" and is currently interested in rehabilitation program for substance use as he has daily cocaine use. Discussion about mood being induced by substances was reviewed which she acknowledged specifically cocaine. He denies any suicide ideations at this time stating that he is mostly interested in rehabilitation program for substance use and is interested in referral to an inpatient rehab program. Patient mentions that he has Medicaid and would like telephonic nurse case manager/social studies department chair to assist in connecting him to the service while in the hospital that he may be transferred there once medically discharged from the hospital. Patient denies any visual hallucinations but does endorse vague auditory hallucinations although not noted to be internally preoccupied or internally stimulated. Patient logical, coherent, no disturbance or reality construct, organized, no evidence of acute psychotic symptoms. Patient this time denies any SI, HI, no delusional material elicited. Past psychiatric history: Previous psychiatric diagnoses schizophrenia depression as per patient, for remote hospitalizations, recently released from [facility] and states he was following up at [facility] with previous medication trials include Zoloft and Abilify in the past. Substance use history: Cocaine use daily, marijuana use "once in a while" denies any alcohol use. Patient reports history of previous outpatient rehabilitation program at [facility] but also reports history of previous inpatient rehabilitation program at [facility] several years ago. Past medical history: Hypertension, diabetes, [place] in 2017, arthritis Allergies: Lisinopril Social history: Single, has 1 adult son, homeless for the past 5-6 years, no income, no background, no asked to firearms. Patient legal history is recently released from [facility] 6 months ago for drug purchasing charge. Review of Systems Except as stated in HPI: all other systems reviewed are Neg Past Family Social History Coded Allergies: milk (Verified Adverse Reaction, Severe, vomiting, 04/26/18) lisinopril (Unverified Adverse Reaction, Intermediate, Cough, 04/26/18) Active Scripts Losartan (Cozaar) 50 Mg Tab, 50 MG PO Q12HR for Blood Pressure Management, #30 TAB Prov:Homero Zimmer MD 12/22/17 Hydralazine HCl (Hydralazine HCl) 25 Mg Tablet, 25 MG PO Q8HR for Blood Pressure Management, #90 TAB Prov:Homero Zimmer MD 12/22/17 Clonidine (Catapres) 0.2 Mg Tab, 0.2 MG PO Q8HR for Blood Pressure Management, # 90 TAB Prov:Homero Zimmer MD 12/22/17 Albuterol 18 GM Inh (Ventolin Hfa 18 GM Inh) 90 Mcg/Act Aer, 2 PUFF INH Q6H Y for SHORTNESS OF BREATH, #1 INHALER 0 Refills Prov:Marce Dixon MD 12/01/17 Budesonide-Formoterol Inh (Symbicort Inh) 160-4.5 Mcg/Act Aero, 2 PUFF INH Q12HR , #1 INHALER 0 Refills Prov:Marce Dixon MD 12/01/17 Reported Medications Amlodipine (Norvasc) 10 Mg Tab, 10 MG PO DAILY for Blood Pressure Management, # 30 TAB 0 Refills 11/28/17 Discontinued Scripts Loratadine (Claritin) 10 Mg Tablet, 10 MG PO DAILY for Allergy Management, #30 TAB Prov:Homero Zimmer MD 12/22/17 Thiamine HCl (Gnp Vitamin B-1) 100 Mg Tab, 100 MG PO DAILY for Alcohol Detox, # 30 TAB Prov:Homero Zimmer MD 12/22/17 Tramadol (Tramadol) 50 Mg Tab, 50 MG PO Q8H Y for PAIN, #30 TAB 0 Refills Prov:Marce Dixon MD 12/01/17 Acetaminophen (Tylenol) 325 Mg Tab, 650 MG PO Q6H Y for pain , #30 TAB 0 Refills Prov:Marce Dixon MD 12/01/17 Current Medications Medications (Trade) Dose Ordered Sig/Dimitris Route Start Time Stop Time Status Last Admin (Aspirin) 325 mg DAILY PO 05/06/18 09:00 (Nitrostat Sl) 0.4 mg Q5M PRN SL 05/04/18 13:00 (Proair Hfa Inh) 2 puff Q6H PRN INH 05/04/18 13:15 (Symbicort 160-4.5 Mcg Inh) 2 puff Q12HR INH 05/04/18 21:00 05/05/18 09:00 (Apresoline) 25 mg Q8HR PO 05/04/18 14:00 05/05/18 05:17 (NS Flush) 2 ml UNSCH PRN IV FLUSH 05/04/18 13:15 (NS Flush) 2 ml BID IV FLUSH 05/04/18 21:00 05/05/18 09:27 (Tylenol) 650 mg Q4H PRN PO 05/04/18 13:15 05/05/18 03:26 (Zofran Odt) 4 mg Q6H PRN PO 05/04/18 13:15 (Heparin Inj) 5,000 units Q12H SQ 05/04/18 14:00 05/05/18 03:14 (Tylenol) 650 mg Q6H PRN PO 05/04/18 13:15 (Narcan Inj) 0.4 mg UNSCH PRN IV PUSH 05/04/18 13:15 (Rebecca-Colace) 1 tab BID PO 05/04/18 21:00 05/04/18 21:34 (Senokot) 17.2 mg Q12H PRN PO 05/04/18 13:15 (Dulcolax Supp) 10 mg DAILY PRN RECTAL 05/04/18 13:15 (Lactulose Liq) 30 ml DAILY PRN PO 05/04/18 13:15 (D50w (Vial) Inj) 50 ml UNSCH PRN IV PUSH 05/04/18 13:15 (Glucagon Inj) 1 mg UNSCH PRN OTHER 05/04/18 13:15 (NovoLOG SUPPLEMENTAL SCALE) 1 ACHS SLIDING SCALE SQ 05/04/18 17:00 (Catapres) 0.1 mg Q6H PRN PO 05/04/18 19:15 (Catapres) 0.1 mg Q8HR PO 05/04/18 14:00 05/05/18 05:18 Sodium Chloride 1,000 ml @ 125 mls/hr Q8H IV 05/05/18 10:00 Future Hold (Lasix Inj) 40 mg BID@09,18 IV PUSH 05/05/18 18:00 Physical Exam Patient not noted to be acute distress although noted to be slightly malodorous , no signs of gross motor of maladies, no signs of tremor or EPS, no signs of psychomotor agitation or retardation. Vital Signs Vital Signs Date Time Temp Pulse Resp B/P (MAP) Pulse Ox O2 Delivery O2 Flow Rate FiO2 05/05/18 12:04 98.6 79 17 137/81 (99) 97 05/05/18 06:58 Nasal Cannula 2.00 05/04/18 14:30 21 Lab Results Test 05/04/18 14:28 05/04/18 14:30 05/04/18 17:41 05/04/18 23:48 Blood Gas Puncture Site LT BRACHIAL Blood Gas Patient Temperature 98.6 Blood Gas HCO3 26 mmol/L Blood Gas Base Excess 1.7 mmol/L Blood Gas Oxygen Saturation 89 % Arterial Blood pH 7.40 Arterial Blood Partial Pressure CO2 43 mmHg Arterial Blood Partial Pressure O2 67 mmHG Arterial Blood Oxygen Content 14.2 Vol % Arterial Blood Carboxyhemoglobin 4.6 % Arterial Blood Methemoglobin 0.7 % Blood Gas Hemoglobin 11.3 G/DL Blood Gas Inspired Oxygen 21 % Urine Color Straw Urine Turbidity CLEAR Urine pH 5.0 Urine Specific [place] 1.009 Urine Protein NEG mg/dL Urine Glucose (UA) NEG mg/dL Urine Ketones NEG mg/dL Urine Occult Blood NEG Urine Nitrite NEG Urine Bilirubin NEG Urine Urobilinogen LESS THAN 2 mg/dL Urine Leukocyte Esterase NEG Urine RBC LESS THAN 1 /hpf Urine WBC 1 /hpf Urine Squamous Epithelial Cells 1 /hpf Urine Bacteria OCC /hpf Microscopic Urinalysis Comment CULT NOT INDICATED Total Creatine Kinase 1050 U/L 842 U/L Creatine Kinase MB 6.3 NG/ML 5.5 NG/ML Creatine Kinase MB % 0.6 % 0.7 % Troponin I 0.08 NG/ML 0.09 NG/ML Test 05/05/18 10:55 Blood Urea Nitrogen 11 MG/DL Creatinine 1.13 MG/DL Random Glucose 83 MG/DL Calcium Level 8.8 MG/DL Sodium Level 142 MEQ/L Potassium Level 3.5 MEQ/L Chloride Level 104 MEQ/L Carbon Dioxide Level 30.8 MEQ/L Anion Gap 7 MEQ/L Estimat Glomerular Filtration Rate 83 ML/MIN Total Creatine Kinase 682 U/L Creatine Kinase MB 4.1 NG/ML Creatine Kinase MB % 0.6 % Mental Status Examination Appearance: Malodorous (Slightly) Consciousness: Alert Orientation: x4 Speech: Unremarkable Language: Adequate Fund of Knowledge: Inadequate Attention and Concentration: Adequate Memory: Unremarkable Mood: Appropriate, Other ("Shitty") Affect: Other (Restricted) Thought Process & Associations: Intact, Goal directed, Linear Thought Content: Appropriate Hallucination Type: Auditory (Vague) Delusion Type: None Suicidal Ideation: No Suicidal Plan: No Suicidal Intention: No Homicidal Ideation: No Homicidal Plan: No Homicidal Intention: No Insight: Fair Judgment: Impulsive Assessment & Plan Problem List: (1) Cocaine-induced mood disorder ICD Codes: F14.94 - Cocaine use, unspecified with cocaine-induced mood disorder (2) Cocaine abuse ICD Codes: F14.10 - Cocaine abuse Status: Acute Assessment & Plan Patient this time denying any suicide ideations but appears to have been endorsing previously to recent cocaine intoxication inducing depressed mood as well as condition with assistance and referral to inpatient rehabilitation program for substance use in the context of homelessness and recent cocaine intoxication. Patient likely endorsing suicide ideations as he is currently requesting assistance with homelessness and his ideations conditional upon the circumstance. He denies having suicide ideations were presented with the option of assisting him with referral to an inpatient rehabilitation program which patient will require and benefit from as he has an active substance use issue which is affecting his current mood. Patient this time does not meet criteria for inpatient psychiatric hospitalization but will require referral to an inpatient rehabilitation program to address his substance use issues. manager operational/social work to assist patient referral to an inpatient rehabilitation program as patient has medical insurance. Patient to continue recommendations as per prior medical team. We will lift [place] act. Consult appreciated. Discharge Planning Patient to be referred to inpatient rehabilitation program for substance use. Shakeel Donnelly MD May 05, 2018 13:41
[2018-05-05] MEDS ORDERED: FUROSEMIDE 40 MG/4 ML VIAL IV PUSH ONE (13:45)
--- NOTE | 2018-05-05 13:54 | HHI.PR ---
Subjective Remarks Follow-up on patient with bilateral lower extremity edema, shortness of breath and elevated troponins. Patient seen and examined. Patient states his breathing is unchanged since admission. He complains of cough with yellowish sputum production. He denies any fever or chills. Patient denies any complaints of chest pain today. He denies any nausea, vomiting or abdominal pain. He complains of bilateral lower extremity discomfort secondary to swelling. He admits to last using cocaine on the day came into the hospital. Last night, patient stated he was attempting to overdose on cocaine and he does not want to live anymore. Patient was Howell acted and sitters at the bedside. Objective Vitals Vital Signs Date Time Temp Pulse Resp B/P (MAP) Pulse Ox O2 Delivery O2 Flow Rate FiO2 05/05/18 12:04 98.6 79 17 137/81 (99) 97 05/05/18 07:17 98.0 69 17 174/87 (116) 96 05/05/18 07:17 66 05/05/18 06:58 100 Nasal Cannula 2.00 05/05/18 05:24 80 05/05/18 04:58 16 05/05/18 04:42 98.9 73 20 159/87 (111) 100 05/05/18 00:00 70 05/04/18 23:54 98.2 56 20 146/72 (96) 97 05/04/18 21:01 97.6 68 18 146/75 (98) 96 05/04/18 20:00 79 05/04/18 19:57 Nasal Cannula 2.00 05/04/18 16:54 96.1 66 20 183/81 (115) 91 05/04/18 16:30 98.0 84 18 148/86 (106) 97 Nasal Cannula 2.00 05/04/18 14:30 98.0 89 22 151/80 (103) 96 Nasal Cannula 2.00 05/04/18 14:30 94 21 I/O 05/04/18 05/04/18 05/04/18 05/05/18 05/05/18 05/05/18 07:00 15:00 23:00 07:00 15:00 23:00 Output Total 700 ml Balance -700 ml Output Urine Total 700 ml # Voids 1 3 # Bowel Movements 0 Result Diagram: 05/04/18 1110 05/05/18 1055 Imaging Last Impressions Chest X-Ray 05/04/18 1059 Signed Impressions: CONCLUSION: No acute cardiopulmonary disease. Knee X-Ray 05/04/18 0000 Signed Impressions: CONCLUSION: Mild osteoarthritis without fracture. Objective Remarks GENERAL: This is an obese, well-developed -[place] male patient, INAD. Awake and alert. Sitting on side of bed. Sitter is at the bedside SKIN: Warm and dry. No generalized rash.No temporal or scalp tenderness. EYES: Pupils equal round and reactive. Extraocular motions intact. No scleral icterus. No injection or drainage. ENT: Nose without bleeding or purulent drainage. Airway patent. MMM. NECK: Trachea midline. CARDIOVASCULAR: Regular rate and rhythm without murmurs, gallops, or rubs. RESPIRATORY: Nonlabored. Clear to auscultation. Decreased breath sounds equal bilaterally secondary to patient's body habitus. No wheezes, rales, or rhonchi. GASTROINTESTINAL: Abdomen soft, non-tender, nondistended. No guarding. MUSCULOSKELETAL: Extremities without clubbing, cyanosis with 2+ bilateral lower extremity pitting edema involving the legs. No calf tenderness. NEUROLOGICAL: Awake and alert. Cranial nerves II through XII intact. Motor and sensory grossly within normal limits. No focal neurologic finding appreciated. Normal speech. PSYCHIATRIC: Calm and cooperative. Poor judgment and insight. Procedures None A/P Assessment and Plan 52-year-old male who presents to the emergency department complaining of bilateral lower extremity swelling for the past 3 days. He also reports of shortness of breath, productive cough of yellow phlegm and subjective fever and chills. Patient also admits to cocaine abuse. He denies chest pain and leg pain. Dyspnea, suspect secondary to fluid overload Chest x-ray shows no acute cardiopulmonary process BNP 33, possibly falsely low secondary to patient's body habitus Patient given one-time dose of 40 mg IV Lasix in the ED Echo 07/29 EF 5055%, mild LVH, no regional wall motion abnormalities ABG reviewed -Strict I&Os -Give Lasix 40mg IV x 1 then continue Lasix 20mg IV BID. Give KCL 20meq po BID. Monitor electrolytes. -We will obtain more recent 2D echocardiogram -Continue supplemental oxygen as needed to maintain O2 sats greater than 92% -Continue to monitor respiratory status Minimally elevated troponin, chronic, suspect secondary to cocaine use Hx of nonischemic cardiomyopathy S/p cardiac catheterization showing nonobstructive CAD 07/29 Patient has no complaints of chest pain at this time -Patient counseled on cocaine cessation -ASA daily -Monitor on cardiac telemetry -no BB therapy secondary to cocaine use Rhabdomyolysis, mild, suspect secondary to cocaine use CK level trending down -Continue to monitor CK level SANDOR, suspect secondary to rhabdomyolysis Creatinine 1.37, down to 1.13 -Avoid nephrotoxic agents -Continue to monitor kidney function as indicated Hypertension BP well controlled at present -Continue patient on home dose of clonidine 0.1 mg every 8 hours and hydralazine 25 mg every 8 hours. Losartan held secondary to SANDOR and Norvasc on hold as may worsen bilateral lower extremity edema -Continue to monitor BP and adjust treatment accordingly Diabetes HgbA1c 6.4 11/29/17 Blood sugars are well controlled -Continue on Accu-Cheks and insulin sliding scale Depression Suicidal ideation Patient reports intentional cocaine overdose -Obtain urine drug screen -Continue with bedside sitter -Psychiatry consulted, appreciate assistance COPD, not in acute exacerbation -Continue on home bronchodilator therapy -Duo nebs as needed -Continue to monitor respiratory status DVT prophylaxis -Heparin sq Discharge Planning Not ready for discharge. Discharge pending clinical improvement and echocardiogram results. Yolette Jacinto May 05, 2018 13:54
[2018-05-05] MEDS ORDERED: POTASSIUM CHLORIDE 20 MEQ CONTROLLED RELEASE TAB PO ONE (14:00)
--- NOTE | 2018-05-05 14:14 | EKG ---
Date Performed: 05/04/2018 Time Performed: 11:37:40 PTAGE: 52 years EKG: Sinus rhythm WITH FIRST DEGREE AV BLOCK ST DEVIATION AND MODERATE T-WAVE ABNORMALITY, CONSIDER LATERAL ISCHEMIA A BNORMAL ECG Similar ST-T wave changes compared to the prior. PREVIOUS TRACING : 04/26/2018 09.06.38 DOCTOR: Catracho Jones Interpretating Date/Time 05/05/2018 14:12:38
[2018-05-05] MEDS: ACETAMINOPHEN 325 MG TAB PO PRN (16:52)
[2018-05-05] MEDS ORDERED: FUROSEMIDE 40 MG/4 ML VIAL IV PUSH SCH (18:00)
[2018-05-05] MEDS ORDERED: FUROSEMIDE 20 MG/2 ML VIAL IV PUSH SCH (18:00)
[2018-05-05] MEDS: POTASSIUM CHLORIDE 20 MEQ CONTROLLED RELEASE TAB PO SCH (21:49)
[2018-05-06] VITALS (9 sets, daily range): BP systolic 139–191; BP diastolic 82–102; PULSE 72–84; RESP 16–20; TEMP 97.4–98.8; O2SAT 95–99
[2018-05-06] MEDS: HEPARIN SODIUM - SQ 10,000 UNITS/ML VIAL SQ SCH ×2 (03:24→13:30)
[2018-05-06] MEDS: cloNIDine HCL 0.1 MG TAB PO SCH ×3 (07:38→21:28)
[2018-05-06] MEDS: ACETAMINOPHEN 325 MG TAB PO PRN (07:38)
[2018-05-06] MEDS: hydrALAZINE HCL 25 MG TAB PO SCH (07:40)
[2018-05-06] MEDS: INSULIN ASPART SUPPLEMENTAL SCALE SQ SCH ×4 (08:00→21:00)
[2018-05-06 08:48] LABS: BICARBONATE 30.7 MEQ/L (21.0-32.0); CALCIUM 9.1 MG/DL (8.5-10.1); CREATININE 1.12 MG/DL (0.60-1.30)
[2018-05-06 08:57] LABS: CHOLESTEROL/ HDL RATIO 3.88 RATIO; HDL CHOLESTEROL 40.7 MG/DL (40.0-60.0)
--- NOTE | 2018-05-06 08:59 | ECHRPT ---
Indication: SHORTNESS OF BREATH CONCLUSIONS Normal left ventricular size. Mild concentric left ventricular hypertrophy. The left ventricular systolic function is normal with an estimated ejection fraction in the range of 55-60%. Trace mitral valve regurgitation. There is trace tricuspid valve regurgitation. The estimated pulmonary arterial pressure is 28.7 mmHg. BP: / HR: Rhythm: Sinus MEASUREMENTS (Male / Female) Normal Values Technical Quality:Technically difficult study 2D ECHO LV Diastolic Diameter PLAX 5.6 cm 4.2 - 5.9 / 3.9 - 5.3 cm LV Systolic Diameter PLAX 4.1 cm IVS Diastolic Thickness 1.4 cm 0.6 - 1.0 / 0.6 - 0.9 cm LVPW Diastolic Thickness 1.4 cm 0.6 - 1.0 / 0.6 - 0.9 cm LV Relative Wall Thickness 0.5 RV Internal Dim ED PLAX 3.2 cm LVOT Diameter 2.5 cm Aortic Root Diameter 3.2 cm LA Systolic Diameter LX 3.9 cm 3.0 - 4.0 / 2.7 - 3.8 cm M-MODE AV Cusp Separation MM 2.1 cm DOPPLER AV Peak Velocity 148.0 cm/s AV Peak Gradient 8.8 mmHg AV Mean Gradient 5.0 mmHg AV Velocity Time Integral 24.3 cm LVOT Peak Velocity 71.4 cm/s LVOT Peak Gradient 2.0 mmHg LVOT Velocity Time Integral 13.9 cm AV Area Cont Eq vti 2.8 cm AV Area Cont Eq pk 2.4 cm Mitral E Point Velocity 81.9 cm/s Mitral A Point Velocity 85.9 cm/s Mitral E to A Ratio 1.0 LV E' Lateral Velocity 11.7 cm/s Mitral E to LV E' Lateral Ratio 7.0 LV E' Septal Velocity 8.9 cm/s Mitral E to LV E' Septal Ratio 9.2 TR Peak Velocity 216.0 cm/s TR Peak Gradient 18.7 mmHg Right Atrial Pressure 10.0 mmHg Pulmonary Artery Systolic Pressu 28.7 mmHg Right Ventricular Systolic Press 28.7 mmHg PV Peak Velocity 78.2 cm/s PV Peak Gradient 2.4 mmHg FINDINGS LEFT VENTRICLE Normal left ventricular size. Mild concentric left ventricular hypertrophy. The left ventricular systolic function is normal with an estimated ejection fraction in the range of 55-60%. RIGHT VENTRICLE Normal right ventricular size and systolic function. LEFT ATRIUM The left atrial size is normal. RIGHT ATRIUM The right atrial size is normal. ATRIAL SEPTUM No atrial level shunt is demonstrated by color flow Doppler interrogation. AORTA The aortic root and proximal ascending aorta are normal in size on limited imaging. MITRAL VALVE Trace mitral valve regurgitation. AORTIC VALVE No aortic valve stenosis or regurgitation. TRICUSPID VALVE There is trace tricuspid valve regurgitation. The estimated pulmonary arterial pressure is 28.7 mmHg. PULMONARY VALVE No pulmonary valve regurgitation or stenosis. VESSELS The inferior vena cava was not well visualized. . PERICARDIUM No pericardial effusion. Jose Gutierrez MD (Electronically Signed) Final Date:06 May 2018 08:58
[2018-05-06] MEDS ORDERED: ASPIRIN 325 MG TAB PO SCH (09:00)
--- NOTE | 2018-05-06 09:34 | HHI.PR ---
Subjective Remarks Follow-up on patient with bilateral lower extremity edema, shortness of breath and elevated troponins. Patient seen and examined. Patient reports his breathing has improved some. He continues to have cough. He denies any fever or chills. He denies any chest pain. Denies any nausea, vomiting or abdominal pain. He is requesting an increase in the amount of food he is given with meals. Objective Vitals Vital Signs Date Time Temp Pulse Resp B/P (MAP) Pulse Ox O2 Delivery O2 Flow Rate FiO2 05/06/18 08:03 97.4 72 18 175/92 (119) 99 05/06/18 07:21 97 Nasal Cannula 2.00 05/06/18 04:22 97.9 73 16 139/90 (106) 97 05/06/18 00:14 98.7 84 16 170/90 (116) 97 05/05/18 20:50 98.1 75 17 144/78 (100) 92 05/05/18 20:01 87 05/05/18 19:52 Nasal Cannula 2.00 05/05/18 17:57 18 05/05/18 16:15 97.6 75 17 146/81 (102) 98 05/05/18 15:18 79 05/05/18 12:04 98.6 79 17 137/81 (99) 97 I/O 05/05/18 05/05/18 05/05/18 05/06/18 05/06/18 05/06/18 06:59 14:59 22:59 06:59 14:59 22:59 Intake Total 750 ml 1600 ml 250 ml Balance 750 ml 1600 ml 250 ml Intake Oral 750 ml 1600 ml 250 ml # Voids 3 5 3 # Bowel Movements 1 Result Diagram: 05/04/18 1110 05/06/18 0753 Imaging Last Impressions Chest X-Ray 05/04/18 1059 Signed Impressions: CONCLUSION: No acute cardiopulmonary disease. Knee X-Ray 05/04/18 0000 Signed Impressions: CONCLUSION: Mild osteoarthritis without fracture. Objective Remarks GENERAL: This is an obese, well-developed -[place] male patient, INAD. Awake and alert. Sitting up in bed. SKIN: Warm and dry. No generalized rash.No temporal or scalp tenderness. EYES: Pupils equal round and reactive. Extraocular motions intact. No scleral icterus. No injection or drainage. ENT: Nose without bleeding or purulent drainage. Airway patent. MMM. NECK: Trachea midline. CARDIOVASCULAR: Regular rate and rhythm without murmurs, gallops, or rubs. RESPIRATORY: Nonlabored. Clear to auscultation. Decreased breath sounds equal bilaterally secondary to patient's body habitus. No wheezes, rales, or rhonchi. GASTROINTESTINAL: Abdomen soft, non-tender, nondistended. No guarding. MUSCULOSKELETAL: Extremities without clubbing, cyanosis with 1-2+ bilateral lower extremity pitting edema involving the legs. No calf tenderness. NEUROLOGICAL: Awake and alert. Cranial nerves II through XII intact. Motor and sensory grossly within normal limits. No focal neurologic finding appreciated. Normal speech. PSYCHIATRIC: Calm and cooperative. Poor judgment and insight. Procedures None A/P Assessment and Plan 52-year-old male who presents to the emergency department complaining of bilateral lower extremity swelling for the past 3 days. He also reports of shortness of breath, productive cough of yellow phlegm and subjective fever and chills. Patient also admits to cocaine abuse. He denies chest pain and leg pain. Dyspnea, suspect secondary to fluid overload Acute hypoxic respiratory failure Chest x-ray shows no acute cardiopulmonary process BNP 33, possibly falsely low secondary to patient's body habitus Patient given one-time dose of 40 mg IV Lasix in the ED Echo 07/29 EF 5055%, mild LVH, no regional wall motion abnormalities, repeat echo unchanged. ABG reviewed -Strict I&Os -Continue on Lasix 40 mg IV twice daily monitor electrolytes. -Continue supplemental oxygen as needed to maintain O2 sats greater than 92% -wean off oxygen -Continue to monitor respiratory status Minimally elevated troponin, chronic, suspect secondary to cocaine use Hx of nonischemic cardiomyopathy S/p cardiac catheterization showing nonobstructive CAD 07/29 Patient has no complaints of chest pain at this time -Patient counseled on cocaine cessation -ASA daily -Monitor on cardiac telemetry -no BB therapy secondary to cocaine use Rhabdomyolysis, mild, suspect secondary to cocaine use CK level trending down -Continue to monitor CK level as indicated SANDOR, suspect secondary to rhabdomyolysis Creatinine 1.37, down to 1.12 -Avoid nephrotoxic agents -Continue to monitor kidney function as indicated Hypertension, not well controlled -Continue patient on clonidine 0.1 mg every 8 hours. Increase hydralazine dose to 50 mg every 8 hours. Losartan held secondary to SANDOR and Norvasc on hold as may worsen bilateral lower extremity edema -Continue to monitor BP and adjust treatment accordingly Diabetes HgbA1c 6.4 11/29/17 Blood sugars are well controlled -Continue on Accu-Cheks and insulin sliding scale Depression Suicidal ideation Patient reports intentional cocaine overdose UDS + cocaine -Psych evaluated, appreciate assistance. Howell act lifted. Sitter discontinued. COPD, not in acute exacerbation -Continue on home bronchodilator therapy -Duo nebs as needed -Continue to monitor respiratory status DVT prophylaxis -Heparin sq Discharge Planning Not ready for discharge. Discharge pending clinical improvement. Likely discharge tomorrow. Yolette Jacinto May 06, 2018 09:34
[2018-05-06] MEDS: BUDESONIDE-FORMOTEROL 160/4.5 MCG INHALER INH SCH ×2 (09:47→21:28)
[2018-05-06] MEDS: POTASSIUM CHLORIDE 20 MEQ CONTROLLED RELEASE TAB PO SCH ×2 (09:48→21:30)
[2018-05-06] MEDS: DOCUSATE SODIUM 50 MG/SENNA 8.6 MG TAB PO SCH ×2 (09:48→21:00)
[2018-05-06] MEDS: SODIUM CHLORIDE 0.9% FLUSH 10 ML FLUSH IV FLUSH SCH ×2 (09:48→21:31)
[2018-05-06] MEDS: ASPIRIN 81 MG CHEW TAB PO SCH (09:48)
[2018-05-06] MEDS: hydrALAZINE HCL 50 MG TAB PO SCH ×2 (13:30→21:28)
[2018-05-06] MEDS ORDERED: FUROSEMIDE 40 MG/4 ML VIAL IV PUSH SCH (18:00)
[2018-05-07 01:22] VITALS: BP 156/80; PULSE 68; RESP 16; TEMP 98.1; O2SAT 99
[2018-05-07] MEDS: HEPARIN SODIUM - SQ 10,000 UNITS/ML VIAL SQ SCH (01:25)
[2018-05-07 01:27] VITALS: PULSE 73
[2018-05-07 04:51] VITALS: BP 142/81; PULSE 70; RESP 16; TEMP 97.9; O2SAT 98
[2018-05-07 05:22] LABS: BICARBONATE 29.4 MEQ/L (21.0-32.0); CALCIUM 8.5 MG/DL (8.5-10.1); CREATININE 1.15 MG/DL (0.60-1.30)
[2018-05-07] MEDS: cloNIDine HCL 0.1 MG TAB PO SCH (06:22)
[2018-05-07] MEDS: hydrALAZINE HCL 50 MG TAB PO SCH (06:22)
[2018-05-07 08:07] VITALS: O2SAT 98
[2018-05-07] MEDS ORDERED: FUROSEMIDE 40 MG/4 ML VIAL IV PUSH SCH (09:00)
[2018-05-07 09:14] VITALS: BP 170/99; PULSE 65; RESP 16; TEMP 97.6; O2SAT 95
[2018-05-07] MEDS: INSULIN ASPART SUPPLEMENTAL SCALE SQ SCH (09:35)
[2018-05-07] MEDS: ASPIRIN 81 MG CHEW TAB PO SCH (09:36)
[2018-05-07] MEDS: DOCUSATE SODIUM 50 MG/SENNA 8.6 MG TAB PO SCH (09:36)
[2018-05-07] MEDS: POTASSIUM CHLORIDE 20 MEQ CONTROLLED RELEASE TAB PO SCH (09:36)
[2018-05-07] MEDS: BUDESONIDE-FORMOTEROL 160/4.5 MCG INHALER INH SCH (09:36)
[2018-05-07] MEDS: SODIUM CHLORIDE 0.9% FLUSH 10 ML FLUSH IV FLUSH SCH (09:37)
[2018-05-07] MEDS ORDERED: FURO1TAB60 PO (10:03)
--- NOTE | 2018-05-07 10:04 | HHI.DS ---
Discharge Summary Admission Date May 04, 2018 at 13:14 Discharge Date: May 07, 2018 Admitting Diagnosis Elevated troponin (1) Elevated troponin I level ICD Code: R79.89 - Elevated troponin I level Status: Resolved (2) Hypertension ICD Code: I10 - Hypertension Status: Acute (3) Depression ICD Code: F32.9 - Depression Status: Chronic (4) Noncompliance ICD Code: Z91.19 - Noncompliance Status: Acute (5) Diabetes ICD Code: E11.9 - Diabetes Status: Acute Procedures None Brief History - From Admission This is a 52-year-old male who presents to the emergency department complaining of bilateral lower extremity swelling for the past 3 days. He also reports of shortness of breath, productive cough of yellow phlegm and subjective fever and chills. Patient also admits to cocaine abuse. He denies chest pain and leg pain. He has history of nonischemic cardiomyopathy status post cardiac catheterization in 2017, diabetes mellitus, hypertension, asthma, COPD, sleep apnea not using his CPAP, schizophrenia, anxiety and depression. He is noncompliant with his medical therapy. At this time, patient is lethargic but easily arousable answering questions appropriately and following commands. Patient has been advised further hospitalization by ED physician secondary to elevated troponin with new EKG changes with T inversion in the 4 and V5. All other systems reviewed negative CBC/BMP: 05/04/18 1110 05/07/18 0350 Significant Findings Laboratory Tests Test 05/04/18 11:10 05/04/18 14:28 05/04/18 14:30 05/04/18 17:41 Red Blood Count 4.03 MIL/MM3 (4.50-5.90) Hemoglobin 11.2 GM/DL (13.0-17.0) Hematocrit 34.8 % (39.0-51.0) Monocytes (%) (Auto) 8.4 % (0.0-8.0) Activated Partial Thromboplast Time 33.1 SEC (24.3-30.1) Creatinine 1.37 MG/DL (0.60-1.30) Calcium Level 8.2 MG/DL (8.5-10.1) Potassium Level 3.2 MEQ/L (3.5-5.1) Chloride Level 111 MEQ/L (98-107) Estimat Glomerular Filtration Rate 67 ML/MIN (>89) Troponin I 0.09 NG/ML (0.02-0.05) 0.08 NG/ML (0.02-0.05) Blood Gas Oxygen Saturation 89 % (90-100) Arterial Blood Partial Pressure CO2 43 mmHg (38-42) Arterial Blood Carboxyhemoglobin 4.6 % (0-4) Blood Gas Hemoglobin 11.3 G/DL (12.0-16.0) Urine Bacteria OCC /hpf (NONE) Total Creatine Kinase 1050 U/L (39-308) Creatine Kinase MB 6.3 NG/ML (0.5-3.6) Test 05/04/18 23:48 05/05/18 10:55 05/05/18 13:20 05/06/18 07:53 Total Creatine Kinase 842 U/L (39-308) 682 U/L (39-308) 495 U/L (39-308) Creatine Kinase MB 5.5 NG/ML (0.5-3.6) 4.1 NG/ML (0.5-3.6) Troponin I 0.09 NG/ML (0.02-0.05) Estimat Glomerular Filtration Rate 83 ML/MIN (>89) 84 ML/MIN (>89) Urine Cocaine Screen POS (NEG) Triglycerides Level 166 MG/DL (42-150) Test 05/07/18 03:50 Estimat Glomerular Filtration Rate 82 ML/MIN (>89) Imaging Last Impressions Chest X-Ray 05/04/18 1059 Signed Impressions: CONCLUSION: No acute cardiopulmonary disease. Knee X-Ray 05/04/18 0000 Signed Impressions: CONCLUSION: Mild osteoarthritis without fracture. PE at Discharge GENERAL: This is an obese, well-developed -[place]inames[place] male patient, INAD. Awake and alert. Sitting up in bed. SKIN: Warm and dry. No generalized rash.No temporal or scalp tenderness. EYES: Pupils equal round and reactive. Extraocular motions intact. No scleral icterus. No injection or drainage. ENT: Nose without bleeding or purulent drainage. Airway patent. MMM. NECK: Trachea midline. CARDIOVASCULAR: Regular rate and rhythm without murmurs, gallops, or rubs. RESPIRATORY: Nonlabored. Clear to auscultation. Decreased breath sounds equal bilaterally secondary to patient's body habitus. No wheezes, rales, or rhonchi. GASTROINTESTINAL: Abdomen soft, non-tender, nondistended. No guarding. MUSCULOSKELETAL: Extremities without clubbing, cyanosis with 1-2+ bilateral lower extremity pitting edema involving the legs. No calf tenderness. NEUROLOGICAL: Awake and alert. Cranial nerves II through XII intact. Motor and sensory grossly within normal limits. No focal neurologic finding appreciated. Normal speech. PSYCHIATRIC: Calm and cooperative. Poor judgment and insight. Pt update on day of discharge Feels much better and wants to go home. No n/v/d/c. Denies chest pain or sob. Eating well. Hospital Course 52-year-old male who presents to the emergency department complaining of bilateral lower extremity swelling for the past 3 days. He also reports of shortness of breath, productive cough of yellow phlegm and subjective fever and chills. Patient also admits to cocaine abuse. He denies chest pain and leg pain. Dyspnea, suspect secondary to fluid overload. Resolved Acute hypoxic respiratory failure , resolved now sattign well on room air Chest x-ray shows no acute cardiopulmonary process BNP 33, possibly falsely low secondary to patient's body habitus Patient given one-time dose of 40 mg IV Lasix in the ED Echo 07/29 EF 5055%, mild LVH, no regional wall motion abnormalities, repeat echo unchanged. ABG reviewed -Strict I&Os -Continue on Lasix 40 mg IV twice daily monitor electrolytes. Switch to PO -Continue supplemental oxygen as needed to maintain O2 sats greater than 92% -wean off oxygen if need. Sattign well on room air -Continue to monitor respiratory status Minimally elevated troponin, chronic, suspect secondary to cocaine use, poor clearance Hx of nonischemic cardiomyopathy S/p cardiac catheterization showing nonobstructive CAD 07/29 Patient has no complaints of chest pain at this time -Patient counseled on cocaine cessation -ASA daily -Monitor on cardiac telemetry -no BB therapy secondary to cocaine use Rhabdomyolysis, mild, suspect secondary to cocaine use CK level trending down -Continue to monitor CK level as indicated SANDOR, suspect secondary to rhabdomyolysis Creatinine 1.37, down to 1.12 -Avoid nephrotoxic agents -Continue to monitor kidney function as indicated Hypertension, not well controlled -Continue patient on clonidine 0.1 mg every 8 hours. Increase hydralazine dose to 50 mg every 8 hours. Losartan held secondary to SANDOR and Norvasc on hold as may worsen bilateral lower extremity edema -Continue to monitor BP and adjust treatment accordingly Diabetes HgbA1c 6.4 11/29/17 Blood sugars are well controlled -Continue on Accu-Cheks and insulin sliding scale Depression Suicidal ideation Patient reports intentional cocaine overdose UDS + cocaine -Psych evaluated, appreciate assistance. Howell act lifted. Sitter discontinued. COPD, not in acute exacerbation -Continue on home bronchodilator therapy -Duo nebs as needed -Continue to monitor respiratory status DVT prophylaxis -Heparin sq Discharge Planning Improved. No chest pain or sob. Patient is eating well and wants to go home DC home in stable condition to follow up as OP with PCP and consultants. Pt Condition on Discharge: Stable Discharge Disposition: Discharge Home Discharge Time: > 30 minutes Discharge Instructions DIET: Follow Instructions for: Heart Healthy Diet, Diabetic Diet Activities you can perform: Regular-No Restrictions Follow up Referrals: PCP Follow-up - 2-3 Days New Medications: Furosemide (Lasix) 40 Mg Tab 40 MG PO DAILY for edema, #30 TAB 0 Refills Continued Medications: Albuterol 18 GM Inh (Ventolin Hfa 18 GM Inh) 90 Mcg/Act Aer 2 PUFF INH Q6H PRN for SHORTNESS OF BREATH, #1 INHALER 0 Refills Amlodipine (Norvasc) 10 Mg Tab 10 MG PO DAILY for Blood Pressure Management, #30 TAB 0 Refills Budesonide-Formoterol Inh (Symbicort Inh) 160-4.5 Mcg/Act Aero 2 PUFF INH Q12HR, #1 INHALER 0 Refills Clonidine (Catapres) 0.2 Mg Tab 0.2 MG PO Q8HR for Blood Pressure Management, #90 TAB Hydralazine HCl (Hydralazine HCl) 25 Mg Tablet 25 MG PO Q8HR for Blood Pressure Management, #90 TAB Losartan (Cozaar) 50 Mg Tab 50 MG PO Q12HR for Blood Pressure Management, #30 TAB Marce Dixon MD May 07, 2018 10:04
== END 2018-05-07 10:40 | disposition home or self-care (01) ==
LOC: NEPC 10:37 → NEDA 13:14 → NEPFCDU 16:42
PROVIDERS: ADMIT Hospitalist; ATTEND Hospitalist
DX: I50.9 Heart failure, unspecified (principal); I11.0 Hypertensive heart disease with heart failure; J44.9 Chronic obstructive pulmonary disease, unspecified; I25.10 Atherosclerotic heart disease of native coronary artery without angina pectoris; I25.2 Old myocardial infarction; J96.01 Acute respiratory failure with hypoxia; M62.82 Rhabdomyolysis; N17.9 Acute kidney failure, unspecified; E11.9 Type 2 diabetes mellitus without complications; E87.6 Hypokalemia; R45.851 Suicidal ideations; T40.5X1A Poisoning by cocaine, accidental (unintentional), initial encounter; F14.14 Cocaine abuse with cocaine-induced mood disorder; F20.9 Schizophrenia, unspecified; F32.9 Major depressive disorder, single episode, unspecified; F41.9 Anxiety disorder, unspecified; G47.30 Sleep apnea, unspecified; E78.00 Pure hypercholesterolemia, unspecified; M19.90 Unspecified osteoarthritis, unspecified site; Z72.0 Tobacco use; Z79.4 Long term (current) use of insulin; Z79.82 Long term (current) use of aspirin; Z91.19 Patient's noncompliance with other medical treatment and regimen; Z83.3 Family history of diabetes mellitus; Z59.0 Homelessness
CPT/HCPCS: 36600; 71045; 73560; 80048; 80061; 80307; 81001; 82550; 82552; 82805; 82948; 83735; 83880; 84443; 84484; 85025; 85610; 85730; 93005; 93306; 96372; 96374; 96376; 97162; 99285; G0378; G8987; G8988; J1644; J1815; J1940